=== PATIENT | male | born 1940 | race Caucasian/White ===

== ENCOUNTER → 2018-06-11 15:12 | Outpatient (CLI) | payer MEDICARE, SELFPAY ==
[2018-06-11 17:36] LABS: Absolute Lymphocyte Count 1.09 X10^3/ul (0.83-4.51); Absolute Neutrophil Count 4.5 X10^3/uL (2.0-7.7); Basophil# 0.02 X10^3/uL; Basophil% 0.3 % (0-1); Eosinophil# 0.15 X10^3/uL; Eosinophils% 2.4 % (0-5); Hematocrit 43.6 % (40-54); Hemoglobin 14.7 g/dl (13.0-16.5); Lymphocyte # 1.09 X10^3/ul (4.0); Lymphocyte % 17.1 % (19-41); Mean Corp Hgb Conc 33.7 g/gl (32-36); Mean Corpuscular Hgb 31.7 pg (27.0-32.0); Monocyte# 0.59 X10^3/uL; Monocyte% 9.3 % (0-10); Neutrophil # 4.51 X10^3/uL (2.7-7.7); Neutrophil % 70.7 % (47-70); POSITIVE COUNT NO; POSITIVE DIFFERENTIAL NO; POSITIVE MORPHOLOGY NO; Platelet Count 203 K/mm3 (150-450); RBC Distribution Width CV 12.4 % (11.6-14.6); RBC Distribution Width SD 42.1 fl (35.1-43.9); Red Blood Count 4.64 M/mm3 (4.6-6.2); White Blood Count 6.4 K/mm3 (4.4-11.0)
[2018-06-11 17:52] LABS: Anion Gap 9 (5-15); BUN 23 mg/dL (7-18); BUN/Creat Ratio 22.1 RATIO (10-20); Calcium,Total 8.8 mg/dL (8.5-10.1); Chloride 107 mmol/L (98-107); Creatinine, Serum 1.04 mg/dL (0.70-1.30); EST Glomerular Filtration Rate 74 mL/min (>60); Est Glom Filt Rate - Afr Amer 89 mL/min (>60); Glucose 124 mg/dL (74-106); Magnesium 2.3 mg/dL (1.6-2.6); Potassium 4.3 mmol/L (3.5-5.1); Sodium Level 140 mmol/L (136-145)
== END ==
LOC: LAB.FUTURE 07-07 15:39 → BFHLAB 01-02 10:22
PROVIDERS: Family Provider Family Medicine; PCP Family Medicine; Visit Provider Family Medicine
DX: R61 Generalized hyperhidrosis (principal); R25.2 Cramp and spasm
CPT/HCPCS: 36415; 80048; 83735; 85025

== ENCOUNTER → 2020-01-02 | Outpatient (CLI) | payer MEDICARE, SELFPAY ==
[2019-10-24 09:24] VITALS: BMI 26.5
[2020-01-02 15:18] LABS: Absolute Lymphocyte Count 1.23 X10^3/uL (0.83-4.51); Absolute Neutrophil Count 2.9 X10^3/uL (2.0-7.7); Basophil# 0.01 X10^3/uL; Basophil% 0.2 % (0-1); Eosinophil# 0.08 X10^3/uL; Eosinophils% 1.7 % (0-5); Hematocrit 42.4 % (40-54); Lymphocyte # 1.23 X10^3/ul (4.0); Lymphocyte % 25.8 % (19-41); Mean Corpuscular Hgb 31.1 pg (27.0-32.0); Mean Corpuscular Volume 94.2 fL (80-94); Mean Platelet Vol. 10.4 fl (6.2-12.0); Monocyte# 0.59 X10^3/uL; Monocyte% 12.4 % (0-10); NRBC Flagged by Analyzer 0 % (0-5); Neutrophil # 2.85 X10^3/uL (2.7-7.7); Neutrophil % 59.7 % (47-70); Platelet Count 204 K/mm3 (150-450); RBC Distribution Width CV 12.5 % (11.6-14.6); RBC Distribution Width SD 42.9 fl (35.1-43.9); White Blood Count 4.8 K/mm3 (4.4-11.0)
[2020-01-02 15:43] LABS: Hemoglobin A1c 5.6 % (3.8-5.6)
[2020-01-02 15:44] LABS: ALB/GLOB Ratio 1.1 RATIO (0.9-2.4); AST(SGOT) 20 U/L (15-37); Alanine Aminotransfer ALT/SGPT 25 U/L (16-61); Albumin, Serum 3.9 g/dL (3.2-5.0); Alkaline Phosphatase 59 U/L (45-117); Anion Gap 8 (5-15); BUN 20 mg/dL (7-18); BUN/Creat Ratio 21.2 RATIO (10-20); Calcium,Total 8.8 mg/dL (8.5-10.1); Chloride 106 mmol/L (98-107); Creatinine, Serum 0.94 mg/dL (0.70-1.30); EST Glomerular Filtration Rate 82 mL/min (>60); Est Glom Filt Rate - Afr Amer 99 mL/min (>60); Globulin 3.4 g/dL (2.2-4.2); Glucose 95 mg/dL (74-106); Potassium 3.8 mmol/L (3.5-5.1); Protein, Total 7.3 g/dL (6.4-8.2); Sodium Level 140 mmol/L (136-145)
== END | disposition home or self-care (01) ==
PROVIDERS: PCP Family Medicine; Visit Provider Family Medicine
DX: I10 Essential (primary) hypertension (principal); R73.01 Impaired fasting glucose; Z51.81 Encounter for therapeutic drug level monitoring
CPT/HCPCS: 36415; 80053; 83036; 85025

== ENCOUNTER → 2020-04-06 | Outpatient (CLI) | payer MEDICARE, SELFPAY ==
[2019-10-24 09:24] VITALS: BMI 26.5
== END | disposition home or self-care (01) ==
LOC: SL 08:47
PROVIDERS: PCP Family Medicine; Referring Provider Family Medicine; Visit Provider Family Medicine
DX: G47.30 Sleep apnea, unspecified (principal); G47.10 Hypersomnia, unspecified; R06.83 Snoring; I10 Essential (primary) hypertension
CPT/HCPCS: 95806

== ENCOUNTER → 2020-05-10 | Outpatient (CLI) | payer MEDICARE, SELFPAY ==
[2020-04-21 13:30] VITALS: BMI 26.5
== END | disposition home or self-care (01) ==
LOC: SL 20:11
PROVIDERS: PCP Family Medicine; Referring Provider Nurse Practitioner Acute Care; Visit Provider Nurse Practitioner Acute Care
DX: G47.33 Obstructive sleep apnea (adult) (pediatric) (principal)
CPT/HCPCS: 95810

== ENCOUNTER → 2020-06-03 09:51 | Outpatient (CLI) | payer MEDICARE, SELFPAY ==
[2020-04-21 13:30] VITALS: BMI 26.5
== END ==
PROVIDERS: PCP Family Medicine; Visit Provider Nurse Practitioner Acute Care
DX: Z46.89 Encounter for fitting and adjustment of other specified devices (principal)

== ENCOUNTER 2021-03-21 14:52 | Inpatient (IN) | payer MEDICARE, SELFPAY ==
[2021-03-21] VITALS (7 sets, daily range): BP systolic 163–184; BP diastolic 82–93; PULSE 59–97; RESP 16–22; TEMP 36.6–36.9; O2SAT 96–98; BMI 28.3; BMI 27.2
--- NOTE | 2021-03-21 16:14 | EKG12_ITS ---
Test Reason : Blood Pressure : / mmHG Vent. Rate : 090 BPM Atrial Rate : 090 BPM P-R Int : 156 ms QRS Dur : 092 ms QT Int : 390 ms P-R-T Axes : 050 -25 036 degrees QTc Int : 477 ms Sinus rhythm with Premature atrial complexes Septal infarct , age undetermined , cannot be excluded Abnormal ECG Confirmed by CLEMENTE VELASQUEZ, VERONICA ([id number]), medium cycle salesperson RAVIN FREITAS ([id number]) on 03/23/2021 9:47:24 AM Referred By: MAKSIM Confirmed By:VERONICA CORNEJO MD
--- NOTE | 2021-03-21 16:15 | EDS_ITS ---
HPI History of Present Illness Chief Complaint: Other, Pain/Inj Informant: patient and family Onset/Context/Timing Onset: Weeks Context: Gradual Onset Timing: Intermittent Current Severity: Gone Maximum Severity: Mild Narrative Narrative: 81-year-old male history of prostate cancer and hypertension. No known cardiac disease. Had a stress test years ago. Is never had a cardiac cath. For the last 4 to 6 weeks has had intermittent left arm discomfort. Not specifically associated with exertion. Denies shortness of breath with it. At times he does get intermittent chest pain. Again not specifically associated with exertion. He denies nausea. Currently symptom-free. Prior similar symptoms: Yes Recent Illness/Hospitalization: No PFSH PFSH Medical History (Updated 03/21/21 @ 18:[address] Saeid Shipley MD) CKD (chronic kidney disease) stage 4, GFR 15-29 ml/min HTN (hypertension) Prostate adenocarcinoma Vascular dialysis catheter in place Home Medications hydralazine 100 mg PO TID #180 tab 01/12/16 [Rx Last Taken Unknown] alendronate 70 mg tablet 70 mg PO QWEEK 04/21/20 [History Last Taken Unknown] amlodipine 10 mg tablet 10 mg PO BID tab 04/21/20 [History Last Taken Unknown] enzalutamide 40 mg capsule 80 mg PO DAILY 04/21/20 [History Last Taken Unknown] lisinopril 20 mg tablet 20 mg PO DAILY 04/21/20 [History Last Taken Unknown] venlafaxine [Effexor XR] 75 mg PO DAILY 03/21/21 [History Last Taken Unknown] Allergy/AdvReac Type Severity Reaction Status Date / Time No Known Allergies Allergy Verified 03/21/21 14:55 Surgical History Nephrostomy status Social History Smoking Status: Never smoker ROS ROS ED ROS Narrative Denies recent illness. Review of Systems ROS Unobtainable: Denies due to encephalopathy Constitutional Constitutional ED: Denies chills or fever(s) Eyes Eyes: Denies change in vision ENT ENT ED: Denies ear pain or sore throat Cardiovascular Cardiovascular: Reports chest pain Respiratory/Chest Respiratory/Chest: Denies dyspnea Gastrointestinal Gastrointestinal: Denies abdominal pain, diarrhea, nausea or vomiting Genitourinary Genitourinary ED: Denies dysuria Musculoskeletal Musculoskeletal: Denies myalgias Integumentary Denies rash Neurologic Neurologic: Denies headache(s) Psychiatric Psychiatric: Denies depression Endocrine Endocrinology: Denies polyuria Allergic/Immunologic Allergic/Immunologic ED: Denies urticaria EXAM Physical Exam Narrative Exam Narrative: 81-year-old male no acute distress. Vital signs stable afeb rile. Pulse ox 98% on room air no hypoxia. HEENT exam normal. Neck nontender no lymphadenopathy. Lungs clear to auscultation bilaterally. Heart regular rhythm no murmur. Chest wall nontender. Abdomen soft nontender. Patient moving all 4 extremities. 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 Equal symmetrical radial pulses. Calves are nontender without edema or cords. Back nontender. Neurologically is awake and alert. Const Vital Signs: 03/21/21 14:53 03/21/21 17:25 Temperature 98.4 F 97.8 F Temperature Source Temporal Temporal Pulse Rate 94 97 Respiratory Rate 16 22 H Blood Pressure 175/93 H 184/82 H Blood Pressure Mean 120 116 Pulse Ox 98 96 Oxygen Delivery Method Room Air Room Air Positive well nourished and well developed; Negative for unkempt General Appearance ED: well developed and NAD; Negative for unkempt HEENT Reports moist mucous membranes Negative for trauma or tenderness Eyes PERRL and EOMs intact bilaterally Neck no lymphadenopathy, supple and no JVD General: Negative for tenderness Chest Wall inspection of chest normal and palpation of chest normal Resp normal respiratory effort and clear to auscultation bilaterally Effort and Inspection: Negative for pain with movement Auscultation: Negative for rales, rhonchi or wheezes Cardio regular rate, regular rhythm, S1 normal heart sound, S2 normal heart sound and no murmurs GI normal to inspection, nondistended, normoactive bowel sounds, non-tender, non- distended and no masses Auscultation: normoactive bowel sounds Palpation: soft; Negative for tender or guarding Back/Spine no CVA tenderness General Back: Negative for CVA tenderness Extremity normal to inspection General Extremety ED: Negative for edema or tenderness General Extremity: Negative for edema Neuro oriented x3 and CN's II-XII intact bilaterally Sensorium / Orientation: alert; Negative for orientation impaired, lethargic or stuporous Motor Exam: strength 5/5 throughout Psych mental status grossly normal Appearance: Negative for unkempt Skin no rashes or lesions noted and no wounds MDM MDM MDM Narrative Medical decision making narrative: 81-year-old male atypical arm pain. Has a completely normal exam at this time no reproducible arm or chest wall pain. Currently symptom-free. Patient will undergo cardiac work-up. Patient's history of left arm pain is not reproducible and could be cardiac equivalent with his chest pain I would admit this with the elevated troponin and have him undergo further cardiac evaluation. On repeat exam patient is resting comfortably at 6:11 PM. Lab Data Attestation: I reviewed the patient's lab results. Lab results narrative: CBC shows a white count of 4. Hemoglobin 14. Platelet count of 144. Chemistries unremarkable gap of 6 normal creatinine. Glucose 119. Troponin is elevated at 334. Labs: Laboratory Results - last 24 hr 03/21/21 03/21/21 16:30 16:30 WBC 4.2 L RBC 4.71 Hgb 14.6 Hct 43.1 MCV 91.5 MCH 31.0 MCHC 33.9 RDW Std Deviation 45.1 H RDW Coeff of Carol 13.4 Plt Count 144 L MPV 9.8 Immature Gran % (Auto) 0.200 Neut % (Auto) 54.9 Lymph % (Auto) 34.0 Rooks % (Auto) 10.2 H Eos % (Auto) 0.2 Baso % (Auto) 0.5 Absolute Neuts (auto) 2.3 Absolute Lymphs (auto) 1.44 Nucleated RBC % 0 Sodium 135 L Potassium 4.4 Chloride 107 Carbon Dioxide 22.0 Anion Gap 6 BUN 13 Creatinine 0.77 Estim Creat Clear Calc 58.92 Est GFR (MDRD) Af Amer 125 Est GFR (MDRD) Non-Af 103 BUN/Creatinine Ratio 16.9 Glucose 119 H Calcium 8.6 Troponin I High Sens 334 H* Radiography Chest X-Ray - ED: 1 View, Read by ED Physician, Heart, Lungs, Mediastinum, Bony Structures, No Acute Disease and Chronic Changes Diagnostic Testing: Radiology Impression Chest X-Ray 03/21/21 16:40 IMPRESSION: No change or acute chest disease. Electronically Signed: Colby Martínez MD at 17:13 EDT , Service support , Portable single view chest x-ray interpreted myself shows no acute abnormality. Rhythm Strip Rhythm Strip: Sinus Rhythm Rate: 90 Ectopy: PAC(s) EKG Initial EKG: Attestation: I personally reviewed and interpreted this EKG as follows: Interpretation: Sinus Rhythm and No Acute Injury Pattern Comments: Sinus rhythm rate of 90 with PACs. No acute signs of OK nor ischemia. Discharge Plan Triage Chief Complaint: Other, Pain/Inj ED Provider: Saeid Shipley Dx/Rx/DC Orders Clinical Impression: Acute chest pain Prescriptions: No Action lisinopril 20 mg tablet 20 mg PO DAILY RF: 0 amlodipine 10 mg tablet 10 mg PO BID RF: 0 Xtandi 40 mg capsule 80 mg PO DAILY RF: 0 alendronate [Fosamax] 70 mg tablet 70 mg PO QWEEK RF: 0 hydralazine 50 MG tablet 100 mg PO TID Qty: 180 RF: 0 venlafaxine [Effexor XR] 75 mg capsule,extended release 24hr 75 mg PO DAILY RF: 0 Primary Care Provider: Benedicto Hinson Referrals: Benedicto Hinson DO [Primary Care Provider] - Disposition Disposition: Acute Care Hospital [facility]
[2021-03-21] MEDS: Aspirin 81 MG TAB.CHEW 324 MG PO (16:22)
--- NOTE | 2021-03-21 16:40 | RAD_ITS ---
STUDY: X-RAY CHEST REASON FOR EXAM: Male, 81 years old. chest pain TECHNIQUE: Single AP portable view of the chest. COMPARISON: 01/27/2015 FINDINGS: Soft tissue mass along both sides of the upper mediastinum, most consistent with goiter, stable. The lungs are clear and expanded. There is no demonstrated pleural abnormality. Normal size heart. Normal mediastinum and hong. Normal visualized pulmonary arteries. There is atherosclerotic calcification of the aortic arch with tortuosity. Normal visualized thoracic spine. Normal visualized ribs, clavicles, and shoulders. There is no demonstrated abnormality of the visualized soft tissue structures of the upper abdomen. RAD/Chest 1 View (Portable) IMPRESSION: No change or acute chest disease. Electronically Signed: Colby Martínez MD at 17:13 EDT , Service support ,
[2021-03-21 16:51] LABS: Absolute Lymphocyte Count 1.44 X10^3/uL (0.83-4.51); Absolute Neutrophil Count 2.3 X10^3/uL (2.0-7.7); Basophil# 0.02 X10^3/uL; Basophil% 0.5 % (0-1); Eosinophil# 0.01 X10^3/uL; Eosinophils% 0.2 % (0-5); Hematocrit 43.1 % (40-54); Hemoglobin 14.6 g/dL (13.0-16.5); Lymphocyte # 1.44 X10^3/ul (0.83-4.51); Mean Corp Hgb Conc 33.9 g/dL (32-36); Mean Corpuscular Volume 91.5 fL (80-94); Mean Platelet Vol. 9.8 fl (6.2-12.0); Monocyte# 0.43 X10^3/uL; Monocyte% 10.2 % (0-10); NRBC Flagged by Analyzer 0 % (0-5); Neutrophil # 2.32 X10^3/uL (2.7-7.7); Neutrophil % 54.9 % (47-70); Platelet Count 144 K/mm3 (150-450); RBC Distribution Width CV 13.4 % (11.6-14.6); RBC Distribution Width SD 45.1 fl (35.1-43.9); Red Blood Count 4.71 M/mm3 (4.6-6.2); White Blood Count 4.2 K/mm3 (4.4-11.0)
[2021-03-21 17:18] LABS: Anion Gap 6 (5-15); BUN 13 mg/dL (7-18); BUN/Creat Ratio 16.9 RATIO (10-20); Calcium,Total 8.6 mg/dL (8.5-10.1); Chloride 107 mmol/L (98-107); Creatinine, Serum 0.77 mg/dL (0.70-1.30); EST Glomerular Filtration Rate 103 mL/min (>60); Est Glom Filt Rate - Afr Amer 125 mL/min (>60); Estimated Creatinine Clearance 58.92 ml/min; Glucose 119 mg/dL (74-106); Potassium 4.4 mmol/L (3.5-5.1); Sodium Level 135 mmol/L (136-145); Troponin-I HS 334 pg/mL (3.0-78.0)
--- NOTE | 2021-03-21 18:35 | HP.PCM_ITS ---
Documented by User: GALINA Trinidad 03/21/21 18:46 HPI - General General Date of Admission: 03/21/21 Date of Service: 03/21/21 Chief Complaint: Arm pain HPI Narrative MARIANO QUIROZ, is a 81 M who presents with complaints of 5 out of 10 arm pain. Patient states that he also had a mild dull chest pain medial directly behind the sternum. Patient denies numbness or tingling with the pain. Patient states that he has a history of prostate cancer as well as hypertension and notes that his blood pressure has been higher than normal over the past couple weeks. Patient states that he is supposed to see his primary care physician on to address this. Patient states currently the pain has improved to 2 out of 10. Patient fever, chills, shortness of breath, cough, nausea, vomiting. PENDING SALE TO [facility] Medical History HTN (hypertension) Prostate adenocarcinoma Vascular dialysis catheter in place Home Medications alendronate 70 mg tablet 70 mg PO MO 04/21/20 [History Last Taken 03/21/21] enzalutamide 40 mg capsule 160 mg PO DAILY 04/21/20 [History Last Taken 03/20/21] lisinopril 20 mg tablet 20 mg PO DAILY 04/21/20 [History Last Taken 03/20/21] amlodipine 5 mg PO BID 03/21/21 [History Last Taken 03/21/21] berberine-herbal comb no.18 1 cap PO DAILY 03/21/21 [History Last Taken 03/21/21] calcium-magnesium 1 tab PO DAILY 03/21/21 [History Last Taken 03/21/21] hydralazine 100 mg PO TID 03/21/21 [History Last Taken 03/21/21] potassium chloride 20 meq PO DAILY 03/21/21 [History Last Taken 03/21/21] venlafaxine [Effexor XR] 75 mg PO DAILY 03/21/21 [History Last Taken 03/21/21] Allergy/AdvReac Type Severity Reaction Status Date / Time No Known Allergies Allergy Verified 03/21/21 14:55 Family History Brother Diabetes other (Patient denies significant medical history including SD, CVA, DM for mother or father) Surgical History Nephrostomy status Social History Smoking Status: Never smoker alcohol intake: never substance use type: does not use ROS Constitutional Constitutional: Denies anorexia, chills, fatigue or weakness Cardiovascular Cardiovascular: Reports chest pain, radiating jaw, neck or arm pain and tachypnea; Denies edema, nausea, syncope or vomiting Respiratory/Chest Respiratory/Chest: Denies cough, shortness of breath at rest or shortness of breath with exertion Gastrointestinal Gastrointestinal: Denies abdominal pain, constipation, diarrhea, nausea or vomiting Genitourinary Genitourinary: Denies dysuria Musculoskeletal Musculoskeletal: Denies back pain, extremity pain, joint pain or joint stiffness Integumentary Integumentary: Denies dry skin Neurologic Neurologic: Denies abnormal gait, abnormal speech, confusion or dizziness Psychiatric Psychiatric: Denies anxiety or depression Endocrine Endocrinology: Denies change in body appearance Hematologic/Lymphatic Hematologic/Lymphatic: Denies anemia, easy bleeding or easy bruising Vital Signs Vital Signs Vital Signs: 03/21/21 14:53 03/21/21 17:25 Temperature 98.4 F 97.8 F Temperature Source Temporal Temporal Pulse Rate 94 97 Respiratory Rate 16 22 H Blood Pressure 175/93 H 184/82 H Blood Pressure Mean 120 116 Pulse Ox 98 96 Oxygen Delivery Method Room Air Room Air Weight Weight: 191 lb 12.835 oz Body Mass Index (BMI) 28.3 Physical Exam Const alert, oriented x3 and no apparent distress General Appearance: cooperative HEENT normocephalic and head/scalp atraumatic Eyes conjunctivae normal and no scleral icterus Neck supple and no JVD General: trachea midline Resp normal respiratory effort, normal air movement and clear to auscultation bilaterally Cardio regular rate, regular rhythm, S1 normal heart sound and S2 normal heart sound GI normal to inspection, nondistended, normoactive bowel sounds, soft to palpation and non-tender Extremity normal capillary refill and no clubbing, cyanosis or edema General Extremity: no tenderness to palpation of joints or extremities Skin General Skin Exam: no breakdown and turgor normal Lesions: no lesions Rashes: no rashes Neuro no focal motor deficits and no sensory deficits noted Speech: speech normal Motor Exam: Negative for general weakness Psych thought process normal, cooperative and affect normal Appearance: appropriate Results Lab / Micro Data Result Diagrams: 03/21/21 16:30 03/21/21 16:30 Labs: Laboratory Results - last 24 hr 03/21/21 16:30: WBC 4.2 L, RBC 4.71, Hgb 14.6, Hct 43.1, MCV 91.5, MCH 31.0, MCHC 33.9, RDW Std Deviation 45.1 H, RDW Coeff of Carol 13.4, Plt Count 144 L, MPV 9.8, Immature Gran % (Auto) 0.200, Neut % (Auto) 54.9, Lymph % (Auto) 34.0, Travis % (Auto) 10.2 H, Eos % (Auto) 0.2, Baso % (Auto) 0.5, Absolute Neuts (auto) 2.3, Absolute Lymphs (auto) 1.44, Nucleated RBC % 0 03/21/21 16:30: Sodium 135 L, Potassium 4.4, Chloride 107, Carbon Dioxide 22.0, Anion Gap 6, BUN 13, Creatinine 0.77, Estim Creat Clear Calc 58.92, Est GFR (MDRD) Af Amer 125, Est GFR (MDRD) Non-Af 103, BUN/Creatinine Ratio 16.9, Glucose 119 H, Calcium 8.6, Troponin I High Sens 334 H* Rhythm Strip Rhythm Strip: Sinus Rhythm Rate: 90 Ectopy: PAC(s) Radiology Impression Chest X-Ray 03/21/21 16:40 IMPRESSION: No change or acute chest disease. Electronically Signed: Colby Martínez MD at 17:13 EDT , Service support , Assessment & Plan Assessment/Plan (1) Acute chest pain: PLAN: 1. Acute chest pain -Admit to PCU for cardiac monitoring -Consult cardiology -Trend cardiac enzymes, initial level 334 -Cardiac diet -N.p.o. at midnight pending probable testing by cardiology -PT and OT to eval and treat -CBC, CMP, lipid profile, magnesium, phosphorus, TSH ordered -Vital signs per protocol 2. Hypertension -Patient reports that blood pressures have been running higher than usual, will continue home medication regimen. -Will start metoprolol tartrate 25 mg twice daily -As needed hydralazine IV ordered -Vital signs per protocol, trend BP 3. Prostate cancer -Continue Xtandi, daughter states she will bring from home -Currently stable, patient reports he underwent chemotherapy and is maintained on hormonal Xtandi DVT prophylaxis-subcu Lovenox This patient was seen by VISHNU TrinidadC under the supervision of Dr. Salcedo. Documented by User: Dr. Negrita Salcedo DO 03/21/21 18:58 HPI - General General Date of Admission: 03/21/21 Date of Service: 03/21/21 Chief Complaint: Left arm pain HPI Narrative This patient was seen in conjunction with Dee Rome NP. The following represents my independent history physical examination. Please see below for any addendum of the above. Mr. Quiroz is an 81-year-old white male who presented to the emergency department at [facility] upon the urging of his daughter who was at the bedside for left arm pain. He reports that he has been having left arm pain on and off over the last 6 weeks. He states that it time it is in his back in the scapular area. He has no associated symptoms. He has not noticed any w orsening of symptoms with exertion and states he often gets symptoms while he sitting on the computer. His symptoms had resolved prior to presentation and have not returned since he has been in the emergency department. His blood pressures been markedly elevated since arrival and the family indicates that this has been a problem for him since presentation. He has no history of known coronary disease nor any family history of known coronary disease. He is on therapy for prostate adenocarcinoma which he has been on for the last 6 years. His vital signs were stable other than hypertension. His CBC shows a mildly reduced white count of 4.2 and thrombocytopenia with a platelet count of 144. Both of these lab values have been normal previously. His BNP shows a mildly reduced sodium at 135. His serum creatinine is normal. His blood glucose is 119-this is not fasting. His high-sensitivity troponin was elevated at 334. His chest x-ray shows no acute processes. His EKG was reviewed and shows no acute ST-T wave changes consistent with ischemia. PENDING SALE TO [facility] Medical History HTN (hypertension) Prostate adenocarcinoma Vascular dialysis catheter in place Home Medications alendronate 70 mg tablet 70 mg PO MO 04/21/20 [History Last Taken 03/21/21] enzalutamide 40 mg capsule 160 mg PO DAILY 04/21/20 [History Last Taken 03/20/21] lisinopril 20 mg tablet 20 mg PO DAILY 04/21/20 [History Last Taken 03/20/21] amlodipine 5 mg PO BID 03/21/21 [History Last Taken 03/21/21] berberine-herbal comb no.18 1 cap PO DAILY 03/21/21 [History Last Taken 03/21/21] calcium-magnesium 1 tab PO DAILY 03/21/21 [History Last Taken 03/21/21] hydralazine 100 mg PO TID 03/21/21 [History Last Taken 03/21/21] potassium chloride 20 meq PO DAILY 03/21/21 [History Last Taken 03/21/21] venlafaxine [Effexor XR] 75 mg PO DAILY 03/21/21 [History Last Taken 03/21/21] Allergy/AdvReac Type Severity Reaction Status Date / Time No Known Allergies Allergy Verified 03/21/21 14:55 Family History Brother Diabetes Surgical History Nephrostomy status Social History Smoking Status: Never smoker alcohol intake: never substance use type: does not use ROS Constitutional Constitutional: Denies anorexia, change in weight, chills, fatigue, fever(s), malaise, night sweats, weakness, weight gain or weight loss Eyes Eyes: Denies blurry vision, change in vision, discharge from eye(s), double vision, erythema, eye pain, irritation or itchy eyes ENT HEENT: Denies abnormal hearing, dysphagia, ear pain, epistaxis, headache(s), hearing loss, loss taste/smell, nasal congestion, nasal discharge, post nasal drip, sinus pain, sinus pressure, sore throat or throat swelling Cardiovascular Cardiovascular: Denies chest pain, claudication, edema, orthopnea, palpitations, paroxysmal nocturnal dyspnea or syncope Respiratory/Chest Respiratory/Chest: Denies cough, hemoptysis, shortness of breath at rest, shortness of breath with exertion or wheezing Gastrointestinal Gastrointestinal: Denies abdominal pain, constipation, diarrhea, dyspepsia, hematemesis, hematochezia, melena, nausea or vomiting Genitourinary Genitourinary: Denies dysuria, hematuria, nocturia, oliguria, polyuria, urinary frequency, urinary hesitancy, urinary incontinence or urinary urgency Musculoskeletal Musculoskeletal: Reports joint pain, joint stiffness and neck pain Integumentary Integumentary: Denies dry skin, jaundice, lesions, pruritus, rash or wounds Neurologic Neurologic: Denies abnormal gait, abnormal speech, confusion, dizziness, focal weakness, headache(s), lack of coordination, numbness, seizures, sensory deficit, tingling, tremor(s) or weakness Psychiatric Psychiatric: Denies anxiety, depression, homicidal ideation or suicidal ideation Endocrine Endocrinology: Denies change in body appearance, cold intolerance, heat intolerance, polydipsia or polyuria Hematologic/Lymphatic Hematologic/Lymphatic: Denies anemia, easy bleeding, easy bruising or lymphadenopathy Physical Exam Const alert, oriented x3 and no apparent distress Constitutional Narrative: Overweight, elderly white male sitting up in bed, appears comfortable and nontoxic, daughter at bedside General Appearance: cooperative and well developed HEENT normocephalic, head/scalp atraumatic and moist oral mucous membranes HEENT Narrative: Fair dentition, Mallampati 2 Eyes PERRL and EOMs intact bilaterally Eyes Narrative: Conjunctiva normal, sclera normal Neck no lymphadenopathy, supple, no JVD, thyroid normal and no carotid bruits General: trachea midline Lymph Lymphatic: no lymphadenopathy noted Resp normal respiratory effort, normal air movement and clear to auscultation bilaterally Effort and Inspection: Negative for respiratory distress or uses accessory muscles Auscultation: Negative for rales, rhonchi or wheezes Cardio regular rate, regular rhythm, S1 normal heart sound, S2 normal heart sound, no murmurs, no rub and peripheral pulses 2+ throughout; Negative for no gallops Cardio Narrative: S4 gallop GI normal to inspection, nondistended, normoactive bowel sounds, soft to palpation, non-tender and non-distended Palpation: no hepatosplenomegaly Extremity normal capillary refill and no clubbing, cyanosis or edema General Extremity: no tenderness to palpation of joints or extremities Skin no rashes or lesions noted, no wounds, skin turgor normal, no jaundice, no petechiae and no mottling General Skin Exam: no breakdown and turgor normal Lesions: no lesions Rashes: no rashes Neuro CN's II-XII intact bilaterally, no focal motor deficits and no sensory deficits noted Speech: speech normal Motor Exam: general weakness Psych thought process normal, cooperative and affect normal Appearance: appropriate Results Lab / Micro Data Attestation: I reviewed the patient's lab results. Result Diagrams: 03/21/21 16:30 03/21/21 16:30 Assessment & Plan Assessment/Plan (1) Non-ST elevation myocardial infarction (NSTEMI), initial care episode: (2) Thrombocytopenia: (3) Leukopenia: (4) HTN (hypertension): PLAN: Assessment: NSTEMI Thrombocytopenia Leukopenia Mild hyponatremia Uncontrolled hypertension MARY CARMEN History of prostate cancer Plan: -EKG shows no acute ST-T wave changes -Initial troponin elevated--> we will cycle cardiac enzymes -Start Lovenox 90 twice daily -Full dose aspirin given in the ED -Start low-dose aspirin tomorrow -Check a.m. lipids -Consult cardiology -Suspect patient will need cardiac catheterization and will make n.p.o. after midnight -Cardiac diet -Start metoprolol and stop home amlodipine -Continue all other home medications except for alendronate and potassium Charges/Coding Visit Charges Inpatient E&M: 84831 Init Hosp L3
--- NOTE | 2021-03-21 20:04 | PCS.PANDOC ---
PANDEMIC DOCUMENTATION INITIATED: Date: 03/07/2021 Time: 190
[2021-03-21] MEDS: hydrALAZINE 50 MG Tablet 100 MG PO (20:47)
[2021-03-21] MEDS: Metoprolol Tartrate 25 MG Tablet PO (20:47)
[2021-03-21] MEDS: Atorvastatin Calcium 80 MG Tablet PO (20:47)
[2021-03-21] MEDS: Enoxaparin 100 MG/ML Syringe 90 MG SC (20:48)
[2021-03-21 21:18] LABS: Troponin-I HS 599 pg/mL (3.0-78.0)
[2021-03-21 23:42] LABS: Troponin-I HS 777 pg/mL (3.0-78.0)
[2021-03-22] VITALS (21 sets, daily range): BP systolic 132–156; BP diastolic 65–76; PULSE 58–74; RESP 16–18; TEMP 36.4–36.8; O2SAT 96–98
[2021-03-22] MEDS: hydrALAZINE 50 MG Tablet 100 MG PO ×3 (04:14→20:36)
[2021-03-22 07:54] LABS: Absolute Lymphocyte Count 1.61 X10^3/uL (0.83-4.51); Absolute Neutrophil Count 1.6 X10^3/uL (2.0-7.7); Basophil# 0.02 X10^3/uL; Basophil% 0.5 % (0-1); Eosinophil# 0.04 X10^3/uL; Hematocrit 39.8 % (40-54); Hemoglobin 13.8 g/dL (13.0-16.5); Lymphocyte # 1.61 X10^3/ul (0.83-4.51); Lymphocyte % 41.6 % (19-41); Mean Corp Hgb Conc 34.7 g/dL (32-36); Mean Corpuscular Hgb 31.6 pg (27.0-32.0); Mean Corpuscular Volume 91.1 fL (80-94); Monocyte% 15.5 % (0-10); NRBC Flagged by Analyzer 0 % (0-5); Neutrophil # 1.59 X10^3/uL (2.7-7.7); Neutrophil % 41.1 % (47-70); Platelet Count 151 K/mm3 (150-450); RBC Distribution Width CV 13.7 % (11.6-14.6); RBC Distribution Width SD 45.4 fl (35.1-43.9); Red Blood Count 4.37 M/mm3 (4.6-6.2); White Blood Count 3.9 K/mm3 (4.4-11.0)
--- NOTE | 2021-03-22 08:45 | ECHOCS_ITS ---
Reason For Study: S/P NSTEMI Procedure This was a 2D Doppler, Color Flow transthoracic echocardiogram. The study was technically difficult. Contrast injection was performed. Exam performed portable in patient room. Left Ventricle Normal LV size. Left ventricular systolic function is normal. The estimated ejection fraction is 65 %. Diastolic function is indeterminate. No regional wall motion abnormalities noted. Right Ventricle Normal RV size. Normal systolic function. Atria The left atrium is mildly enlarged. Normal right atrium. No doppler evidence for ASD. Mitral Valve There is moderate mitral annular calcification. Extension of the mitral annular calcification on the base of the posterior mitral valve leaflet. Mild focal mitral valve calcification of the anterior leaflet. Moderate (2+) eccentric mitral valve insufficiency. Tricuspid Valve Normal tricuspid valve. Mild tricuspid valve insufficiency. Right ventricular systolic pressure estimated to be 26 mmHg. Aortic Valve Trisinus/trileaflet aortic valve. Mild diffuse aortic valve thickening. Mild focal aortic valve calcification. Aortic sclerosis, no stenosis. Mild (1+) aortic valve insufficiency. Pulmonic Valve The pulmonic valve is not well visualized. Mild (1+) pulmonic valve insufficiency. Great Vessels The aortic root is not well visualized. Pericardium/Pleural No pericardial effusion. Medication Diluted definity 3.0ml given slow IV push to enhance endocardial definition. MMode/2D Measurements & Calculations LVIDd: 3.9 cm IVSd: 0.89 cm LVOT diam: 2.0 cm LVIDs: 2.5 cm LVPWd: 0.86 cm RVDd: 3.2 cm FS: 37.3 % LVOT area: 3.0 cm2 LAV(MOD-bp): 61.0 ml LVAd ap4: 32.7 cm2 LVAd ap2: 36.9 cm2 LAV(MOD-bp) Indexed: 30.6 ml/m2 LVLd ap4: 8.3 cm LVLd ap2: 8.5 cm LAV(MOD-sp2): 52.6 ml EDV(MOD-sp4): 106.0 ml EDV(MOD-sp2): 125.5 ml LAV(MOD-sp4): 56.3 ml EDV(sp4-el): 109.5 ml EDV(sp2-el): 135.3 ml LVAs ap4: 19.0 cm2 LVAs ap2: 19.2 cm2 LVLs ap4: 6.5 cm LVLs ap2: 6.9 cm ESV(MOD-sp4): 44.3 ml ESV(MOD-sp2): 44.4 ml ESV(sp4-el): 46.9 ml ESV(sp2-el): 45.4 ml EF(MOD-sp4): 58.2 % EF(MOD-sp2): 64.6 % EF(sp4-el): 57.1 % SV(MOD-sp4): 61.7 ml SV(MOD-sp2): 81.1 ml SV(sp4-el): 62.6 ml LA A4 area: 20.4 cm2 LA dimension(2D): 3.7 cm RA A4 area: 13.9 cm2 Time Measurements MV dec time: 0.35 sec Doppler Measurements & Calculations MV E max james: 94.5 cm/sec Lat Peak E' James: 8.3 cm/sec Med Peak E' James: 6.6 cm/sec MV A max james: 106.3 cm/sec E/E' lat: 11.3 E/E' med: 14.2 MV E/A: 0.89 MV V2 max: 106.9 cm/sec Ao V2 max: 136.4 cm/sec LV V1 max: 113.3 cm/sec MV max P.6 mmHg Ao max P.4 mmHg LV V1 max P.1 mmHg MV V2 mean: 58.8 cm/sec Ao V2 mean: 98.4 cm/sec LV V1 mean P.8 mmHg MV mean P.7 mmHg Ao mean P.2 mmHg LV V1 mean: 79.5 cm/sec MV V2 VTI: 37.2 cm Ao V2 VTI: 32.8 cm LV V1 VTI: 27.7 cm MVA(VTI): 2.2 cm2 ARTEM(I,D): 2.6 cm2 ARTEM(V,D): 2.5 cm2 SV(LVOT): 83.7 ml PA V2 max: 75.9 cm/sec PI end-d james: 97.4 cm/sec TR max james: 239.6 cm/sec TR max P.0 mmHg ECHO/Echo Complete W/ Contrast Interpretation Summary The study was technically difficult. Contrast injection was performed. Left ventricular systolic function is normal. The estimated ejection fraction is 65 %. The left atrium is mildly enlarged. There is moderate mitral annular calcification. Extension of the mitral annular calcification on the base of the posterior mitr al valve leaflet. Mild focal mitral valve calcification of the anterior leaflet. Moderate (2+) eccentric mitral valve insufficiency. Mild tricuspid valve insufficiency. Aortic sclerosis, no stenosis. Mild (1+) aortic valve insufficiency. Mild (1+) pulmonic valve insufficiency. Right ventricular systolic pressure estimated to be 26 mmHg. Diastolic function is indeterminate. Ordering Physician: Emery Ambrosio Referring Physician: SHANTI VALLE Performed By: Radha Guevara, RDCS, RVT
[2021-03-22 09:09] LABS: AST(SGOT) 41 U/L (15-37); Alanine Aminotransfer ALT/SGPT 35 U/L (16-61); Albumin, Serum 3.3 g/dL (3.2-5.0); Alkaline Phosphatase 84 U/L (45-117); Anion Gap 6 (5-15); BUN 15 mg/dL (7-18); BUN/Creat Ratio 22.5 RATIO (10-20); Calcium,Total 8.3 mg/dL (8.5-10.1); Chloride 108 mmol/L (98-107); Cholesterol 197 mg/dL (200); Creatinine, Serum 0.67 mg/dL (0.70-1.30); EST Glomerular Filtration Rate 122 mL/min (>60); Est Glom Filt Rate - Afr Amer 148 mL/min (>60); Estimated Creatinine Clearance 58.92 ml/min; Globulin 3.2 g/dL (2.2-4.2); Glucose 97 mg/dL (74-106); High Density Lipoprotein 42 mg/dL; Magnesium 2.3 mg/dL (1.6-2.6); Phosphorus 3.4 mg/dL (2.5-4.9); Potassium 3.8 mmol/L (3.5-5.1); Protein, Total 6.5 g/dL (6.4-8.2); Sodium Level 137 mmol/L (136-145); Thyroid Stim Hormone (TSH) 1.19 uIU/mL (0.358-3.74); Triglycerides 154 mg/dL; Very Low Density Lipoprotein 31 mg/dL (5-40)
--- NOTE | 2021-03-22 09:23 | CASEMGMT ---
[facility] to [facility], the following are in-network tertiary facilities: [facility], [place], [facility], [facility], [facility], [facility], and . Minh VILLALTA CM
[2021-03-22] MEDS: Aspirin E.C. 81 MG Tablet PO (09:31)
[2021-03-22] MEDS: TICAGRELOR 90 MG TABLET 180 MG PO (09:31)
[2021-03-22] MEDS: Lisinopril 20 MG Tablet PO (09:31)
[2021-03-22] MEDS: Metoprolol Tartrate 25 MG Tablet PO ×2 (09:31→20:36)
[2021-03-22] MEDS: Venlafaxine XR 75 MG Capsule PO (09:31)
--- NOTE | 2021-03-22 10:10 | PCM.CONS.C ---
Assessment & Plan Assessment/Plan (1) Non-ST elevation myocardial infarction (NSTEMI), initial care episode: PLAN: The patient has findings compatible with an acute non-ST segment elevation HI. At the present time he is being monitored. He will continue medical therapy as deemed appropriate. He has been recommended for further evaluation with diagnostic cardiac catheterization. The procedure and risk were discussed with him. He was agreeable to this approach. (2) Unstable angina: PLAN: The patient has symptoms going back over approximately the last 1 month appearing compatible with unstable angina pectoris as the symptoms have been occurring in a nonexertional state. The patient presented for further evaluation care and has been found to have findings compatible with an acute non-ST segment elevation HI. He will continue medical therapy. He will proceed with further evaluation with diagnostic cardiac catheterization as noted above. (3) HTN (hypertension): QUALIFIERS: Hypertension type: unspecified Qualified Code(s): I10 - Essential (primary) hypertension PLAN: The patient states he has a history of hypertension. He notes his blood pressure has been more challenging recently. His blood pressure can be monitored and his medications adjusted accordingly. Addt'l Comments The above was discussed with the patient. He was agreeable to this approach. This note was generated using a voice recognition system and there may be incorrect words, spelling or punctuation that were not noted when reviewing the office note prior to saving. HPI Consult Data Date of Consult: 03/22/21 HPI Narrative HPI Narrative: MARIANO FRANCO, is a 81 year old white male who presents for cardiovascular consultation based upon concerns of chest discomfort concerning for unstable angina pectoris and abnormal cardiac enzymes concerning for an acute non-ST segment elevation HI superimposed upon a history of hypertension. The patient states the best of his knowledge she has no known cardiovascular history. He notes that recently, over the last approximately 1 month, he has had episodes which have been nonexertional which have included precordial/substernal chest discomfort with radiation to the left shoulder and both left arm. These episodes worsened within the last 24 hours while he was sitting at his computer. He denied any associated nausea, emesis, diaphoresis, or dyspnea. There is been no orthopnea, PND, or peripheral pitting edema. He denies any near-syncope or syncope. He presented to [facility] emergency department for further evaluation. He was found to have abnormal troponin I levels. His ECG demonstrated sinus rhythm with a nonspecific T wave abnormality. He was placed in the PCU for further evaluation and care. During this time his troponin I levels have increased. He did receive medical therapy which included 1 dose of subcutaneous enoxaparin/Lovenox. He has been referred for further evaluation with diagnostic cardiac catheterization. [facility] Medical History HTN (hypertension) Prostate adenocarcinoma Vascular dialysis catheter in place Home Medications alendronate 70 mg tablet 70 mg PO MO 04/21/20 [History Last Taken 03/21/21] enzalutamide 40 mg capsule 160 mg PO DAILY 04/21/20 [History Last Taken 03/20/21] lisinopril 20 mg tablet 20 mg PO DAILY 04/21/20 [History Last Taken 03/20/21] amlodipine 5 mg PO BID 03/21/21 [History Last Taken 03/21/21] berberine-herbal comb no.18 1 cap PO DAILY 03/21/21 [History Last Taken 03/21/21] calcium-magnesium 1 tab PO DAILY 03/21/21 [History Last Taken 03/21/21] hydralazine 100 mg PO TID 03/21/21 [History Last Taken 03/21/21] potassium chloride 20 meq PO DAILY 03/21/21 [History Last Taken 03/21/21] venlafaxine [Effexor XR] 75 mg PO DAILY 03/21/21 [History Last Taken 03/21/21] Allergy/AdvReac Type Severity Reaction Status Date / Time No Known Allergies Allergy Verified 03/21/21 14:55 Family History Brother Diabetes Surgical History Nephrostomy status Social History Smoking Status: Never smoker alcohol intake: never substance use type: does not use ROS Constitutional Constitutional: Reports as per HPI Eyes Eyes: Reports as per HPI ENT HEENT: Reports as per HPI Cardiovascular Cardiovascular: Reports chest pain and chest pain at rest Respiratory/Chest Respiratory/Chest: Reports as per HPI Gastrointestinal Gastrointestinal: Reports as per HPI Genitourinary Genitourinary: Reports as per HPI Musculoskeletal Musculoskeletal: Reports as per HPI Integumentary Integumentary: Reports as per HPI Neurologic Neurologic: Reports as per HPI Physical Exam Const alert, oriented x3, no apparent distress and healthy appearing Orientation / Consciousness: awake HEENT normocephalic, head/scalp atraumatic and hearing grossly normal bilaterally Eyes PERRL, EOMs intact bilaterally and conjunctivae normal Neck full ROM, supple and no JVD Chest inspection of chest normal Resp clear to auscultation bilaterally Cardio regular rate, regular rhythm, S1 normal heart sound and S2 normal heart sound GI normal to inspection, nondistended, normoactive bowel sounds Extremity no pedal edema Skin no rashes or lesions noted Neuro oriented x3, moves all extremities, no focal motor deficits and no sensory deficits noted Psych mental status grossly normal Procedure Criteria Type of Procedure Procedure Type: Elective Elective Risks - COVID COVID Risk Discussion: The surgeon/proceduralist and patient have discussed in detail the risk of exposure to and/or potential harm posed by the COVID-19 virus with having a surgery/procedure at this time versus the risk of delaying the surgery/procedure. It is not possible to know either the risk of delaying the surgery or procedure or chance of getting an infection with perfect accuracy, but a joint decision was made between the patient and the surgeon/proceduralist to proceed at this time with the scheduled surgery/procedure as indicated on the consent form. Objective Data Vital Signs: Vital Signs Temp Pulse Resp BP Pulse Ox 97.6 F L 74 18 156/72 H 97 03/22/21 08:09 03/22/21 09:31 03/22/21 08:09 03/22/21 08:09 03/22/21 08:09 Oxygen Delivery Method Room Air Weight: 184 lb 8.43 oz Body Mass Index (BMI) 27.2 Intake & Output: Intake and Output for Last 24 Hours 03/20/21 03/21/21 03/22/21 23:59 23:59 23:59 Intake Total 340 / 340 Balance 340 / 340 Lab / Micro Data Result Diagrams: 03/22/21 05:55 03/22/21 05:55 Labs: Laboratory Results - last 24 hr 03/21/21 16:30: WBC 4.2 L, RBC 4.71, Hgb 14.6, Hct 43.1, MCV 91.5, MCH 31.0, MCHC 33.9, RDW Std Deviation 45.1 H, RDW Coeff of Carol 13.4, Plt Count 144 L, MPV 9.8, Immature Gran % (Auto) 0.200, Neut % (Auto) 54.9, Lymph % (Auto) 34.0, Stephenson % (Auto) 10.2 H, Eos % (Auto) 0.2, Baso % (Auto) 0.5, Absolute Neuts (auto) 2.3, Absolute Lymphs (auto) 1.44, Nucleated RBC % 0 03/21/21 16:30: Sodium 135 L, Potassium 4.4, Chloride 107, Carbon Dioxide 22.0, Anion Gap 6, BUN 13, Creatinine 0.77, Estim Creat Clear Calc 58.92, Est GFR (MDRD) Af Amer 125, Est GFR (MDRD) Non-Af 103, BUN/Creatinine Ratio 16.9, Glucose 119 H, Calcium 8.6, Troponin I High Sens 334 H* 03/21/21 20:26: Troponin I High Sens 599 H* 03/21/21 22:40: Troponin I High Sens 777 H* 03/22/21 05:55: WBC 3.9 L, RBC 4.37 L, Hgb 13.8, Hct 39.8 L, MCV 91.1, MCH 31.6, MCHC 34.7, RDW Std Deviation 45.4 H, RDW Coeff of Carol 13.7, Plt Count 151, MPV 10.0, Immature Gran % (Auto) 0.300, Neut % (Auto) 41.1 L, Lymph % (Auto) 41.6 H, Stephenson % (Auto) 15.5 H, Eos % (Auto) 1.0, Baso % (Auto) 0.5, Absolute Neuts (auto) 1.6 L, Absolute Lymphs (auto) 1.61, Nucleated RBC % 0 03/22/21 05:55: Sodium 137, Potassium 3.8, Chloride 108 H, Carbon Dioxide 23.0, Anion Gap 6, BUN 15, Creatinine 0.67 L, Estim Creat Clear Calc 58.92, Est GFR (MDRD) Af Amer 148, Est GFR (MDRD) Non-Af 122, BUN/Creatinine Ratio 22.5 H, Glucose 97, Calcium 8.3 L, Phosphorus 3.4, Magnesium 2.3, Total Bilirubin 0.90, AST 41 H, ALT 35, Alkaline Phosphatase 84, Total Protein 6.5, Albumin 3.3, Globulin 3.2, Albumin/Globulin Ratio 1.0, Triglycerides 154, Cholesterol 197, LDL Cholesterol 124, VLDL Cholesterol 31, HDL Cholesterol 42, TSH 1.19 Micro: Microbiology 03/21/21 19:00 Interface Orders SARS-CoV-2 Antigen (Rapid) - Final Rhythm Strip Rhythm Strip: Sinus Rhythm Rate: 90 Ectopy: PAC(s) Cardiology Labs/Tests 03/21/21 16:30: WBC 4.2 L, RBC 4.71, Hgb 14.6, Hct 43.1, MCV 91.5, MCH 31.0, MCHC 33.9, Plt Count 144 L, MPV 9.8, Immature Gran % (Auto) 0.200, Neut % (Auto) 54.9, Lymph % (Auto) 34.0, Stephenson % (Auto) 10.2 H, Eos % (Auto) 0.2, Baso % (Auto) 0.5, Absolute Neuts (auto) 2.3, Nucleated RBC % 0 03/21/21 16:30: Sodium 135 L, Potassium 4.4, Chloride 107, Carbon Dioxide 22.0, Anion Gap 6, BUN 13, Creatinine 0.77, Est GFR (MDRD) Af Amer 125, Est GFR (MDRD) Non-Af 103, BUN/Creatinine Ratio 16.9, Glucose 119 H, Calcium 8.6 03/22/21 05:55: WBC 3.9 L, RBC 4.37 L, Hgb 13.8, Hct 39.8 L, MCV 91.1, MCH 31.6, MCHC 34.7, Plt Count 151, MPV 10.0, Immature Gran % (Auto) 0.300, Neut % (Auto) 41.1 L, Lymph % (Auto) 41.6 H, Stephenson % (Auto) 15.5 H, Eos % (Auto) 1.0, Baso % (Auto) 0.5, Absolute Neuts (auto) 1.6 L, Nucleated RBC % 0 03/22/21 05:55: Sodium 137, Potassium 3.8, Chloride 108 H, Carbon Dioxide 23.0, Anion Gap 6, BUN 15, Creatinine 0.67 L, Est GFR (MDRD) Af Amer 148, Est GFR (MDRD) Non-Af 122, BUN/Creatinine Ratio 22.5 H, Glucose 97, Calcium 8.3 L, Phosphorus 3.4, Magnesium 2.3, Total Bilirubin 0.90, Triglycerides 154, Cholesterol 197, LDL Cholesterol 124, VLDL Cholesterol 31, HDL Cholesterol 42 Rhythm: Sinus rhythm EKG: Sinus rhythm; nonspecific T wave abnormality Radiography Diagnostic Testing: Radiology Impression Chest X-Ray 03/21/21 16:40 IMPRESSION: No change or acute chest disease. Electronically Signed: Colby Martínez MD at 17:13 EDT , Service support ,
--- NOTE | 2021-03-22 10:55 | CASEMGMT ---
RN CM Face to Face with family for initial transition planning/care coordination assessment. RN CM introduced self and role at [facility]. Patient out of room for procedure, and daughter in room. Family willing to participate in assessment and is able to answer all questions appropriately. Care providers, pharmacy, and demographics verified. Family wishes for patient to discharge home, denies need for home health at this time. and daughter state they has no further needs or concerns at this time. CM to follow for discharge planning needs that may arise. PCP: Sravan Specialists: Steph oncologist [facility] Insurance: [employer] [facility] Prescription Benefit: yes Living Will/HPOA: yes, family know of living will not sure of HPOA. SW information card given if they would like to update advance directives LNOK: , daughter Living Arrangements: Patient lives with in a 2 story home. Patient is independent and able to ambulate stairs. Transportation: self, , daughter DME/HHC: Family denies DME at home. No previous HHC. Disposition Plan: Patient to discharge home with family support and follow-up plans in place. Ana PERKINSN, RN, CM
--- NOTE | 2021-03-22 11:43 | CL.D_ITS ---
Patient Name: MARIANO FRANCO Study Date: 03/22/2021 Performing: Emery Ambrosio MD Ht: 69 inches 175 cm : 1940 Wt: 185.4 lbs 84 kg Age: 81 Gender: male BSA: 2 PROCEDURE(S) PERFORMED [id number]/[id number] CLINICAL PROFILE AND INDICATIONS Indications: ACS <= 24 hrs Heart Failure: None Stress/Imaging Stress/Image Study Performed: No Angina Classification Anginal Classification w/in 2 Weeks: CCS IV CAD Presentations: Non-STEMI. CONCLUSIONS [place] Multivessel CAD RECOMMENDATIONS Risk factor modification Medical therapy Surgery consult for coronary revascularization DESCRIPTION OF PROCEDURE The patient arrived to the procedure lab. The risks and benefits of the procedure as well as a full d escription of our services here and current unavailability of surgical backup were fully explained to the patient and/or their significant other prior to the catheterization. The Timeout was completed, verifying the correct patient and procedure. The patient's procedural site was prepped and draped in the usual fashion. Local anesthetic was given subcutaneously to right radial region with Lidocaine 2% . Using a modified Seldinger technique, arterial access was obtained via the right radial artery, a 6 Fr sheath was inserted. Right Coronary Artery selective angiography was then performed in multiple v iews using a 5 Fr. 4.0 [place] catheter. Left Coronary Artery selective angiography was performed in mu ltiple views using a 5 Fr. 4.0 [place] catheter.The arterial sheath was pulled and a TR Band was applie d for hemostasis. 12cc of air CORONARY ANGIOGRAPHY DOMINANCE: Right Dominant LEFT HEART ASSESSMENT Left Ventricular Ejection Fraction: Not assessed LEFT MAIN: Severe calcification, distal: 90 % Stenosis LEFT ANTERIOR DESCENDING ARTERY: Severe calcification PROX LAD: Mild luminal irregularities MID LAD: 75 % Stenosis, is occluded DISTAL LAD: fills late and partially from left to left collateral flow DIAGONAL 1: Proximal - 50 % Stenosis CIRCUMFLEX ARTERY: OSTIAL CIRC: 50 % Stenosis PROX CIRC: Moderate calcification, 90 % Stenosis OM 1: Proximal - Mild luminal irregularities, Mid - 50 % Stenosis RIGHT CORONARY ARTERY: Severe calcification Mild luminal irregularities MID RCA: diffuse: irregular: 90 % Stenosis DISTAL RCA: 50 % Stenosis COLLATERAL FLOW: Collateral flow from Left to Left COMPLICATIONS No Complications PROCEDURE MEDICATIONS Fentanyl 50 mcg IV Versed 1 mg IV Oxygen: 2 L/min via nasal cannula Heparin given IA 03/22/2021 10:46:50 Verapamil 2.5mg, Ntg 100mcgs, 3000 units of Heparin given IA 03/22/2021 10:46:50 SUMMARY OF HEMODYNAMIC DATA Time AIR REST ECG 10:12:04 AO 131/68 (96) SA 10:50:59 Signed By Emery Ambrosio MD On 03/22/2021 11:42:49 Emery Ambrosio MD
[2021-03-22] MEDS: 0.9% Saline Lock 10 ML Syringe IV (11:53)
[2021-03-22] MEDS: 0.9% Normal Saline 1,000 ML 75 ML IV (11:54)
[2021-03-22 13:31] LABS: Bedside Glucose 118 mg/dL (70-110)
--- NOTE | 2021-03-22 14:23 | PN.HOSP_ITS ---
Documented by User: Bijal Limon NP, LABOR RELATIONS DIRECTOR-C 03/22/21 14:29 Subjective Subjective Patient seen and examined. Denies further chest pain. Underwent heart cath which demonstrated multivessel CAD, referred for surgery consult for coronary revascularization. Contact made to [facility] by cardiology. Objective Data Objective Data Vital Signs: Vital Signs Temp Pulse Resp BP Pulse Ox 98.3 F 62 18 144/67 H 97 03/22/21 12:35 03/22/21 14:18 03/22/21 14:18 03/22/21 14:18 03/22/21 14:18 Oxygen Delivery Method Room Air Weight: 184 lb 8.43 oz Body Mass Index (BMI) 27.2 Intake & Output: Intake and Output for Last 24 Hours 03/20/21 03/21/21 03/22/21 23:59 23:59 23:59 Intake Total 340 / 340 Balance 340 / 340 Lab / Micro Data Result Diagrams: 03/22/21 05:55 03/22/21 05:55 Labs: Laboratory Results - last 24 hr 03/21/21 16:30: WBC 4.2 L, RBC 4.71, Hgb 14.6, Hct 43.1, MCV 91.5, MCH 31.0, MCHC 33.9, RDW Std Deviation 45.1 H, RDW Coeff of Carol 13.4, Plt Count 144 L, MPV 9.8, Immature Gran % (Auto) 0.200, Neut % (Auto) 54.9, Lymph % (Auto) 34.0, Schleicher % (Auto) 10.2 H, Eos % (Auto) 0.2, Baso % (Auto) 0.5, Absolute Neuts (auto) 2.3, Absolute Lymphs (auto) 1.44, Nucleated RBC % 0 03/21/21 16:30: Sodium 135 L, Potassium 4.4, Chloride 107, Carbon Dioxide 22.0, Anion Gap 6, BUN 13, Creatinine 0.77, Estim Creat Clear Calc 58.92, Est GFR (MDRD) Af Amer 125, Est GFR (MDRD) Non-Af 103, BUN/Creatinine Ratio 16.9, Glucose 119 H, Calcium 8.6, Troponin I High Sens 334 H* 03/21/21 20:26: Troponin I High Sens 599 H* 03/21/21 22:40: Troponin I High Sens 777 H* 03/22/21 05:55: WBC 3.9 L, RBC 4.37 L, Hgb 13.8, Hct 39.8 L, MCV 91.1, MCH 31.6, MCHC 34.7, RDW Std Deviation 45.4 H, RDW Coeff of Carol 13.7, Plt Count 151, MPV 10.0, Immature Gran % (Auto) 0.300, Neut % (Auto) 41.1 L, Lymph % (Auto) 41.6 H, Schleicher % (Auto) 15.5 H, Eos % (Auto) 1.0, Baso % (Auto) 0.5, Absolute Neuts (auto) 1.6 L, Absolute Lymphs (auto) 1.61, Nucleated RBC % 0 03/22/21 05:55: Sodium 137, Potassium 3.8, Chloride 108 H, Carbon Dioxide 23.0, Anion Gap 6, BUN 15, Creatinine 0.67 L, Estim Creat Clear Calc 58.92, Est GFR (MDRD) Af Amer 148, Est GFR (MDRD) Non-Af 122, BUN/Creatinine Ratio 22.5 H, Glucose 97, Calcium 8.3 L, Phosphorus 3.4, Magnesium 2.3, Total Bilirubin 0.90, AST 41 H, ALT 35, Alkaline Phosphatase 84, Total Protein 6.5, Albumin 3.3, Globulin 3.2, Albumin/Globulin Ratio 1.0, Triglycerides 154, Cholesterol 197, LDL Cholesterol 124, VLDL Cholesterol 31, HDL Cholesterol 42, TSH 1.19 03/22/21 13:25: POC Glucose 118 H Micro: Microbiology 03/21/21 19:00 Interface Orders SARS-CoV-2 Antigen (Rapid) - Final Radiography Diagnostic Testing: Radiology Impression Chest X-Ray 03/21/21 16:40 IMPRESSION: No change or acute chest disease. Electronically Signed: Colby Martínez MD at 17:13 EDT , Service support , Rhythm Strip Rhythm Strip: Sinus Rhythm Rate: 90 Ectopy: PAC(s) Physical Exam Const alert, oriented x3 and no apparent distress Orientation / Consciousness: awake, oriented to person, oriented to place and oriented to time HEENT normocephalic and moist oral mucous membranes Eyes PERRL, EOMs intact bilaterally and conjunctivae normal Neck no lymphadenopathy Resp normal respiratory effort and clear to auscultation bilaterally Cardio regular rate, regular rhythm and no murmurs Peripheral Pulses: pulses 2+ throughout GI normal to inspection, nondistended, normoactive bowel sounds, non-tender and non-distended Extremity normal to inspection Skin no rashes or lesions noted Lesions: no lesions Rashes: no rashes Trauma: no lacerations or abrasions Neuro CN's II-XII intact bilaterally, no focal motor deficits, no sensory deficits noted and deep tendon reflexes 2+ bilaterally Psych mental status grossly normal and affect normal Assessment & Plan Assessment/Plan (1) Non-ST elevation myocardial infarction (NSTEMI), initial care episode: PLAN: 1. NSTEMI, multivessel CAD-cardiology consulted. Underwent heart cath which showed multivessel CAD. Referral made by cardiology to tertiary facility for surgery consult for coronary revascularization. Awaiting bed. On heparin drip. Continue aspirin, statin, beta-alee. 2. Hypertension-continue amlodipine, hydralazine, lisinopril. Metoprolol added. 3. Prostate cancer- on xtandi. 4. MARY CARMEN-continue home PAP regimen. DVT prophylaxis-Lovenox subcu This patient was seen by GALINA Uribe under the supervision of Dr. Cook. Documented by User: Dr. Matt Cook, 03/22/21 16:57 Objective Data Lab / Micro Data Result Diagrams: 03/22/21 05:55 03/22/21 05:55 Charges/Coding Addendum Addendum: Patient seen and examined independently. Data and vitals reviewed. I agree with the above note by the nurse practitioner. Patient denies any chest pain at present. Physical exam: No acute distress and afebrile. Heart rate regular rate and rhythm plus S1-S2 with a murmurs Rubs. Lungs Are Clear to Auscultation Bilaterally. Assessment and plan 1. Non-ST elevation myocardial infarction Patient underwent a left heart catheterization on March 22 and patient was found to have severe stenosis at the left main of 90%. Also 90% stenosis of the proximal circumflex and mid RCA. Discussed with Dr. Ambrosio, who advised transfer to tertiary facility for evaluation for CABG. He has reached out to the patient has been accepted at the [facility]. Patient will continue with aspirin, high intensity statin with atorvastatin 80 mg and anticoagulation with a heparin drip. Patient will be transferred to the [facility] pending bed availability. Patient is family aware that the transfer may take some time given the limited number of open beds given the pandemic. Patient is currently hemodynamically stable so can safely be monitored here but is not stable for discharge to home but rather would need to go to the tertiary facility for evaluation. Visit Charges Inpatient E&M: 44825 Subs Hosp L2
[2021-03-22] MEDS: Atorvastatin Calcium 80 MG Tablet PO (20:36)
--- NOTE | 2021-03-22 20:40 | NURSING ---
Pt requested HS meds at 2029. PAWAN Soni.
[2021-03-23] VITALS (15 sets, daily range): BP systolic 132–155; BP diastolic 65–72; PULSE 62–77; RESP 12–20; TEMP 36.4–37.1; O2SAT 96–100
[2021-03-23] MEDS: 0.9% Normal Saline 1,000 ML 75 ML IV (01:48)
[2021-03-23] MEDS: hydrALAZINE 50 MG Tablet 100 MG PO ×3 (05:48→20:51)
[2021-03-23 06:00] LABS: Absolute Lymphocyte Count 1.81 X10^3/uL (0.83-4.51); Absolute Neutrophil Count 1.4 X10^3/uL (2.0-7.7); Basophil# 0.01 X10^3/uL; Basophil% 0.2 % (0-1); Eosinophil# 0.02 X10^3/uL; Eosinophils% 0.5 % (0-5); Hemoglobin 12.6 g/dL (13.0-16.5); Lymphocyte # 1.81 X10^3/ul (0.83-4.51); Lymphocyte % 44.8 % (19-41); Mean Corp Hgb Conc 34.1 g/dL (32-36); Mean Corpuscular Hgb 31.7 pg (27.0-32.0); Mean Platelet Vol. 9.4 fl (6.2-12.0); Monocyte# 0.75 X10^3/uL; Monocyte% 18.6 % (0-10); NRBC Flagged by Analyzer 0 % (0-5); Neutrophil # 1.44 X10^3/uL (2.7-7.7); Neutrophil % 35.7 % (47-70); Platelet Count 137 K/mm3 (150-450); RBC Distribution Width CV 13.9 % (11.6-14.6); RBC Distribution Width SD 47.1 fl (35.1-43.9); Red Blood Count 3.98 M/mm3 (4.6-6.2)
[2021-03-23 06:23] LABS: Anion Gap 6 (5-15); BUN 18 mg/dL (7-18); BUN/Creat Ratio 22.8 RATIO (10-20); Calcium,Total 7.8 mg/dL (8.5-10.1); Chloride 109 mmol/L (98-107); Creatinine, Serum 0.79 mg/dL (0.70-1.30); EST Glomerular Filtration Rate 101 mL/min (>60); Est Glom Filt Rate - Afr Amer 122 mL/min (>60); Estimated Creatinine Clearance 58.92 ml/min; Glucose 110 mg/dL (74-106); Potassium 4.2 mmol/L (3.5-5.1); Sodium Level 138 mmol/L (136-145)
[2021-03-23] MEDS: Aspirin E.C. 81 MG Tablet PO (09:03)
[2021-03-23] MEDS: Venlafaxine XR 75 MG Capsule PO (09:03)
[2021-03-23] MEDS: Metoprolol Tartrate 25 MG Tablet PO ×2 (09:03→20:49)
[2021-03-23] MEDS: Lisinopril 20 MG Tablet PO (09:03)
[2021-03-23 09:21] LABS: Partial Thromboplast Time 34.6 Seconds (24.1-36.2)
--- NOTE | 2021-03-23 13:15 | PCM.PN.HOSP ---
Documented by User: Bijal Limon NP, SPACE SCIENCES DIRECTOR-C 03/23/21 13:25 Subjective Subjective Patient seen and examined. Denies chest pain, shortness of breath. Awaiting bed at [facility]. Denies current symptoms or complaints. Objective Data Objective Data Vital Signs: Vital Signs Temp Pulse Resp BP Pulse Ox 98.1 F 67 18 141/67 H 100 03/23/21 12:38 03/23/21 12:38 03/23/21 12:38 03/23/21 12:38 03/23/21 12:38 Oxygen Delivery Method Room Air Weight: 184 lb 8.43 oz Body Mass Index (BMI) 27.2 Intake & Output: Intake and Output for Last 24 Hours 03/21/21 03/22/21 03/23/21 23:59 23:59 23:59 Intake Total 340 / 340 600 / 720 2353.75 / 2353.75 Output Total 450 / 450 Balance 340 / 340 600 / 720 1903.75 / 1903.75 Lab / Micro Data Result Diagrams: 03/23/21 05:51 03/23/21 05:51 Labs: Laboratory Results - last 24 hr 03/22/21 13:25: POC Glucose 118 H 03/23/21 05:51: WBC 4.0 L, RBC 3.98 L, Hgb 12.6 L, Hct 37.0 L, MCV 93.0, MCH 31.7, MCHC 34.1, RDW Std Deviation 47.1 H, RDW Coeff of Carol 13.9, Plt Count 137 L, MPV 9.4, Immature Gran % (Auto) 0.200, Neut % (Auto) 35.7 L, Lymph % (Auto) 44.8 H, Lipscomb % (Auto) 18.6 H, Eos % (Auto) 0.5, Baso % (Auto) 0.2, Absolute Neuts (auto) 1.4 L, Absolute Lymphs (auto) 1.81, Nucleated RBC % 0 03/23/21 05:51: Sodium 138, Potassium 4.2, Chloride 109 H, Carbon Dioxide 23.0, Anion Gap 6, BUN 18, Creatinine 0.79, Estim Creat Clear Calc 58.92, Est GFR (MDRD) Af Amer 122, Est GFR (MDRD) Non-Af 101, BUN/Creatinine Ratio 22.8 H, Glucose 110 H, Calcium 7.8 L 03/23/21 09:00: APTT 34.6 Micro: Microbiology 03/21/21 19:00 Interface Orders SARS-CoV-2 Antigen (Rapid) - Final Radiography Diagnostic Testing: Radiology Impression Echocardiogram 03/22/21 08:45 Interpretation Summary The study was technically difficult. Contrast injection was performed. Left ventricular systolic function is normal. The estimated ejection fraction is 65 %. The left atrium is mildly enlarged. There is moderate mitral annular calcification. Extension of the mitral annular calcification on the base of the posterior mitral valve leaflet. Mild focal mitral valve calcification of the anterior leaflet. Moderate (2+) eccentric mitral valve insufficiency. Mild tricuspid valve insufficiency. Aortic sclerosis, no stenosis. Mild (1+) aortic valve insufficiency. Mild (1+) pulmonic valve insufficiency. Right ventricular systolic pressure estimated to be 26 mmHg. Diastolic function is indeterminate. Ordering Physician: Emery Ambrosio Referring Physician: SHANTI VALLE Performed By: Radha Guevara, RDCS, RVT Rhythm Strip Rhythm Strip: Sinus Rhythm Rate: 90 Ectopy: PAC(s) Physical Exam Const alert, oriented x3 and no apparent distress Orientation / Consciousness: awake, oriented to person, oriented to place and oriented to time HEENT normocephalic and moist oral mucous membranes Eyes PERRL, EOMs intact bilaterally and conjunctivae normal Neck no lymphadenopathy Resp normal respiratory effort and clear to auscultation bilaterally Cardio regular rate, regular rhythm and no murmurs Peripheral Pulses: pulses 2+ throughout GI normal to inspection, nondistended, normoactive bowel sounds, non-tender and non-distended Extremity normal to inspection Skin no rashes or lesions noted Lesions: no lesions Rashes: no rashes Trauma: no lacerations or abrasions Neuro CN's II-XII intact bilaterally, no focal motor deficits, no sensory deficits noted and deep tendon reflexes 2+ bilaterally Psych mental status grossly normal and affect normal Assessment & Plan Assessment/Plan (1) Unstable angina: (2) Atherosclerotic heart disease of [place] coronary artery without angina pectoris: PLAN: 1. NSTEMI, multivessel CAD-cardiology consulted. Underwent heart cath which showed multivessel CAD. Referral made by cardiology to tertiary facility for surgery consult for coronary revascularization. Awaiting bed. On heparin drip. Continue aspirin, statin, beta-alee. 2. Hypertension-continue amlodipine, hydralazine, lisinopril. Metoprolol added. 3. Prostate cancer- on xtandi. 4. MARY CARMEN-continue home PAP regimen. DVT prophylaxis-Lovenox subcu Discharge plan: Awaiting bed at [facility] This patient was seen by GALINA Uribe under the supervision of Dr. Cook. Documented by User: Dr. Matt Cook, 03/23/21 16:00 Subjective Subjective No chest pain. Objective Data Lab / Micro Data Result Diagrams: 03/23/21 05:51 03/23/21 05:51 Physical Exam Const alert Resp normal respiratory effort, no retractions, no use of accessory muscles and clear to auscultation bilaterally Cardio regular rate, regular rhythm, S1 normal heart sound and S2 normal heart sound GI normal to inspection, nondistended, normoactive bowel sounds, soft to palpation, non-tender and non-distended Extremity normal to inspection Assessment & Plan Assessment/Plan (1) Non-ST elevation myocardial infarction (NSTEMI), initial care episode: PLAN: Patient seen and examined independently. Data and vitals reviewed. I agree with the above note by the nurse practitioner. 1. Non-ST elevation myocardial infarction Patient underwent a left heart catheterization on March 22 and patient was found to have severe stenosis at the left main of 90%. Also 90% stenosis of the proximal circumflex and mid RCA. Discussed with Dr. Ambrosio, who advised transfer to tertiary facility for evaluation for CABG. He has reached out to the patient has been accepted at the [facility]. Patient will continue with aspirin, high intensity statin with atorvastatin 80 mg and anticoagulation with a heparin drip. Patient will be transferred to the [facility] pending bed availability. Patient is family aware that the transfer may take some time given the limited number of open beds given the pandemic. Patient is currently hemodynamically stable so can safely be monitored here but is not stable for discharge to home but rather would need to go to the tertiary facility for evaluation. Charges/Coding Visit Charges Inpatient E&M: 14023 Subs Hosp L2
[2021-03-23] MEDS: HEPARIN/D5w 25,000 UNITS 25,000 UNITS/250 ML IV.SOLN. 0.1 UNITS IV (13:55)
--- NOTE | 2021-03-23 15:53 | PN.CARD_ITS ---
Subjective Subjective The patient has been awake and alert. He has denied any ongoing chest discomfort at this time. Objective Data Vital Signs: Vital Signs Temp Pulse Resp BP Pulse Ox 98.1 F 69 18 141/67 H 100 03/23/21 12:38 03/23/21 14:00 03/23/21 12:38 03/23/21 12:38 03/23/21 12:38 Oxygen Delivery Method Room Air Weight: 184 lb 8.43 oz Body Mass Index (BMI) 27.2 Intake & Output: Intake and Output for Last 24 Hours 03/21/21 03/22/21 03/23/21 23:59 23:59 23:59 Intake Total 340 / 340 600 / 720 2353.75 / 2353.75 Output Total 450 / 450 Balance 340 / 340 600 / 720 1903.75 / 1903.75 Lab / Micro Data Result Diagrams: 03/23/21 05:51 03/23/21 05:51 Labs: Laboratory Results - last 24 hr 03/23/21 05:51: WBC 4.0 L, RBC 3.98 L, Hgb 12.6 L, Hct 37.0 L, MCV 93.0, MCH 31.7, MCHC 34.1, RDW Std Deviation 47.1 H, RDW Coeff of Carol 13.9, Plt Count 137 L, MPV 9.4, Immature Gran % (Auto) 0.200, Neut % (Auto) 35.7 L, Lymph % (Auto) 44.8 H, Dickenson % (Auto) 18.6 H, Eos % (Auto) 0.5, Baso % (Auto) 0.2, Absolute Neuts (auto) 1.4 L, Absolute Lymphs (auto) 1.81, Nucleated RBC % 0 03/23/21 05:51: Sodium 138, Potassium 4.2, Chloride 109 H, Carbon Dioxide 23.0, Anion Gap 6, BUN 18, Creatinine 0.79, Estim Creat Clear Calc 58.92, Est GFR (MDRD) Af Amer 122, Est GFR (MDRD) Non-Af 101, BUN/Creatinine Ratio 22.8 H, Glucose 110 H, Calcium 7.8 L 03/23/21 09:00: APTT 34.6 Rhythm Strip Rhythm Strip: Sinus Rhythm Rate: 90 Ectopy: PAC(s) Cardiology Labs/Tests 03/23/21 05:51: WBC 4.0 L, RBC 3.98 L, Hgb 12.6 L, Hct 37.0 L, MCV 93.0, MCH 31.7, MCHC 34.1, Plt Count 137 L, MPV 9.4, Immature Gran % (Auto) 0.200, Neut % (Auto) 35.7 L, Lymph % (Auto) 44.8 H, Dickenson % (Auto) 18.6 H, Eos % (Auto) 0.5, Baso % (Auto) 0.2, Absolute Neuts (auto) 1.4 L, Nucleated RBC % 0 03/23/21 05:51: Sodium 138, Potassium 4.2, Chloride 109 H, Carbon Dioxide 23.0, Anion Gap 6, BUN 18, Creatinine 0.79, Est GFR (MDRD) Af Amer 122, Est GFR (MDRD) Non-Af 101, BUN/Creatinine Ratio 22.8 H, Glucose 110 H, Calcium 7.8 L 03/23/21 09:00: APTT 34.6 Rhythm: Sinus rhythm Cardiac Cath: CONCLUSIONS [place] Multivessel CAD RECOMMENDATIONS Risk factor modification Medical therapy Surgery consult for coronary revascularization DESCRIPTION OF PROCEDURE The patient arrived to the procedure lab. The risks and benefits of the procedure as well as a full description of our services here and current unavailability of surgical backup were fully explained to the patient and/or their significant other prior to the catheterization. The Timeout was completed, verifying the correct patient and procedure. The patient's procedural site was prepped and draped in the usual fashion. Local anesthetic was given subcutaneously to right radial region with Lidocaine 2%. Using a modified Seldinger technique, arterial access was obtained via the right radial artery, a 6Fr sheath was inserted. Right Coronary Artery selective angiography was then performed in multiple views using a 5 Fr. 4.0 [place] catheter. Left Coronary Artery selective angiography was performed in multiple views using a 5 Fr. 4.0 [place] catheter.The arterial sheath was pulled and a TR Band was applied for hemostasis. 12cc of air CORONARY ANGIOGRAPHY DOMINANCE: Right Dominant LEFT HEART ASSESSMENT Left Ventricular Ejection Fraction: Not assessed LEFT MAIN: Severe calcification, distal: 90 % Stenosis LEFT ANTERIOR DESCENDING ARTERY: Severe calcification PROX LAD: Mild luminal irregularities MID LAD: 75 % Stenosis, is occluded DISTAL LAD: fills late and partially from left to left collateral flow DIAGONAL 1: Proximal - 50 % Stenosis CIRCUMFLEX ARTERY: OSTIAL CIRC: 50 % Stenosis PROX CIRC: Moderate calcification, 90 % Stenosis OM 1: Proximal - Mild luminal irregularities, Mid - 50 % Stenosis RIGHT CORONARY ARTERY: Severe calcification Mild luminal irregularities MID RCA: diffuse: irregular: 90 % Stenosis DISTAL RCA: 50 % Stenosis COLLATERAL FLOW: Collateral flow from Left to Left Physical Exam Const alert, oriented x3, no apparent distress and healthy appearing Orientation / Consciousness: awake HEENT normocephalic, head/scalp atraumatic and hearing grossly normal bilaterally Eyes PERRL, EOMs intact bilaterally and conjunctivae normal Neck full ROM, supple and no JVD Chest inspection of chest normal Resp clear to auscultation bilaterally Cardio regular rate, regular rhythm, S1 normal heart sound and S2 normal heart sound GI normal to inspection, nondistended, normoactive bowel sounds Extremity no pedal edema Peripheral Pulses: Yes radial pulses present right (Right radial artery area: Slight ecchymoses; no hematoma; no bruits) 2+ Skin no rashes or lesions noted Neuro oriented x3, moves all extremities, no focal motor deficits and no sensory deficits noted Psych mental status grossly normal Assessment & Plan Assessment/Plan (1) Non-ST elevation myocardial infarction (NSTEMI), initial care episode: PLAN: The patient has findings compatible with an acute non-ST segment elevation [place]. He has undergone further evaluation with diagnostic cardiac catheterization. He was found to have angiographically significant multivessel CAD including left main coronary artery disease. He has been recommended for medical therapy and transfer to a tertiary care [facility] for further evaluation and care with CABG. He is pending transfer to [facility] at this time. (2) Unstable angina: PLAN: The patient appears to be resting comfortably at the moment. He has had no new acute symptoms. He will continue evaluation care as noted above. (3) HTN (hypertension): QUALIFIERS: Hypertension type: unspecified Qualified Code(s): I10 - Essential (primary) hypertension PLAN: The patient states he has a history of hypertension. He notes his blood pressure has been more challenging recently. His blood pressure can be monitored and his medications adjusted accordingly. Addt'l Comments The patient's case has been discussed and reviewed with the patient and Dr. Cook. This note was generated using a voice recognition system and there may be incorrect words, spelling or punctuation that were not noted when reviewing the office note prior to saving.
[2021-03-23 20:14] LABS: Partial Thromboplast Time 118.4 Seconds (24.1-36.2)
[2021-03-23] MEDS: Atorvastatin Calcium 80 MG Tablet PO (20:49)
[2021-03-24 03:00] VITALS: PULSE 62
[2021-03-24 03:45] VITALS: BP 159/69; PULSE 77; RESP 20; TEMP 36.6; O2SAT 99
--- NOTE | 2021-03-24 04:11 | NURSING ---
[facility] called with a bed. J72 Bed 11. Called physicians, ETA is around 5:30-6:30. [facility] called, report given to PAWAN Wall. PAWAN Soni.
[2021-03-24 05:01] LABS: Absolute Lymphocyte Count 1.37 X10^3/uL (0.83-4.51); Absolute Neutrophil Count 1.2 X10^3/uL (2.0-7.7); Basophil# 0.01 X10^3/uL; Basophil% 0.3 % (0-1); Eosinophil# 0.02 X10^3/uL; Eosinophils% 0.6 % (0-5); Hematocrit 37.5 % (40-54); Hemoglobin 12.7 g/dL (13.0-16.5); Lymphocyte # 1.37 X10^3/ul (0.83-4.51); Lymphocyte % 44.3 % (19-41); Mean Corp Hgb Conc 33.9 g/dL (32-36); Mean Corpuscular Hgb 31.6 pg (27.0-32.0); Mean Corpuscular Volume 93.3 fL (80-94); Mean Platelet Vol. 9.6 fl (6.2-12.0); Monocyte# 0.54 X10^3/uL; Monocyte% 17.5 % (0-10); NRBC Flagged by Analyzer 0 % (0-5); Neutrophil # 1.15 X10^3/uL (2.7-7.7); Neutrophil % 37.3 % (47-70); Platelet Count 140 K/mm3 (150-450); RBC Distribution Width CV 13.8 % (11.6-14.6); RBC Distribution Width SD 46.9 fl (35.1-43.9); Red Blood Count 4.02 M/mm3 (4.6-6.2); White Blood Count 3.1 K/mm3 (4.4-11.0)
[2021-03-24 05:24] VITALS: BP 150/71; PULSE 70
[2021-03-24] MEDS: hydrALAZINE 50 MG Tablet 100 MG PO (05:24)
--- NOTE | 2021-03-24 09:28 | PCM.DC.SUM ---
Providers Date of Admission: 03/21/21 Primary Care Physician: Dr. Benedicto Hinson, DO Consultations 03/21/21 19:43 Consult: Cardiology Routine Consulting Provider: Josefa Quinones Reason for Consult: NSTEMI EMERGENT Consult: No MD Notified: Yes Date Notified: 03/22/21 Time Notified: 06:31 Method of Notification: Text Method of Consult:: In-Person Reason For Visit: NSTEMI Diagnosis Discharge Diagnosis (1) Non-ST elevation myocardial infarction (NSTEMI), initial care episode: Status: Acute Code(s): I21.4 - Non-ST elevation (NSTEMI) myocardial infarction Medications at Discharge Home Medications alendronate 70 mg tablet 70 mg PO MO 04/21/20 enzalutamide 40 mg capsule 160 mg PO DAILY 04/21/20 lisinopril 20 mg tablet 20 mg PO DAILY 04/21/20 amlodipine 5 mg PO BID 03/21/21 berberine-herbal comb no.18 1 cap PO DAILY 03/21/21 calcium-magnesium 1 tab PO DAILY 03/21/21 hydralazine 100 mg PO TID 03/21/21 potassium chloride 20 meq PO DAILY 03/21/21 venlafaxine [Effexor XR] 75 mg PO DAILY 03/21/21 Hospital Course Summary of Care Provided Hospital Course: 1. Non-ST elevation myocardial infarction Patient underwent a left heart catheterization on March 22 and patient was found to have severe stenosis at the left main of 90%. Also 90% stenosis of the proximal circumflex and mid RCA. Discussed with Dr. Ambrosio, who advised transfer to tertiary facility for evaluation for CABG. He has reached out to the patient has been accepted at the [facility]. Patient will continue with aspirin, high intensity statin with atorvastatin 80 mg and anticoagulation with a heparin drip. Patient will be transferred to the [facility] Weight / BMI Weight Weight: 83.7 kg Body Mass Index (BMI) 27.2 ABG / Lab / Microbiology Data Result Diagrams: 03/24/21 04:44 03/23/21 05:51 Microbiology: Microbiology 03/21/21 19:00 Interface Orders SARS-CoV-2 Antigen (Rapid) - Final Meaningful Use Info Meaningful Use Diagnoses (Choose all that apply): None applicable AMI/Post PCI/Angioplasty Aspirin given w/in 24hrs of arrival?: Yes ASA at discharge?: Yes Statins at discharge?: Yes Done w/ Acute WI measure.: Yes Discharge Plan Admission Admit Date/Time: 03/21/21 18:28 Attending Provider: Matt Cook Primary Care Provider: Benedicto Hinson Consulting Providers: Josefa Quinones Instructions Patient Instructions: ED Chest Pain, Noncardiac Discharge Orders/Prescriptions Prescriptions: No Action lisinopril 20 mg tablet 20 mg PO DAILY RF: 0 Xtandi 40 mg capsule 160 mg PO DAILY RF: 0 alendronate [Fosamax] 70 mg tablet 70 mg PO MO RF: 0 venlafaxine [Effexor XR] 75 mg capsule,extended release 24hr 75 mg PO DAILY RF: 0 amlodipine 5 mg tablet 5 mg PO BID RF: 0 potassium chloride 20 mEq tablet,ER particles/crystals 20 meq PO DAILY RF: 0 hydralazine 100 mg tablet 100 mg PO TID RF: 0 calcium-magnesium Tablet 1 tab PO DAILY RF: 0 berberine-herbal comb no.18 Capsule 1 cap PO DAILY RF: 0 Referrals / Follow Up: Benedicto Hinson DO [Primary Care Provider] - Disposition Disposition (needs filled in before D/C Order can be placed): Acute Care Hospital
== END 2021-03-24 05:45 | disposition short-term general hospital (02) | DRG 281 ==
LOC: ED 18:13 → PCU 19:49
PROVIDERS: Internal Medicine Cardiovascular Disease; Admitting Provider Internal Medicine; Emergency Provider Emergency Medicine; PCP Family Medicine
DX: I21.4 Non-ST elevation (NSTEMI) myocardial infarction (principal); N18.4 Chronic kidney disease, stage 4 (severe); E87.1 Hypo-osmolality and hyponatremia; I12.9 Hypertensive chronic kidney disease with stage 1 through stage 4 chronic kidney disease, or unspecified chronic kidney disease; Z79.899 Other long term (current) drug therapy; C61 Malignant neoplasm of prostate; D69.6 Thrombocytopenia, unspecified; D72.819 Decreased white blood cell count, unspecified; G47.33 Obstructive sleep apnea (adult) (pediatric); I25.110 Atherosclerotic heart disease of native coronary artery with unstable angina pectoris
CPT/HCPCS: 36415; 71045; 80048; 80053; 80061; 82962; 83735; 84100; 84443; 84484; 85025; 85730; 87426; 93005; 93306; 93454; 99152; 99153; 99285; J7030; J7040; Q9957; Q9967; A4216; C1769; C1894; C8929; J3490

== ENCOUNTER 2021-04-07 18:04 | Emergency (ER) | payer MEDICARE, SELFPAY ==
[2021-04-07 18:06] VITALS: BP 123/57; PULSE 103; RESP 20; TEMP 36.5; O2SAT 94; BMI 28.2
--- NOTE | 2021-04-07 18:09 | EKG12_ITS ---
Test Reason : GENERAL ILLNESS Blood Pressure : / mmHG Vent. Rate : 100 BPM Atrial Rate : 100 BPM P-R Int : 158 ms QRS Dur : 122 ms QT Int : 380 ms P-R-T Axes : 055 -39 040 degrees QTc Int : 490 ms Sinus rhythm with Premature atrial complexes Left axis deviation Right bundle branch block Abnormal ECG Confirmed by CLEMENTE VELASQUEZ, VERONICA ([id number]), photo editor RAVIN FREITAS ([id number]) on 04/08/2021 1:12:58 PM Referred By: VANDANA/HANK Confirmed By:VERONICA CORNEJO MD
[2021-04-07 18:31] LABS: Absolute Lymphocyte Count 0.63 X10^3/uL (0.83-4.51); Absolute Neutrophil Count 6.1 X10^3/uL (2.0-7.7); Basophil# 0.02 X10^3/uL; Basophil% 0.3 % (0-1); Eosinophil# 0.05 X10^3/uL; Eosinophils% 0.7 % (0-5); Hematocrit 34.1 % (40-54); Hemoglobin 11.5 g/dL (13.0-16.5); Lymphocyte # 0.63 X10^3/ul (0.83-4.51); Lymphocyte % 8.5 % (19-41); Mean Corp Hgb Conc 33.7 g/dL (32-36); Mean Corpuscular Hgb 31.6 pg (27.0-32.0); Mean Corpuscular Volume 93.7 fL (80-94); Mean Platelet Vol. 9.5 fl (6.2-12.0); Monocyte# 0.52 X10^3/uL; Monocyte% 7.1 % (0-10); NRBC Flagged by Analyzer 0 % (0-5); Neutrophil # 6.12 X10^3/uL (2.7-7.7); Platelet Count 184 K/mm3 (150-450); RBC Distribution Width CV 13.8 % (11.6-14.6); RBC Distribution Width SD 46.5 fl (35.1-43.9); Red Blood Count 3.64 M/mm3 (4.6-6.2); White Blood Count 7.4 K/mm3 (4.4-11.0)
--- NOTE | 2021-04-07 18:40 | EDS_ITS ---
HPI History of Present Illness Chief Complaint: Fatigue Narrative Narrative: 81-year-old male with recent history of NSTEMI status post CABG presenting with generalized weakness which began today. His family relates that he was well this morning and showed me a picture of him with 2 thumbs up. He was ambulatory in the hospital and had been improving. On the way home patient became more sedated. He was unable to ambulate into the house under his own strength. His family states he appeared to have some chills. He has not had a fever. She states she checked his blood pressure and it was in the 150s. His heart rate was in the 70s. Patient himself denies any pain. His daughter does state he seems confused. Patient's daughter does relate that he was in atrial fibrillation in the hospital and had to be shocked out of it. She states he had to give him medications as well. He is on Eliquis and aspirin. Patient also has history of stage IV prostate cancer. [facility] Medical History Atherosclerotic heart disease of [place] coronary artery without angina pectoris FH: CABG (coronary artery bypass surgery) History of left heart catheterization (LHC) (~03/22/21) HTN (hypertension) Leukopenia Prostate adenocarcinoma Thrombocytopenia Vascular dialysis catheter in place Home Medications alendronate 70 mg tablet 70 mg PO MO 04/21/20 [History Last Taken 03/21/21] amlodipine 5 mg PO BID 03/21/21 [History Last Taken 03/21/21] calcium-magnesium 1 tab PO DAILY 03/21/21 [History Last Taken 03/21/21] potassium chloride 20 meq PO DAILY 03/21/21 [History Last Taken 03/21/21] venlafaxine [Effexor XR] 75 mg PO DAILY 03/21/21 [History Last Taken 03/21/21] apixaban [Eliquis] 5 mg PO BID 04/07/21 [History Last Taken Unknown] aspirin 81 mg PO DAILY 04/07/21 [History Last Taken Unknown] atorvastatin 80 mg PO DAILY 04/07/21 [History Last Taken Unknown] cephalexin 500 mg PO Q12 #14 capsule 04/07/21 [Rx Last Taken Unknown] enzalutamide [Xtandi] 80 mg PO DAILY 04/07/21 [History Last Taken Unknown] furosemide [Lasix] 20 mg PO DAILY 04/07/21 [History Last Taken Unknown] metoprolol succinate 50 mg PO BID 04/07/21 [History Last Taken Unknown] multivitamin with iron-mineral [Multi M Vitamin] 1 tab PO DAILY 04/07/21 [History Last Taken Unknown] pantoprazole 20 mg PO DAILY 04/07/21 [History Last Taken Unknown] tamsulosin 0.4 mg PO DAILY 04/07/21 [History Last Taken Unknown] Allergy/AdvReac Type Severity Reaction Status Date / Time No Known Allergies Allergy Verified 04/07/21 18:05 Family History Brother Diabetes Surgical History Nephrostomy status Social History Smoking Status: Never smoker alcohol intake: never substance use type: does not use ROS ROS ED Constitutional Constitutional ED: Reports chills; Denies sweats Eyes Eyes: Denies blurry vision or diplopia ENT ENT ED: Denies rhinorrhea or sore throat Cardiovascular Cardiovascular: Denies chest pain or palpitations Respiratory/Chest Respiratory/Chest: Denies cough or dyspnea Gastrointestinal Gastrointestinal: Denies abdominal pain, nausea or vomiting Genitourinary Genitourinary ED: Denies dysuria or hematuria Musculoskeletal Musculoskeletal: Denies arthralgias or myalgias Integumentary Denies Abrasions or rash Neurologic Neurologic: Denies headache(s) EXAM Physical Exam Const Vital Signs: 04/07/21 18:06 04/07/21 18:41 04/07/21 19:03 Temperature 97.7 F L Temperature Source Temporal Pulse Rate 103 H Respiratory Rate 20 H 28 H Blood Pressure 123/57 H Blood Pressure Mean 79 Pulse Ox 94 Oxygen Delivery Method Room Air Nasal Cannula Nasal Cannula Oxygen Flow Rate (L/min) 2 2 04/07/21 21:41 Temperature Temperature Source Pulse Rate 83 Respiratory Rate 16 Blood Pressure Blood Pressure Mean Pulse Ox 94 Oxygen Delivery Method Room Air Oxygen Flow Rate (L/min) Positive well nourished General Appearance ED: NAD HEENT Reports dry mucous membranes trauma Mouth ED: Yes dry mucous membranes Mouth: dry mucous membranes Eyes PERRL and EOMs intact bilaterally General Eye ED: Negative for pale conjunctiva Chest Wall Chest Narrative: CABG incision appears to be clean, dry, intact. There are no cellulitic changes around this area. Resp normal respiratory effort Cardio regular rhythm Rate: tachycardic GI normal to inspection, nondistended, normoactive bowel sounds Neuro CN's II-XII intact bilaterally Sensorium / Orientation: alert Motor Exam: general weakness Psych Psych Narrative: Slightly confused but is alert Skin Skin Narrative: As described above MDM MDM MDM Narrative Medical decision making narrative: Patient initially seen with abnormal vital signs. He was appearing to be a little bit confused per his family. Initially sepsis work-up was started. Patient was initially on oxygen on arrival however he has been able to be off of this and has maintained sats at 94%. Patient had blood work drawn which shows no leukocytosis. Hemoglobin is stable. Renal function and electrolytes are also within normal limits. His high-sensitivity troponin is much lower than it was at his previous inpatient stay when he had an NSTEMI. Urinalysis was positive for UTI and he was started on Rocephin in the ED. EKG on my interpretation shows a normal sinus rhythm with a ventricular rate of 100 bpm with a right bundle branch block. There is no ST elevation or depression. Chest x-ray on my interpretation shows no acute cardiopulmonary process radiologist does agree. Lactic acid was within normal limits. Patient feels improved. He is not requiring oxygen and is ambulatory with his family. They wish to be discharged home at this time. I will start him on Keflex. Cultures were sent. Patient is given return precautions. Impression: 1. UTI 2. Weakness Lab Data Labs: Laboratory Results - last 24 hr 04/07/21 04/07/21 04/07/21 18:23 18:23 18:23 WBC 7.4 RBC 3.64 L Hgb 11.5 L Hct 34.1 L MCV 93.7 MCH 31.6 MCHC 33.7 RDW Std Deviation 46.5 H RDW Coeff of Carol 13.8 Plt Count 184 MPV 9.5 Immature Gran % (Auto) 0.400 Neut % (Auto) 83.0 H Lymph % (Auto) 8.[address] % (Auto) 7.1 Eos % (Auto) 0.7 Baso % (Auto) 0.3 Absolute Neuts (auto) 6.1 Absolute Lymphs (auto) 0.63 L Nucleated RBC % 0 PT 13.9 INR 1.1 APTT 37.5 H Sodium 134 L Potassium 4.1 Chloride 101 Carbon Dioxide 26.0 Anion Gap 7 BUN 15 Creatinine 1.00 Estim Creat Clear Calc 58.92 Est GFR (MDRD) Af Amer 92 Est GFR (MDRD) Non-Af 76 BUN/Creatinine Ratio 15.0 Glucose 157 H Lactic Acid Calcium 8.6 Total Bilirubin Direct Bilirubin AST ALT Alkaline Phosphatase Troponin I High Sens 58 Total Protein Albumin Globulin Albumin/Globulin Ratio Urine Color Urine Clarity Urine pH Ur Specific [place] Urine Protein Urine Glucose (UA) Urine Ketones Urine Occult Blood Urine Nitrite Urine Bilirubin Urine Urobilinogen Ur Leukocyte Esterase Urine RBC Urine WBC Ur Squamous Epith Cells Urine Bacteria Urine Mucus 04/07/21 04/07/21 04/07/21 18:23 18:47 19:00 WBC RBC Hgb Hct MCV MCH MCHC RDW Std Deviation RDW Coeff of [place] Plt Count MPV Immature Gran % (Auto) Neut % (Auto) Lymph % (Auto) [place] % (Auto) Eos % (Auto) Baso % (Auto) Absolute Neuts (auto) Absolute Lymphs (auto) Nucleated RBC % PT INR APTT Sodium Potassium Chloride Carbon Dioxide Anion Gap BUN Creatinine Estim Creat Clear Calc Est GFR (MDRD) Af Amer Est GFR (MDRD) Non-Af BUN/Creatinine Ratio Glucose Lactic Acid 1.9 Calcium Total Bilirubin 0.90 Direct Bilirubin 0.28 AST 149 H ALT 82 H Alkaline Phosphatase 104 Troponin I High Sens Total Protein 6.5 Albumin 2.9 L Globulin 3.6 Albumin/Globulin Ratio 0.8 L Urine Color Yellow Urine Clarity Clear Urine pH 7.0 Ur Specific [place] 1.010 Urine Protein 15 H Urine Glucose (UA) Normal Urine Ketones Negative Urine Occult Blood 10 H Urine Nitrite Positive H Urine Bilirubin Negative Urine Urobilinogen 4 H Ur Leukocyte Esterase 25 H Urine RBC 0 SEEN Urine WBC 0-5 SEEN Ur Squamous Epith Cells 0 SEEN Urine Bacteria 3+ Urine Mucus 0 SEEN Radiography Diagnostic Testing: Radiology Impression Chest X-Ray 04/07/21 19:14 IMPRESSION: Mild subsegmental atelectasis in the lower lobes Electronically Signed: Cristhian Ayers MD at 20:38 EDT , Service support , Brain CT 04/07/21 19:22 IMPRESSION: Mild atrophy and moderate periventricular white matter ischemic changes. No evidence for acute bleed. If concern for acute infarct MRI recommended. Calcification of the right occipital lobe possibly vascular or due to old inflammatory disease Electronically Signed: Cristhian Ayers MD at 20:42 EDT , Service support , Discharge Plan Triage Chief Complaint: Fatigue Other Complaint: Weakness ED Provider: Vito Marsh Dx/Rx/DC Orders Instructions: ED Bladder Infection, Male (Adult) Prescriptions: New cephalexin 500 mg capsule 500 mg PO Q12 Qty: 14 RF: 0 No Action alendronate [Fosamax] 70 mg tablet 70 mg PO MO RF: 0 venlafaxine [Effexor XR] 75 mg capsule,extended release 24hr 75 mg PO DAILY RF: 0 amlodipine 5 mg tablet 5 mg PO BID RF: 0 potassium chloride 20 mEq tablet,ER particles/crystals 20 meq PO DAILY RF: 0 calcium-magnesium Tablet 1 tab PO DAILY RF: 0 Xtandi 40 mg Tablet 80 mg PO DAILY RF: 0 atorvastatin 80 mg Tablet 80 mg PO DAILY RF: 0 pantoprazole 20 mg Tablet,Delayed Release (Dr/Ec) 20 mg PO DAILY RF: 0 tamsulosin 0.4 mg Capsule 0.4 mg PO DAILY RF: 0 aspirin 81 mg Tablet 81 mg PO DAILY RF: 0 furosemide [Lasix] 20 mg Tablet 20 mg PO DAILY RF: 0 Multi M Vitamin Tablet 1 tab PO DAILY RF: 0 Eliquis 5 mg Tablet 5 mg PO BID RF: 0 metoprolol succinate 50 mg Capsule,Sprinkle,Er 24hr 50 mg PO BID RF: 0 Primary Care Provider: Benedicto Hinson Referrals: Benedicto Hinson DO [Primary Care Provider] - Disposition Disposition: Home, Self Care
[2021-04-07 18:52] LABS: Anion Gap 7 (5-15); BUN 15 mg/dL (7-18); Calcium,Total 8.6 mg/dL (8.5-10.1); Chloride 101 mmol/L (98-107); EST Glomerular Filtration Rate 76 mL/min (>60); Est Glom Filt Rate - Afr Amer 92 mL/min (>60); Estimated Creatinine Clearance 58.92 ml/min; Glucose 157 mg/dL (74-106); Potassium 4.1 mmol/L (3.5-5.1); Sodium Level 134 mmol/L (136-145); Troponin-I HS 58 pg/mL (3.0-78.0)
[2021-04-07 18:55] LABS: Color, Urine Yellow (Yellow); Glucose, Dipstick Normal (Normal); Ketone-Dipstick Negative (Negative); Leukocyte Esterase-Dipstick 25 /ul (Negative); Mucous, Urine 0 SEEN /hpf (<or=2+); Nitrite-Dipstick Positive (Negative); Occult Blood-Urine 10 /ul (Negative); Protein-Dipstick 15 mg/dl (Negative); Red Blood Cells-Urine 0 SEEN /hpf (0-5); Squamous Epithelial Cells - UA 0 SEEN /hpf (0-5); Urine Bilirubin Dipstick Negative (Negative); Urine Clarity Clear (Clear); Urine Urobilinogen 4 mg/dl (Normal)
[2021-04-07 19:03] VITALS: RESP 28
[2021-04-07 19:06] LABS: Bacteria 3+ /hpf (None Seen); White Blood Cells 0-5 SEEN /hpf (0-5)
[2021-04-07 19:09] LABS: ALB/GLOB Ratio 0.8 RATIO (0.9-2.4); AST(SGOT) 149 U/L (15-37); Alanine Aminotransfer ALT/SGPT 82 U/L (16-61); Albumin, Serum 2.9 g/dL (3.2-5.0); Alkaline Phosphatase 104 U/L (45-117); Bilirubin, Direct 0.28 mg/dL (0.00-0.30); Globulin 3.6 g/dL (2.2-4.2); Protein, Total 6.5 g/dL (6.4-8.2)
[2021-04-07 19:11] LABS: International Normalized Ratio 1.1; Prothrombin Time (Protime)PT. 13.9 SECONDS (11.7-14.9)
[2021-04-07 19:12] LABS: Partial Thromboplast Time 37.5 Seconds (24.1-36.2)
--- NOTE | 2021-04-07 19:14 | RAD_ITS ---
STUDY: X-RAY CHEST REASON FOR EXAM: Male, 81 years old. weakness TECHNIQUE: AP portable COMPARISON: 03/21/2021 FINDINGS: Mild subsegmental atelectasis in both lower lobes. Tiny calcified granuloma in the right lower lobe.. There is no demonstrated pleural abnormality. Postop change status post median sternotomy and CABG. Normal size heart. Normal mediastinum and hong. Normal visualized pulmonary arteries. Mildly calcified aortic arch and descending thoracic aorta. Normal visualized thoracic spine. Normal visualized ribs, clavicles, and shoulders. There is no demonstrated abnormality of the visualized soft tissue structures of the upper abdomen. RAD/Chest 1 View (Portable) IMPRESSION: Mild subsegmental atelectasis in the lower lobes Electronically Signed: Cristhian Ayers MD at 20:38 EDT , Service support ,
--- NOTE | 2021-04-07 19:22 | CT_ITS ---
STUDY: CT BRAIN WITHOUT CONTRAST REASON FOR EXAM: Male, 81 years old. confusion RADIATION DOSAGE (If Supplied By Facility): CTDIvol = ( 44.99 ) mGy, DLP = ( 897.35 ) mGycm TECHNIQUE: Transaxial CT imaging of the brain was performed without administration of intravenous contrast material. Individualized dose optimization techniques were used for this CT. COMPARISON: No relevant priors. FINDINGS: Normal soft tissue structures. Normal calvarium. Mild cortical atrophy and moderate periventricular white matter ischemic changes.. Normal basal ganglia and thalami. Normal brainstem. Normal cerebellum. Small parenchymal calcification in the right occipital lobe possibly vascular or the basis of old inflammatory disease There is no intracranial hemorrhage. There are no findings of an acute ischemic infarction. Normal visualized paranasal sinuses. CT/Brain/Head without Contrast IMPRESSION: Mild atrophy and moderate periventricular white matter ischemic changes. No evidence for acute bleed. If concern for acute infarct MRI recommended. Calcification of the right occipital lobe possibly vascular or due to old inflammatory disease Electronically Signed: Cristhian Ayers MD at 20:42 EDT , Service support ,
[2021-04-07] MEDS: Ceftriaxone 1 GM/50 ML BAG IV (19:30)
[2021-04-07 19:33] LABS: Lactic Acid 1.9 mmol/L (0.4-1.9)
[2021-04-07 21:41] VITALS: PULSE 83; RESP 16; O2SAT 94
[2021-04-07 23:36] VITALS: BP 101/70; PULSE 87; RESP 18; O2SAT 96
== END 2021-04-07 23:38 | disposition home or self-care (01) ==
PROVIDERS: Emergency Provider Student in an Organized Health Care Education/Training Program; PCP Family Medicine
DX: N39.0 Urinary tract infection, site not specified (principal); R53.1 Weakness; I25.2 Old myocardial infarction; I25.10 Atherosclerotic heart disease of native coronary artery without angina pectoris; I10 Essential (primary) hypertension; Z95.1 Presence of aortocoronary bypass graft; Z79.02 Long term (current) use of antithrombotics/antiplatelets; Z85.46 Personal history of malignant neoplasm of prostate; Z79.899 Other long term (current) drug therapy
CPT/HCPCS: 36415; 70450; 71045; 80048; 80076; 81001; 83605; 84156; 84484; 85025; 85610; 85730; 87040; 87077; 87086; 87088; 87186; 87426; 93005; 96365; 99285; J7050; A4216

== ENCOUNTER 2021-05-30 10:00 | Emergency (ER) | payer MEDICARE, SELFPAY ==
[2021-05-30 10:01] VITALS: BP 171/82; PULSE 73; RESP 18; TEMP 36.6; O2SAT 98; BMI 25.8
--- NOTE | 2021-05-30 10:27 | EKG12_ITS ---
Test Reason : WEAKNESS Blood Pressure : / mmHG Vent. Rate : 067 BPM Atrial Rate : 067 BPM P-R Int : 158 ms QRS Dur : 092 ms QT Int : 430 ms P-R-T Axes : 044 -34 061 degrees QTc Int : 454 ms Normal sinus rhythm Left axis deviation Poor R wave progression Abnormal ECG Confirmed by CLEMENTE VELASQUEZ, VERONICA ([id number]), art editor RAVIN FREITAS ([id number]) on 06/01/2021 9:15:00 AM Referred By: MAKSIM Confirmed By:VERONICA CORNEJO MD
--- NOTE | 2021-05-30 10:28 | EDS_ITS ---
HPI History of Present Illness Chief Complaint: Weakness Narrative Narrative: 81-year-old male presenting with generalized weakness. He states is been weaker over the last couple of weeks. He states his gait has been a little bit unstable. He has had intermittent headaches. He has fallen at home but states he has not hit his head. Patient is on Eliquis. He denies black or bloody stools. He is not had a fever or cough. He denies urinary symptoms and states his urine is clear although he does state that he has a history of UTI. He does not have any abdominal pain or chest pain. He states that he called Dr. Choi who told her to come to the ER. [facility] Medical History Atherosclerotic heart disease of [place] coronary artery without angina pectoris FH: CABG (coronary artery bypass surgery) History of left heart catheterization (LHC) (~03/22/21) HTN (hypertension) Leukopenia Prostate adenocarcinoma Thrombocytopenia Vascular dialysis catheter in place Home Medications amlodipine 10 mg PO DAILY 03/21/21 [History Last Taken 05/30/21] potassium chloride 20 meq PO DAILY 03/21/21 [History Last Taken 05/30/21] venlafaxine [Effexor XR] 75 mg PO DAILY 03/21/21 [History Last Taken 05/29/21] apixaban [Eliquis] 5 mg PO BID 04/07/21 [History Last Taken 05/30/21] atorvastatin 80 mg PO DAILY 04/07/21 [History Last Taken 05/29/21] enzalutamide [Xtandi] 160 mg PO DAILY 04/07/21 [History Last Taken 05/29/21] metoprolol succinate 50 mg PO BID 04/07/21 [History Last Taken 05/30/21] alendronate 70 mg PO MO 05/30/21 [History Last Taken 05/23/21] aspirin [Aspirin Low Dose] 81 mg PO DAILY 05/30/21 [History Last Taken 05/30/21] calcium carbonate [Calcium 500] 1,000 mg PO DAILY 05/30/21 [History Last Taken 05/29/21] lorazepam 0.5 mg PO BID PRN 05/30/21 [History Last Taken 2 Days Ago ~05/28/21] Allergy/AdvReac Type Severity Reaction Status Date / Time No Known Allergies Allergy Verified 05/30/21 10:04 Family History Brother Diabetes Surgical History Nephrostomy status Social History Smoking Status: Never smoker alcohol intake: never substance use type: does not use ROS ROS ED Constitutional Constitutional ED: Reports other Details: Generalized weakness ; Denies chills or fever(s) Eyes Eyes: Denies blurry vision or change in vision ENT ENT ED: Denies rhinorrhea Cardiovascular Cardiovascular: Denies chest pain or palpitations Respiratory/Chest Respiratory/Chest: Denies cough or dyspnea Gastrointestinal Gastrointestinal: Reports other Details: Decreased p.o. intake ; Denies abdominal pain, melena, nausea or vomiting Genitourinary Genitourinary ED: Denies dysuria or hematuria Musculoskeletal Musculoskeletal: Denies arthralgias, back pain, myalgias or neck pain Integumentary Denies Abrasions or rash Neurologic Neurologic: Reports headache(s) Psychiatric Psychiatric: Denies anxiety or depression EXAM Physical Exam Const Vital Signs: 05/30/21 10:01 05/30/21 11:00 05/30/21 13:51 Temperature 98 F Temperature Source Temporal Pulse Rate 73 79 Respiratory Rate 18 16 Respiratory Effort Normal Non-Labored Respiratory Pattern Normal Blood Pressure 171/82 H 160/84 H Blood Pressure Mean 111 109 Pulse Ox 98 99 Oxygen Delivery Method Room Air Room Air Positive well nourished General Appearance ED: NAD; Negative for pallor HEENT Reports moist mucous membranes Negative for trauma Eyes PERRL and EOMs intact bilaterally Resp normal respiratory effort and clear to auscultation bilaterally Cardio regular rate and regular rhythm GI normal to inspection, nondistended, normoactive bowel sounds Extremity normal to inspection Neuro oriented x3, CN's II-XII intact bilaterally and no sensory deficits noted Sensorium / Orientation: alert Motor Exam: strength 5/5 throughout Psych mental status grossly normal Skin General Skin Exam: Negative for jaundice or pallor MDM MDM MDM Narrative Medical decision making narrative: Patient presenting with weakness and recent falls. He denies any head injury but he is on Eliquis. He has some scrapes on his arms which do not appear to be infected. I did check blood work given his weakness and his CBC is fairly unremarkable and not much changed. His renal function and electrolytes appear normal his LFTs are fairly unremarkable. His troponin is 8. His urinalysis is negative for infection. Chest x-ray performed appears to have a small left basilar infiltrate on my interpretation and the radiologist does agree. The patient does not have any respiratory complaints specifically and is not hypoxic, tachypneic, tachycardic. His rapid Covid was negative. I will send for PCR. EKG on my interpretation shows a sinus rhythm with a ventricular rate of 67 bpm without sign of ischemic change. Again the patient is not specific have any chest pain and simply weakness. I did obtain a CT of the brain radiologist called me to tell me that the patient suspected rapidly enlarging mass or infarct of the right occipital lobe and posterior right parietal lobe with a large amount of surrounding vasogenic edema with mass effect including 2 mm of [id number] midline shift. This is new since his previous CT in March where he had calcifications in this area. I spoke with the hospitalist about admission and he recommended getting an MRI to determine if it was a mass versus a stroke because of its a mass he does not think he can admit it at [facility]. I the MRI is still pending however given the midline shift and the larger vasogenic edema I did reach out to [facility] and spoke with the transfer center that the patient could get a neurosurgery consult. After speaking with them the neurosurgeon did agree that it was more likely a mass than a stroke due to presentation. The patient's MRI is pending and will be pushed through digitally as well as all of the images from previous. Patient has remained medically stable. All findings were discussed with the family. Impression: 1. Generalized weakness 2. Falls 3. 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 Labs: Laboratory Results - last 24 hr 05/30/21 05/30/21 05/30/21 11:05 11:05 11:24 WBC 4.1 L RBC 4.90 Hgb 15.3 Hct 44.5 MCV 90.8 MCH 31.2 MCHC 34.4 RDW Std Deviation 45.0 H RDW Coeff of Carol 13.4 Plt Count 195 MPV 9.3 Immature Gran % (Auto) 0.200 Neut % (Auto) 57.3 Lymph % (Auto) 28.7 [place] % (Auto) 12.9 H Eos % (Auto) 0.7 Baso % (Auto) 0.2 Absolute Neuts (auto) 2.4 Absolute Lymphs (auto) 1.18 Nucleated RBC % 0 Sodium 134 L Potassium 4.2 Chloride 104 Carbon Dioxide 23.0 Anion Gap 7 BUN 14 Creatinine 0.83 Estim Creat Clear Calc 68.67 Est GFR (MDRD) Af Amer 115 Est GFR (MDRD) Non-Af 95 BUN/Creatinine Ratio 16.9 Glucose 132 H Calcium 8.9 Total Bilirubin 0.80 AST 45 H ALT 28 Alkaline Phosphatase 107 Troponin I High Sens 8 Total Protein 7.1 Albumin 3.3 Globulin 3.8 Albumin/Globulin Ratio 0.9 Urine Color Yellow Urine Clarity Clear Urine pH 6.0 Ur Specific [place] 1.020 Urine Protein Negative Urine Glucose (UA) Normal Urine Ketones 5 H Urine Occult Blood Negative Urine Nitrite Negative Urine Bilirubin Negative Urine Urobilinogen Normal Ur Leukocyte Esterase Negative Urine RBC 0 SEEN Urine WBC 0-5 SEEN Ur Squamous Epith Cells 0-5 SEEN Amorphous Sediment 1+ Urine Bacteria 0 SEEN Urine Mucus 0 SEEN Radiography Diagnostic Testing: Clinical Impression(s) from Imaging Studies Chest X-Ray 05/30/21 10:57 IMPRESSION: Patchy left basilar infiltrate with the blunting of the left costophrenic angle. Electronically Signed: Darion Madrid MD at 11:11 EST , Service support , Brain CT 05/30/21 11:40 IMPRESSION: Suspected rapidly enlarging mass or infarct of the right occipital lobe and posterior right parietal lobe with a large amount of surrounding vasogenic edema with mass effect including 2 mm of [id number] midline shift (subfalcine herniation). Correlation with MRI with contrast is recommended. N.B. : The above Results were Read Back by Lucian Sabillon MD to Vito Marsh DO, and understanding confirmed on 05/30/2021 12:03:21 (ET). Electronically Signed: Lucian Sabillon MD at 12:09 EST Tel , Service support , ADDENDUM: 05/30/21 1216 IMPRESSION: Suspected rapidly enlarging mass or infarct of the right occipital lobe and posterior right parietal lobe with a large amount of surrounding vasogenic edema with mass effect including 2 mm of [id number] midline shift (subfalcine herniation). Correlation with MRI with contrast is recommended. N.B. : The above Results were Read Back by Lucian Sabillon MD to Vito Marsh DO, and understanding confirmed on 05/30/2021 12:03:21 (ET). Electronically Signed: Lucian Sabillon MD at 12:09 EST Tel , Service support , Discharge Plan Triage Chief Complaint: Weakness ED Provider: Vito Marsh Dx/Rx/DC Orders Prescriptions: No Action venlafaxine [Effexor XR] 75 mg capsule,extended release 24hr 75 mg PO DAILY RF: 0 amlodipine 5 mg tablet 10 mg PO DAILY RF: 0 potassium chloride 20 mEq tablet,ER particles/crystals 20 meq PO DAILY RF: 0 Xtandi 40 mg Tablet 160 mg PO DAILY RF: 0 atorvastatin 80 mg Tablet 80 mg PO DAILY RF: 0 Eliquis 5 mg Tablet 5 mg PO BID RF: 0 metoprolol succinate 50 mg Capsule,Sprinkle,Er 24hr 50 mg PO BID RF: 0 alendronate 70 mg tablet 70 mg PO MO RF: 0 aspirin [Aspirin Low Dose] 81 mg Tablet,Delayed Release (Dr/Ec) 81 mg PO DAILY RF: 0 lorazepam 0.5 mg tablet 0.5 mg PO BID PRN (Reason: Anxiety) RF: 0 calcium carbonate [Calcium 500] 500 mg calcium (1,250 mg) Tablet 1,000 mg PO DAILY RF: 0 Primary Care Provider: Benedicto Hinson
--- NOTE | 2021-05-30 10:57 | RAD_ITS ---
STUDY: X-RAY CHEST REASON FOR EXAM: Male, 81 years old. Weakness TECHNIQUE: Single AP portable view of the chest. COMPARISON: Comparison is made with prior study dated 04/07/2021 and 03/21/2000 FINDINGS: There is evidence of patchy left lower lobe infiltrate with blunting of the left costophrenic angle. Sternal cerclage wires and vascular clips are present from a prior sternotomy and coronary artery bypass graft procedure (CABG). Normal mediastinum and hong. Normal visualized pulmonary arteries. There is atherosclerotic calcification of the aortic arch with tortuosity. There are diffuse degenerative changes of the visualized thoracic spine. Normal visualized ribs, clavicles, and shoulders. There is no demonstrated abnormality of the visualized soft tissue structures of the upper abdomen. RAD/Chest 1 View (Portable) IMPRESSION: Patchy left basilar infiltrate with the blunting of the left costophrenic angle. Electronically Signed: Darion Madrid MD at 11:11 EST , Service support ,
[2021-05-30 11:14] LABS: Absolute Lymphocyte Count 1.18 X10^3/uL (0.83-4.51); Absolute Neutrophil Count 2.4 X10^3/uL (2.0-7.7); Basophil# 0.01 X10^3/uL; Basophil% 0.2 % (0-1); Eosinophil# 0.03 X10^3/uL; Eosinophils% 0.7 % (0-5); Hematocrit 44.5 % (40-54); Hemoglobin 15.3 g/dL (13.0-16.5); Lymphocyte # 1.18 X10^3/ul (0.83-4.51); Lymphocyte % 28.7 % (19-41); Mean Corp Hgb Conc 34.4 g/dL (32-36); Mean Corpuscular Hgb 31.2 pg (27.0-32.0); Mean Corpuscular Volume 90.8 fL (80-94); Mean Platelet Vol. 9.3 fl (6.2-12.0); Monocyte# 0.53 X10^3/uL; Monocyte% 12.9 % (0-10); NRBC Flagged by Analyzer 0 % (0-5); Neutrophil # 2.35 X10^3/uL (2.7-7.7); Neutrophil % 57.3 % (47-70); Platelet Count 195 K/mm3 (150-450); RBC Distribution Width CV 13.4 % (11.6-14.6); White Blood Count 4.1 K/mm3 (4.4-11.0)
[2021-05-30 11:28] LABS: Bacteria 0 SEEN /hpf (None Seen); Mucous, Urine 0 SEEN /hpf (<or=2+); Red Blood Cells-Urine 0 SEEN /hpf (0-5)
[2021-05-30 11:30] LABS: Color, Urine Yellow (Yellow); Glucose, Dipstick Normal (Normal); Ketone-Dipstick 5 mg/dl (Negative); Leukocyte Esterase-Dipstick Negative /ul (Negative); Nitrite-Dipstick Negative (Negative); Occult Blood-Urine Negative /ul (Negative); Protein-Dipstick Negative (Negative); Urine Bilirubin Dipstick Negative (Negative); Urine Clarity Clear (Clear); Urine Urobilinogen Normal (Normal)
[2021-05-30 11:36] LABS: ALB/GLOB Ratio 0.9 RATIO (0.9-2.4); AST(SGOT) 45 U/L (15-37); Alanine Aminotransfer ALT/SGPT 28 U/L (16-61); Albumin, Serum 3.3 g/dL (3.2-5.0); Alkaline Phosphatase 107 U/L (45-117); Anion Gap 7 (5-15); BUN 14 mg/dL (7-18); BUN/Creat Ratio 16.9 RATIO (10-20); Calcium,Total 8.9 mg/dL (8.5-10.1); Chloride 104 mmol/L (98-107); Creatinine, Serum 0.83 mg/dL (0.70-1.30); EST Glomerular Filtration Rate 95 mL/min (>60); Est Glom Filt Rate - Afr Amer 115 mL/min (>60); Estimated Creatinine Clearance 68.67 ml/min; Globulin 3.8 g/dL (2.2-4.2); Glucose 132 mg/dL (74-106); Potassium 4.2 mmol/L (3.5-5.1); Protein, Total 7.1 g/dL (6.4-8.2); Sodium Level 134 mmol/L (136-145); Troponin-I HS 8 pg/mL (3.0-78.0)
--- NOTE | 2021-05-30 11:40 | CT_ITS ---
STUDY: CT BRAIN WITHOUT CONTRAST REASON FOR EXAM: Male, 81 years old. falls RADIATION DOSAGE (If Supplied By Facility): CTDIvol = ( 44.99 ) mGy, DLP = ( 880.47 ) mGycm TECHNIQUE: Transaxial CT imaging of the brain was performed without administration of intravenous contrast material. Individualized dose optimization techniques were used for this CT. COMPARISON: 04/07/2021 FINDINGS: Normal soft tissue structures. Normal calvarium. Normal size ventricles and extra-axial spaces for the patient''s age. Normal white matter tracts of the cerebral hemispheres. Normal basal ganglia and thalami. Normal brainstem. Normal cerebellum. Suspect a rapidly enlarging mass of the right occipital lobe measuring 4 cm in diameter with central calcification with interval development of a large amount of surrounding vasogenic edema and mass effect with effacement of sulci within the right occipital lobe and posterior right parietal lobe as well as encasement of the right lateral ventricle with approximately 2 mm of [id number] midline shift (subfalcine herniation). Alternatively this could represent an acute infarct. Correlation with MRI is recommended. There is no intracranial hemorrhage. Normal visualized paranasal sinuses. CT/Brain/Head without Contrast IMPRESSION: Suspected rapidly enlarging mass or infarct of the right occipital lobe and posterior right parietal lobe with a large amount of surrounding vasogenic edema with mass effect including 2 mm of [id number] midline shift (subfalcine herniation). Correlation with MRI with contrast is recommended. N.B. : The above Results were Read Back by Lucian Sabillon MD to Vito Marsh DO, and understanding confirmed on 05/30/2021 12:03:21 (ET). Electronically Signed: Lucian Sabillon MD at 12:09 EST Tel , Service support ,
[2021-05-30 11:48] LABS: Amorphous Sediment 1+; Squamous Epithelial Cells - UA 0-5 SEEN /hpf (0-5); White Blood Cells 0-5 SEEN /hpf (0-5)
--- NOTE | 2021-05-30 13:28 | MRI_ITS ---
STUDY: MRI BRAIN WITH AND WITHOUT CONTRAST REASON FOR EXAM: Male, 81 years old. stroke TECHNIQUE: Standardized multiplanar fat and water weighted pulse sequences were obtained. IV 15 CC DOTAREM was administered for the contrast portion of the examination. COMPARISON: CT earlier today FINDINGS: There is mild cerebral atrophy with widening of the extra-axial spaces and ventricular dilatation. There are a limited number of small white matter hyperintensities, distributed throughout the deep white matter tracts of the cerebral hemispheres, consistent with mild chronic white matter ischemic changes. There is no evidence for recent intracranial ischemia or other cause of cytotoxic edema on diffusion weighted imaging (DWI). Normal T2* images of the brain without demonstrated susceptibility artifact. There is no demonstrated hemosiderin stain. Normal bilateral basal ganglia. Normal thalami. There is no extra-axial fluid accumulation. Normal flow voids within the major intracranial circulation suggesting patency by spin echo criteria. Normal venous enhancement. 3 x 4 cm peripherally enhancing mass within the right occipital lobe with spread along the gibson of the occipital horn of the right lateral ventricle with a large amount of surrounding vasogenic edema with mass effect with effacement of sulci within the right occipital lobe and posterior right parietal lobe as well as effacement of the right lateral ventricle with 2 mm of [id number] midline shift (subfalcine herniation) (. Differential diagnosis includes primary SUPPLIER MANAGER tumor or solitary metastasis. Normal sella turcica, pituitary gland, infundibular stalk, optic chiasm and hypothalamus. Normal tectal plate and pineal gland. Normal midbrain, siena and medulla. Normal cerebellum. Normal basal cisterns. Normal bilateral temporal bones. Normal bilateral internal auditory canals. No demonstrated orbital abnormality, within the constraints of a routine brain study. Normal visualized paranasal sinuses. Normal calvarium and skull base. Normal visualized soft tissue structures. Normal visualized upper cervical spine. MRI/Brain W/WO Contrast IMPRESSION: 3 x 4 cm peripherally enhancing mass in the right occipital lobe with spread along the gibson of the occipital horn of the lateral right lateral ventricle with large amount of surrounding vasogenic edema and mass effect including 2 mm of [id number] midline shift (subfalcine herniation). Possibilities include primary SUPPLIER MANAGER tumor mainly glioblastoma multiform a or solitary metastasis. Electronically Signed: Lucian Sabillon MD at 15:44 EST Tel , Service support ,
[2021-05-30] MEDS: LORazepam 2 MG/ML Syringe 0.5 MG IV (13:48)
[2021-05-30 13:51] VITALS: BP 160/84; PULSE 79; RESP 16; O2SAT 99
--- NOTE | 2021-05-30 14:01 | ED.RN ---
THIS RN ATTEMPTED TO ASSIST PT UP TO BATHROOM PER PT INSISTENCE. PT UNABLE TO BEAR WEIGHT EFFECTIVELY ON LEFT LEG. THIS RN CALLED FOR ASSISTANCE. PT PLACED BACK IN BED WITH ASSIST OF 3. MRI PAPERWORK COMPLETED.
--- NOTE | 2021-05-30 16:04 | NURSING ---
1537 CALLED THUY, ETA IS 2 TO 3 HRS
[2021-05-30 17:45] VITALS: BP 142/70; PULSE 65; RESP 16; O2SAT 99
== END 2021-05-30 19:00 | disposition home or self-care (01) ==
LOC: ED 10:19
PROVIDERS: Emergency Provider Student in an Organized Health Care Education/Training Program; PCP Family Medicine
DX: G93.6 Cerebral edema (principal); G93.9 Disorder of brain, unspecified; R53.1 Weakness; I25.10 Atherosclerotic heart disease of native coronary artery without angina pectoris; I10 Essential (primary) hypertension; Z95.1 Presence of aortocoronary bypass graft; Z79.02 Long term (current) use of antithrombotics/antiplatelets; Z79.899 Other long term (current) drug therapy
CPT/HCPCS: 70450; 70553; 71045; 80053; 81001; 84484; 85025; 87426; 87635; 93005; 96374; 99285; A9581; U0005; U0003

== ENCOUNTER → 2021-07-20 14:45 | Outpatient (CLI) | payer MEDICARE, SELFPAY | PROVIDERS: PCP Family Medicine | DX: C85.89 Other specified types of non-Hodgkin lymphoma, extranodal and solid organ sites (principal) | CPT/HCPCS: 96523; A4216 ==

== ENCOUNTER → 2021-08-02 14:16 | Outpatient (CLI) | payer MEDICARE, SELFPAY | PROVIDERS: PCP Family Medicine | DX: Z45.2 Encounter for adjustment and management of vascular access device (principal) | CPT/HCPCS: 96523; A4216 ==

== ENCOUNTER → 2021-08-15 10:24 | Outpatient (CLI) | payer MEDICARE, SELFPAY | PROVIDERS: PCP Family Medicine | DX: C85.89 Other specified types of non-Hodgkin lymphoma, extranodal and solid organ sites (principal) | CPT/HCPCS: 96521; A4216 ==

== ENCOUNTER 2021-09-29 13:34 | Outpatient (CLI) | payer MEDICARE, SELFPAY ==
--- NOTE | 2021-09-29 13:52 | EKG12_ITS ---
Test Reason : POSTOP Blood Pressure : / mmHG Vent. Rate : 072 BPM Atrial Rate : 072 BPM P-R Int : 170 ms QRS Dur : 090 ms QT Int : 422 ms P-R-T Axes : 075 -06 075 degrees QTc Int : 462 ms Normal sinus rhythm Normal ECG Confirmed by DEMARCO VELASQUEZ, HANNA ([id number]), story editor RAVIN FREITAS ([id number]) on 09/30/2021 7:50:22 AM Referred By: TAY CARBONE Confirmed By:HANNA PAL MD
[2021-09-29 16:03] LABS: ALB/GLOB Ratio 1.1 RATIO (0.9-2.4); AST(SGOT) 36 U/L (15-37); Alanine Aminotransfer ALT/SGPT 28 U/L (16-61); Albumin, Serum 3.4 g/dL (3.2-5.0); Alkaline Phosphatase 102 U/L (45-117); Anion Gap 5 (5-15); BUN 15 mg/dL (7-18); BUN/Creat Ratio 12.5 RATIO (10-20); Calcium,Total 9.9 mg/dL (8.5-10.1); Chloride 104 mmol/L (98-107); EST Glomerular Filtration Rate 62 mL/min (>60); Est Glom Filt Rate - Afr Amer 75 mL/min (>60); Glucose 133 mg/dL (74-106); Magnesium 2.4 mg/dL (1.6-2.6); Potassium 4.1 mmol/L (3.5-5.1); Protein, Total 6.4 g/dL (6.4-8.2); Sodium Level 136 mmol/L (136-145)
== END 2021-09-29 23:59 | disposition home or self-care (01) ==
LOC: MEDOUTP 13:37 → PSN 13:43
PROVIDERS: PCP Family Medicine; Visit Provider Nurse Practitioner Adult Health
DX: C85.89 Other specified types of non-Hodgkin lymphoma, extranodal and solid organ sites (principal)
CPT/HCPCS: 36415; 80053; 83735; 93005; A4216

== ENCOUNTER → 2021-10-06 13:52 | Outpatient (CLI) | payer MEDICARE, SELFPAY ==
[2021-10-06 14:30] LABS: ALB/GLOB Ratio 1.1 RATIO (0.9-2.4); AST(SGOT) 26 U/L (15-37); Alanine Aminotransfer ALT/SGPT 28 U/L (16-61); Albumin, Serum 3.2 g/dL (3.2-5.0); Alkaline Phosphatase 97 U/L (45-117); Anion Gap 5 (5-15); BUN 19 mg/dL (7-18); BUN/Creat Ratio 20.2 RATIO (10-20); Calcium,Total 8.9 mg/dL (8.5-10.1); Chloride 107 mmol/L (98-107); Creatinine, Serum 0.94 mg/dL (0.70-1.30); EST Glomerular Filtration Rate 82 mL/min (>60); Est Glom Filt Rate - Afr Amer 99 mL/min (>60); Glucose 115 mg/dL (74-106); Magnesium 2.3 mg/dL (1.6-2.6); Protein, Total 6.2 g/dL (6.4-8.2); Sodium Level 137 mmol/L (136-145)
[2021-10-06 22:11] LABS: Xtra Tube EP Lab EXTRA TUBE
== END ==
PROVIDERS: PCP Family Medicine
DX: C85.89 Other specified types of non-Hodgkin lymphoma, extranodal and solid organ sites (principal)
CPT/HCPCS: 36592; 80053; 83735; A4216

== ENCOUNTER → 2021-10-17 11:03 | Outpatient (CLI) | payer MEDICARE, SELFPAY | PROVIDERS: PCP Family Medicine | DX: Z00.00 Encounter for general adult medical examination without abnormal findings (principal) ==

== ENCOUNTER 2022-02-15 19:02 | Emergency (ER) | payer MEDICARE, SELFPAY ==
[2022-02-15 19:03] VITALS: BP 190/96; PULSE 69; RESP 16; TEMP 35.8; O2SAT 99; BMI 26.6
--- NOTE | 2022-02-15 19:21 | CT_ITS ---
EXAM: CT HEAD WITHOUT INTRAVENOUS CONTRAST CLINICAL INDICATION: ams TECHNIQUE: Multiple axial images were obtained of the head without intravenous contrast. This CT exam was performed using one or more of the following dose reduction techniques: automated exposure control, adjustment of the mA and/or kV according to patient size, and/or use of iterative reconstruction technique. This report was created using [employer] report generation technology. COMPARISON: 05/30/2021 FINDINGS: BRAIN AND EXTRA-AXIAL SPACES: There is encephalomalacia in the right occipital lobe. No intra- or extra-axial hemorrhage. No evidence of acute infarct. No intracranial mass or mass effect. There is preservation of the rivas/white matter interface. Posterior fossa structures are unremarkable. Ventricles are appropriate for age. No hydrocephalus. Basal cisterns are patent. BONES/JOINTS: There are postsurgical changes from a right posterior craniotomy. No discrete lytic or blastic abnormalities. SINUSES: Unremarkable as visualized. Clear. MASTOID AIR CELLS: Unremarkable. Clear. ORBITS: Visualized globes, extraocular muscles, optic nerves and retrobulbar fat appear unremarkable. CT/Brain/Head without Contrast IMPRESSION: Postsurgical changes from a posterior right craniotomy with underlying encephalomalacia. Previously seen mass lesion has been removed. There are no acute abnormalities. Electronically Signed: Medardo Weldon MD at 20:25 EDT ,
--- NOTE | 2022-02-15 19:22 | EDS_ITS ---
HPI History of Present Illness Chief Complaint: Mental Health Informant: patient and family Narrative Narrative: 82-year-old male presenting to the emergency department with his daughters with a chief complaint of visual hallucinations. Patient has a history of brain tumor was treated with chemotherapy at [facility]. He had a recent negative scan. Family notes that he had some hallucinations with a urinary tract infection after his open heart surgery in the past. He tells me he is very cognizant of the hallucinations. He states that today he states was sitting in his enclosed deck area and noticed a waterfall and in the background was a dog running around. Later he went and rode his 4 dickerson did not have any problems with that. He came home and was looking at his and noticed that half of her face was upside down. Patient denies any infectious symptoms. No changes in medications recently. No head injuries. He notes chronic visual peripheral loss due to the tumor and those have not changed. No auditory hallucinations. He does not have any depression or paranoia. [facility] Medical History Atherosclerotic heart disease of [place] coronary artery without angina pectoris FH: CABG (coronary artery bypass surgery) History of left heart catheterization (LHC) (~03/22/21) HTN (hypertension) Leukopenia Prostate adenocarcinoma Thrombocytopenia Vascular dialysis catheter in place Home Medications amlodipine 5 mg tablet 10 mg PO DAILY BP 03/21/21 [History Last Taken 05/30/21] potassium chloride 20 mEq tablet,extended release(part/cryst) 20 meq PO DAILY POTASSIUM 03/21/21 [History Last Taken 05/30/21] venlafaxine 75 mg capsule,extended release 24 hr (Effexor XR) 75 mg PO DAILY 03/21/21 [History Last Taken 05/29/21] apixaban 5 mg tablet (Eliquis) 5 mg PO BID 04/07/21 [History Last Taken 05/30/21] atorvastatin 80 mg tablet 80 mg PO DAILY 04/07/21 [History Last Taken 05/29/21] enzalutamide 40 mg tablet (Xtandi) 160 mg PO DAILY 04/07/21 [History Last Taken 05/29/21] metoprolol succinate 50 mg capsule sprinkle, ext. release 24 hr 50 mg PO BID [History Last Taken 05/30/21] alendronate 70 mg tablet 70 mg PO MO bones 05/30/21 [History Last Taken 05/23/21] aspirin 81 mg tablet,delayed release (Riri Low Dose Aspirin) 81 mg PO DAILY 05/30/21 [History Last Taken 05/30/21] calcium carbonate 500 mg calcium (1,250 mg) tablet (Calcium 500) 1,000 mg PO DAILY 05/30/21 [History Last Taken 05/29/21] lorazepam 0.5 mg tablet 0.5 mg PO BID PRN Anxiety 05/30/21 [History Last Taken 2 Days Ago ~05/28/21] Allergy/AdvReac Type Severity Reaction Status Date / Time No Known Allergies Allergy Verified 02/15/22 19:03 Family History Brother Diabetes Surgical History Nephrostomy status Social History Smoking Status: Never smoker alcohol intake: never substance use type: does not use ROS ROS ED Constitutional Constitutional ED: Denies chills or weight loss Eyes Eyes: Denies change in vision or diplopia ENT ENT ED: Denies ear pain, rhinorrhea or sore throat Cardiovascular Cardiovascular: Denies chest pain, orthopnea, palpitations or racing heartbeat Respiratory/Chest Respiratory/Chest: Denies cough, dyspnea or orthopnea Gastrointestinal Gastrointestinal: Denies abdominal pain, diarrhea, nausea or vomiting Genitourinary Genitourinary ED: Denies dysuria, hematuria or urinary frequency Musculoskeletal Musculoskeletal: Denies arthralgias or myalgias Integumentary Denies abscess or rash Neurologic Neurologic: Denies headache(s) or weakness Psychiatric Psychiatric: Reports other Details: Visual hallucinations ; Denies anxiety, depression, suicidal ideation or suicidal thoughts Endocrine Endocrinology: Denies polydipsia, polyphagia or polyuria Allergic/Immunologic Allergic/Immunologic ED: Denies mouth swelling, tongue swelling or urticaria EXAM Physical Exam Const Vital Signs: 02/15/22 19:03 Temperature 96.5 F L Temperature Source Temporal Pulse Rate 69 Respiratory Rate 16 Blood Pressure 190/96 H Blood Pressure Mean 127 Pulse Ox 99 Oxygen Delivery Method Room Air Positive well nourished and well developed General Appearance ED: well developed HEENT Reports normocephalic, head/scalp atraumatic and moist mucous membranes Eyes PERRL and EOMs intact bilaterally Neck no lymphadenopathy, supple and no JVD Resp normal respiratory effort and clear to auscultation bilaterally Cardio regular rate, regular rhythm and no murmurs GI normal to inspection, nondistended, normoactive bowel sounds and non-tender Palpation: soft Back/Spine no CVA tenderness and normal ROM Extremity normal to inspection General Extremety ED: Negative for edema General Extremity: Negative for edema Neuro oriented x3 and CN's II-XII intact bilaterally Sensorium / Orientation: alert Motor Exam: strength 5/5 throughout Psych mental status grossly normal Attitude: No agitated Mood & Affect: Negative for depressed or tearful Skin no rashes or lesions noted and no wounds MDM MDM MDM Narrative Medical decision making narrative: CT the brain shows no acute process. Chest x-ray on my interpretation shows no acute process. CBC with white count of 5.3 and hemoglobin 13.4. Lactic acid 1.2. Creatinine 1.04 with a BUN of 17. Electrolytes are stable. Liver enzymes normal. Urinalysis is normal. COVID and influenza test is negative. At this point patient is not having hallucinations but he did have 3 today. He is cognizant that they are not real. In speaking with him and his daughters and using shared decision making patient will be discharged home and they are to contact their team at [facility]. Lab Data Attestation: I reviewed the patient's lab results. Labs: Laboratory Results - last 24 hr 02/15/22 02/15/22 02/15/22 19:40 19:40 19:40 WBC 5.3 RBC 4.17 L Hgb 13.4 Hct 39.5 L MCV 94.7 H MCH 32.1 H MCHC 33.9 RDW Std Deviation 44.7 H RDW Coeff of Carol 13.1 Plt Count 201 MPV 10.7 Immature Gran % (Auto) 0.200 Neut % (Auto) 62.8 Lymph % (Auto) 19.9 [place] % (Auto) 15.0 H Eos % (Auto) 1.9 Baso % (Auto) 0.2 Absolute Neuts (auto) 3.3 Absolute Lymphs (auto) 1.06 Nucleated RBC % 0 Sodium 140 Potassium 4.0 Chloride 109 H Carbon Dioxide 25.0 Anion Gap 6 BUN 17 Creatinine 1.04 Estim Creat Clear Calc 53.89 Est GFR (MDRD) Af Amer 88 Est GFR (MDRD) Non-Af 73 BUN/Creatinine Ratio 16.3 Glucose 123 H Lactic Acid 1.2 Calcium 9.1 Total Bilirubin 0.70 AST 35 ALT 34 Alkaline Phosphatase 100 Total Protein 6.8 Albumin 3.8 Globulin 3.0 Albumin/Globulin Ratio 1.3 Urine Color Urine Clarity Urine pH Ur Specific [place] Urine Protein Urine Glucose (UA) Urine Ketones Urine Occult Blood Urine Nitrite Urine Bilirubin Urine Urobilinogen Ur Leukocyte Esterase Urine RBC Urine WBC Ur Squamous Epith Cells Urine Bacteria Urine Mucus 02/15/22 19:40 WBC RBC Hgb Hct MCV MCH MCHC RDW Std Deviation RDW Coeff of Carol Plt Count MPV Immature Gran % (Auto) Neut % (Auto) Lymph % (Auto) [place] % (Auto) Eos % (Auto) Baso % (Auto) Absolute Neuts (auto) Absolute Lymphs (auto) Nucleated RBC % Sodium Potassium Chloride Carbon Dioxide Anion Gap BUN Creatinine Estim Creat Clear Calc Est GFR (MDRD) Af Amer Est GFR (MDRD) Non-Af BUN/Creatinine Ratio Glucose Lactic Acid Calcium Total Bilirubin AST ALT Alkaline Phosphatase Total Protein Albumin Globulin Albumin/Globulin Ratio Urine Color Yellow Urine Clarity Clear Urine pH 7.0 Ur Specific [place] 1.010 Urine Protein Negative Urine Glucose (UA) Normal Urine Ketones 5 H Urine Occult Blood Negative Urine Nitrite Negative Urine Bilirubin Negative Urine Urobilinogen Normal Ur Leukocyte Esterase Negative Urine RBC 0 SEEN Urine WBC 0 SEEN Ur Squamous Epith Cells 0 SEEN Urine Bacteria 0 SEEN Urine Mucus 0 SEEN Radiography Diagnostic Testing: Clinical Impression(s) from Imaging Studies Brain CT 02/15/22 19:21 IMPRESSION: Postsurgical changes from a posterior right craniotomy with underlying encephalomalacia. Previously seen mass lesion has been removed. There are no acute abnormalities. Electronically Signed: Medardo Weldon MD at 20:25 EDT , Chest X-Ray 02/15/22 19:54 IMPRESSION: No radiographic evidence of acute cardiopulmonary disease. Electronically Signed: Medardo Weldon MD at 20:23 EDT , Discharge Plan Triage Chief Complaint: Mental Health ED Provider: Deshawn Zuluaga Dx/Rx/DC Orders Clinical Impression: Spells of formed visual hallucinations, Brain cancer Prescriptions: No Action venlafaxine [Effexor XR] 75 mg capsule,extended release 24hr 75 mg PO DAILY amlodipine 5 mg tablet 10 mg PO DAILY potassium chloride 20 mEq tablet,ER particles/crystals 20 meq PO DAILY Xtandi 40 mg Tablet 160 mg PO DAILY atorvastatin 80 mg Tablet 80 mg PO DAILY Eliquis 5 mg Tablet 5 mg PO BID metoprolol succinate 50 mg Capsule,Sprinkle,Er 24hr 50 mg PO BID alendronate 70 mg tablet 70 mg PO MO aspirin [Riri Low Dose Aspirin] 81 mg Tablet,Delayed Release (Dr/Ec) 81 mg PO DAILY lorazepam 0.5 mg tablet 0.5 mg PO BID PRN (Reason: Anxiety) calcium carbonate [Calcium 500] 500 mg calcium (1,250 mg) Tablet 1,000 mg PO DAILY Primary Care Provider: Benedicto Hinson Referrals: Benedicto Hinson DO [Primary Care Provider] - As Needed Activity Restrictions/Additional Instructions: Follow-up with your doctors at [facility]. Return if worsening or concerns. Disposition Disposition: Home, Self Care
[2022-02-15 19:51] LABS: Bacteria 0 SEEN /hpf (None Seen); Mucous, Urine 0 SEEN /hpf (<or=2+); Red Blood Cells-Urine 0 SEEN /hpf (0-5); Squamous Epithelial Cells - UA 0 SEEN /hpf (0-5); White Blood Cells 0 SEEN /hpf (0-5)
[2022-02-15 19:54] LABS: Absolute Lymphocyte Count 1.06 X10^3/uL (0.83-4.51); Absolute Neutrophil Count 3.3 X10^3/uL (2.0-7.7); Basophil# 0.01 X10^3/uL; Basophil% 0.2 % (0-1); Eosinophils% 1.9 % (0-5); Hematocrit 39.5 % (40-54); Hemoglobin 13.4 g/dL (13.0-16.5); Lymphocyte # 1.06 X10^3/ul (0.83-4.51); Lymphocyte % 19.9 % (19-41); Mean Corp Hgb Conc 33.9 g/dL (32-36); Mean Corpuscular Hgb 32.1 pg (27.0-32.0); Mean Corpuscular Volume 94.7 fL (80-94); Mean Platelet Vol. 10.7 fl (6.2-12.0); NRBC Flagged by Analyzer 0 % (0-5); Neutrophil # 3.34 X10^3/uL (2.7-7.7); Neutrophil % 62.8 % (47-70); Platelet Count 201 K/mm3 (150-450); RBC Distribution Width CV 13.1 % (11.6-14.6); RBC Distribution Width SD 44.7 fl (35.1-43.9); Red Blood Count 4.17 M/mm3 (4.6-6.2); White Blood Count 5.3 K/mm3 (4.4-11.0)
--- NOTE | 2022-02-15 19:54 | RAD_ITS ---
EXAM: XR CHEST, 1 VIEW CLINICAL INDICATION: cad TECHNIQUE: Frontal view of the chest. This report was created using [employer] report generation technology. COMPARISON: 05/30/2021 FINDINGS: LUNGS AND PLEURAL SPACES: Unremarkable. No consolidation or edema. No pneumothorax. No effusion. HEART: Unremarkable. Cardiac silhouette not enlarged. MEDIASTINUM: Central airways and mediastinal contour are unremarkable. BONES/JOINTS: Unremarkable. SOFT TISSUES: Unremarkable. RAD/Chest 1 View (Portable) IMPRESSION: No radiographic evidence of acute cardiopulmonary disease. Electronically Signed: Medardo Weldon MD at 20:23 EDT ,
[2022-02-15 19:59] LABS: Color, Urine Yellow (Yellow); Glucose, Dipstick Normal (Normal); Ketone-Dipstick 5 mg/dl (Negative); Leukocyte Esterase-Dipstick Negative /ul (Negative); Nitrite-Dipstick Negative (Negative); Occult Blood-Urine Negative /ul (Negative); Protein-Dipstick Negative (Negative); Urine Bilirubin Dipstick Negative (Negative); Urine Clarity Clear (Clear); Urine Urobilinogen Normal (Normal)
[2022-02-15 20:12] LABS: ALB/GLOB Ratio 1.3 RATIO (0.9-2.4); AST(SGOT) 35 U/L (15-37); Alanine Aminotransfer ALT/SGPT 34 U/L (16-61); Albumin, Serum 3.8 g/dL (3.2-5.0); Alkaline Phosphatase 100 U/L (45-117); Anion Gap 6 (5-15); BUN 17 mg/dL (7-18); BUN/Creat Ratio 16.3 RATIO (10-20); Calcium,Total 9.1 mg/dL (8.5-10.1); Chloride 109 mmol/L (98-107); Creatinine, Serum 1.04 mg/dL (0.70-1.30); EST Glomerular Filtration Rate 73 mL/min (>60); Est Glom Filt Rate - Afr Amer 88 mL/min (>60); Estimated Creatinine Clearance 53.89 ml/min; Glucose 123 mg/dL (74-106); Protein, Total 6.8 g/dL (6.4-8.2); Sodium Level 140 mmol/L (136-145)
[2022-02-15 20:16] LABS: Lactic Acid 1.2 mmol/L (0.4-1.9)
--- NOTE | 2022-02-15 21:11 | CM.ED ---
SW Note SW spoke to MD regarding patient. Per MD patient is cognizant of his having hallucinations and they are not impacting his life. Patient is not depressed. Good family support. MD stated that in the past when patient has an infection he acts similarity. MD advised that SW consult with patient is not necessary. Home Denice HAMMOND
[2022-02-15 21:29] VITALS: BP 181/83; PULSE 63; RESP 18; O2SAT 97
== END 2022-02-15 21:32 | disposition home or self-care (01) ==
PROVIDERS: Emergency Provider Emergency Medicine; PCP Family Medicine; Visit Provider Emergency Medicine
DX: C71.9 Malignant neoplasm of brain, unspecified (principal); C61 Malignant neoplasm of prostate; I25.10 Atherosclerotic heart disease of native coronary artery without angina pectoris; H54.7 Unspecified visual loss; R44.3 Hallucinations, unspecified; I10 Essential (primary) hypertension; Z95.1 Presence of aortocoronary bypass graft; Z79.899 Other long term (current) drug therapy; Z79.82 Long term (current) use of aspirin; Z20.822 Contact with and (suspected) exposure to COVID-19
CPT/HCPCS: 70450; 71045; 80053; 81001; 83605; 85025; 87040; 87428; 99282; A4216

== ENCOUNTER → 2022-02-17 | Outpatient (CLI) | payer MEDICARE, SELFPAY ==
[2022-02-17 10:32] LABS: Color, Urine Yellow (Yellow); Glucose, Dipstick Normal (Normal); Ketone-Dipstick Negative (Negative); Leukocyte Esterase-Dipstick Negative /ul (Negative); Nitrite-Dipstick Negative (Negative); Occult Blood-Urine Negative /ul (Negative); Protein-Dipstick Negative (Negative); Urine Bilirubin Dipstick Negative (Negative); Urine Clarity Clear (Clear); Urine Urobilinogen Normal (Normal)
--- NOTE | 2022-02-17 14:30 | MRI_ITS ---
STUDY: MRI BRAIN WITH AND WITHOUT CONTRAST REASON FOR EXAM: Male, 82 years old. HALLUCINATIONS TECHNIQUE: Standardized multiplanar fat and water weighted pulse sequences were obtained. IV 16cc dotarem was administered for the contrast portion of the examination. COMPARISON: CT brain 02/15/2022 FINDINGS: There is moderate cerebral atrophy with widening of the extra-axial spaces and ventricular dilatation. There are multiple white matter hyperintensities, distributed throughout the deep white matter tracts of the cerebral hemispheres, consistent with moderate chronic white matter ischemic changes. There is no evidence for recent intracranial ischemia or other cause of cytotoxic edema on diffusion weighted imaging (DWI). Normal bilateral basal ganglia. Normal thalami. There is no extra-axial fluid accumulation. Normal flow voids within the major intracranial circulation suggesting patency by spin echo criteria. Normal venous enhancement. There is no enhancing intra-axial or extra-axial abnormality. Normal sella turcica, pituitary gland, infundibular stalk, optic chiasm and hypothalamus. Normal tectal plate and pineal gland. Normal midbrain, siena and medulla. Normal cerebellum. Normal basal cisterns. Fluid-filled air cell and right mastoid noted incidentally. Normal bilateral internal auditory canals. No demonstrated orbital abnormality, within the constraints of a routine brain study. 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 Normal visualized paranasal sinuses. Right occipital craniectomy. Subjacent cystic encephalomalacia right occipital lobe. Normal visualized soft tissue structures. Normal visualized upper cervical spine. MRI/Brain W/WO Contrast IMPRESSION: Right occipital craniectomy and subjacent cystic encephalomalacia. No acute disease. Electronically Signed: Rohit Love MD at 17:18 EDT ,
== END | disposition home or self-care (01) ==
PROVIDERS: PCP Family Medicine
DX: H53.9 Unspecified visual disturbance (principal); R41.82 Altered mental status, unspecified
CPT/HCPCS: 70553; 81002; 87086; A9575

== ENCOUNTER → 2022-05-01 | Outpatient (CLI) | payer MEDICARE, SELFPAY ==
--- NOTE | 2022-05-01 14:52 | RAD_ITS ---
EXAM: XR LEFT SHOULDER COMPLETE, 2 OR MORE VIEWS CLINICAL INDICATION: PAIN TECHNIQUE: Two or more views of the left shoulder. This report was created using [employer] report generation technology. COMPARISON: None. FINDINGS: BONES/JOINTS: Unremarkable. No acute fracture. No subluxation. Normal alignment. Preservation of the joint space. No sclerotic or destructive changes observed. SOFT TISSUES: Unremarkable. No soft tissue swelling or gas. No radiopaque foreign body. RAD/Shoulder min 2 Views IMPRESSION: Negative left shoulder x-rays. Electronically Signed: Sly Harrington MD at 5:22 EDT ,
--- NOTE | 2022-05-01 14:53 | RAD_ITS ---
EXAM: XR CERVICAL SPINE, 4 OR 5 VIEWS CLINICAL INDICATION: PAIN TECHNIQUE: Frontal, lateral and bilateral oblique views of the cervical spine. This report was created using [employer] report generation technology. COMPARISON: None. FINDINGS: VERTEBRAE: Unremarkable. Preserved vertebral body height. No acute fracture. No spondylolisthesis. Preservation of the normal cervical lordosis. No significant facet arthropathy. DISC SPACES: Moderate disc space narrowing C4-C5, C5-C6, and C6-C7. SOFT TISSUES: Unremarkable. No prevertebral soft tissue widening. LUNG APICES: Clear. OTHER FINDINGS: The bones are diffusely osteopenic. RAD/Cerv Spine 4 or 5 Views IMPRESSION: 1. Moderate spondylosis C4-C5 through C6-C7. 2. Diffuse osteopenia. Electronically Signed: Sly Harrington MD at 5:24 EDT ,
== END | disposition home or self-care (01) ==
LOC: MTRAD 14:51
PROVIDERS: PCP Family Medicine; Referring Provider Family Medicine; Visit Provider Family Medicine
DX: M79.602 Pain in left arm (principal); M25.512 Pain in left shoulder
CPT/HCPCS: 72050; 73030

== ENCOUNTER → 2022-05-23 | Outpatient (CLI) | payer MEDICARE, SELFPAY ==
--- NOTE | 2022-05-23 11:06 | MRI_ITS ---
STUDY: MRI BRAIN WITH AND WITHOUT CONTRAST REASON FOR EXAM: Male, 82 years old. 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 15 ml IV Clariscan was administered for the contrast portion of the examination. COMPARISON: 02/17/2010 FINDINGS: There is mild cerebral atrophy with widening of the extra-axial spaces and ventricular dilatation. There are a limited number of small white matter hyperintensities, distributed throughout the deep white matter tracts of the cerebral hemispheres, consistent with mild chronic white matter ischemic changes. Postsurgical changes in the right occipital lobe without evidence of residual or recurrent mass. Normal bilateral basal ganglia. Normal thalami. There is no extra-axial fluid accumulation. Normal flow voids within the major intracranial circulation suggesting patency by spin echo criteria. Normal venous enhancement. There is no enhancing intra-axial or extra-axial abnormality. Normal sella turcica, pituitary gland, infundibular stalk, optic chiasm and hypothalamus. Normal tectal plate and pineal gland. Normal midbrain, siena and medulla. Normal cerebellum. Normal basal cisterns. Normal bilateral temporal bones. Normal bilateral internal auditory canals. No demonstrated orbital abnormality, within the constraints of a routine brain study. Normal visualized paranasal sinuses. Normal calvarium and skull base. Normal visualized soft tissue structures. Normal visualized upper cervical spine. MRI/Brain W/WO Contrast IMPRESSION: Postsurgical changes without residual or recurrent mass. Electronically Signed: Lucian Sabillon MD at 14:14 EDT ,
[2022-05-23 16:11] LABS: CREATININE FINGERSTICK < 0.90 mg/dL (0.70-1.30); EGFR FINGERSTICK > 60 mL/min (>60)
== END | disposition home or self-care (01) ==
LOC: MRI 11:00
PROVIDERS: PCP Family Medicine
DX: C85.89 Other specified types of non-Hodgkin lymphoma, extranodal and solid organ sites (principal)
CPT/HCPCS: 70553; A9575

== ENCOUNTER → 2022-08-08 | Outpatient (CLI) | payer MEDICARE, SELFPAY ==
--- NOTE | 2022-08-08 17:32 | MRI_ITS ---
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 IV Contrast Dosage and Agent: 14 mL Clariscan COMPARISON: 05/23/2022 FINDINGS: HEMISPHERES, CEREBELLUM AND BRAINSTEM: 1. Postoperative changes of remote RIGHT posterior parietal craniotomy. 2. There is underlying encephalomalacic changes and cystic changes involving the RIGHT occipital and parietal lobes. Minimal laminar necrosis is noted along the medial wall of the resection cavity. No significant interval change noted. 3. Remaining hemispheric parenchyma has normal configuration. Chronic deep white matter disease is present without change. 4. No evidence fluid restriction or acute ischemic change. No evidence of hemosiderin deposition or hemorrhage. 5. The cerebellum, brainstem, basilar and suprasellar cisterns have normal appearance. No Chiari malformation. PITUITARY: Infundibulum and pituitary have normal configuration. Midline structures appear normal. CSF SPACES: Appropriate for age. No hydrocephalus. Basal cisterns are patent. VESSELS: 1. There are normal flow voids noted in the great vessels at the skull base ORBITS AND PARANASAL SINUSES: 1. Both globes, extraocular muscles, optic nerves and retrobulbar fat appear unremarkable. 2. Paranasal sinuses are clear. 3. There is an ovoid area of fluid signal throughout the RIGHT side of the skull base which is stable in appearance, and corresponds to a fluid-filled air cell. BONY ELEMENTS: Bony elements of the cranial vault, facial skeleton and skull base have normal appearance. Remote postoperative changes involving the posterior parietal cranial vault. No acute bony changes SCALP AND SOFT TISSUES: Normal appearance of the soft tissues of the scalp and the visualized face OTHER: None MRI/Brain W/WO Contrast IMPRESSION: 1. Stable exam. 2. Postoperative changes of RIGHT posterior parietal craniotomy, resection cavity in the RIGHT parieto-occipital lobes with extensive gliosis encephalomalacic change and a focal area of stable laminar necrosis. 3. No evidence of recurrent or residual disease. 4. Chronic deep white matter disease. 5. No intracranial evidence of mass, hemorrhage, or acute territorial infarct. 6. Stable appearance of an ovoid fluid collection along medial aspect of the RIGHT mastoid air cells. Electronically Signed: Lucian Pratt MD at 21:03 EST ,
[2022-08-10 08:03] LABS: CREATININE FINGERSTICK < 0.9 mg/dL (0.70-1.30); EGFR FINGERSTICK > 60 mL/min (>60)
== END | disposition home or self-care (01) ==
PROVIDERS: PCP Family Medicine
DX: C85.89 Other specified types of non-Hodgkin lymphoma, extranodal and solid organ sites (principal)
CPT/HCPCS: 70553; A9575

== ENCOUNTER → 2022-11-01 | Outpatient (CLI) | payer MEDICARE, SELFPAY ==
--- NOTE | 2022-11-01 12:38 | MRI_ITS ---
STUDY: MRI BRAIN WITH AND WITHOUT CONTRAST REASON FOR EXAM: Male, 82 years old. PRIMARY ADMINISTRATIVE INTERN LYMPHOMA,SURVEILLANCE TECHNIQUE: Standardized multiplanar fat and water weighted pulse sequences were obtained. IV 15mL Clariscan was administered for the contrast portion of the examination. COMPARISON: August 08, 2022 FINDINGS: Mild atrophy and moderate periventricular white matter ischemic changes without mass effect or restricted diffusion.. Postsurgical encephalomalacia and cystic cavity in the right parieto-occipital region with mild residual gliosis as well as increased signal intensity within the medial rim of the lesion on T1 which may be due to laminar necrosis Normal bilateral basal ganglia. Normal thalami. There is no extra-axial fluid accumulation. Normal flow voids within the major intracranial circulation suggesting patency by spin echo criteria. Normal venous enhancement. There is no enhancing intra-axial or extra-axial abnormality. Normal sella turcica, pituitary gland, infundibular stalk, optic chiasm and hypothalamus. Normal tectal plate and pineal gland. Normal midbrain, siena and medulla. Normal cerebellum. Normal basal cisterns. Normal bilateral temporal bones. Normal bilateral internal auditory canals. No demonstrated orbital abnormality, within the constraints of a routine brain study. Normal visualized paranasal sinuses. Normal calvarium and skull base. Normal visualized soft tissue structures. Normal visualized upper cervical spine. No significant change since prior exam MRI/Brain W/WO Contrast IMPRESSION: Postsurgical changes in the right parietal occipital region No enhancing lesions to suggest recurrent or residual neoplasm. Moderate periventricular white matter ischemic changes without evidence for acute infarct Electronically Signed: Cristhian Ayers MD at 17:56 EDT ,
[2022-11-03 09:35] LABS: CREATININE FINGERSTICK 0.83 mg/dL (0.70-1.30); EGFR FINGERSTICK > 60 mL/min (>60)
== END | disposition home or self-care (01) ==
LOC: MRI 12:32
PROVIDERS: PCP Family Medicine
DX: C85.89 Other specified types of non-Hodgkin lymphoma, extranodal and solid organ sites (principal)
CPT/HCPCS: 70553; A9575

== ENCOUNTER → 2023-02-12 | Outpatient (CLI) | payer MEDICARE, SELFPAY ==
--- NOTE | 2023-02-12 11:03 | MRI_ITS ---
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 Pre and Postcontrast imaging obtained. IV Contrast Dosage and Agent: 17 mL clariscan COMPARISON: 11/01/2022 FINDINGS: HEMISPHERES, CEREBELLUM AND BRAINSTEM: 1. The cerebral parenchyma, ventricular system and gyral pattern is unchanged. There are postoperative changes in the RIGHT medial occipital lobe in the region of the precuneus, measuring 3.0 x 3.1 x 3.0 cm. Mild surrounding gliosis is noted. There is a subtle area of laminar T1 hyperintensity along the medial aspect of the resection cavity. There is minimal enhancement of the area of T1 hyperintensity which likely represents laminar necrosis. There is subtle enhancement associated with the area of laminar necrosis. Findings however are stable, and similar appearance in 07/29/2022. 2. No other evidence of abnormal intraparenchymal or extra-axial contrast enhancement. 3. Diffuse involutional changes and chronic microvascular deep white matter disease is noted. 4. No acute territorial infarct, no evidence of fluid restriction or acute ischemia. No evidence of acute hemorrhage.. 5. The cerebellum, brainstem, basilar and suprasellar cisterns have normal appearance. No Chiari malformation. 6. There is redemonstration of a focal area of fluid accumulation along medial aspect of the mastoid air cells and skull base measuring approximately 1.2 x 1.5 cm, with negligible interval change. No associated contrast enhancement noted. PITUITARY: Infundibulum and pituitary have normal configuration. Midline structures appear normal. CSF SPACES: Appropriate for age. No hydrocephalus. Basal cisterns are patent. VESSELS: 1. There are normal flow voids noted in the great vessels at the skull base ORBITS AND PARANASAL SINUSES: 1. Both globes, extraocular muscles, optic nerves and retrobulbar fat appear unremarkable. 2. Chronic frontal and ethmoid sinus mucosal thickening noted. No lindsay sinus opacification. BONY ELEMENTS: Bony elements of the cranial vault, facial skeleton and skull base have normal appearance. Redemonstration of craniotomy defect in the RIGHT posterior parietal occipital cranial vault. SCALP AND SOFT TISSUES: Normal appearance of the soft tissues of the scalp and the visualized face OTHER: None MRI/Brain W/WO Contrast IMPRESSION: 1. Stable exam. 2. Postoperative changes involving the RIGHT posterior parietal/occipital cranial vault with resection cavity within the medial aspect of the RIGHT occipital lobe with minimal extension into the RIGHT parietal lobe. There has been negligible interval change. Mild gliosis, and focal area of laminar necrosis along the medial aspect of the resection cavity. There is persistent subtle residual enhancement at the level of the laminar necrosis. No evidence of recurrent or residual disease. 3. Diffuse involutional change, chronic microvascular deep white matter disease. 4. No other evidence intraparenchymal mass, hemorrhage, or acute territorial infarct. 5. Stable fluid collection along the medial aspect of the mastoid air cells on the RIGHT. Electronically Signed: Lucian Pratt MD at 23:24 EDT ,
[2023-02-12 11:38] LABS: CREATININE FINGERSTICK < 0.9 mg/dL (0.70-1.30); EGFR FINGERSTICK > 60.0000 mL/min (>60)
== END | disposition home or self-care (01) ==
LOC: MRI 10:59
PROVIDERS: PCP Family Medicine; Referring Provider Internal Medicine; Visit Provider Internal Medicine
DX: C85.89 Other specified types of non-Hodgkin lymphoma, extranodal and solid organ sites (principal)
CPT/HCPCS: 70553; A9575

== ENCOUNTER 2023-05-01 12:01 | Outpatient (CLI) | payer MEDICARE, SELFPAY ==
[2023-05-01 12:10] VITALS: BP 130/57; PULSE 86; RESP 16; TEMP 36.3; O2SAT 97
[2023-05-01 13:06] VITALS: BP 116/53; RESP 16; TEMP 35.8
[2023-05-01 14:06] VITALS: BP 108/52; PULSE 81; RESP 16; TEMP 35.9; O2SAT 97
[2023-05-01 14:22] VITALS: BP 109/51; PULSE 77; RESP 16; TEMP 35.9; O2SAT 99
== END 2023-05-01 12:02 | disposition home or self-care (01) ==
LOC: MEDOUTP 12:03
PROVIDERS: PCP Family Medicine; Referring Provider Internal Medicine Hematology & Oncology; Visit Provider Internal Medicine Hematology & Oncology
DX: C77.2 Secondary and unspecified malignant neoplasm of intra-abdominal lymph nodes (principal)
CPT/HCPCS: 36430; 86900; 86901; 86965; P9035

== ENCOUNTER → 2023-05-24 | Outpatient (CLI) | payer MEDICARE, SELFPAY ==
--- NOTE | 2023-05-24 15:40 | MRI_ITS ---
STUDY: MRI BRAIN WITH AND WITHOUT CONTRAST REASON FOR EXAM: Male, 83 years old. 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 IV 17cc Clariscan was administered for the contrast portion of the examination. COMPARISON: None. FINDINGS: There is mild cerebral atrophy with widening of the extra-axial spaces and ventricular dilatation. There are multiple white matter hyperintensities, distributed throughout the deep white matter tracts of the cerebral hemispheres, consistent with moderate chronic white matter ischemic changes. There is no evidence for recent intracranial ischemia or other cause of cytotoxic edema on diffusion weighted imaging (DWI). Normal bilateral basal ganglia. Normal thalami. There is no extra-axial fluid accumulation. Normal flow voids within the major intracranial circulation suggesting patency by spin echo criteria. Normal venous enhancement. There is no enhancing intra-axial or extra-axial abnormality. Normal sella turcica, pituitary gland, infundibular stalk, optic chiasm and hypothalamus. Normal tectal plate and pineal gland. Normal midbrain, siena and medulla. Normal cerebellum. Normal basal cisterns. Normal bilateral temporal bones. Normal bilateral internal auditory canals. No demonstrated orbital abnormality, within the constraints of a routine brain study. Normal visualized paranasal sinuses. Right posterior parietal craniotomy and subjacent cystic lesion measuring 3.4 x 2.2 cm in AP and transverse dimensions. There is adjacent T1 shortening of the mesial occipital cortex consistent with cortical laminar necrosis. Normal visualized soft tissue structures. Normal visualized upper cervical spine. MRI/Brain W/WO Contrast IMPRESSION: Right posterior parietal craniotomy and subjacent cystic lesion may represent the surgical bed or a porencephalic cyst. No abnormal enhancement. Electronically Signed: Rohit Love MD at 23:52 EDT ,
== END | disposition home or self-care (01) ==
PROVIDERS: PCP Family Medicine; Visit Provider Internal Medicine
DX: C85.89 Other specified types of non-Hodgkin lymphoma, extranodal and solid organ sites (principal)
CPT/HCPCS: 70553; A9575

== ENCOUNTER → 2023-09-05 | Outpatient (CLI) | payer MEDICARE, SELFPAY ==
--- NOTE | 2023-09-05 10:57 | MRI_ITS ---
STUDY: MRI BRAIN WITH AND WITHOUT CONTRAST REASON FOR EXAM: Male, 83 years old. 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 17ML IV CLARISCAN was administered for the contrast portion of the examination. COMPARISON: MRI of the brain dated May 24, 2023 and May 23, 2022. FINDINGS: Stable craniotomy defect and resected cavity in the right occipital lobe/temporal junction. Redemonstration of enhancing fibrotic material in the medial aspect of the resected cystic cavity seen on image 12/25 series 10 on May 24, 2023 and image 61/148 series 12 on the current exam. This is unchanged over 2 year period and is benign. There are no recurrent lesions or abnormal enhancement in the surgical bed or in the bilateral cerebral hemispheres or posterior fossa. No ring-enhancing lesions are present. No abnormal thickening or enhancement of the meninges or dura is present. No skull lesions are seen. No hydrocephalus or midline shift is present. There is mild cerebral atrophy with widening of the extra-axial spaces and ventricular dilatation. There are multiple white matter hyperintensities, distributed throughout the deep white matter tracts of the cerebral hemispheres, consistent with moderate chronic white matter ischemic changes. There is no evidence for recent intracranial ischemia or other cause of cytotoxic edema on diffusion weighted imaging (DWI). Normal T2* images of the brain without demonstrated susceptibility artifact. There is no demonstrated hemosiderin stain. Normal bilateral basal ganglia. Normal thalami. There is no extra-axial fluid accumulation. Normal flow voids within the major intracranial circulation suggesting patency by spin echo criteria. Normal venous enhancement. There is no enhancing intra-axial or extra-axial abnormality. Normal sella turcica, pituitary gland, infundibular stalk, optic chiasm and hypothalamus. Normal tectal plate and pineal gland. Normal midbrain, siena and medulla. Normal cerebellum. Normal basal cisterns. Normal bilateral temporal bones. Normal bilateral internal auditory canals. No demonstrated orbital abnormality, within the constraints of a routine brain study. Normal visualized paranasal sinuses. Normal calvarium and skull base. Normal visualized soft tissue structures. Normal visualized upper cervical spine. MRI/Brain W/WO Contrast IMPRESSION: 1. Stable craniotomy defect and resected cavity in the right occipital lobe/temporal junction. Redemonstration of enhancing fibrotic material in the medial aspect of the resected cystic cavity seen on image 12/25 series 10 on May 24, 2023 and image 61/148 series 12 on the current exam. This is unchanged over 2 year period and is benign. 2. There are no recurrent lesions or abnormal enhancement in the surgical bed or in the bilateral cerebral hemispheres or posterior fossa. No ring-enhancing lesions are present. No abnormal thickening or enhancement of the meninges or dura is present. 3. No skull lesions are seen. No hydrocephalus or midline shift is present. Electronically Signed: Gerardo Winters MD at 15:22 EST ,
[2023-09-05 15:26] LABS: CREATININE FINGERSTICK < 1.0 mg/dL (0.70-1.30); EGFR FINGERSTICK > 60.0000 mL/min (>60)
== END | disposition home or self-care (01) ==
LOC: MRI 10:55
PROVIDERS: PCP Family Medicine; Referring Provider Internal Medicine; Visit Provider Internal Medicine
DX: C85.89 Other specified types of non-Hodgkin lymphoma, extranodal and solid organ sites (principal)
CPT/HCPCS: 70553; A9575

== ENCOUNTER 2023-12-11 11:38 | Inpatient (IN) | payer MEDICARE, SELFPAY ==
[2023-12-11 11:38] VITALS: BP 144/61; PULSE 73; RESP 14; TEMP 36.8; O2SAT 100
--- NOTE | 2023-12-11 12:45 | MRI_ITS ---
STUDY: MRI LUMBAR SPINE WITHOUT CONTRAST REASON FOR EXAM: Male, 83 years old. compression fracture, B/L leg weakness -- TECHNIQUE: Standardized fat and water weighted pulse sequences were obtained in the sagittal and axial planes. COMPARISON: None FINDINGS: T12-L1: Normal endplates. Normal disc height, hydration and morphology. Normal bilateral facet joints. Normal central canal and bilateral lateral recesses. Normal bilateral intervertebral neural foramina. Normal lumbar lordosis. There is no substantial scoliosis. Normal conus medullaris that terminates at T12-L1 L1-2: Moderate chronic wedging of the superior endplate of L1.. Normal disc height, hydration and morphology. Normal bilateral facet joints. Normal central canal and bilateral lateral recesses. Normal bilateral intervertebral neural foramina. L2-3: Normal endplates. Normal disc height, desiccation and minimal bulging disc osteophyte complex with tiny right foraminal disc protrusion. Facet arthropathy and thickening of ligamenta flava slightly worse on the left. Normal central canal and bilateral lateral recesses. Moderate left neural foraminal stenosis and more severe narrowing on the right. L3-4: Normal endplates. Normal disc height, desiccation and minimal bulging disc osteophyte complex and small right paracentral/posterolateral disc protrusion. Mild facet arthropathy and thickening of ligamenta flava. Mild narrowing of the central canal. Normal bilateral lateral recesses. Moderate bilateral neural foraminal encroachment. L4-5: Normal endplates. Normal disc height, desiccation and minimal annular bulge with small right foraminal disc protrusion. Facet arthropathy and mild thickening of ligamenta flava.. Normal central canal and bilateral lateral recesses. Moderate left neural foraminal stenosis and moderate to severe narrowing of the right.. L5-S1: Narrowed disc space with desiccation of disc and minor bulging of the annulus with small central broad-based disc extrusion with inferior migration of disc fragment mildly displacing the descending S1 nerve roots. Mild facet arthropathy.. Normal central canal and bilateral lateral recesses. Moderate bilateral neural foraminal stenosis Normal visualized sacral ala. There is a parapelvic left renal cyst. Normal visualized paraspinous soft tissue structures. MRI/Spine Lumbar (Routine) IMPRESSION: Old compression fracture of L1.. No evidence for acute fracture or other significant bone pathology. Spondylosis and multilevel spinal stenosis secondary to disc disease and bony hypertrophy. Findings as above Electronically Signed: Cristhian Ayers MD at 16:22 EDT ,
--- NOTE | 2023-12-11 12:47 | ED.VIS.BACK ---
HPI History of Present Illness Chief Complaint: Back Informant: patient Narrative Narrative: Patient presents secondary to increasing lower extremity weakness. He was found to have a compression fracture in his back 8 or 10 weeks ago. He believes this is a fall from last February. Over the past 4 to 5 days has had increasing lower extremity weakness to the point where he is now unable to go up steps, get in and out of a lift chair, or even ambulate with his walker. Family is helping him pivot to a wheelchair. He states he is using ibuprofen intermittently for pain. Pain has not significantly worsened but his lower extremity weakness has. [facility] Medical History FH: CABG (coronary artery bypass surgery) History of left heart catheterization (LHC) (~03/22/21) Atherosclerotic heart disease of [place] coronary artery without angina pectoris Leukopenia Thrombocytopenia Vascular dialysis catheter in place HTN (hypertension) Prostate adenocarcinoma Home Medications ?Medication ?Instructions ?Recorded ?Last Taken ?Type venlafaxine 75 mg capsule,extended 150 mg PO DAILY 03/21/21 05/29/21 History release 24 hr (Effexor XR) apixaban 5 mg tablet (Eliquis) 5 mg PO BID 04/07/21 05/30/21 History atorvastatin 80 mg tablet 80 mg PO DAILY 04/07/21 05/29/21 History aspirin 81 mg tablet,delayed 81 mg PO DAILY 05/30/21 05/30/21 History release (Riri Low Dose Aspirin) calcium carbonate (Calcium 500) 1,000 mg PO DAILY 05/30/21 05/29/21 History amiodarone 200 mg tablet 400 mg PO BID 05/01/23 Unknown History losartan 50 mg tablet 50 mg PO DAILY 05/01/23 Unknown History tamsulosin 0.4 mg capsule 0.4 mg PO DAILY 05/01/23 Unknown History metoprolol succinate 50 mg 50 mg PO DAILY 12/11/23 12/11/23 History tablet,extended release 24 hr multivitamin 1 tab PO DAILY 12/11/23 12/11/23 History Allergy/AdvReac Type Severity Reaction Status Date / Time No Known Allergies Allergy Verified 12/11/23 11:39 Family History Brother Diabetes Surgical History Nephrostomy status Social History Smoking Status: Never smoker alcohol intake: never substance use type: does not use ROS ROS ED Constitutional Constitutional ED: Denies chills or fever(s) Eyes Eyes: Denies discharge from eye(s) ENT ENT ED: Denies discharge from eye(s), rhinorrhea or sore throat Cardiovascular Cardiovascular: Denies chest pain or palpitations Respiratory/Chest Respiratory/Chest: Denies cough or dyspnea Gastrointestinal Gastrointestinal: Denies abdominal pain, nausea or vomiting Genitourinary Genitourinary ED: Denies dysuria Musculoskeletal Musculoskeletal: Reports back pain; Denies extremity pain Integumentary Denies Abrasions or rash Neurologic Neurologic: Reports weakness and other Details: Occasional paresthesias bilateral legs. ; Denies headache(s) Allergic/Immunologic Allergic/Immunologic ED: Denies lip swelling or urticaria EXAM Physical Exam Const Vital Signs: 12/11/23 11:38 Temperature 98.3 F Temperature Source Temporal Pulse Rate 73 Respiratory Rate 14 Blood Pressure 144/61 H Blood Pressure Mean 88 Pulse Ox 100 Oxygen Delivery Method Room Air Positive well nourished and well developed General Appearance ED: well developed HEENT Reports moist mucous membranes Eyes EOMs intact bilaterally Resp normal respiratory effort and clear to auscultation bilaterally Cardio regular rate and regular rhythm GI soft to palpation and non-tender Extremity Extremity Narrative: 2+ bilateral lower extremity edema, symmetric. Strong distal pulses and good sensation on testing. Able to flex and extend at the ankle without difficulty. Does have weakness bilaterally and attempting to hold legs off the bed. Neuro oriented x3 MDM MDM MDM Narrative Medical decision making narrative: IV line established. Labwork obtained to evaluate for leukocytosis, anemia, and electrolyte derangement. Urinalysis obtained to evaluate for infection/hematuria. MRI of the lumbar spine will be obtained to evaluate for hematoma, cauda equina, spinal cord impingement. History & Record Review Discussion w/independent historian: Patient and Family Additional record(s) reviewed:: Prior outpatient record and Prior labs Lab Data Attestation: I reviewed the patient's lab results. Labs: Laboratory Results - last 24 hr 12/11/23 12/11/23 13:06 14:20 WBC 7.0 RBC 3.87 L Hgb 12.4 L Hct 37.3 L MCV 96.4 H MCH 32.0 MCHC 33.2 RDW Std Deviation 49.1 H RDW Coeff of Carol 14.0 Plt Count 25 L* MPV 13.3 H Immature Gran % (Auto) 0.700 Neut % (Auto) 39.0 L Lymph % (Auto) 45.0 H [place] % (Auto) 12.0 H Eos % (Auto) 2.6 Baso % (Auto) 0.7 Absolute Neuts (auto) 2.7 Absolute Lymphs (auto) 3.14 Nucleated RBC % 0 Differential Comment Diff Path Review May foll Sodium 138 Potassium 4.0 Chloride 108 H Carbon Dioxide 20.0 L Anion Gap 10 BUN 24 H Creatinine 0.90 Est GFR (MDRD) Af Amer 103 Est GFR (MDRD) Non-Af 85 BUN/Creatinine Ratio 26.6 H Glucose 126 H Calcium 8.4 L Urine Color Yellow Urine Clarity Clear Urine pH 5.0 Ur Specific [place] 1.020 Urine Protein Negative Urine Glucose (UA) 50 H Urine Ketones Negative Urine Occult Blood Negative Urine Nitrite Negative Urine Bilirubin Negative Urine Urobilinogen 1 H Ur Leukocyte Esterase Negative Urine RBC 0 SEEN Urine WBC 0 SEEN Ur Squamous Epith Cells 0 SEEN Urine Bacteria 0 SEEN Urine Mucus 0 SEEN Treatment and Re-Evaluation Narrative: CBC reveals a white count of 7.0 with a hemoglobin of 12.4. Platelet count is low at 25,000. I was able to pull up records from [facility]. Patient platelet count has ranged from 36,000 - 141,000 over the past 2 months. Chemistry studies are unremarkable with normal renal function. Urinalysis is negative. Patient is currently in MRI for L-spine imaging. Patient was signed out to oncoming physician for review of MRI report and final disposition. Discharge Plan Triage Chief Complaint: Back ED Provider: Twila Bowen Dx/Rx/DC Orders Clinical Impression: Compression fracture, Bilateral leg weakness, Thrombocytopenia Prescriptions: No Action venlafaxine [Effexor XR] 75 mg capsule,extended release 24hr 150 mg PO DAILY atorvastatin 80 mg Tablet 80 mg PO DAILY Eliquis 5 mg Tablet 5 mg PO BID aspirin [Riri Low Dose Aspirin] 81 mg Tablet,Delayed Release (Dr/Ec) 81 mg PO DAILY calcium carbonate [Calcium 500] 500 mg calcium (1,250 mg) Tablet 1,000 mg PO DAILY amiodarone 200 mg tablet 400 mg PO BID tamsulosin 0.4 mg capsule 0.4 mg PO DAILY losartan 50 mg tablet 50 mg PO DAILY metoprolol succinate 50 mg tablet extended release 24 hr 50 mg PO DAILY Patient Comments: [NO ORIGINAL SIG] multivitamin Tablet 1 tab PO DAILY Primary Care Provider: Benedicto Hinson Referrals: Benedicto Hinson DO [Primary Care Provider] - Print Language: Mohawk
[2023-12-11 13:20] LABS: Absolute Lymphocyte Count 3.14 X10^3/uL (0.83-4.51); Absolute Neutrophil Count 2.7 X10^3/uL (2.0-7.7); Basophil# 0.05 X10^3/uL; Basophil% 0.7 % (0-1); Eosinophil# 0.18 X10^3/uL; Eosinophils% 2.6 % (0-5); Hematocrit 37.3 % (40-54); Hemoglobin 12.4 g/dL (13.0-16.5); Lymphocyte # 3.14 X10^3/ul (0.83-4.51); Mean Corp Hgb Conc 33.2 g/dL (32-36); Mean Corpuscular Volume 96.4 fL (80-94); Mean Platelet Vol. 13.3 fl (6.2-12.0); Monocyte# 0.84 X10^3/uL; NRBC Flagged by Analyzer 0 % (0-5); Neutrophil # 2.72 X10^3/uL (2.7-7.7); POSITIVE COUNT YES; RBC Distribution Width SD 49.1 fl (35.1-43.9); Red Blood Count 3.87 M/mm3 (4.6-6.2)
[2023-12-11 13:31] LABS: Differential Indicated SCAN CRITERIA MET; Platelet Count 25 K/mm3 (150-450)
[2023-12-11 13:40] LABS: Anion Gap 10 (5-15); BUN 24 mg/dL (7-18); BUN/Creat Ratio 26.6 RATIO (10-20); Calcium,Total 8.4 mg/dL (8.5-10.1); Chloride 108 mmol/L (98-107); EST Glomerular Filtration Rate 85 mL/min (>60); Est Glom Filt Rate - Afr Amer 103 mL/min (>60); Glucose 126 mg/dL (74-106); Sodium Level 138 mmol/L (136-145)
[2023-12-11 14:31] LABS: Bacteria 0 SEEN /hpf (None Seen); Mucous, Urine 0 SEEN /hpf (<or=2+); Red Blood Cells-Urine 0 SEEN /hpf (0-5); Squamous Epithelial Cells - UA 0 SEEN /hpf (0-5); White Blood Cells 0 SEEN /hpf (0-5)
[2023-12-11 14:38] LABS: Color, Urine Yellow (Yellow); Glucose, Dipstick 50 mg/dl (Normal); Ketone-Dipstick Negative (Negative); Leukocyte Esterase-Dipstick Negative /ul (Negative); Nitrite-Dipstick Negative (Negative); Occult Blood-Urine Negative /ul (Negative); Protein-Dipstick Negative (Negative); Urine Bilirubin Dipstick Negative (Negative); Urine Clarity Clear (Clear); Urine Urobilinogen 1 mg/dl (Normal)
[2023-12-11 15:38] VITALS: BP 134/72; PULSE 80; RESP 16; O2SAT 96
[2023-12-11] MEDS: Morphine 4 MG/ML Syringe IV (18:43)
[2023-12-11 18:48] VITALS: BP 124/72; PULSE 61; RESP 16; TEMP 36.8; O2SAT 97
--- NOTE | 2023-12-11 18:51 | PCM.HP.STD ---
[facility] - General General Date of Admission: 12/11/23 Date of Service: 12/11/23 Chief Complaint: Back pain and lower extremity weakness. HPI Narrative MARIANO QUIROZ, is a 83 M with a past medical history of essential hypertension, hyperlipidemia, chronic atrial fibrillation; on apixaban and amiodarone, coronary artery disease; status post non-ST elevation [place] with CABG (2020), chronic thrombocytopenia, history of prostate cancer, obstructive sleep apnea, depression and recent diagnosis of vertebral compression fracture approximately 8 weeks ago who presents to [facility] ER complaining of worsening back pain and lower extremity weakness. Mr. Quiroz reports his symptoms began about 4 to 5 days prior to admission with progressively worsening increasing lower extremity weakness and now he cannot even go up steps or getting out of his chair. His family has been helping him. To make wheelchair. He also claims he cannot ambulate with his walker. He lives at home with his elderly who is not capable of taking care of him in his current condition and they are seeking for ECF placement for subacute rehabilitation. There is no report of fever, chills, nausea, vomiting, chest pain, palpitations, shortness of breath other recent illness or traumatic injury and he denies similar symptoms previously but he does state that he was supposed to have an outpatient MRI of the brain and he would like it to be done as an inpatient if possible. He was then admitted to the general medical floor under observation status for stay that is expected to be less than 2 midnights. [facility] Medical History FH: CABG (coronary artery bypass surgery) History of left heart catheterization (LHC) (~03/22/21) Atherosclerotic heart disease of [place] coronary artery without angina pectoris Leukopenia Thrombocytopenia Vascular dialysis catheter in place HTN (hypertension) Prostate adenocarcinoma Home Medications ?Medication ?Instructions ?Recorded ?Last Taken ?Type venlafaxine 75 mg capsule,extended 150 mg PO DAILY 03/21/21 12/11/23 History release 24 hr (Effexor XR) apixaban 5 mg tablet (Eliquis) 5 mg PO BID 04/07/21 12/11/23 History atorvastatin 80 mg tablet 80 mg PO DAILY 04/07/21 12/10/23 History aspirin 81 mg tablet,delayed 81 mg PO DAILY 05/30/21 12/11/23 History release (Riri Low Dose Aspirin) calcium carbonate (Calcium 500) 1,000 mg PO DAILY 05/30/21 12/11/23 History amiodarone 200 mg tablet 400 mg PO BID 05/01/23 Unknown History losartan 50 mg tablet 50 mg PO DAILY 05/01/23 12/11/23 History tamsulosin 0.4 mg capsule 0.4 mg PO DAILY 05/01/23 12/11/23 History metoprolol succinate 50 mg 50 mg PO DAILY 12/11/23 12/11/23 History tablet,extended release 24 hr multivitamin 1 tab PO DAILY 12/11/23 12/11/23 History Allergy/AdvReac Type Severity Reaction Status Date / Time No Known Allergies Allergy Verified 12/11/23 20:55 Family History Brother Diabetes Surgical History Nephrostomy status Social History Smoking Status: Never smoker alcohol intake: never substance use type: does not use ROS ROS Narrative Review of systems: General: Patient denies fever or chills HENT: Denies headache, denies stuffy nose, denies sore throat EYES: Denies changes in vision or discharge from eyes. Resp: Denies cough, denies shortness of breath Cardiac: Denies chest pain, palpitations or heart racing. GI: Denies abdominal pain, denies changes in bowel, denies nausea or vomiting. : Denies changes in urination Extremity: Denies swelling Musculoskeletal: Feels somewhat generally weak and unwell with ongoing back pain and lower extremity weakness as per HPI. Neuro: Patient admits to difficulty ambulating due to progressively worsening weakness in his legs as per HPI. Heme: Denies any bleeding or bruising Skin: Denies rashes Psychiatric: No complaints voiced related uncontrolled depression or anxiety. Endocrine: No polyuria, polydipsia or polyphagia. The rest of the 14 point ROS was negative except for positives in HPI. Vital Signs Vital Signs Vital Signs: 12/11/23 11:38 12/11/23 15:38 12/11/23 18:48 Temperature 98.3 F 98.3 F Temperature Source Temporal Pulse Rate 73 80 61 Respiratory Rate 14 16 16 Blood Pressure 144/61 H 134/72 H 124/72 H Blood Pressure Mean 88 92 89 Pulse Ox 100 96 97 Oxygen Delivery Method Room Air Room Air Physical Exam Const alert, oriented x3, no apparent distress and average body habitus General Appearance: cooperative HEENT normocephalic, head/scalp atraumatic, hearing grossly normal bilaterally and moist oral mucous membranes Eyes PERRL and EOMs intact bilaterally Neck no lymphadenopathy and supple Resp normal respiratory effort, no retractions, no use of accessory muscles and clear to auscultation bilaterally Cardio regular rate and regular rhythm GI normal to inspection, nondistended, normoactive bowel sounds, soft to palpation, non-tender and non-distended Extremity normal to inspection, full ROM and no clubbing, cyanosis or edema Skin Skin Narrative: Patient has no evidence of jaundice, abscess or rash. Neuro oriented x3, CN's II-XII intact bilaterally and moves all extremities Neuro Narrative: Patient is too weak to ambulate without significant assistance. Sensorium / Orientation: awake, alert, oriented to person, oriented to place and oriented to time Speech: speech normal Psych affect normal Results Medical Records Data Attestation: I reviewed the patient's medical records Lab / Micro Data Attestation: I reviewed the patient's lab results. 12/11/23 13:06 12/11/23 13:06 Labs: Laboratory Results - last 24 hr 12/11/23 13:06: WBC 7.0, RBC 3.87 L, Hgb 12.4 L, Hct 37.3 L, MCV 96.4 H, MCH 32.0, MCHC 33.2, RDW Std Deviation 49.1 H, RDW Coeff of Carol 14.0, Plt Count 25 L*, MPV 13.3 H, Immature Gran % (Auto) 0.700, Neut % (Auto) 39.0 L, Lymph % (Auto) 45.0 H, [place] % (Auto) 12.0 H, Eos % (Auto) 2.6, Baso % (Auto) 0.7, Absolute Neuts (auto) 2.7, Absolute Lymphs (auto) 3.14, Nucleated RBC % 0, Differential Comment , Diff Path Review November, Sodium 138, Potassium 4.0, Chloride 108 H, Carbon Dioxide 20.0 L, Anion Gap 10, BUN 24 H, Creatinine 0.90, Est GFR (MDRD) Af Amer 103, Est GFR (MDRD) Non-Af 85, BUN/Creatinine Ratio 26.6 H, Glucose 126 H, Calcium 8.4 L 12/11/23 14:20: Urine Color Yellow, Urine Clarity Clear, Urine pH 5.0, Ur Specific [place] 1.020, Urine Protein Negative, Urine Glucose (UA) 50 H, Urine Ketones Negative, Urine Occult Blood Negative, Urine Nitrite Negative, Urine Bilirubin Negative, Urine Urobilinogen 1 H, Ur Leukocyte Esterase Negative, Urine RBC 0 SEEN, Urine WBC 0 SEEN, Ur Squamous Epith Cells 0 SEEN, Urine Bacteria 0 SEEN, Urine Mucus 0 SEEN Imaging Radiology Impression Lumbar Spine MRI 12/11/23 12:45 IMPRESSION: Old compression fracture of L1.. No evidence for acute fracture or other significant bone pathology. Spondylosis and multilevel spinal stenosis secondary to disc disease and bony hypertrophy. Findings as above Electronically Signed: Cristhian Ayers MD at 16:22 EDT Reading Location ID and State: [facility] / [place] Tel , Service support , Assessment & Plan Assessment/Plan (1) Low back pain: QUALIFIERS: Back pain laterality: unspecified Chronicity: acute Sciatica presence: unspecified whether sciatica present Qualified Code(s): M54.50 - Low back pain, unspecified (2) Bilateral leg weakness: (3) Compression fracture: (4) Thrombocytopenia: (5) MARY CARMEN (obstructive sleep apnea): (6) Prostate adenocarcinoma: PLAN: Plan 1. Acute low back pain in the setting of recent vertebral compression fracture approximately 8 weeks ago - Admit to general medical floor under observation status. MRI of the lumbar spine unremarkable for acute pathologic changes that would explain his symptomatology. We will consult orthopedic-spinal surgeon to see patient on rounds in the a.m. for further recommendations. We will also check MRI of the brain that was previously scheduled to evaluate for potential central nervous system cause of his declining clinical condition. 2. Progressively worsening lower extremity weakness and ambulatory dysfunction due to #1 - PT/OT and case management consult and treat on rounds in the a.m. regarding ECF placement for subacute rehabilitation with help appreciated in advance. Patient is a significant fall risk due to his low platelet count and apixaban. 3. Chronic but now acutely severe thrombocytopenia with platelet count of 25K present on admission complicating #1 & #2 - Check daily CBC to ensure continued stability. Transfuse platelets if platelet count falls below 15 K. 4. Chronic atrial fibrillation; on apixaban and amiodarone - Resume home medications for now. 5. CAD; status post non-ST elevation [place] with CABG (2020) - Noted. Continue home medications as previous. 6. Essential hypertension - Resume current regimen plus give as needed IV hydralazine for systolic blood pressure greater than 160 mmHg. 7. Hyperlipidemia - Continue statin. 8. History of prostate cancer - Check PSA in light of #1. 9. Obstructive sleep apnea - Resume CPAP. 10. Depression - Continue current treatment. 11. DVT prophylaxis - Patient already on apixaban for #3 which will be continued. Total time: Approximately 85 minutes. Charges/Coding Visit Charges OBSV E&M: 07211 Observ/hosp same date L3
[2023-12-11 19:00] VITALS: BP 120/64; PULSE 74; RESP 14; O2SAT 97
[2023-12-11 20:00] VITALS: BMI 29.9
[2023-12-11 20:40] LABS: CRP, High Sensitivity Cardiac 2.66 mg/L; PSA,Total - Annual Screen 0.26 ng/mL (0.00-4.00)
[2023-12-11 20:47] VITALS: BP 114/68; PULSE 74; RESP 18; TEMP 35.8; O2SAT 99
[2023-12-11 20:50] LABS: Erythrocyte Sedimentation Rate 2 mm/hr (0-20)
[2023-12-11] MEDS: 0.9% Normal Saline (1000mL) 1,000 ML 60 ML IV (21:17)
[2023-12-11] MEDS: 0.9% Saline Lock 10 ML Syringe IV (21:18)
[2023-12-11] MEDS: Atorvastatin Calcium 80 MG Tablet PO (21:18)
[2023-12-11] MEDS: APIXABAN 5 MG TABLET PO (21:18)
[2023-12-11 22:40] LABS: Vitamin B12 869 pg/mL (211-911)
[2023-12-12] MEDS: Acetaminophen 325 MG Tablet 650 MG PO ×2 (00:17→08:40)
[2023-12-12 02:45] VITALS: BP 105/59; PULSE 83; RESP 16; TEMP 36.4; O2SAT 97
[2023-12-12] MEDS: oxyCODONE 5 MG Tablet PO ×2 (02:57→23:46)
[2023-12-12 07:15] LABS: Absolute Lymphocyte Count 2.32 X10^3/uL (0.83-4.51); Absolute Neutrophil Count 2.2 X10^3/uL (2.0-7.7); Basophil# 0.03 X10^3/uL; Basophil% 0.5 % (0-1); Eosinophil# 0.25 X10^3/uL; Eosinophils% 4.5 % (0-5); Hematocrit 34.8 % (40-54); Hemoglobin 11.6 g/dL (13.0-16.5); Lymphocyte # 2.32 X10^3/ul (0.83-4.51); Lymphocyte % 41.4 % (19-41); Mean Corp Hgb Conc 33.3 g/dL (32-36); Mean Corpuscular Volume 96.1 fL (80-94); Mean Platelet Vol. 12.4 fl (6.2-12.0); Monocyte# 0.76 X10^3/uL; Monocyte% 13.6 % (0-10); NRBC Flagged by Analyzer 0 % (0-5); Neutrophil # 2.21 X10^3/uL (2.7-7.7); Neutrophil % 39.5 % (47-70); POSITIVE COUNT YES; RBC Distribution Width CV 13.7 % (11.6-14.6); RBC Distribution Width SD 48.4 fl (35.1-43.9); Red Blood Count 3.62 M/mm3 (4.6-6.2); White Blood Count 5.6 K/mm3 (4.4-11.0)
[2023-12-12 07:22] LABS: Differential Indicated SCAN CRITERIA MET; Platelet Count 23 K/mm3 (150-450)
[2023-12-12 07:53] LABS: AST(SGOT) 60 U/L (15-37); Alanine Aminotransfer ALT/SGPT 43 U/L (16-61); Albumin, Serum 2.8 g/dL (3.2-5.0); Alkaline Phosphatase 82 U/L (45-117); Anion Gap 6 (5-15); BUN 20 mg/dL (7-18); BUN/Creat Ratio 25.4 RATIO (10-20); Calcium,Total 7.9 mg/dL (8.5-10.1); Chloride 113 mmol/L (98-107); Creatinine, Serum 0.79 mg/dL (0.70-1.30); EST Glomerular Filtration Rate 100 mL/min (>60); Est Glom Filt Rate - Afr Amer 121 mL/min (>60); Estimated Creatinine Clearance 82.41 ml/min; Globulin 2.8 g/dL (2.2-4.2); Glucose 131 mg/dL (74-106); Magnesium 2.1 mg/dL (1.6-2.6); Phosphorus 3.3 mg/dL (2.5-4.9); Potassium 4.2 mmol/L (3.5-5.1); Protein, Total 5.6 g/dL (6.4-8.2); Sodium Level 140 mmol/L (136-145); Thyroid Stim Hormone (TSH) 0.55 uIU/mL (0.358-3.74)
[2023-12-12 08:31] VITALS: BP 132/61; PULSE 68; RESP 14; TEMP 36.8; O2SAT 93
[2023-12-12] MEDS: Multivitamins,Therapeutic Tablet 1 TABLET PO (08:35)
[2023-12-12] MEDS: Losartan Potassium 50 MG Tablet PO (08:35)
[2023-12-12] MEDS: Aspirin E.C. 81 MG Tablet PO (08:35)
[2023-12-12] MEDS: Venlafaxine XR 150 MG Capsule PO (08:36)
[2023-12-12] MEDS: Calcium (Elemental) 500 MG Tablet 1000 MG PO (08:36)
[2023-12-12] MEDS: Amiodarone 200 MG Tablet PO (08:36)
[2023-12-12] MEDS: Tamsulosin HCl 0.4 MG Capsule PO (08:36)
[2023-12-12 08:37] VITALS: PULSE 68
[2023-12-12] MEDS: APIXABAN 5 MG TABLET PO (08:37)
[2023-12-12] MEDS: Metoprolol(XL)Succ 50 MG Tablet PO (08:37)
[2023-12-12 08:51] LABS: Platelet Estimate MKD DEC (ADEQ)
--- NOTE | 2023-12-12 09:00 | MRI_ITS ---
STUDY: MRI BRAIN WITH AND WITHOUT CONTRAST REASON FOR EXAM: Male, 83 years old. Progressively worsening lower extremity weakness HX OF CANCER, PREVIOUS MRI TECHNIQUE: Standardized multiplanar fat and water weighted pulse sequences were obtained. IV 17ML CLARISCAN was administered for the contrast portion of the examination. COMPARISON: MRI of the brain dated September 05, 2023, May 24, 2023, February 12, 2023 FINDINGS: * Stable post resection cavity and cystic volume loss of the right occipital lobe with overlying craniotomy defect. No recurrent mass or nodule or enhancement is present in the surgical bed suspicious for recurrent disease. * There are no abnormally enhancing lesions of the remaining bilateral cerebral hemispheres or in the posterior fossa. * There is no abnormal thickening or enhancement of meninges or dura or skull. * Redemonstration of chronic ischemic or postinflammatory signal across the splenium of the corpus callosum There is mild cerebral atrophy with widening of the extra-axial spaces and ventricular dilatation. There are multiple white matter hyperintensities, distributed throughout the deep white matter tracts of the cerebral hemispheres, consistent with moderate chronic white matter ischemic changes. There is no evidence for recent intracranial ischemia or other cause of cytotoxic edema on diffusion weighted imaging (DWI). Normal T2* images of the brain without demonstrated susceptibility artifact. There is no demonstrated hemosiderin stain. No hydrocephalus or midline shift is present. Normal bilateral basal ganglia. Normal thalami. There is no extra-axial fluid accumulation. Normal flow voids within the major intracranial circulation suggesting patency by spin echo criteria. Normal venous enhancement. There is no enhancing intra-axial or extra-axial abnormality. Normal sella turcica, pituitary gland, infundibular stalk, optic chiasm and hypothalamus. Normal tectal plate and pineal gland. Normal midbrain, siena and medulla. Normal cerebellum. Normal basal cisterns. Normal bilateral temporal bones. Normal bilateral internal auditory canals. No demonstrated orbital abnormality, within the constraints of a routine brain study. Normal visualized paranasal sinuses. Normal calvarium and skull base. Normal visualized soft tissue structures. Normal visualized upper cervical spine. MRI/Brain W/WO Contrast IMPRESSION: Stable postsurgical resection cavity of the right occipital lobe for 2 years. No recurrent disease or evidence of metastatic disease in the remaining brain parenchyma. 1. Stable post resection cavity and cystic volume loss of the right occipital lobe with overlying craniotomy defect. No recurrent mass or nodule or enhancement is present in the surgical bed suspicious for recurrent disease. 2. There are no abnormally enhancing lesions of the remaining bilateral cerebral hemispheres or in the posterior fossa. 3. There is no abnormal thickening or enhancement of meninges or dura or skull. Electronically Signed: Gerardo Winters MD at 12:22 EDT ,
--- NOTE | 2023-12-12 09:55 | MRI_ITS ---
STUDY: MRI LUMBAR SPINE WITH CONTRAST REASON FOR EXAM: Male, 83 years old. LOW BACK PAIN , HX PROSTATE CA, leg weakness PRIOR WITHOUT DONE 12/11/23 TECHNIQUE: Standardized fat and water weighted pulse sequences were obtained in the sagittal and axial following administration of IV 17 ml clariscan. Mild motion artifact is present. COMPARISON: MRI of the lumbar spine dated December 11, 2023. FINDINGS: Postcontrast images: No focally enhancing bony or soft tissue lesions are present. There is no evidence of primary or metastatic disease of the lumbar spine. No nodularity or enhancement is seen in the distal spinal cord or in the spinal nerve roots. Redemonstration of an old mild compression deformity of the L1 vertebral body. Mildly heterogeneous marrow pattern with predominance of red marrow elements is likely related to the patient''s hematologic status. Normal visualized sacral ala. Normal visualized paraspinous soft tissue structures. MRI/Spine Lumbar WITH Contrast IMPRESSION: 1. No demonstrated primary or metastatic disease of the lumbar spine. 2. Mildly heterogeneous marrow pattern with predominance of red marrow elements is likely related to the patient''s hematologic status. Electronically Signed: Gerardo Winters MD at 12:17 EDT ,
[2023-12-12] MEDS: Lidocaine 5% Patch 1 PATCH TOPICAL (12:29)
[2023-12-12] MEDS: Glycerin/Hypromellose/PEG400 15 ml Bottle 1 DRP EACH EYE (12:30)
[2023-12-12] MEDS: Acetaminophen 500 MG Tablet 1000 MG PO ×2 (14:36→21:09)
[2023-12-12 14:38] VITALS: BP 117/53; PULSE 64; RESP 12; TEMP 36.6; O2SAT 97
--- NOTE | 2023-12-12 14:55 | CASEMGMT ---
Met with patient to complete TROTTER form. TROTTER form explained to patient who voiced understanding and signed form. Original form placed in pt?s chart and copy provided to?patient. Ramya Andrade, Discharge Planning Asst
--- NOTE | 2023-12-12 15:17 | PCM.CONS.GEN ---
Assessment & Plan Assessment/Plan (1) Low back pain: QUALIFIERS: Chronicity: chronic Back pain laterality: midline Sciatica presence: without sciatica Qualified Code(s): M54.50 - Low back pain, unspecified; G89.29 - Other chronic pain PLAN: 1. Back pain: progressive in nature over the past few months. Predominantly at night. He is taking tylenol PRN and using lidocaine patches with seemingly good success. Discussed that perhaps pain is related to muscle spasm. He is unsure, but will consider this and see if that is what the pain seems to be like next time it occurs. Can consider muscle relaxant if that is the case (low dose tizanidine 2mg or perhaps baclofen low dose 5mg). Would have to be careful due to side effects, such as dizziness/sedation. He is already a fall risk. Perhaps at bedtime if it is helpful. Would only start if his pain becomes problematic and he feels it is spasm related. MRI did not show clear evidence of compression of any neural structure, nor obvious metastasis. Compression fracture in L1 appears chronic in nature and is unlikely to be related to his current pain issues. Would not pursue intervention. He is significantly thrombocytopenic, so procedural efforts would be limited if a target were to even present itself. Weakness is of unclear etiology. No evidence of spinal cord compression on MRI. Please reconsult should pain worsen or become difficult to manage. (2) Compression fracture: PLAN: Compression fracture in L1 appears chronic in nature and is unlikely to be related to his current pain issues. Would not pursue intervention. He is significantly thrombocytopenic, so procedural efforts would be limited if a target were to even present itself. PLAN: Plan 1. Back pain: progressive in nature over the past few months. Predominantly at night. He is taking tylenol PRN and using lidocaine patches with seemingly good success. Discussed that perhaps pain is related to muscle spasm. He is unsure, but will consider this and see if that is what the pain seems to be like next time it occurs. Can consider muscle relaxant if that is the case (low dose tizanidine 2mg or perhaps baclofen low dose 5mg). Would have to be careful due to side effects, such as dizziness/sedation. He is already a fall risk. Perhaps at bedtime if it is helpful. Would only start if his pain becomes problematic and he feels it is spasm related. MRI did not show clear evidence of compression of any neural structure, nor obvious metastasis. Compression fracture in L1 appears chronic in nature and is unlikely to be related to his current pain issues. Would not pursue intervention. He is significantly thrombocytopenic, so procedural efforts would be limited if a target were to even present itself. Weakness is of unclear etiology. No evidence of spinal cord compression on MRI. Please reconsult should pain worsen or become difficult to manage. HPI Consult Data Date of Consult: 12/12/23 HPI Narrative Reason for Consultation: Compression fracture/back pain HPI Narrative: MARIANO FRANCO, is a 83 M who presents with back pain and slowly progressive weakness of the lower extremities (last few months). He has a pmh of NSEMI, MARY CARMEN, [employer] lymphoma s/p resection, thrombocytopenia (25k), on blood thinners (apixaban). He states his pain is often only at night after he is laying down for a while. It is in the low midback. It improves with massage. Has been taking tylenol and lidocain patches with some improvement here. He states he has not had much pain since he has been in the hospital. [facility] Medical History FH: CABG (coronary artery bypass surgery) History of left heart catheterization (LHC) (~03/22/21) Atherosclerotic heart disease of [place] coronary artery without angina pectoris Leukopenia Thrombocytopenia Vascular dialysis catheter in place HTN (hypertension) Prostate adenocarcinoma Home Medications ?Medication ?Instructions ?Recorded ?Last Taken ?Type venlafaxine 75 mg capsule,extended 150 mg PO DAILY 03/21/21 12/11/23 History release 24 hr (Effexor XR) apixaban 5 mg tablet (Eliquis) 5 mg PO BID 04/07/21 12/11/23 History atorvastatin 80 mg tablet 80 mg PO DAILY 04/07/21 12/10/23 History aspirin 81 mg tablet,delayed 81 mg PO DAILY 05/30/21 12/11/23 History release (Riri Low Dose Aspirin) calcium carbonate (Calcium 500) 1,000 mg PO DAILY 05/30/21 12/11/23 History amiodarone 200 mg tablet 400 mg PO BID 05/01/23 Unknown History losartan 50 mg tablet 50 mg PO DAILY 05/01/23 12/11/23 History tamsulosin 0.4 mg capsule 0.4 mg PO DAILY 05/01/23 12/11/23 History metoprolol succinate 50 mg 50 mg PO DAILY 12/11/23 12/11/23 History tablet,extended release 24 hr multivitamin 1 tab PO DAILY 12/11/23 12/11/23 History Allergy/AdvReac Type Severity Reaction Status Date / Time No Known Allergies Allergy Verified 12/11/23 20:55 Family History Brother Diabetes Surgical History Nephrostomy status Social History Smoking Status: Never smoker alcohol intake: never substance use type: does not use ROS ROS Narrative Review of systems: General: Patient denies fever or chills HENT: Denies headache, denies stuffy nose, denies sore throat EYES: Denies changes in vision or discharge from eyes. Resp: Denies cough, denies shortness of breath Cardiac: Denies chest pain, palpitations or heart racing. GI: Denies abdominal pain, denies changes in bowel, denies nausea or vomiting. : Denies changes in urination Extremity: Denies swelling Musculoskeletal: See hpi Neuro: Complains of weakness in lower extremities Heme: Denies any bleeding or bruising Skin: Denies rashes Psychiatric: No complaints voiced related uncontrolled depression or anxiety. Endocrine: No polyuria, polydipsia or polyphagia. Physical Exam Narrative No paraspinal tenderness. Facet load negative. SLR negative. SI tenderness negative. [place]ers produces some pain. GTB tender bilaterally, but states not main pain issue. Some mild tenderness over right lower rib area. Const alert, oriented x3, no apparent distress and well nourished Resp normal respiratory effort Extremity Extremity Narrative: No significant edema. Neuro deep tendon reflexes 2+ bilaterally Neuro Narrative: Physiologic strength in the lowerr extremities except 4/5 weakness with bilateral hip flexion. Did not test gait. Speech: speech normal Psych affect normal Appearance: appropriate Lab / Micro Data 12/12/23 05:50 12/12/23 05:50 Labs: Laboratory Results - last 24 hr 12/11/23 13:06: ESR 2, C-React Prot High Sens 2.66, PSA Screen 0.26, Folate 20.60 12/11/23 21:59: Vitamin B12 869 12/12/23 05:50: WBC 5.6, RBC 3.62 L, Hgb 11.6 L, Hct 34.8 L, MCV 96.1 H, MCH 32.0, MCHC 33.3, RDW Std Deviation 48.4 H, RDW Coeff of [place] 13.7, Plt Count 23 L*, MPV 12.4 H, Immature Gran % (Auto) 0.500, Neut % (Auto) 39.5 L, Lymph % (Auto) 41.4 H, [place] % (Auto) 13.6 H, Eos % (Auto) 4.5, Baso % (Auto) 0.5, Absolute Neuts (auto) 2.2, Absolute Lymphs (auto) 2.32, Nucleated RBC % 0, Diff Path Review November, Platelet Estimate MKD DEC, Sodium 140, Potassium 4.2, Chloride 113 H, Carbon Dioxide 21.0, Anion Gap 6, BUN 20 H, Creatinine 0.79, Estim Creat Clear Calc 82.41, Est GFR (MDRD) Af Amer 121, Est GFR (MDRD) Non-Af 100, BUN/Creatinine Ratio 25.4 H, Glucose 131 H, Calcium 7.9 L, Phosphorus 3.3, Magnesium 2.1, Total Bilirubin 0.60, AST 60 H, ALT 43, Alkaline Phosphatase 82, Total Protein 5.6 L, Albumin 2.8 L, Globulin 2.8, Albumin/Globulin Ratio 1.0, TSH 0.55 Imaging Radiology Impression Lumbar Spine MRI 12/11/23 12:45 IMPRESSION: Old compression fracture of L1.. No evidence for acute fracture or other significant bone pathology. Spondylosis and multilevel spinal stenosis secondary to disc disease and bony hypertrophy. Findings as above Electronically Signed: Cristhian Ayers MD at 16:22 EDT , Brain MRI 12/12/23 09:00 IMPRESSION: Stable postsurgical resection cavity of the right occipital lobe for 2 years. No recurrent disease or evidence of metastatic disease in the remaining brain parenchyma. 1. Stable post resection cavity and cystic volume loss of the right occipital lobe with overlying craniotomy defect. No recurrent mass or nodule or enhancement is present in the surgical bed suspicious for recurrent disease. 2. There are no abnormally enhancing lesions of the remaining bilateral cerebral hemispheres or in the posterior fossa. 3. There is no abnormal thickening or enhancement of meninges or dura or skull. Electronically Signed: Gerardo Winters MD at 12:22 EDT , Lumbar Spine MRI 12/12/23 09:55 IMPRESSION: 1. No demonstrated primary or metastatic disease of the lumbar spine. 2. Mildly heterogeneous marrow pattern with predominance of red marrow elements is likely related to the patient''s hematologic status. Electronically Signed: Gerardo Winters MD at 12:17 EDT ,
--- NOTE | 2023-12-12 15:19 | CASEMGMT ---
Discharge Planning A list of?SNF providers including quality and resource use data and consistent with the patient's preferred geographic region, medical needs, and insurance network was created in [employer] Guide.? This list was provided to the SW. Ramya Andrade Discharge Planning Asst.
[2023-12-12 15:24] LABS: Pathologist Review Reviewed
[2023-12-12 15:44] LABS: Pathologist Review Reviewed
--- NOTE | 2023-12-12 15:48 | PN.HOSP_ITS ---
Reason for Visit Reason for Visit: Intractable back pain and generalized lower extremity weakness Subjective Subjective Mr. Quiroz is an 83-year-old white male who presented to emergency department at [facility] on 12/11/2023 complaining of back pain and steadily worsening lower extremity weakness. Patient reported that he was diagnosed with a vertebral compression fracture at L1 about 8 weeks ago. Since that point in time he has noted that he has been progressively getting weaker however the last 4 to 5 days prior to admission he states he not been able to even go up the steps or get out of his chair and has been using a wheelchair where before he could ambulate with a wheeled walker. He lives at home with his elderly who is not able to take care of him and they brought him to the emergency department in hopes that he can be placed somewhere for rehab. He has chronic thrombocytopenia and history of non-Hodgkin's lymphoma and follows as an outpatient with Dr. Choi. Patient denied any specific focal deficits and had no changes in his bowel or bladder or sensory changes and just indicates that his weakness has progressively gotten worse. He indicated to me that he felt that it was most likely decreased use resulting in decreased function and worsening weakness. Vital signs on presentation showed temperature of 98.3, heart rate 61, blood pressure 124/72, respiratory was 16 oxygen saturations were 97 to 98% room air. His CBC shows a mild anemia which appears to be stable and thrombocytopenia when compared with recent previous platelet counts is stable. His chemistry panel was overtly unremarkable. Liver functions were overall unremarkable. CRP was normal at 2.66 and ESR was 2. PSA was 0.26 vitamin B12 was normal at 869, folic acid was 20.6 and TSH was normal at 0.55. His UA was not significant for infection or any signs of dehydration. In the emergency department a lumbar spine MRI without contrast was performed and showed an old compression fracture L1 with no evidence of any further acute fracture or pathology but did show spondylosis and multilevel spinal stenosis secondary to disc disease and bony hypertrophy. He was admitted to the medical floor where contrasted MRI and contrasted lumbar spine MRI were ordered as they had been ordered as an outpatient for further workup with his history of cancer and otherwise. His brain MRI with and without contrast showed stable postsurgical resection of the right occipital lobe of that has been stable for 2 years with no recurrent disease or evidence of metastatic disease in the remaining brain parenchyma and no new abnormal enhancing lesions of the remaining bilateral hemisphere or posterior fossa and no abnormal thickening or enhancement of the meninges or dura or skull. The MRI of the lumbar spine with contrast showed no primary metastatic disease of the lumbar spine and mild heterogeneous marrow pattern with a predominance of red marrow elements likely related to his previous hematological status. Therapy evaluated the patient and is recommending placement for ongoing rehab. Patient and family are amenable to this and case management plans on talking to the patient and giving them options for rehab at discharge. Patient denies any specific new pain and states his pain is better controlled at this time. He states he has not been using his lower extremity musculature and does not have a real active life at baseline and feels like with his pain he been doing less which is because progressively worsening weakness. Objective Data Objective Data Vital Signs: Vital Signs Temp Pulse Resp BP Pulse Ox O2 Del Method 97.8 F 64 12 117/53 L 97 Room Air 12/12/23 14:38 12/12/23 14:38 12/12/23 14:38 12/12/23 14:38 12/12/23 14:38 12/12/23 14:38 Oxygen Delivery Method Room Air Weight: 95.1 kg Body Mass Index (BMI) 30.0 Intake & Output: Intake and Output for Last 24 Hours 12/10/23 12/11/23 12/12/23 23:59 23:59 23:59 Intake Total 957 / 957 Output Total 100 / 100 Balance 857 / 857 Lab / Micro Data 12/12/23 05:50 12/12/23 05:50 Labs: Laboratory Results - last 24 hr 12/11/23 13:06: Diff Path Review Reviewed, ESR 2, C-React Prot High Sens 2.66, PSA Screen 0.26, Folate 20.60 12/11/23 21:59: Vitamin B12 869 12/12/23 05:50: WBC 5.6, RBC 3.62 L, Hgb 11.6 L, Hct 34.8 L, MCV 96.1 H, MCH 32.0, MCHC 33.3, RDW Std Deviation 48.4 H, RDW Coeff of Carol 13.7, Plt Count 23 L*, MPV 12.4 H, Immature Gran % (Auto) 0.500, Neut % (Auto) 39.5 L, Lymph % (Auto) 41.4 H, [place] % (Auto) 13.6 H, Eos % (Auto) 4.5, Baso % (Auto) 0.5, Absolute Neuts (auto) 2.2, Absolute Lymphs (auto) 2.32, Nucleated RBC % 0, Diff Path Review Reviewed, Platelet Estimate MKD DEC, Sodium 140, Potassium 4.2, C hloride 113 H, Carbon Dioxide 21.0, Anion Gap 6, BUN 20 H, Creatinine 0.79, Estim Creat Clear Calc 82.41, Est GFR (MDRD) Af Amer 121, Est GFR (MDRD) Non-Af 100, BUN/Creatinine Ratio 25.4 H, Glucose 131 H, Calcium 7.9 L, Phosphorus 3.3, Magnesium 2.1, Total Bilirubin 0.60, AST 60 H, ALT 43, Alkaline Phosphatase 82, Total Protein 5.6 L, Albumin 2.8 L, Globulin 2.8, Albumin/Globulin Ratio 1.0, TSH 0.55 Radiography Diagnostic Testing: Radiology Impression Lumbar Spine MRI 12/11/23 12:45 IMPRESSION: Old compression fracture of L1.. No evidence for acute fracture or other significant bone pathology. Spondylosis and multilevel spinal stenosis secondary to disc disease and bony hypertrophy. Findings as above Electronically Signed: Cristhian Ayers MD at 16:22 EDT , Brain MRI 12/12/23 09:00 IMPRESSION: Stable postsurgical resection cavity of the right occipital lobe for 2 years. No recurrent disease or evidence of metastatic disease in the remaining brain parenchyma. 1. Stable post resection cavity and cystic volume loss of the right occipital lobe with overlying craniotomy defect. No recurrent mass or nodule or enhancement is present in the surgical bed suspicious for recurrent disease. 2. There are no abnormally enhancing lesions of the remaining bilateral cerebral hemispheres or in the posterior fossa. 3. There is no abnormal thickening or enhancement of meninges or dura or skull. Electronically Signed: Gerardo Winters MD at 12:22 EDT Reading Location ID and State: [facility] / [place] , Service support , Lumbar Spine MRI 12/12/23 09:55 IMPRESSION: 1. No demonstrated primary or metastatic disease of the lumbar spine. 2. Mildly heterogeneous marrow pattern with predominance of red marrow elements is likely related to the patient''s hematologic status. Electronically Signed: Gerardo Winters MD at 12:17 EDT Reading Location ID and State: [address] [place] [address] , Service support , Physical Exam Const alert, oriented x3, no apparent distress and well nourished; Negative for average body habitus or healthy appearing Constitutional Narrative: Obese, very pleasant, elderly, white male, sitting up in a chair at the bedside, family at bedside, appears comfortable currently and nontoxic HEENT head/scalp atraumatic HEENT Narrative: Mallampati is 2-3, no thrush Head and Scalp: normocephalic Resp normal respiratory effort, no retractions, no use of accessory muscles and clear to auscultation bilaterally Auscultation: Negative for rales, rhonchi or wheezes Cardio regular rate, regular rhythm, S1 normal heart sound, S2 normal heart sound, no murmurs, no rub, no gallops and no clicks GI normal to inspection, nondistended, normoactive bowel sounds, soft to palpation and non-tender Extremity no clubbing, cyanosis or edema Skin Skin Narrative: Scattered ecchymotic changes and a few scattered wounds that are well-healing and no signs of infection Neuro oriented x3, CN's II-XII intact bilaterally, moves all extremities and no focal motor deficits Neuro Narrative: Significant generalized weakness noted proximal greater than distal, lower extremity reflexes are 1+ bilaterally at patellar tendon, no clonus is noted Speech: speech normal Psych affect normal Psych Narrative: Eye contact is good and patient interacts appropriately Assessment & Plan Assessment/Plan (1) Low back pain: QUALIFIERS: Chronicity: chronic Back pain laterality: midline S ciatica presence: without sciatica Qualified Code(s): M54.50 - Low back pain, unspecified; G89.29 - Other chronic pain (2) Thrombocytopenia: (3) Bilateral leg weakness: (4) Compression fracture: PLAN: Plan Subacute low back pain -Has been ongoing for about 8 weeks -Contrasted and noncontrasted or MRI are significant for L1 compression fracture but no other significant acute pathology noted -Patient does have quite a bit of arthritic changes -Start scheduled Tylenol -Add lidocaine patch -As needed oxycodone 5 mg every 6 hours as needed -Will add low-dose Zanaflex -Pain management consultation Bilateral lower extremity weakness and progressive debility -Suspect related to decreased use with sarcopenia related to decreased use -Patient indicates that he does not have a very active lifestyle at baseline and then with the back pain he has had even less activity and feels that has been progressively worsening since that point in time -MRI of the brain was unremarkable for any new findings -Lumbar spine with no explanation of acute findings -Continue PT/OT -Therapy recommending placement at discharge for ongoing rehab services -Case management and social work are following and will assist with discharge planning Chronic thrombocytopenia -Follows as an outpatient with Dr. Choi -I do have a text out to Dr. Choi to confer with him with regards to continuing his aspirin and Eliquis -Also will try to get an idea of what his baseline is -Repeat lab in a.m. History of non-Hodgkin's lymphoma/MDS -May explain why he is thrombocytopenic -Await further input from Dr. Choi after conversation with him Persistent atrial fibrillation -Hold Eliquis for now in case procedures need to be performed -Continue home amiodarone -Continue home beta-alee CAD/HTN/HPL -Hold home aspirin for now with thrombocytopenia until a clear with hematology -Continue home atorvastatin -Continue home losartan -Continue home metoprolol History of prostate cancer -PSA is normal -Continue outpatient follow-up MARY CARMEN -Continue home CPAP BPH with obstruction -Continue home Flomax Depression -Continue home venlafaxine DVT prophylaxis -Has been on Eliquis -Currently on hold in case procedure is required next-Will restart Eliquis if okay with Dr. Choi and no procedures required -SCDs for now CODE STATUS -Full code is verified on admission Charges/Coding Visit Charges Inpatient E&M: 24274 Subs Hosp L2
--- NOTE | 2023-12-12 15:52 | CASEMGMT ---
Addendum entered by Mireya Coulter 12/13/23 14:12: SW provided patient and family with a list of fdc facility providers. Mireya PERALES Original Note: Therapy is recommending patient go to a fdc facility for rehab. This SW and ROMANA Rodrigez met with patient and his family. Introduced selves and roles at [facility]. SW explained therapy's recommendations. Patient was agreeable. SW A list of? providers including quality and resource use data and consistent with patient?s preferred geographic region, medical needs, and insurance network were provided from the [employer] Guide.? SW asked that patient and family pick 4 preferences and SW will take care of contacting facilities. Mireya PERALES???
--- NOTE | 2023-12-12 16:40 | CONS.ORTHO ---
HPI Consult Data Date of Consult: 12/12/23 HPI Narrative HPI Narrative: MARIANO FRANCO, is a 83 M who presents with low back pain and worsening weakness of lower extremities. I was consulted to review MRI and evaluate the patient. I saw the patient in PCU 126 this afternoon. He was sitting in the recliner. Family was present. History was taken from the patient himself and also the family. Patient has prostate cancer diagnosed many years ago which was treated with radiation as well as hormonal therapy. 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 He follows a neuro oncologist. The family reports that over the last 4 weeks he went from ambulating without any ambulatory aid to being wheelchair dependent due to lower extremity weakness. He has inability to get up from seated position and going up stairs as well. He mentions that he had a fall about 6 weeks ago. Since then he has had low back pain. He is on blood thinners for A-fib. [facility] Medical History FH: CABG (coronary artery bypass surgery) History of left heart catheterization (LHC) (~03/22/21) Atherosclerotic heart disease of [place] coronary artery without angina pectoris Leukopenia Thrombocytopenia Vascular dialysis catheter in place HTN (hypertension) Prostate adenocarcinoma Home Medications ?Medication ?Instructions ?Recorded ?Last Taken ?Type venlafaxine 75 mg capsule,extended 150 mg PO DAILY 03/21/21 12/11/23 History release 24 hr (Effexor XR) apixaban 5 mg tablet (Eliquis) 5 mg PO BID 04/07/21 12/11/23 History atorvastatin 80 mg tablet 80 mg PO DAILY 04/07/21 12/10/23 History aspirin 81 mg tablet,delayed 81 mg PO DAILY 05/30/21 12/11/23 History release (Riri Low Dose Aspirin) calcium carbonate (Calcium 500) 1,000 mg PO DAILY 05/30/21 12/11/23 History amiodarone 200 mg tablet 400 mg PO BID 05/01/23 Unknown History losartan 50 mg tablet 50 mg PO DAILY 05/01/23 12/11/23 History tamsulosin 0.4 mg capsule 0.4 mg PO DAILY 05/01/23 12/11/23 History metoprolol succinate 50 mg 50 mg PO DAILY 12/11/23 12/11/23 History tablet,extended release 24 hr multivitamin 1 tab PO DAILY 12/11/23 12/11/23 History Allergy/AdvReac Type Severity Reaction Status Date / Time No Known Allergies Allergy Verified 12/11/23 20:55 Family History Brother Diabetes Surgical History Nephrostomy status Social History Smoking Status: Never smoker alcohol intake: never substance use type: does not use Vital Signs Vital Signs Vital Signs: 12/11/23 18:48 12/11/23 19:00 12/11/23 20:47 Temperature 98.3 F 96.5 F L Temperature Source Temporal Pulse Rate 61 74 74 Pulse Strength Respiratory Rate 16 14 18 Respiratory Effort Respiratory Depth Respiratory Pattern Blood Pressure 124/72 H 120/64 114/68 Blood Pressure Mean 89 82 83 Blood Pressure Source Monitor Blood Pressure Position Semi-Fowlers Blood Pressure Location Left Arm Pulse Ox 97 97 99 Oxygen Delivery Method Room Air Room Air 12/11/23 22:00 12/11/23 22:00 12/12/23 02:45 Temperature 97.5 F L Temperature Source Temporal Pulse Rate 83 Pulse Strength Normal (2+) Respiratory Rate 16 Respiratory Effort Normal Non-Labored Respiratory Depth Normal Respiratory Pattern Normal Blood Pressure 105/59 L Blood Pressure Mean 74 Blood Pressure Source Monitor Blood Pressure Position Supine Blood Pressure Location Left Arm Pulse Ox 97 Oxygen Delivery Method Room Air Room Air 12/12/23 02:45 12/12/23 08:31 12/12/23 08:37 Temperature 98.3 F Temperature Source Oral Pulse Rate 68 68 Pulse Strength Respiratory Rate 14 Respiratory Effort Normal Non-Labored Respiratory Depth Normal Respiratory Pattern Normal Blood Pressure 132/61 H Blood Pressure Mean 84 Blood Pressure Source Monitor Blood Pressure Position Supine Blood Pressure Location Left Arm Pulse Ox 93 Oxygen Delivery Method Room Air Room Air 12/12/23 09:00 12/12/23 14:38 Temperature 97.8 F Temperature Source Temporal Pulse Rate 64 Pulse Strength Respiratory Rate 12 Respiratory Effort Respiratory Depth Respiratory Pattern Blood Pressure 117/53 L Blood Pressure Mean 74 Blood Pressure Source Monitor Blood Pressure Position Sitting Blood Pressure Location Right Arm Pulse Ox 97 Oxygen Delivery Method Room Air Room Air Weight Weight: 209 lb 10.554 oz Body Mass Index (BMI) 30.0 Physical Exam Narrative Examination of the lower back shows some mild tenderness in the spinous process area of the mid lumbar spine. No paraspinal tenderness. Neurologic evaluation of upper and lower extremities shows 5 x 5 power in all muscle except for bilateral hip flexion which is grade 2. There is no hyperreflexia. Range of motion of the hip joint shows no pain with rotation. Const alert and oriented x3 Lab / Micro Data 12/12/23 05:50 12/12/23 05:50 Labs: Laboratory Results - last 24 hr 12/11/23 13:06: Diff Path Review Reviewed, ESR 2, C-React Prot High Sens 2.66, PSA Screen 0.26, Folate 20.60 12/11/23 21:59: Vitamin B12 869 12/12/23 05:50: WBC 5.6, RBC 3.62 L, Hgb 11.6 L, Hct 34.8 L, MCV 96.1 H, MCH 32.0, MCHC 33.3, RDW Std Deviation 48.4 H, RDW Coeff of Carol 13.7, Plt Count 23 L*, MPV 12.4 H, Immature Gran % (Auto) 0.500, Neut % (Auto) 39.5 L, Lymph % (Auto) 41.4 H, [place] % (Auto) 13.6 H, Eos % (Auto) 4.5, Baso % (Auto) 0.5, Absolute Neuts (auto) 2.2, Absolute Lymphs (auto) 2.32, Nucleated RBC % 0, Diff Path Review Reviewed, Platelet Estimate MKD DEC, Sodium 140, Potassium 4.2, Chloride 113 H, Carbon Dioxide 21.0, Anion Gap 6, BUN 20 H, Creatinine 0.79, Estim Creat Clear Calc 82.41, Est GFR (MDRD) Af Amer 121, Est GFR (MDRD) Non-Af 100, BUN/Creatinine Ratio 25.4 H, Glucose 131 H, Calcium 7.9 L, Phosphorus 3.3, Magnesium 2.1, Total Bilirubin 0.60, AST 60 H, ALT 43, Alkaline Phosphatase 82, Total Protein 5.6 L, Albumin 2.8 L, Globulin 2.8, Albumin/Globulin Ratio 1.0, TSH 0.55 Imaging Radiology Impression Brain MRI 12/12/23 09:00 IMPRESSION: Stable postsurgical resection cavity of the right occipital lobe for 2 years. No recurrent disease or evidence of metastatic disease in the remaining brain parenchyma. 1. Stable post resection cavity and cystic volume loss of the right occipital lobe with overlying craniotomy defect. No recurrent mass or nodule or enhancement is present in the surgical bed suspicious for recurrent disease. 2. There are no abnormally enhancing lesions of the remaining bilateral cerebral hemispheres or in the posterior fossa. 3. There is no abnormal thickening or enhancement of meninges or dura or skull. Electronically Signed: Gerardo Winters MD at 12:22 EDT , Lumbar Spine MRI 12/12/23 09:55 IMPRESSION: 1. No demonstrated primary or metastatic disease of the lumbar spine. 2. Mildly heterogeneous marrow pattern with predominance of red marrow elements is likely related to the patient''s hematologic status. Electronically Signed: Gerardo Winters MD at 12:17 EDT , Assessment & Plan Assessment/Plan (1) Other intervertebral disc degeneration, lumbar region: (2) Compression fracture of L1 lumbar vertebra: QUALIFIERS: Encounter type: sequela Qualified Code(s): S32.010S - Wedge compression fracture of first lumbar vertebra, sequela PLAN: Plan I evaluated patient's lumbar spine MRI with and without contrast done yesterday and this morning. These show an old healed L1 compression fracture sequela. No hyperintensity seen. Multilevel disc degeneration noticed. No obvious central stenosis noticed. I explained to him and his family the imaging findings in detail. Patient seems to have developed proximal muscle weakness predominantly in the lower extremities which is symmetric bilaterally. This is difficult to explain based on the available spine imaging. His L1 fracture is old and healed without any hyperintensity on T2 MRI. He does not have any severe cord compression on the screening images cervical thoracic spine. I am unable to explain his isolated proximal muscle weakness in lower extremities with any structural cause in the spine. I requested that the family reach out to his neuro oncologist and shared the recent brain MRI findings to see if any cranial source of lower extremity weakness could be determined. For his axial low back pain, I recommend physical therapy and balance training exercises to the extent that he is able to. No surgical intervention from spine surgery perspective. Charges/Coding Visit Charges Inpatient E&M: 80556 Init Hosp L3
--- NOTE | 2023-12-12 16:58 | PCM.HOSP.N ---
Hospitalist Note Discussed discussed case with Dr. 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 We did discuss his platelet counts being low. 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 We did discuss his need for placement and he felt that the patient would not be able to receive his drug at a rehab facility at this time so requested that I give him IVIG 0.4 gm/kg x 2 doses and Decadron 20 mg daily starting tomorrow x 4 days for treatment of his ITP. He had good response to Decadron previously. He did agree with holding his aspirin and Eliquis and felt it was okay to start once his platelet count was approaching 100,000.
[2023-12-12] MEDS: Pantoprazole Sodium 40 MG Tablet PO (18:17)
[2023-12-12 21:06] VITALS: BP 137/61; PULSE 66; RESP 16; TEMP 36.5; O2SAT 100
[2023-12-12] MEDS: Atorvastatin Calcium 80 MG Tablet PO (21:08)
[2023-12-13] VITALS (15 sets, daily range): BP systolic 98–146; BP diastolic 47–103; PULSE 57–78; RESP 14–22; TEMP 36.4–37; O2SAT 95–99; BMI 29.9
[2023-12-13] MEDS: tiZANidine HCl 2 MG Tablet PO (02:19)
[2023-12-13] MEDS: Acetaminophen 500 MG Tablet 1000 MG PO ×2 (06:35→21:44)
[2023-12-13 06:57] LABS: Hematocrit 33.6 % (40-54); Hemoglobin 11.2 g/dL (13.0-16.5); Mean Corp Hgb Conc 33.3 g/dL (32-36); Mean Corpuscular Hgb 32.2 pg (27.0-32.0); Mean Corpuscular Volume 96.6 fL (80-94); POSITIVE COUNT YES; RBC Distribution Width CV 13.7 % (11.6-14.6); RBC Distribution Width SD 48.6 fl (35.1-43.9); Red Blood Count 3.48 M/mm3 (4.6-6.2); White Blood Count 6.7 K/mm3 (4.4-11.0)
[2023-12-13 07:28] LABS: Anion Gap 5 (5-15); BUN 21 mg/dL (7-18); BUN/Creat Ratio 21.7 RATIO (10-20); Calcium,Total 8.7 mg/dL (8.5-10.1); Chloride 111 mmol/L (98-107); Creatinine, Serum 0.97 mg/dL (0.70-1.30); EST Glomerular Filtration Rate 79 mL/min (>60); Est Glom Filt Rate - Afr Amer 95 mL/min (>60); Glucose 137 mg/dL (74-106); Sodium Level 138 mmol/L (136-145)
[2023-12-13 07:40] LABS: Platelet Count 15 K/mm3 (150-450); Scan Indicated on CBC? Y/N YES- FLAGS NOTED
[2023-12-13 10:20] LABS: Differential Comment SCANNED
[2023-12-13] MEDS: IMMUNE GLOBULIN IV ×2 (10:25→12:51)
[2023-12-13] MEDS: dexAMETHasone 4 MG Tablet 20 MG PO (10:31)
[2023-12-13] MEDS: Tamsulosin HCl 0.4 MG Capsule PO (10:31)
[2023-12-13] MEDS: Pantoprazole Sodium 40 MG Tablet PO (10:31)
[2023-12-13 10:56] LABS: CPK Total, Creatine Kinase 54 U/L (39-308)
[2023-12-13] MEDS: Venlafaxine XR 150 MG Capsule PO (11:12)
[2023-12-13] MEDS: Lidocaine 5% Patch 1 PATCH TOPICAL (11:12)
--- NOTE | 2023-12-13 13:03 | PN.HOSP_ITS ---
Reason for Visit Reason for Visit: Intractable back pain and generalized lower extremity weakness Subjective Subjective Patient was sent with some back pain and leg pain overnight but remedied with a hot pack and pain medication. States he is feeling okay right now. Long discussion with his daughter with regards to his ongoing worsening weakness she had multiple questions with regards to his statin and possible Guillain-Main?. I told her we could try holding a statin and see if that helps however he has no liver function elevation and his CK is normal at 54. He is not really complaining of any muscle pain per se. I also told her we will go ahead and get a neurology consultation to see if they have any input. Orthopedic surgery does not think that there is anything acute that they need to intervene upon and pain management feels that we have him on appropriate regimen overall. Objective Data Objective Data Vital Signs: Vital Signs Temp Pulse Resp BP Pulse Ox O2 Del Method 97.6 F L 64 17 116/103 H 96 Room Air 12/13/23 12:30 12/13/23 12:30 12/13/23 12:30 12/13/23 12:30 12/13/23 12:30 12/13/23 12:30 Oxygen Delivery Method Room Air Weight: 94.6 kg Body Mass Index (BMI) 29.9 Intake & Output: Intake and Output for Last 24 Hours 12/11/23 12/12/23 12/13/23 23:59 23:59 23:59 Intake Total 957 / 1157 702.63 / 702.63 Output Total 100 / 400 600 / 600 Balance 857 / 757 102.63 / 102.63 Lab / Micro Data 12/13/23 06:25 12/13/23 06:25 Labs: Laboratory Results - last 24 hr 12/11/23 13:06: Diff Path Review Reviewed 12/12/23 05:50: Diff Path Review Reviewed 12/13/23 06:25: WBC 6.7, RBC 3.48 L, Hgb 11.2 L, Hct 33.6 L, MCV 96.6 H, MCH 32.2 H, MCHC 33.3, RDW Std Deviation 48.6 H, RDW Coeff of Carol 13.7, Plt Count 15 L*, Differential Comment SCANNED, Diff Path Review May , Sodium 138, Potassium 4.0, Chloride 111 H, Carbon Dioxide 22.0, Anion Gap 5, BUN 21 H, Creatinine 0.97, Estim Creat Clear Calc 67.80, Est GFR (MDRD) Af Amer 95, Est GFR (MDRD) Non-Af 79, BUN/Creatinine Ratio 21.7 H, Glucose 137 H, Calcium 8.7, Total Creatine Kinase 54 12/13/23 10:38: Blood Type O POSITIVE, Antibody Screen NEGATIVE Micro: Microbiology 12/12/23 15:36 Stool Stool Occult Blood (ROGER) - Final Physical Exam Const alert, oriented x3, no apparent distress and well nourished; Negative for average body habitus or healthy appearing Constitutional Narrative: Obese, very pleasant, elderly, white male, sitting up in bed, nursing at bedside, appears comfortable currently and nontoxic General Appearance: cooperative HEENT normocephalic, head/scalp atraumatic, hearing grossly normal bilaterally and moist oral mucous membranes HEENT Narrative: Mallampati is 2-3, no thrush Eyes PERRL, EOMs intact bilaterally and conjunctivae normal Eyes Narrative: No scleral icterus Neck no lymphadenopathy and supple Neck Narrative: Trachea midline, no thyroid enlargement Resp normal respiratory effort, no retractions, no use of accessory muscles and clear to auscultation bilaterally Auscultation: Negative for rales, rhonchi or wheezes Cardio regular rate, regular rhythm, S1 normal heart sound, S2 normal heart sound, no murmurs, no rub, no gallops and no clicks GI normal to inspection, nondistended, normoactive bowel sounds, soft to palpation and non-tender Extremity no clubbing, cyanosis or edema Skin Skin Narrative: Scattered ecchymotic changes and a few scattered wounds that are well-healing and no signs of infection Neuro oriented x3, moves all extremities and no focal motor deficits Neuro Narrative: Significant generalized weakness noted proximal greater than distal Sensorium / Orientation: awake, alert, oriented to person, oriented to place and oriented to time Speech: speech normal Psych affect normal Psych Narrative: Eye contact is good and patient interacts appropriately, extremely pleasant Assessment & Plan Assessment/Plan (1) Low back pain: QUALIFIERS: Chronicity: chronic Back pain laterality: midline S ciatica presence: without sciatica Qualified Code(s): M54.50 - Low back pain, unspecified; G89.29 - Other chronic pain (2) Thrombocytopenia: (3) Bilateral leg weakness: (4) Compression fracture: PLAN: Plan Subacute low back pain -Has been ongoing for about 8 weeks -Contrasted and noncontrasted or MRI are significant for L1 compression fracture but no other significant acute pathology noted -Patient does have quite a bit of arthritic changes on his MRI -Continue scheduled Tylenol -Continue lidocaine patch -As needed oxycodone 5 mg every 6 hours as needed -Continue low-dose Zanaflex -Pain management agrees with current management and no invasive management required -Orthopedic surgery has evaluated the patient does not feel that his back pain needs any surgical intervention Bilateral lower extremity weakness and progressive debility -Suspect related to decreased use with sarcopenia related to decreased use -Will trial holding his statin however I do not think this is statin induced myopathy -CK level is normal -Liver functions overtly unremarkable -CRP was normal at 2.66 -B12 and folate are normal -TSH is normal -Patient indicates that he does not have a very active lifestyle at baseline and then with the back pain he has had even less activity and feels that has been progressively worsening since that point in time -His daughter indicated today he had been a little bit more active than what he described yesterday -MRI of the brain was unremarkable for any new findings -Lumbar spine with no explanation of acute findings -Continue PT/OT -Will have neurology evaluate to see if he they have any other thoughts on potential etiology other than decreased use and worsening sarcopenia -Therapy recommending placement at discharge for ongoing rehab services -Case management and social work are following and will assist with discharge planning 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 Choi and we will go ahead and give him 2 doses of IVIG and start dexamethasone 20 mg daily x 4 days starting today -Dexamethasone was given previously in April and the patient responded well -Platelet count down to 15,000 today so we will transfuse 2 units of platelets -Dr. Choi aware -Will trend platelets while hospitalized and have close outpatient follow-up after discharge -Hold aspirin and Eliquis until platelet counts are trending up and close to 100,000 History of neuro non-Hodgkin's lymphoma -Follows at [facility] for care -No noted lymphoma on MRIs -Dr. Choi did not feel that an LP would be beneficial at this time and more contraindicated due to his platelet counts Persistent atrial fibrillation -Hold Eliquis for now until platelet count is approaching 100,000 and appears to be stabilizing -Continue home amiodarone -Continue home beta-alee CAD/HTN/HPL -Hold home aspirin for now with thrombocytopenia until platelet count is approaching 100,000 and appears to be stabilizing -Continue home atorvastatin -Continue home losartan -Continue home metoprolol History of prostate cancer -PSA is normal -Continue outpatient follow-up MARY CARMEN -Continue home CPAP BPH with obstruction -Continue home Flomax Depression -Continue home venlafaxine DVT prophylaxis -Has been on Eliquis -Currently on hold in case procedure is required -SCDs for now CODE STATUS -Full code is verified on admission Charges/Coding Visit Charges Inpatient E&M: 42850 Subs Hosp L3
--- NOTE | 2023-12-13 14:17 | CASEMGMT ---
Family was interested in TCU. A referral was made and they are able to take patient. ROMANA did clarify with Dr Choi's office that patient will not be getting his NPlate at his office while patient is in rehab. SW spoke with patient and he said his family would like him closer to home. Patient asked that a referral be made to [facility]. SW asked Ramya d/c planning analyst to send a referral to [facility]. Mireya Coulter [facility]ILL[facility] ANGELLA
--- NOTE | 2023-12-13 14:25 | CASEMGMT ---
Discharge Planning Referral sent to [facility] via [facility]. Ramya Andrade DC Planning Asst.
[2023-12-13] MEDS: 0.9% Saline Lock 10 ML Syringe IV (21:44)
[2023-12-14] VITALS (11 sets, daily range): BP systolic 120–137; BP diastolic 55–78; PULSE 68–80; RESP 16–24; TEMP 36.4–36.8; O2SAT 93–100; BMI 30.1
[2023-12-14] MEDS: Acetaminophen 500 MG Tablet 1000 MG PO ×2 (05:36→20:45)
[2023-12-14 06:54] LABS: Hematocrit 32.4 % (40-54); Hemoglobin 10.9 g/dL (13.0-16.5); Mean Corp Hgb Conc 33.6 g/dL (32-36); Mean Corpuscular Hgb 31.9 pg (27.0-32.0); Mean Corpuscular Volume 94.7 fL (80-94); Mean Platelet Vol. 13.2 fl (6.2-12.0); POSITIVE COUNT YES; RBC Distribution Width CV 13.2 % (11.6-14.6); RBC Distribution Width SD 45.5 fl (35.1-43.9); Red Blood Count 3.42 M/mm3 (4.6-6.2); White Blood Count 6.8 K/mm3 (4.4-11.0)
[2023-12-14 07:12] LABS: Platelet Count 36 K/mm3 (150-450); Scan Indicated on CBC? Y/N YES- FLAGS NOTED
[2023-12-14] MEDS: Tamsulosin HCl 0.4 MG Capsule PO (08:09)
[2023-12-14] MEDS: Multivitamins,Therapeutic Tablet 1 TABLET PO (08:09)
[2023-12-14] MEDS: Calcium (Elemental) 500 MG Tablet 1000 MG PO (08:09)
--- NOTE | 2023-12-14 08:09 | NEURO.CONS ---
Assessment and Plan: Neuro Assessment/Plan MARIANO FRANCO is a 83 M with a past medical history of recent LI compression fracture, being evaluated by Teleneurology for acute back pain that is resolved as well as bilateral lower extremity weakness worsened over last 2 weeks and has been using walker or wheel chair. Denies B/B incontinence, saddle anesthesia, muscle pain, numbness, tingling. Exam consistent with bilateral proximal muscle weakness worse over the left.Reflexes were tried however nurse was not able to get clear response may be because of technique. MRI brain and L spine with no acute findings and non contributory. Deconditioning is playing a role however acute worsening over last 2 weeks is somewhat unusual . CK reviewed that is elevated. Would recommend transfer to [facility] for EMG/NCS. Other possibility is to get it done as an outpatient in 2-4 weeks. Please check ,TSH, Vitamin b12 ,Folate Transfer to [facility] for the following reasons:EMG/NCS I personally attended this patient and spent a total time of 55 minutes evaluating this patient including clinical assessment, review of chart, medical history imaging, and determining appropriate treatment and workup. Noa Sommers MD [facility] Teleneurology dept. HPI Consult Data Date of Consult: 12/14/23 HPI Narrative HPI Narrative: MARIANO FRANCO, is a 83 M who presents with bilateral lower extremity weakness that started 2 weeks ago and back pain that is resolved. Patient reported that he was diagnosed with a vertebral compression fracture at L1 about 8 weeks ago. Since that point in time he has noted that he has been progressively getting weaker however the last 4 to 5 days prior to admission he states he not been able to even go up the steps or get out of his chair and has been using a wheelchair where before he could ambulate with a wheeled walker. He lives at home with his elderly who is not able to take care of him and they brought him to the emergency department in hopes that he can be placed somewhere for rehab. No bowel / bladder or sensory changes and just indicates that his weakness has progressively gotten worse. In the emergency department a lumbar spine MRI without contrast was performed and showed an old compression fracture L1 with no evidence of any further acute fracture or pathology but did show spondylosis and multilevel spinal stenosis secondary to disc disease and bony hypertrophy. He was admitted to the medical floor where contrasted MRI and contrasted lumbar spine MRI were ordered as they had been ordered as an outpatient for further workup with his history of cancer and otherwise. His brain MRI with and without contrast showed stable postsurgical resection of the right occipital lobe of that has been stable for 2 years with no recurrent disease or evidence of metastatic disease in the remaining brain parenchyma and no new abnormal enhancing lesions of the remaining bilateral hemisphere or posterior fossa and no abnormal thickening or enhancement of the meninges or dura or skull. The MRI of the lumbar spine with contrast showed no primary metastatic disease of the lumbar spine and mild heterogeneous marrow pattern with a predominance of red marrow elements likely related to his previous hematological status. [facility] Medical History FH: CABG (coronary artery bypass surgery) History of left heart catheterization (LHC) (~03/22/21) Atherosclerotic heart disease of [place] coronary artery without angina pectoris Leukopenia Thrombocytopenia Vascular dialysis catheter in place HTN (hypertension) Prostate adenocarcinoma Home Medications ?Medication ?Instructions ?Recorded ?Last Taken ?Type venlafaxine 75 mg capsule,extended 150 mg PO DAILY 03/21/21 12/11/23 History release 24 hr (Effexor XR) apixaban 5 mg tablet (Eliquis) 5 mg PO BID 04/07/21 12/11/23 History atorvastatin 80 mg tablet 80 mg PO DAILY 04/07/21 12/10/23 History aspirin 81 mg tablet,delayed 81 mg PO DAILY 05/30/21 12/11/23 History release (Riri Low Dose Aspirin) calcium carbonate (Calcium 500) 1,000 mg PO DAILY 05/30/21 12/11/23 History amiodarone 200 mg tablet 400 mg PO BID 05/01/23 Unknown History losartan 50 mg tablet 50 mg PO DAILY 05/01/23 12/11/23 History tamsulosin 0.4 mg capsule 0.4 mg PO DAILY 05/01/23 12/11/23 History metoprolol succinate 50 mg 50 mg PO DAILY 12/11/23 12/11/23 History tablet,extended release 24 hr multivitamin 1 tab PO DAILY 12/11/23 12/11/23 History Allergy/AdvReac Type Severity Reaction Status Date / Time No Known Allergies Allergy Verified 12/11/23 20:55 Family History Brother Diabetes Surgical History Nephrostomy status Social History Smoking Status: Never smoker alcohol intake: never substance use type: does not use Vital Signs Vital Signs Vital Signs: 12/13/23 08:18 12/13/23 10:00 12/13/23 10:28 Temperature 97.7 F L 98.4 F Temperature Source Oral Oral Pulse Rate 58 L 57 L Pulse Strength Normal (2+) Respiratory Rate 14 15 Respiratory Effort Respiratory Depth Respiratory Pattern Blood Pressure 109/55 L 98/50 L Blood Pressure Mean 73 66 Blood Pressure Source Monitor Monitor Blood Pressure Position Sitting Sitting Blood Pressure Location Left Arm Right Arm Pulse Ox 95 95 Oxygen Delivery Method Room Air Room Air 12/13/23 11:00 12/13/23 11:30 12/13/23 12:00 Temperature 98.4 F 97.5 F L 97.6 F L Temperature Source Oral Axillary Temporal Pulse Rate 59 L 62 58 L Pulse Strength Respiratory Rate 18 17 19 H Respiratory Effort Respiratory Depth Respiratory Pattern Blood Pressure 98/48 L 103/47 L 122/53 H Blood Pressure Mean 64 65 76 Blood Pressure Source Monitor Monitor Monitor Blood Pressure Position Sitting Sitting Sitting Blood Pressure Location Right Arm Right Arm Right Arm Pulse Ox 96 99 97 Oxygen Delivery Method Room Air Room Air Room Air 12/13/23 12:30 12/13/23 16:17 12/13/23 16:29 Temperature 97.6 F L 98.3 F 98.2 F Temperature Source Temporal Oral Oral Pulse Rate 64 70 69 Pulse Strength Respiratory Rate 17 18 15 Respiratory Effort Respiratory Depth Respiratory Pattern Blood Pressure 116/103 H 146/68 H 127/62 H Blood Pressure Mean 107 94 83 Blood Pressure Source Monitor Monitor Monitor Blood Pressure Position Sitting Sitting Sitting Blood Pressure Location Right Arm Right Arm Right Arm Pulse Ox 96 96 95 Oxygen Delivery Method Room Air Room Air Room Air 12/13/23 16:32 12/13/23 17:55 12/13/23 18:05 Temperature 98.4 F 98.4 F 98.6 F Temperature Source Oral Oral Oral Pulse Rate 70 70 70 Pulse Strength Respiratory Rate 18 20 H 19 H Respiratory Effort Respiratory Depth Respiratory Pattern Blood Pressure 127/62 H 127/62 H 138/63 H Blood Pressure Mean 83 83 88 Blood Pressure Source Monitor Monitor Monitor Blood Pressure Position Sitting Sitting Sitting Blood Pressure Location Right Arm Right Arm Right Arm Pulse Ox 97 97 95 Oxygen Delivery Method Room Air Room Air Room Air 12/13/23 19:00 12/13/23 20:00 12/13/23 20:15 Temperature 98.1 F 98.1 F Temperature Source Oral Oral Pulse Rate 73 78 Pulse Strength Normal (2+) Respiratory Rate 20 H 22 H Respiratory Effort Respiratory Depth Respiratory Pattern Blood Pressure 139/69 H 132/66 H Blood Pressure Mean 92 88 Blood Pressure Source Monitor Monitor Blood Pressure Position Supine Supine Blood Pressure Location Left Arm Left Arm Pulse Ox 95 95 Oxygen Delivery Method Room Air Room Air 12/13/23 20:15 12/13/23 21:00 12/14/23 01:59 Temperature 98.3 F Temperature Source Oral Pulse Rate 77 Pulse Strength Respiratory Rate 18 Respiratory Effort Normal Non-Labored Normal Non-Labored Respiratory Depth Normal Normal Respiratory Pattern Normal Normal Blood Pressure 134/91 H Blood Pressure Mean 105 Blood Pressure Source Monitor Blood Pressure Position Supine Blood Pressure Location Right Arm Pulse Ox 96 Oxygen Delivery Method Room Air Room Air Room Air 12/14/23 03:00 12/14/23 07:56 Temperature 97.6 F L 97.7 F L Temperature Source Oral Oral Pulse Rate 73 68 Pulse Strength Respiratory Rate 18 16 Respiratory Effort Respiratory Depth Respiratory Pattern Blood Pressure 132/78 H 137/67 H Blood Pressure Mean 96 90 Blood Pressure Source Monitor Blood Pressure Position Supine Blood Pressure Location Left Arm Pulse Ox 93 96 Oxygen Delivery Method Room Air Room Air Weight Weight: 95.2 kg Body Mass Index (BMI) 30.1 EEG Results Procedure Details EEG Procedure Details: MARIANO FRANCO is a 83 year old M with a past medical history of Atrial fibrillation, who presents for evaluation of Electroencephalogram on DATE at TIME Physical Exam Neuro Neuro Narrative: -? General: Laying comfortably in bed; in no acute distress. -? HENT: Normal oropharynx and mucosa. Normal external appearance of ears and nose. Exophthalmos. -? Neck: Supple, no pain or tenderness -? CV:? No peripheral edema. -? Pulmonary:? Normal respiratory effort. -? Ext: No cyanosis, edema, or deformity -? Skin: No rash. Normal palpation of skin.? -? Musculoskeletal: full range of motion; no joint tenderness. Normal digits and nails by inspection. No clubbing. -? NEURO: -? Mental Status: The patient was alert and oriented to time, place, and person. Normal recent/remote memory, concentration, and general fund of knowledge. -? Language: speech is fluent.? Naming, repetition, fluency, and comprehension intact. -? Cranial Nerves: PERRL 3mm/brisk. EOMI, visual menendez full, no facial asymmetry, facial sensation intact, hearing intact, tongue midline, no evidence of atrophy or fibrillations. As performed by the nurse. Sternocleidomastoid and trapezius were equally strong. Soft palate raises equally, no uvular deviations -? Motor: normal bulk, tone, bilateral lower extremity proximal muscle weakness left more than right as witnessed on nurse exam. R L i - Reflexes:was anot able to be performed accurately -? Tone: is normal and bulk is normal -? Sensation- Intact to light touch bilaterally -? Coordination: No dysmetria on [id number], finger follow finger or [id number]. -? Gait- unable to get from sitting position without help. Cannot take steps without assistance. Lab / Micro Data 12/14/23 06:10 12/13/23 06:25 Labs: Laboratory Results - last 24 hr 12/13/23 06:25: Plt Count 15 L*, Differential Comment SCANNED, Diff Path Review [place], Total Creatine Kinase 54 12/13/23 10:38: Blood Type O POSITIVE, Antibody Screen NEGATIVE 12/14/23 06:10: WBC 6.8, RBC 3.42 L, Hgb 10.9 L, Hct 32.4 L, MCV 94.7 H, MCH 31.9, MCHC 33.6, RDW Std Deviation 45.5 H, RDW Coeff of Carol 13.2, MPV 13.2 H Active Medications Active Medications Active Medications: Current Medications Generic Name Dose Route Start Last Admin Trade Name Freq PRN Reason Stop Dose Admin Acetaminophen 1,000 mg 12/12/23 14:00 12/14/23 05:36 Acetaminophen 500 Mg Tablet PO 1,000 mg Q8 BRYANNA Administration Amiodarone HCl 200 mg 12/13/23 10:00 12/13/23 09:17 Amiodarone 200 Mg Tablet PO Not Given DAILY BRYANNA Apixaban 5 mg 12/11/23 22:00 12/12/23 08:37 Apixaban 5 Mg Tablet PO 5 mg BID BRYANNA Administration Aspirin 81 mg 12/12/23 08:00 12/12/23 08:35 Aspirin E.C. 81 [facility] Atorvastatin Calcium 80 mg 12/11/23 22:00 12/12/23 21:08 Atorvastatin Calcium 80 Mg Tablet PO 80 mg QHS BRYANNA Administration Calcium Carbonate 1,000 mg 12/12/23 08:00 12/13/23 11:34 Calcium (Elemental) 500 Mg Tablet PO [facility] Dexamethasone 20 mg 12/13/23 10:00 12/13/23 10:31 Dexamethasone 4 Mg Tablet PO 12/17/23 10:01 20 mg DAILY [facility] Administration Glycerin/Hypromellose/Polyethylene 1 drp 12/12/23 10:27 12/12/23 12:30 Glycerin/Hypromellose/[id number] 15 Ml Bottle EACH EYE 1 drp Q1H PRN Administration DRY EYES Immune Globulin 200 mls @ 365 mls/hr 12/13/23 10:00 12/13/23 12:43 Octagam 10% 20gm IV 12/14/23 10:33 Infused Q24 BRYANNA Infusion Immune Globulin 100 mls @ 365 mls/hr 12/13/23 10:00 12/13/23 13:40 Octagam 10% 10gm IV 12/14/23 10:17 Infused Q24 BRYANNA Infusion Lidocaine 1 patch 12/12/23 10:00 12/13/23 11:12 Lidocaine 5% Patch TOPICAL 1 patch DAILY BRYANNA Administration Protocol Losartan Potassium 50 mg 12/12/23 10:00 12/13/23 09:17 Losartan Potassium 50 Mg Tablet PO Not Given DAILY [facility] Protocol Magnesium Hydroxide 30 ml 12/11/23 19:59 Magnesium Hydroxide 30 Ml Udc PO DAILY PRN PRN Constipation Metoprolol Succinate 50 mg 12/12/23 10:00 12/13/23 09:16 Metoprolol(Xl)Succ 50 Mg Tablet PO Not Given DAILY [facility] Protocol Multivitamins 1 tablet 12/12/23 08:00 12/13/23 11:32 Multivitamins,Therapeutic Tablet PO [facility] Nutritional Formula (Lactose Free) 118 ml 12/12/23 08:00 12/13/23 17:34 Ensure Compact 118 Ml Liquid PO Not Given TIDCM [facility] Ondansetron HCl 4 mg 12/11/23 19:59 Ondansetron 4 Mg/2 Ml Vial IV Q8H PRN PRN NAUSEA/VOMITING Oxycodone HCl 5 mg 12/12/23 09:43 12/12/23 23:46 Oxycodone 5 Mg Tablet PO 5 mg Q6H PRN PRN Administration Pain Score 4-10 or Pre PT/OT Pantoprazole Sodium 40 mg 12/12/23 17:00 12/13/23 10:31 Pantoprazole Sodium 40 Mg Tablet PO 40 mg DAILY [facility] Administration Sodium Chloride 10 - 40 ml 12/11/23 20:49 12/13/23 21:44 0.9% Saline Lock 10 Ml Syringe IV 20 ml UD PRN Administration SALINE FLUSH Tamsulosin HCl 0.4 mg 12/12/23 08:30 12/13/23 10:31 Tamsulosin Hcl 0.4 Mg Capsule PO 0.4 mg DAILY@0830 [facility] Administration Tizanidine HCl 2 mg 12/12/23 16:02 12/13/23 02:19 Tizanidine Hcl 2 Mg Tablet PO 2 mg Q8H PRN PRN Administration Muscle spasm and pain Venlafaxine HCl 150 mg 12/12/23 10:00 12/13/23 11:12 Venlafaxine Xr 150 Mg Capsule PO 150 mg DAILY BRYANNA Administration
[2023-12-14 08:38] LABS: Anion Gap 7 (5-15); BUN 24 mg/dL (7-18); BUN/Creat Ratio 26.7 RATIO (10-20); Calcium,Total 8.4 mg/dL (8.5-10.1); Chloride 112 mmol/L (98-107); EST Glomerular Filtration Rate 86 mL/min (>60); Est Glom Filt Rate - Afr Amer 104 mL/min (>60); Estimated Creatinine Clearance 73.29 ml/min; Glucose 222 mg/dL (74-106); Sodium Level 139 mmol/L (136-145)
[2023-12-14 09:35] LABS: Pathologist Review Reviewed
[2023-12-14 09:38] LABS: Differential Comment SCANNED
--- NOTE | 2023-12-14 10:33 | CASEMGMT ---
Addendum entered by Mireya Coulter 12/14/23 11:31: SW notified [facility] via [employer]. Mireya Coulter [employer] Original Note: Patient and family have now chosen TCU for rehab. ROMANA called Rajni, who is covering admissions in TCU and let her know patient would like TCU. ROMANA let Rajni know about the outpatient EMG nerve conduction test. Rajni will start the pre-cert for patient. Plan: d/c to [facility]CU pending approval.
[2023-12-14] MEDS: IMMUNE GLOBULIN IV ×2 (10:43→12:20)
[2023-12-14] MEDS: dexAMETHasone 4 MG Tablet 20 MG PO (11:36)
[2023-12-14] MEDS: Losartan Potassium 50 MG Tablet PO (11:37)
[2023-12-14] MEDS: Amiodarone 200 MG Tablet PO (11:37)
[2023-12-14] MEDS: Venlafaxine XR 150 MG Capsule PO (11:37)
[2023-12-14] MEDS: Insulin Glargine-YFGN 100 UNIT/ML Pen 10 UNIT SC (11:45)
[2023-12-14] MEDS: Metoprolol(XL)Succ 50 MG Tablet PO (11:47)
[2023-12-14] MEDS: Pantoprazole Sodium 40 MG Tablet PO (11:47)
--- NOTE | 2023-12-14 16:31 | PCM.PN.HOSP ---
Reason for Visit Reason for Visit: Intractable back pain/generalized lower extremity weakness Subjective Subjective Patient did better overnight. Not complaining any of significant pain at this time. Patient was seen by neurology and they recommended EMG and nerve conduction studies. They felt they could be done within the next 2 weeks. We did verify with the transitional care unit that they could order these and they would be done as soon as pre-CERT was obtained. Neuro did also offer transfer to be done at [facility] and family prefers to stay here and get them done as an outpatient here. Objective Data Objective Data Vital Signs: Vital Signs Temp Pulse Resp BP Pulse Ox O2 Del Method 98.2 F 74 22 H 120/55 L 96 Room Air 12/14/23 14:00 12/14/23 14:00 12/14/23 14:00 12/14/23 14:00 12/14/23 14:00 12/14/23 14:00 Oxygen Delivery Method Room Air Weight: 95.2 kg Body Mass Index (BMI) 30.1 Intake & Output: Intake and Output for Last 24 Hours 12/12/23 12/13/23 12/14/23 23:59 23:59 23:59 Intake Total 957 / 1157 1800.00 / 2040.00 660.00 / 660.00 Output Total 100 / 400 1000 / 1000 400 / 400 Balance 857 / 757 800.00 / 1040.00 260.00 / 260.00 Lab / Micro Data 12/14/23 06:10 12/14/23 06:10 Labs: Laboratory Results - last 24 hr 12/13/23 06:25: Diff Path Review Reviewed 12/14/23 06:10: WBC 6.8, RBC 3.42 L, Hgb 10.9 L, Hct 32.4 L, MCV 94.7 H, MCH 31.9, MCHC 33.6, RDW Std Deviation 45.5 H, RDW Coeff of Carol 13.2, Plt Count 36 L*, MPV 13.2 H, Differential Comment SCANNED, Diff Path Review May , Sodium 139, Potassium 4.0, Chloride 112 H, Carbon Dioxide 20.0 L, Anion Gap 7, BUN 24 H, Creatinine 0.90, Estim Creat Clear Calc 73.29, Est GFR (MDRD) Af Amer 104, Est GFR (MDRD) Non-Af 86, BUN/Creatinine Ratio 26.7 H, Glucose 222 H, Calcium 8.4 L Micro: Microbiology 12/12/23 15:36 Stool Stool Occult Blood (ROGER) - Final Physical Exam Const alert, oriented x3, no apparent distress and well nourished; Negative for average body habitus or healthy appearing Constitutional Narrative: Obese, very pleasant, elderly, white male, sitting in a chair at the bedside, nursing at bedside,, daughter at the bedside, appears comfortable currently and nontoxic General Appearance: cooperative HEENT normocephalic, head/scalp atraumatic, hearing grossly normal bilaterally and moist oral mucous membranes Resp normal respiratory effort, no retractions, no use of accessory muscles and clear to auscultation bilaterally Auscultation: Negative for rales, rhonchi or wheezes Cardio regular rate, regular rhythm, S1 normal heart sound, S2 normal heart sound, no murmurs, no rub, no gallops and no clicks GI normal to inspection, nondistended, normoactive bowel sounds, soft to palpation and non-tender Extremity no clubbing, cyanosis or edema Neuro oriented x3, moves all extremities and no focal motor deficits Neuro Narrative: Significant generalized weakness noted proximal greater than distal Sensorium / Orientation: awake, alert, oriented to person, oriented to place and oriented to time Speech: speech normal Psych affect normal Psych Narrative: Eye contact is good and patient interacts appropriately, extremely pleasant Assessment & Plan Assessment/Plan (1) Low back pain: QUALIFIERS: Chronicity: chronic Back pain laterality: midline Sciatica presence: without sciatica Qualified Code(s): M54.50 - Low back pain, unspecified; G89.29 - Other chronic pain (2) Thrombocytopenia: (3) Bilateral leg weakness: (4) Compression fracture: PLAN: Plan Subacute low back pain -Has been ongoing for about 8 weeks -Contrasted and noncontrasted or MRI are significant for L1 compression fracture but no other significant acute pathology noted -Patient does have quite a bit of arthritic changes on his MRI -Continue scheduled Tylenol -Continue lidocaine patch -As needed oxycodone 5 mg every 6 hours as needed -Continue low-dose Zanaflex -Pain management agrees with current management and no invasive management required -Orthopedic surgery has evaluated the patient does not feel that his back pain needs any surgical intervention -Pain overall seems to be better controlled Bilateral lower extremity weakness and progressive debility -Suspect related to decreased use with sarcopenia related to decreased use -Will trial holding his statin however I do not think this is statin induced myopathy -CK level is normal at 57 -Liver functions overtly unremarkable -CRP was normal at 2.66 -B12 and folate are normal -TSH is normal -Patient indicates that he does not have a very active lifestyle at baseline and then with the back pain he has had even less activity and feels that has been progressively worsening since that point in time -Neuro has evaluated the patient and recommends EMG nerve conduction studies -These will be done after transfer to transitional care unit as an outpatient once pre-CERT is obtained -This will give us time to get his platelet count greater than 50,000 -MRI of the brain was unremarkable for any new findings -Lumbar spine with no explanation of acute findings -Continue PT/OT -Will have neurology evaluate to see if he they have any other thoughts on potential etiology other than decreased use and worsening sarcopenia -Therapy recommending placement at discharge for ongoing rehab services -Case management and social work are following and will assist with discharge planning 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 Choi and we will go ahead and give him 2 doses of IVIG and start dexamethasone 20 mg daily x 4 days starting today -Dexamethasone was given previously in April and the patient responded well -Second dose of IVIG given today and day 2 of Decadron -Platelet count up to 36,000 today after 2 units of platelets given yesterday as well as initiation of Decadron 20 mg daily and IVIG -Will trend platelets while hospitalized and have close outpatient follow-up after discharge -Hold aspirin and Eliquis until platelet counts are trending up and close to 100,000 -Repeat CBC in a.m. Hyperglycemia -Elevated due to high-dose Decadron -Will add subcu Lantus to help control blood sugars for now and will likely able to discontinue once off Decadron History of neuro non-Hodgkin's lymphoma -Follows at [facility] for care -No noted lymphoma on MRIs -Dr. Choi did not feel that an LP would be beneficial at this time and more contraindicated due to his platelet counts -Continue outpatient follow-up after discharge Persistent atrial fibrillation -Hold Eliquis for now until platelet count is approaching 100,000 and appears to be stabilizing -Continue home amiodarone -Continue home beta-alee CAD/HTN/HPL -Hold home aspirin for now with thrombocytopenia until platelet count is approaching 100,000 and appears to be stabilizing -Continue home atorvastatin -Continue home losartan -Continue home metoprolol History of prostate cancer -PSA is normal -Continue outpatient follow-up [facility] -Continue home CPAP BPH with obstruction -Continue home Flomax Depression -Continue home venlafaxine DVT prophylaxis -Has been on Eliquis -Currently on hold in case procedure is required -SCDs for now CODE STATUS -Full code is verified on admission Charges/Coding Visit Charges Inpatient E&M: 45396 Subs Hosp L2
[2023-12-15 02:45] VITALS: BP 137/70; PULSE 70; RESP 18; TEMP 36.6; O2SAT 96
[2023-12-15 05:14] VITALS: BMI 29.9
[2023-12-15] MEDS: Acetaminophen 500 MG Tablet 1000 MG PO ×3 (05:51→20:45)
[2023-12-15 07:14] LABS: Absolute Lymphocyte Count 3.73 X10^3/uL (0.83-4.51); Absolute Neutrophil Count 7.7 X10^3/uL (2.0-7.7); Basophil# 0.04 X10^3/uL; Basophil% 0.3 % (0-1); Eosinophil# 0.01 X10^3/uL; Eosinophils% 0.1 % (0-5); Hematocrit 32.8 % (40-54); Hemoglobin 11.2 g/dL (13.0-16.5); Lymphocyte # 3.73 X10^3/ul (0.83-4.51); Lymphocyte % 31.5 % (19-41); Mean Corp Hgb Conc 34.1 g/dL (32-36); Mean Corpuscular Hgb 32.6 pg (27.0-32.0); Mean Corpuscular Volume 95.3 fL (80-94); Monocyte# 0.34 X10^3/uL; Monocyte% 2.9 % (0-10); NRBC Flagged by Analyzer 0 % (0-5); Neutrophil # 7.66 X10^3/uL (2.7-7.7); Neutrophil % 64.7 % (47-70); POSITIVE COUNT YES; Platelet Count 66 K/mm3 (150-450); RBC Distribution Width CV 13.6 % (11.6-14.6); RBC Distribution Width SD 47.4 fl (35.1-43.9); Red Blood Count 3.44 M/mm3 (4.6-6.2); White Blood Count 11.8 K/mm3 (4.4-11.0)
[2023-12-15 07:23] LABS: Differential Indicated SCAN CRITERIA MET
[2023-12-15 07:40] LABS: Anion Gap 6 (5-15); BUN 35 mg/dL (7-18); Calcium,Total 8.4 mg/dL (8.5-10.1); Chloride 111 mmol/L (98-107); Creatinine, Serum 0.92 mg/dL (0.70-1.30); EST Glomerular Filtration Rate 83 mL/min (>60); Est Glom Filt Rate - Afr Amer 101 mL/min (>60); Estimated Creatinine Clearance 71.52 ml/min; Glucose 185 mg/dL (74-106); Potassium 4.2 mmol/L (3.5-5.1); Sodium Level 138 mmol/L (136-145)
[2023-12-15] MEDS: Multivitamins,Therapeutic Tablet 1 TABLET PO (08:38)
[2023-12-15 08:39] VITALS: PULSE 70
[2023-12-15] MEDS: Metoprolol(XL)Succ 50 MG Tablet PO (08:39)
[2023-12-15] MEDS: Calcium (Elemental) 500 MG Tablet 1000 MG PO (08:39)
[2023-12-15] MEDS: dexAMETHasone 4 MG Tablet 20 MG PO (08:40)
[2023-12-15] MEDS: Amiodarone 200 MG Tablet PO (08:41)
[2023-12-15] MEDS: Losartan Potassium 50 MG Tablet PO (08:41)
[2023-12-15] MEDS: Pantoprazole Sodium 40 MG Tablet PO (08:41)
[2023-12-15] MEDS: Venlafaxine XR 150 MG Capsule PO (08:41)
[2023-12-15] MEDS: Tamsulosin HCl 0.4 MG Capsule PO (08:42)
[2023-12-15] MEDS: Insulin Glargine-YFGN 100 UNIT/ML Pen 15 UNIT SC (08:42)
[2023-12-15 08:45] VITALS: BP 143/70; PULSE 70; RESP 20; TEMP 36.3; O2SAT 98
[2023-12-15 08:58] LABS: Differential Comment SCANNED
[2023-12-15 08:59] LABS: Platelet Estimate MKD DEC (ADEQ)
[2023-12-15 12:20] VITALS: BP 139/64; PULSE 71; RESP 15; TEMP 36.3; O2SAT 98
--- NOTE | 2023-12-15 12:31 | NURSING ---
Informed my patient was assisted to his knees by Ginny BARR and Vanda MONTERO to floor. upon arrival to room, pt back to bed, assessment was negative, vss, no complaints of pain. Dr. Salcedo notified.
[2023-12-15 12:36] LABS: Bedside Glucose 232 mg/dL (74-106)
--- NOTE | 2023-12-15 15:40 | PCM.PN.HOSP ---
Reason for Visit Reason for Visit: Intractable back pain, generalized lower extremity weakness Subjective Subjective Patient states he feels as good as he has felt since he has been admitted. We did discuss that his platelet count has improved and now is 66,000. Anxious to go to rehab whenever we get approval. Still awaiting pre-CERT. Objective Data Objective Data Vital Signs: Vital Signs Temp Pulse Resp BP Pulse Ox O2 Del Method 97.3 F L 71 15 139/64 H 98 Room Air 12/15/23 12:20 12/15/23 12:20 12/15/23 12:20 12/15/23 12:20 12/15/23 12:20 12/15/23 12:20 Oxygen Delivery Method Room Air Weight: 94.7 kg Body Mass Index (BMI) 29.9 Intake & Output: Intake and Output for Last 24 Hours 12/13/23 12/14/23 12/15/23 23:59 23:59 23:59 Intake Total 1800.00 / 2040.00 660.00 / 1160.00 840 / 840 Output Total 1000 / 1000 1000 / 1000 Balance 800.00 / 1040.00 -340.00 / 160.00 840 / 840 Lab / Micro Data 12/15/23 06:50 12/15/23 06:50 Labs: Laboratory Results - last 24 hr 12/15/23 06:50: WBC 11.8 H, RBC 3.44 L, Hgb 11.2 L, Hct 32.8 L, MCV 95.3 H, MCH 32.6 H, MCHC 34.1, RDW Std Deviation 47.4 H, RDW Coeff of Carol 13.6, Plt Count 66 L, MPV 12.0, Immature Gran % (Auto) 0.500, Neut % (Auto) 64.7, Lymph % (Auto) 31.5, [place] % (Auto) 2.9, Eos % (Auto) 0.1, Baso % (Auto) 0.3, Absolute Neuts (auto) 7.7, Absolute Lymphs (auto) 3.73, Nucleated RBC % 0, Differential Comment SCANNED, Platelet Estimate MKD DEC, Sodium 138, Potassium 4.2, Chloride 111 H, Carbon Dioxide 21.0, Anion Gap 6, BUN 35 H, Creatinine 0.92, Estim Creat Clear Calc 71.52, Est GFR (MDRD) Af Amer 101, Est GFR (MDRD) Non-Af 83, BUN/Creatinine Ratio 38.0 H, Glucose 185 H, Calcium 8.4 L 12/15/23 12:18: POC Glucose 232 H Micro: Microbiology 12/12/23 15:36 Stool Stool Occult Blood (ROGER) - Final Physical Exam Const alert, oriented x3, no apparent distress and well nourished; Negative for average body habitus or healthy appearing Constitutional Narrative: Obese, very pleasant, elderly, white male, lying in bed, nurses aide x 2 at bedside getting patient cleaned up and repositioned, appears comfortable currently and nontoxic General Appearance: cooperative HEENT normocephalic, head/scalp atraumatic, hearing grossly normal bilaterally and moist oral mucous membranes HEENT Narrative: Mallampati 2-3, no thrush Resp normal respiratory effort, no retractions, no use of accessory muscles and clear to auscultation bilaterally Auscultation: Negative for rales, rhonchi or wheezes Cardio regular rate, regular rhythm, S1 normal heart sound, S2 normal heart sound, no murmurs, no rub, no gallops and no clicks GI normal to inspection, nondistended, normoactive bowel sounds, soft to palpation and non-tender Extremity no clubbing, cyanosis or edema Neuro oriented x3, moves all extremities and no focal motor deficits Neuro Narrative: Significant generalized weakness noted proximal greater than distal specifically in bilateral lower extremities Speech: speech normal Psych affect normal Psych Narrative: Eye contact is good and patient interacts appropriately, extremely pleasant Assessment & Plan Assessment/Plan (1) Low back pain: QUALIFIERS: Chronicity: chronic Back pain laterality: midline Sciatica presence: without sciatica Qualified Code(s): M54.50 - Low back pain, unspecified; G89.29 - Other chronic pain (2) Thrombocytopenia: (3) Bilateral leg weakness: (4) Compression fracture: PLAN: Plan Subacute low back pain -Has been ongoing for about 8 weeks -Contrasted and noncontrasted or MRI are significant for L1 compression fracture but no other significant acute pathology noted -Patient does have quite a bit of arthritic changes on his MRI -Continue scheduled Tylenol -Continue lidocaine patch -As needed oxycodone 5 mg every 6 hours as needed -Continue low-dose Zanaflex -Pain management agrees with current management and no invasive management required -Orthopedic surgery has evaluated the patient does not feel that his back pain needs any surgical intervention -Patient states his back pain is fairly well-controlled at this time and is not complaining of any significant issues currently and no new needs Bilateral lower extremity weakness and progressive debility -Suspect related to decreased use with sarcopenia related to decreased use -Will trial holding his statin however I do not think this is statin induced myopathy -CK level is normal at 57 -Liver functions overtly unremarkable -CRP was normal at 2.66 -B12 and folate are normal -TSH is normal -Patient indicates that he does not have a very active lifestyle at baseline and then with the back pain he has had even less activity and feels that has been progressively worsening since that point in time -Neuro recommended EMGs in the next 2 weeks which we can arrange at transitional care unit -MRI of the brain was unremarkable for any new findings -Lumbar spine with no explanation of acute findings -Continue PT/OT -Case management and social work are following and will assist with discharge planning -Patient is medically stable for discharge and awaiting pre-CERT 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 Hyperglycemia -Elevated due to high-dose Decadron -Continue subcu Lantus and will able to discontinue when Decadron completed History of neuro non-Hodgkin's lymphoma -Follows at [facility] for care -No noted lymphoma on MRIs -Dr. Choi did not feel that an LP would be beneficial at this time and more contraindicated due to his platelet counts -Continue outpatient follow-up after discharge Persistent atrial fibrillation -Hold Eliquis for now until platelet count is approaching 100,000 and appears to be stabilizing -Continue home amiodarone -Continue home beta-alee CAD/HTN/HPL -Hold home aspirin for now with thrombocytopenia until platelet count is approaching 100,000 and appears to be stabilizing -Continue home atorvastatin -Continue home losartan -Continue home metoprolol History of prostate cancer -PSA is normal -Continue outpatient follow-up [facility] -Continue home CPAP 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 Currently awaiting pre-CERT from insurance company for transitional care unit Charges/Coding Visit Charges Inpatient E&M: 88634 Subs Hosp L2
[2023-12-15 17:22] VITALS: BP 112/60; PULSE 70; RESP 18; TEMP 36.6; O2SAT 97
[2023-12-15 22:30] VITALS: BP 138/61; PULSE 66; RESP 16; TEMP 36.4; O2SAT 97
[2023-12-16 03:33] VITALS: BMI 29.9
[2023-12-16 04:30] VITALS: BP 159/70; PULSE 60; RESP 18; TEMP 36.4; O2SAT 96
[2023-12-16] MEDS: Acetaminophen 500 MG Tablet 1000 MG PO ×3 (05:35→21:11)
[2023-12-16 06:49] LABS: Hematocrit 34.4 % (40-54); Hemoglobin 11.5 g/dL (13.0-16.5); Mean Corp Hgb Conc 33.4 g/dL (32-36); Mean Corpuscular Hgb 31.9 pg (27.0-32.0); Mean Corpuscular Volume 95.3 fL (80-94); Mean Platelet Vol. 12.3 fl (6.2-12.0); POSITIVE COUNT YES; Platelet Count 68 K/mm3 (150-450); RBC Distribution Width CV 13.8 % (11.6-14.6); RBC Distribution Width SD 48.2 fl (35.1-43.9); Red Blood Count 3.61 M/mm3 (4.6-6.2); White Blood Count 12.4 K/mm3 (4.4-11.0)
[2023-12-16 06:55] LABS: Scan Indicated on CBC? Y/N NO
[2023-12-16 07:21] LABS: Anion Gap 7 (5-15); BUN 38 mg/dL (7-18); BUN/Creat Ratio 39.6 RATIO (10-20); Calcium,Total 8.6 mg/dL (8.5-10.1); Chloride 110 mmol/L (98-107); Creatinine, Serum 0.96 mg/dL (0.70-1.30); EST Glomerular Filtration Rate 80 mL/min (>60); Est Glom Filt Rate - Afr Amer 96 mL/min (>60); Estimated Creatinine Clearance 68.61 ml/min; Glucose 159 mg/dL (74-106); Potassium 4.9 mmol/L (3.5-5.1); Sodium Level 140 mmol/L (136-145)
[2023-12-16] MEDS: dexAMETHasone 4 MG Tablet 20 MG PO (07:49)
[2023-12-16] MEDS: Multivitamins,Therapeutic Tablet 1 TABLET PO (07:49)
[2023-12-16] MEDS: Losartan Potassium 50 MG Tablet PO (07:49)
[2023-12-16 07:50] VITALS: BP 159/66; PULSE 70; RESP 16; TEMP 36.4; O2SAT 95
[2023-12-16] MEDS: Calcium (Elemental) 500 MG Tablet 1000 MG PO (07:50)
[2023-12-16] MEDS: Amiodarone 200 MG Tablet PO (07:50)
[2023-12-16] MEDS: Tamsulosin HCl 0.4 MG Capsule PO (07:50)
[2023-12-16 07:51] VITALS: PULSE 72
[2023-12-16] MEDS: Pantoprazole Sodium 40 MG Tablet PO (07:51)
[2023-12-16] MEDS: Venlafaxine XR 150 MG Capsule PO (07:51)
[2023-12-16] MEDS: Metoprolol(XL)Succ 50 MG Tablet PO (07:51)
[2023-12-16] MEDS: Insulin Glargine-YFGN 100 UNIT/ML Pen 15 UNIT SC (07:52)
--- NOTE | 2023-12-16 13:15 | PCM.PN.HOSP ---
Reason for Visit Reason for Visit: Intractable back pain, generalized lower extremity weakness Subjective Subjective No issues overnight. Back pain is well-controlled. Just concerned about his leg weakness that he seems to be more weak proximally than distally. Objective Data Objective Data Vital Signs: Vital Signs Temp Pulse Resp BP Pulse Ox O2 Del Method 97.6 F L 72 16 159/66 H 95 Room Air 12/16/23 07:50 12/16/23 07:51 12/16/23 07:50 12/16/23 07:50 12/16/23 07:50 12/16/23 07:50 Oxygen Delivery Method Room Air Weight: 94.9 kg Body Mass Index (BMI) 29.9 Intake & Output: Intake and Output for Last 24 Hours 12/14/23 12/15/23 12/16/23 23:59 23:59 23:59 Intake Total 660.00 / 1160.00 840 / 1080 740 / 740 Output Total 1000 / 1000 1375 / 1375 Balance -340.00 / 160.00 840 / 280 -635 / -635 Lab / Micro Data 12/16/23 06:25 12/16/23 06:25 Labs: Laboratory Results - last 24 hr 12/16/23 06:25: WBC 12.4 H, RBC 3.61 L, Hgb 11.5 L, Hct 34.4 L, MCV 95.3 H, MCH 31.9, MCHC 33.4, RDW Std Deviation 48.2 H, RDW Coeff of Carol 13.8, Plt Count 68 L, MPV 12.3 H, Sodium 140, Potassium 4.9, Chloride 110 H, Carbon Dioxide 23.0, Anion Gap 7, BUN 38 H, Creatinine 0.96, Estim Creat Clear Calc 68.61, Est GFR (MDRD) Af Amer 96, Est GFR (MDRD) Non-Af 80, BUN/Creatinine Ratio 39.6 H, Glucose 159 H, Calcium 8.6 Micro: Microbiology 12/12/23 15:36 Stool Stool Occult Blood (ROGER) - Final Physical Exam Const alert, oriented x3, no apparent distress and well nourished; Negative for average body habitus or healthy appearing Constitutional Narrative: Obese, very pleasant, elderly, white male, lying in bed, nurses aide x 2 at bedside getting patient cleaned up and repositioned, appears comfortable currently and nontoxic General Appearance: cooperative HEENT normocephalic, head/scalp atraumatic, hearing grossly normal bilaterally and moist oral mucous membranes HEENT Narrative: Mallampati 2-3, no thrush Resp normal respiratory effort, no retractions, no use of accessory muscles and clear to auscultation bilaterally Auscultation: Negative for rales, rhonchi or wheezes Cardio regular rate, regular rhythm, S1 normal heart sound, S2 normal heart sound, no murmurs, no rub, no gallops and no clicks GI normal to inspection, nondistended, normoactive bowel sounds, soft to palpation and non-tender Extremity no clubbing, cyanosis or edema Skin Skin Narrative: Scattered ecchymotic changes and a few scattered wounds that are well-healing and no signs of infection Neuro oriented x3, moves all extremities and no focal motor deficits Neuro Narrative: Significant generalized weakness noted proximal greater than distal specifically in bilateral lower extremities, most significant weakness is at bilateral hips Speech: speech normal Psych affect normal Psych Narrative: Eye contact is good and patient interacts appropriately, extremely pleasant Assessment & Plan Assessment/Plan (1) Low back pain: QUALIFIERS: Chronicity: chronic Back pain laterality: midline Sciatica presence: without sciatica Qualified Code(s): M54.50 - Low back pain, unspecified; G89.29 - Other chronic pain (2) Thrombocytopenia: (3) Bilateral leg weakness: (4) Compression fracture: PLAN: Plan Subacute low back pain -Has been ongoing for about 8 weeks -Pain is currently well-controlled at this time -Contrasted and noncontrasted or MRI are significant for L1 compression fracture but no other significant acute pathology noted -Patient does have quite a bit of arthritic changes on his MRI -Continue scheduled Tylenol -Continue lidocaine patch -As needed oxycodone 5 mg every 6 hours as needed -Continue low-dose Zanaflex -Pain management agrees with current management and no invasive management required -Orthopedic surgery has evaluated the patient does not feel that his back pain needs any surgical intervention -Patient states his back pain is fairly well-controlled at this time and is not complaining of any significant issues currently and no new needs Bilateral lower extremity weakness and progressive debility -Suspect related to decreased use with sarcopenia related to decreased use -Will trial holding his statin however I do not think this is statin induced myopathy -CK level is normal at 57 -Liver functions overtly unremarkable -CRP was normal at 2.66 -B12 and folate are normal -TSH is normal -Patient indicates that he does not have a very active lifestyle at baseline and then with the back pain he has had even less activity and feels that has been progressively worsening since that point in time -Neuro recommended EMGs in the next 2 weeks which we can arrange at transitional care unit -Patient could be a little bit weaker currently due to steroids being high-dose -MRI of the brain was unremarkable for any new findings -Lumbar spine with no explanation of acute findings -Continue PT/OT -Case management and social work are following and will assist with discharge planning -Patient is medically stable for discharge and awaiting pre-CERT 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 Hyperglycemia -Elevated due to high-dose Decadron -Continue subcu Lantus and will able to discontinue when Decadron completed -Will likely discontinue insulin tomorrow History of neuro non-Hodgkin's lymphoma -Follows at [facility] for care -No noted lymphoma on MRIs -Dr. Choi did not feel that an LP would be beneficial at this time and more contraindicated due to his platelet counts -Continue outpatient follow-up after discharge Persistent atrial fibrillation -Hold Eliquis for now until platelet count is approaching 100,000 and appears to be stabilizing -Continue home amiodarone -Continue home beta-alee CAD/HTN/HPL -Hold home aspirin for now with thrombocytopenia until platelet count is approaching 100,000 and appears to be stabilizing -Continue home atorvastatin -Continue home losartan -Continue home metoprolol History of prostate cancer -PSA is normal -Continue outpatient follow-up [facility] -Continue home CPAP 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 Currently awaiting pre-CERT from insurance company for transitional care unit Charges/Coding Visit Charges Inpatient E&M: 64110 Subs Hosp L2
[2023-12-16 14:00] VITALS: BP 125/63; PULSE 67; RESP 16; TEMP 36.2; O2SAT 97
[2023-12-16 21:10] VITALS: BP 151/71; PULSE 63; RESP 16; TEMP 36.6; O2SAT 98
[2023-12-17 03:20] VITALS: BP 158/70; PULSE 61; RESP 16; TEMP 36.9; O2SAT 97
[2023-12-17] MEDS: Acetaminophen 500 MG Tablet 1000 MG PO ×3 (05:31→21:05)
[2023-12-17 06:11] LABS: Hematocrit 34.8 % (40-54); Hemoglobin 11.8 g/dL (13.0-16.5); Mean Corp Hgb Conc 33.9 g/dL (32-36); Mean Corpuscular Hgb 31.6 pg (27.0-32.0); Mean Corpuscular Volume 93.3 fL (80-94); Mean Platelet Vol. 12.1 fl (6.2-12.0); POSITIVE COUNT YES; Platelet Count 75 K/mm3 (150-450); RBC Distribution Width CV 13.7 % (11.6-14.6); Red Blood Count 3.73 M/mm3 (4.6-6.2); White Blood Count 12.5 K/mm3 (4.4-11.0)
[2023-12-17 06:40] LABS: Anion Gap 7 (5-15); BUN 35 mg/dL (7-18); BUN/Creat Ratio 38.7 RATIO (10-20); Calcium,Total 8.4 mg/dL (8.5-10.1); Chloride 109 mmol/L (98-107); EST Glomerular Filtration Rate 85 mL/min (>60); Est Glom Filt Rate - Afr Amer 103 mL/min (>60); Estimated Creatinine Clearance 73.22 ml/min; Glucose 128 mg/dL (74-106); Potassium 4.1 mmol/L (3.5-5.1); Sodium Level 138 mmol/L (136-145)
[2023-12-17 09:08] VITALS: BP 166/77; PULSE 60; RESP 18; TEMP 36.6; O2SAT 99
[2023-12-17] MEDS: Pantoprazole Sodium 40 MG Tablet PO (09:15)
[2023-12-17] MEDS: Tamsulosin HCl 0.4 MG Capsule PO (09:15)
[2023-12-17] MEDS: Amiodarone 200 MG Tablet PO (09:15)
[2023-12-17] MEDS: dexAMETHasone 4 MG Tablet 20 MG PO (09:15)
[2023-12-17] MEDS: Calcium (Elemental) 500 MG Tablet 1000 MG PO (09:15)
[2023-12-17 09:16] VITALS: PULSE 60
[2023-12-17] MEDS: Metoprolol(XL)Succ 50 MG Tablet PO (09:16)
[2023-12-17] MEDS: Multivitamins,Therapeutic Tablet 1 TABLET PO (09:16)
[2023-12-17] MEDS: Losartan Potassium 50 MG Tablet PO (09:16)
[2023-12-17] MEDS: Venlafaxine XR 150 MG Capsule PO (09:16)
[2023-12-17] MEDS: Insulin Glargine-YFGN 100 UNIT/ML Pen 15 UNIT SC (09:19)
--- NOTE | 2023-12-17 14:35 | PCM.PN.HOSP ---
Reason for Visit Reason for Visit: Intractable Back Pain/ LE weakness Subjective Subjective Pt states that he is feeling well today. States he feels a bit stronger and feels that he did better with therapy yesterday. No complaints. Back is not currently bothering him. Objective Data Objective Data Vital Signs: Vital Signs Temp Pulse Resp BP Pulse Ox O2 Del Method 97.9 F 60 18 166/77 H 99 Room Air 12/17/23 09:08 12/17/23 09:16 12/17/23 09:08 12/17/23 09:08 12/17/23 09:08 12/17/23 13:29 Oxygen Delivery Method Room Air Weight: 95 kg Body Mass Index (BMI) 30.0 Intake & Output: Intake and Output for Last 24 Hours 12/15/23 12/16/23 12/17/23 23:59 23:59 23:59 Intake Total 840 / 1080 1100 / 1340 720 / 720 Output Total 1725 / 2025 625 / 625 Balance 840 / 280 -625 / -685 95 / 95 Lab / Micro Data 12/17/23 05:20 12/17/23 05:20 Labs: Laboratory Results - last 24 hr 12/17/23 05:20: WBC 12.5 H, RBC 3.73 L, Hgb 11.8 L, Hct 34.8 L, MCV 93.3, MCH 31.6, MCHC 33.9, RDW Std Deviation 46.0 H, RDW Coeff of Carol 13.7, Plt Count 75 L, MPV 12.1 H, Sodium 138, Potassium 4.1, Chloride 109 H, Carbon Dioxide 22.0, Anion Gap 7, BUN 35 H, Creatinine 0.90, Estim Creat Clear Calc 73.22, Est GFR (MDRD) Af Amer 103, Est GFR (MDRD) Non-Af 85, BUN/Creatinine Ratio 38.7 H, Glucose 128 H, Calcium 8.4 L Micro: Microbiology 12/12/23 15:36 Stool Stool Occult Blood (ROGER) - Final Physical Exam Const alert, oriented x3, no apparent distress and well nourished; Negative for average body habitus or healthy appearing Constitutional Narrative: Obese, very pleasant, elderly, white male, lying in bed, Just has finished breakfast, appears comfortable currently and nontoxic General Appearance: cooperative HEENT normocephalic, head/scalp atraumatic, hearing grossly normal bilaterally and moist oral mucous membranes HEENT Narrative: No thrush Resp normal respiratory effort, no retractions, no use of accessory muscles and clear to auscultation bilaterally Auscultation: Negative for rales, rhonchi or wheezes Cardio regular rate, regular rhythm, S1 normal heart sound, S2 normal heart sound, no murmurs, no rub, no gallops and no clicks GI normal to inspection, nondistended, normoactive bowel sounds, soft to palpation and non-tender Extremity no clubbing, cyanosis or edema Neuro oriented x3, moves all extremities and no focal motor deficits Neuro Narrative: Significant generalized weakness noted proximal greater than distal specifically in bilateral lower extremities, most significant weakness is at bilateral hips Speech: speech normal Psych affect normal Psych Narrative: Eye contact is good and patient interacts appropriately, extremely pleasant Assessment & Plan Assessment/Plan (1) Low back pain: (2) Thrombocytopenia: (3) Bilateral leg weakness: (4) Compression fracture: PLAN: Plan Subacute low back pain -Has been ongoing for about 8 weeks -Pain is currently well-controlled at this time -Contrasted and noncontrasted or MRI are significant for L1 compression fracture but no other significant acute pathology noted -Patient does have quite a bit of arthritic changes on his MRI -Continue scheduled Tylenol -Continue lidocaine patch -As needed oxycodone 5 mg every 6 hours as needed -Continue low-dose Zanaflex -Pain management agrees with current management and no invasive management required -Orthopedic surgery has evaluated the patient does not feel that his back pain needs any surgical intervention -Patient states his back pain is fairly well-controlled at this time and is not complaining of any significant issues currently and no new needs Bilateral lower extremity weakness and progressive debility -Suspect related to decreased use with sarcopenia related to decreased use -Will trial holding his statin however I do not think this is statin induced myopathy -CK level is normal at 57 -Liver functions overtly unremarkable -CRP was normal at 2.66 -B12 and folate are normal -TSH is normal -Patient indicates that he does not have a very active lifestyle at baseline and then with the back pain he has had even less activity and feels that has been progressively worsening since that point in time -Neuro recommended EMGs in the next 2 weeks which we can arrange at transitional care unit -Patient could be a little bit weaker currently due to steroids being high-dose -MRI of the brain was unremarkable for any new findings -Lumbar spine with no explanation of acute findings -Continue PT/OT -Case management and social work are following and will assist with discharge planning -Patient is medically stable for discharge and awaiting pre-CERT 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 Hyperglycemia -should improve not that off steroids with stop insulin History of neuro non-Hodgkin's lymphoma -Follows at [facility] for care -No noted lymphoma on MRIs -Dr. Choi did not feel that an LP would be beneficial at this time and more contraindicated due to his platelet counts -Continue outpatient follow-up after discharge Persistent atrial fibrillation -Hold Eliquis for now until platelet count is approaching 100,000 and appears to be stabilizing -Continue home amiodarone -Continue home beta-alee CAD/HTN/HPL -Hold home aspirin for now with thrombocytopenia until platelet count is approaching 100,000 and appears to be stabilizing -Continue home atorvastatin -Continue home losartan -Continue home metoprolol History of prostate cancer -PSA is normal -Continue outpatient follow-up MARY CARMEN -Continue home CPAP 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 Currently awaiting pre-CERT from insurance [employer] for transitional care unit. Outpt EMG and NCS after d/c to TCU Charges/Coding Visit Charges Inpatient E&M: 14918 Subs Hosp L2
[2023-12-17 15:09] VITALS: BP 138/68; PULSE 64; RESP 18; TEMP 36.6; O2SAT 97
[2023-12-17 21:03] VITALS: BP 136/71; PULSE 63; RESP 18; TEMP 36.6; O2SAT 97
[2023-12-18] MEDS: MELATONIN 10 MG TABLET 5 MG PO (00:27)
[2023-12-18 03:15] VITALS: BP 143/73; PULSE 59; RESP 18; TEMP 36.4; O2SAT 96
[2023-12-18 05:06] VITALS: BMI 29.9
[2023-12-18] MEDS: Acetaminophen 500 MG Tablet 1000 MG PO (05:54)
[2023-12-18 07:18] LABS: Hematocrit 35.8 % (40-54); Hemoglobin 12.6 g/dL (13.0-16.5); Mean Corp Hgb Conc 35.2 g/dL (32-36); Mean Corpuscular Hgb 32.5 pg (27.0-32.0); Mean Corpuscular Volume 92.3 fL (80-94); Mean Platelet Vol. 11.5 fl (6.2-12.0); POSITIVE COUNT YES; Platelet Count 89 K/mm3 (150-450); RBC Distribution Width CV 13.8 % (11.6-14.6); RBC Distribution Width SD 46.1 fl (35.1-43.9); Red Blood Count 3.88 M/mm3 (4.6-6.2); White Blood Count 14.1 K/mm3 (4.4-11.0)
[2023-12-18 07:40] LABS: Anion Gap 6 (5-15); BUN 34 mg/dL (7-18); BUN/Creat Ratio 37.2 RATIO (10-20); Calcium,Total 8.4 mg/dL (8.5-10.1); Chloride 110 mmol/L (98-107); Creatinine, Serum 0.91 mg/dL (0.70-1.30); EST Glomerular Filtration Rate 84 mL/min (>60); Est Glom Filt Rate - Afr Amer 102 mL/min (>60); Estimated Creatinine Clearance 72.31 ml/min; Glucose 147 mg/dL (74-106); Potassium 4.3 mmol/L (3.5-5.1); Sodium Level 136 mmol/L (136-145)
[2023-12-18 08:56] VITALS: BP 129/67; PULSE 65; RESP 16; TEMP 36.6; O2SAT 98
[2023-12-18] MEDS: Tamsulosin HCl 0.4 MG Capsule PO (09:11)
[2023-12-18] MEDS: Venlafaxine XR 150 MG Capsule PO (09:11)
[2023-12-18] MEDS: Multivitamins,Therapeutic Tablet 1 TABLET PO (09:11)
[2023-12-18] MEDS: Pantoprazole Sodium 40 MG Tablet PO (09:11)
[2023-12-18 09:12] VITALS: BP 129/67; PULSE 65
[2023-12-18] MEDS: Losartan Potassium 50 MG Tablet PO (09:12)
[2023-12-18] MEDS: Metoprolol(XL)Succ 50 MG Tablet PO (09:12)
[2023-12-18] MEDS: Calcium (Elemental) 500 MG Tablet 1000 MG PO (09:12)
[2023-12-18] MEDS: Amiodarone 200 MG Tablet PO (09:12)
--- NOTE | 2023-12-18 10:30 | CASEMGMT ---
Patient was approved for [facility]. ROMANA notified patient and let him know he will be headed over to TCU today at some point. Patient thanked ROMANA and asked that SW call his daughter Luisa and notify her as well. ROMANA called Luisa ([phone]) and notified her that patient was approved for [facility] and he will go today. Luisa will bring in patient's Promacta. Plan: d/c to [facility] under skilled level of care. Mireya PERALES
--- NOTE | 2023-12-18 11:23 | PCM.TXEXTCAR ---
Diet Diet Order/Speech Therapy: 12/11/23 19:59 Diet: Cardiac - Heart Healthy Food consistency:: Regular Liquid Consistency:: Regular/Thin Is pt able to select menu?: Yes Routine Orders/Code Status Suppository Frequency: Daily PRN O2 Frequency: PRN Keep PO Greater than or Equal to (%): 89 Routine Lab Work: CBC (Am 12/19/2023) and BMP (1 week) Code Status: Full Code Suggestions for Active Care Change Position every (hours): 2 Therapies Weight Bearing: Full weight bearing Physical Therapy: Eval and Treat Occupational Therapy: Eval and Treat Problem/Diagnosis (1) Low back pain: Status: Acute Code(s): M54.50 - Low back pain, unspecified (2) Thrombocytopenia: Status: Acute Code(s): D69.6 - Thrombocytopenia, unspecified (3) Bilateral leg weakness: Status: Acute Code(s): R29.898 - Other symptoms and signs involving the musculoskeletal system (4) Compression fracture: Status: Acute Plan 1. Needs outpatient EMG and nerve conduction studies done within the next 7 to 10 days will need to be ordered from transitional care unit to be done here at [place] [facility]. Once platelet count is approaching 100,000 and stable start Eliquis and aspirin home doses per discussion with hematology (Dr. Choi) Allergies/Procedures Done in Hospital Allergies No Known Allergies Allergy (Verified 12/11/23 20:55) Procedures: - (MRI with and without contrast of the lumbar spine/MRI of the brain with and without contrast) Type of Care/Length of Stay Estimated LOS: Convalescent Care Less Than 30 days Type of Care Needed: Skilled Rehab Potential: Good Prognosis: Good Additional Orders/Day of Discharge Day of Discharge: 12/18/23 Dietary and Speech Recommendations Dietitian Recommendations/Changes: Continue current diet order per MD Continue supplemental nutrition per MD order No additional nutrition intervention planned at this time. Follow Up Care Please Follow Up With: Emery Choi DO When: 1 week Discharge Plan Admission Admit Date/Time: 12/13/23 12:51 Attending Provider: Nergita Salcedo Primary Care Provider: Benedicto Hinson Consulting Providers: Darren Dunbar; Matthew Mckinney; Shamar Nicolas; Jose Luther; Daphne Graff; Aurea Onofre; Ashley Blas; Ml Richardson; Juan Francisco Mills; Lindsay Fish; Carlos Manuel Gamboa; Mathew Wolf; Mariella Dave; Jean Ricci; Noa Sommers; Efren Brar; Jennifer Jack; Taran Thornton; Jodi Hanley; Chago Manley; Soraida Salcedo; Christina Damico Discharge Orders/Prescriptions Prescriptions: No Action venlafaxine [Effexor XR] 75 mg capsule,extended release 24hr 150 mg PO DAILY atorvastatin 80 mg Tablet 80 mg PO DAILY Eliquis 5 mg Tablet 5 mg PO BID aspirin [Riri Low Dose Aspirin] 81 mg Tablet,Delayed Release (Dr/Ec) 81 mg PO DAILY calcium carbonate [Calcium 500] 500 mg calcium (1,250 mg) Tablet 1,000 mg PO DAILY amiodarone 200 mg tablet 400 mg PO BID tamsulosin 0.4 mg capsule 0.4 mg PO DAILY losartan 50 mg tablet 50 mg PO DAILY metoprolol succinate 50 mg tablet extended release 24 hr 50 mg PO DAILY Patient Comments: [NO ORIGINAL SIG] multivitamin Tablet 1 tab PO DAILY melatonin 5 mg capsule 5 mg PO QHS PRN PRN (Reason: insomnia) Referrals / Follow Up: Benedicto Hinson DO [Primary Care Provider] - (1) Low back pain Qualifiers: Chronicity: chronic Back pain laterality: midline Sciatica presence: without sciatica Qualified Code(s): M54.50 - Low back pain, unspecified; G89.29 - Other chronic pain
--- NOTE | 2023-12-18 11:34 | DS.PCM_ITS ---
Providers Date of Admission: 12/13/23 Primary Care Physician: Dr. Benedicto Hinson, Consultations 12/11/23 19:59 Consult: Orthopedics Routine Consulting Provider: Matthew Mckinney Reason for Consult: Progressively worsening lower extremity weakness after vertebral comp fx. EMERGENT Consult: No Notified: Yes Date Notified: 12/12/23 Time Notified: 08:00 Method of Notification: Text 12/12/23 14:52 Consult: Pain Management Routine Consulting Provider: Shamar Nicolas Reason for Consult: back pain/compression fracture EMERGENT Consult: No MD Notified: Yes Date Notified: 12/12/23 Time Notified: 15:06 Method of Notification: Answering Service 12/13/23 10:09 Consult: Tele-Neurology Routine Consulting Provider: [facility] Reason for Consult: Progressive leg weakness EMERGENT Consult: No Notified: Yes Date Notified: 12/13/23 Time Notified: 11:02 Method of Notification: Answering Service Nursing Unit Staff Notify [facility] of Tele-Neurology Consult: Yes Reason For Visit: ACUTE LOW BACK PAIN WITH LOWER EXTREMITY Diagnosis Discharge Diagnosis (1) Low back pain: Status: Acute Code(s): M54.50 - Low back pain, unspecified Qualifiers: Chronicity: chronic Back pain laterality: midline Sciatica presence: w ithout sciatica Qualified Code(s): M54.50 - Low back pain, unspecified; G89.29 - Other chronic pain (2) Thrombocytopenia: Status: Acute Code(s): D69.6 - Thrombocytopenia, unspecified (3) Bilateral leg weakness: Status: Acute Code(s): R29.898 - Other symptoms and signs involving the musculoskeletal system (4) Compression fracture: Status: Acute Plan 1. Needs outpatient EMG and nerve conduction studies done within the next 7 to 10 days will need to be ordered from transitional care unit to be done here at [place] [facility]. Once platelet count is approaching 100,000 and stable start Eliquis and aspirin home doses per discussion with hematology (Dr. Choi) Medications at Discharge Home Medications venlafaxine 75 mg capsule,extended release 24 hr (Effexor XR) 150 mg PO DAILY 03/21/21 apixaban 5 mg tablet (Eliquis) 5 mg PO BID 04/07/21 atorvastatin 80 mg tablet 80 mg PO DAILY 04/07/21 aspirin 81 mg tablet,delayed release (Riri Low Dose Aspirin) 81 mg PO DAILY 05/30/21 calcium carbonate (Calcium 500) 1,000 mg PO DAILY 05/30/21 amiodarone 200 mg tablet 400 mg PO BID 05/01/23 losartan 50 mg tablet 50 mg PO DAILY 05/01/23 tamsulosin 0.4 mg capsule 0.4 mg PO DAILY 05/01/23 metoprolol succinate 50 mg tablet,extended release 24 hr 50 mg PO DAILY 12/11/23 multivitamin 1 tab PO DAILY 12/11/23 melatonin 5 mg capsule 5 mg PO QHS PRN PRN insomnia 12/18/23 Weight / BMI Weight Weight: 94.7 kg Body Mass Index (BMI) 29.9 ABG / Lab / Microbiology Data 12/18/23 06:57 12/18/23 06:57 Laboratory: Laboratory Results - last 24 hr 12/18/23 06:57: WBC 14.1 H, RBC 3.88 L, Hgb 12.6 L, Hct 35.8 L, MCV 92.3, MCH 32.5 H, MCHC 35.2, RDW Std Deviation 46.1 H, RDW Coeff of Carol 13.8, Plt Count 89 L, MPV 11.5, Sodium 136, Potassium 4.3, Chloride 110 H, Carbon Dioxide 20.0 L, Anion Gap 6, BUN 34 H, Creatinine 0.91, Estim Creat Clear Calc 72.31, Est GFR (MDRD) Af Amer 102, Est GFR (MDRD) Non-Af 84, BUN/Creatinine Ratio 37.2 H, G lucose 147 H, Calcium 8.4 L Microbiology: Microbiology 12/12/23 15:36 Stool Stool Occult Blood (ROGER) - Final D/C Instructions Please Follow Up With: Emery Choi, DO Meaningful Use Info Ischemic Stroke Statin Dosing Therapy Reference: STATIN DOSE THERAPY REFERENCE: * Patients > 75 years receive moderate or high dose statin therapy. * Patients 75 years or YOUNGER should receive HIGH intensity statin dose unless contraindicated. You will be required to document reason for non-treatment if statin daily dose does not meet guidelines. HIGH DOSE STATIN THERAPY DAILY Atorvastatin > than or = to 40 mg Rosuvastatin > than or = to 20 mg Amlodipine + Atorvastatin > than or = to 2.5/40 mg Ezetimibe + Simvastatin 10/80 mg Simvastatin 80mg Discharge Plan Admission Admit Date/Time: 12/13/23 12:51 Primary Reason for Your Visit: Intractable low back pain/lower extremity weakness Attending Provider: Negrita Salcedo Primary Care Provider: Benedicto Hinson Consulting Providers: Darren Dunbar; Matthew Mckinney; Shamar Nicolas; Jose Luther; Daphne Graff; Aurea Onofre; Ashley Blas; Ml Richardson; Juan Francisco Mills; Lindsay Fish; Carlos Manuel Gamboa; Mathew Wolf; Mariella Dave; Jean Ricci; Noa Sommers; Efren Brar; Jennifer Jack; Taran Thornton; Jodi Hanley; Chago Manley; Soraida Salcedo; Christina Damico Discharge Orders/Prescriptions Prescriptions: No Action venlafaxine [Effexor XR] 75 mg capsule,extended release 24hr 150 mg PO DAILY atorvastatin 80 mg Tablet 80 mg PO DAILY Eliquis 5 mg Tablet 5 mg PO BID aspirin [Riri Low Dose Aspirin] 81 mg Tablet,Delayed Release (Dr/Ec) 81 mg PO DAILY calcium carbonate [Calcium 500] 500 mg calcium (1,250 mg) Tablet 1,000 mg PO DAILY amiodarone 200 mg tablet 400 mg PO BID tamsulosin 0.4 mg capsule 0.4 mg PO DAILY losartan 50 mg tablet 50 mg PO DAILY metoprolol succinate 50 mg tablet extended release 24 hr 50 mg PO DAILY Patient Comments: [NO ORIGINAL SIG] multivitamin Tablet 1 tab PO DAILY melatonin 5 mg capsule 5 mg PO QHS PRN PRN (Reason: insomnia) Referrals / Follow Up: Benedicto Hinson DO [Primary Care Provider] - Charges/Coding Visit Charges Inpatient E&M: 24291 SNF Disch >30 Min
--- NOTE | 2023-12-18 11:34 | PCM.DC.SUM ---
Providers Date of Admission: 12/13/23 Primary Care Physician: Dr. Benedicto Hinson, Consultations 12/11/23 19:59 Consult: Orthopedics Routine Consulting Provider: Matthew Mckinney Reason for Consult: Progressively worsening lower extremity weakness after vertebral comp fx. EMERGENT Consult: No Notified: Yes Date Notified: 12/12/23 Time Notified: 08:00 Method of Notification: Text 12/12/23 14:52 Consult: Pain Management Routine Consulting Provider: Shamar Nicolas Reason for Consult: back pain/compression fracture EMERGENT Consult: No MD Notified: Yes Date Notified: 12/12/23 Time Notified: 15:06 Method of Notification: Answering Service 12/13/23 10:09 Consult: Tele-Neurology Routine Consulting Provider: [facility] Reason for Consult: Progressive leg weakness EMERGENT Consult: No Notified: Yes Date Notified: 12/13/23 Time Notified: 11:02 Method of Notification: Answering Service Nursing Unit Staff Notify [facility] of Tele-Neurology Consult: Yes Reason For Visit: ACUTE LOW BACK PAIN WITH LOWER EXTREMITY Diagnosis Discharge Diagnosis (1) Low back pain: Status: Acute Code(s): M54.50 - Low back pain, unspecified Qualifiers: Chronicity: chronic Back pain laterality: midline Sciatica presence: without sciatica Qualified Code(s): M54.50 - Low back pain, unspecified; G89.29 - Other chronic pain (2) Thrombocytopenia: Status: Acute Code(s): D69.6 - Thrombocytopenia, unspecified (3) Bilateral leg weakness: Status: Acute Code(s): R29.898 - Other symptoms and signs involving the musculoskeletal system (4) Compression fracture: Status: Acute Medications at Discharge Home Medications venlafaxine 75 mg capsule,extended release 24 hr (Effexor XR) 150 mg PO DAILY 03/21/21 apixaban 5 mg tablet (Eliquis) 5 mg PO BID 04/07/21 atorvastatin 80 mg tablet 80 mg PO DAILY 04/07/21 aspirin 81 mg tablet,delayed release (Riri Low Dose Aspirin) 81 mg PO DAILY 05/30/21 calcium carbonate (Calcium 500) 1,000 mg PO DAILY 05/30/21 losartan 50 mg tablet 50 mg PO DAILY 05/01/23 tamsulosin 0.4 mg capsule 0.4 mg PO DAILY 05/01/23 metoprolol succinate 50 mg tablet,extended release 24 hr 50 mg PO DAILY 12/11/23 multivitamin 1 tab PO DAILY 12/11/23 acetaminophen 500 mg tablet 1,000 mg (2 x 500 mg) PO Q8 #0 tabs 12/18/23 amiodarone 200 mg tablet 200 mg PO DAILY #1 TAB 12/18/23 food supplemt, lactose-reduced (Ensure Compact oral liquid) 118 ml PO TIDCM #0 mL 12/18/23 lidocaine 5 % topical patch 1 patch topical DAILY #15 ea 12/18/23 melatonin 5 mg capsule 5 mg PO QHS PRN PRN insomnia 12/18/23 oxycodone 5 mg tablet 5 mg PO Q6H PRN PRN Pain Score 4-10 Or Pre Pt/Ot 1 day #4 tabs 12/18/23 pantoprazole 40 mg tablet,delayed release 40 mg PO DAILY #0 tabs 12/18/23 peg [id number] 1 %-0.2 %-0.2 % eye drops (Artificial Tears ([id number])) 1 drp EACH EYE Q1H PRN DRY EYES #0 mL 12/18/23 tizanidine 2 mg tablet 2 mg PO Q8H PRN PRN Muscle spasm and pain #0 tabs 12/18/23 Hospital Course Operations None Procedures Blood transfusion (2 units of platelets) and - (MRI with MRI without contrast of the brain and lumbar spine) Summary of Care Provided Minutes Spent on Discharge: 45 Hospital Course: Mr. Quiroz is an 83-year-old white male who presented to emergency department at [facility] on 12/11/2023 complaining of back pain and steadily worsening lower extremity weakness. Patient reported that he was diagnosed with a vertebral compression fracture at L1 about 8 weeks ago. Since that point in time he has noted that he has been progressively getting weaker however the last 4 to 5 days prior to admission he states he not been able to even go up the steps or get out of his chair and has been using a wheelchair where before he could ambulate with a wheeled walker. He lives at home with his elderly who is not able to take care of him and they brought him to the emergency department in hopes that he can be placed somewhere for rehab. He has chronic thrombocytopenia and history of non-Hodgkin's lymphoma and follows as an outpatient with Dr. Choi. Patient denied any specific focal deficits and had no changes in his bowel or bladder or sensory changes and just indicates that his weakness has progressively gotten worse. He indicated to me that he felt that it was most likely decreased use resulting in decreased function and worsening weakness. Vital signs on presentation showed temperature of 98.3, heart rate 61, blood pressure 124/72, respiratory was 16 oxygen saturations were 97 to 98% room air. His CBC shows a mild anemia which appears to be stable and thrombocytopenia when compared with recent previous platelet counts is stable. His chemistry panel was overtly unremarkable. Liver functions were overall unremarkable. CRP was normal at 2.66 and ESR was 2. PSA was 0.26 vitamin B12 was normal at 869, folic acid was 20.6 and TSH was normal at 0.55. His UA was not significant for infection or any signs of dehydration. In the emergency department a lumbar spine MRI without contrast was performed and showed an old compression fracture L1 with no evidence of any further acute fracture or pathology but did show spondylosis and multilevel spinal stenosis secondary to disc disease and bony hypertrophy. He was admitted to the medical floor where contrasted MRI and contrasted lumbar spine MRI were ordered as they had been ordered as an outpatient for further workup with his history of cancer and otherwise. His brain MRI with and without contrast showed stable postsurgical resection of the right occipital lobe of that has been stable for 2 years with no recurrent disease or evidence of metastatic disease in the remaining brain parenchyma and no new abnormal enhancing lesions of the remaining bilateral hemisphere or posterior fossa and no abnormal thickening or enhancement of the meninges or dura or skull. The MRI of the lumbar spine with contrast showed no primary metastatic disease of the lumbar spine and mild heterogeneous marrow pattern with a predominance of red marrow elements likely related to his previous hematological status. Therapy evaluated the patient and is recommending placement for ongoing rehab. Patient and family are amenable to this and case management plans on talking to the patient and giving them options for rehab at discharge. We did hold his atorvastatin to see if there was any muscle weakness induced by his statin. Plan on holding for couple weeks to see if there is any improvement by holding the medication and then restart if not. CPK was within normal limits. We also had neurology evaluate the patient. The only other recommendation that they suggested was to obtain EMG nerve conduction studies and they felt this could be done within the next 2 weeks. With the plan for ongoing rehab at the transitional care unit we did discuss the need for EMG nerve conduction done as an outpatient and transitional care unit indicated that these can be done from their facility and they will be ordered once he arrives there. These will need to be done within the next 7 to 10 days. He has a history of ITP and is treated by Dr. Choi from hematology. I discussed with him his platelet issues as he was quite low on presentation. He has been getting an outpatient thrombocyte growth factor injection however this will not be able to be performed at a rehab facility and Dr. Choi is aware. He suggested we treat him with 2 doses of IVIG which he did obtain as well as Decadron 20 mg daily x 4 days. His christos platelet count was 15,000 here and he did receive 2 units of platelets for this. His platelet count did respond nicely to the IVIG and the Decadron and at the time of discharge his platelet count was up to 89,000. His aspirin and Eliquis were held while he was hospitalized due to his thrombocytopenia however per Dr. Choi these can be restarted as his platelet count approaches 100,000 and be maintained as long as his platelet count stays around 100,000. Dr. Choi is aware that the patient is going to the transitional care unit for rehab and will make outpatient follow-up arrangements from the transitional care unit. Both orthopedic surgery and pain management followed the patient while they were here and no surgical or procedural intervention was recommended. He will need to follow-up with his primary care physician, oncology, and [facility] neuro oncologist as previously directed. Discharge diagnoses: Subacute low back pain Mild L1 compression fracture Lumbar DDD/DJD Bilateral lower extremity weakness Progressive debility-etiology unclear Acute on chronic thrombocytopenia secondary to ITP Hyperglycemia secondary to steroid use History of neuro non-Hodgkin's lymphoma Persistent atrial fibrillation CAD Essential HTN HPL History of prostate cancer MARY CARMEN BPH with obstruction Depression Physical Exam Const alert, oriented x3, no apparent distress, no limitations and well nourished; Negative for average body habitus or healthy appearing Constitutional Narrative: Obese, very pleasant, elderly, white male, sitting up in bed, visitor at bedside, appears comfortable currently and nontoxic General Appearance: cooperative, comfortable, well kempt and well developed HEENT normocephalic, head/scalp atraumatic, hearing grossly normal bilaterally and moist oral mucous membranes HEENT Narrative: Mallampati 3, no thrush Eyes PERRL, EOMs intact bilaterally and conjunctivae normal Eyes Narrative: No scleral icterus Neck no lymphadenopathy and supple Neck Narrative: Trachea midline, no thyroid enlargement Resp normal respiratory effort, no retractions, no use of accessory muscles and clear to auscultation bilaterally Auscultation: Negative for rales, rhonchi or wheezes Cardio regular rate, regular rhythm, S1 normal heart sound, S2 normal heart sound, no murmurs, no rub, no gallops and no clicks GI normal to inspection, nondistended, normoactive bowel sounds, soft to palpation, non-tender and non-distended Extremity normal to inspection, full ROM and no clubbing, cyanosis or edema Skin skin turgor normal and no jaundice Skin Narrative: Scattered ecchymotic changes and a few scattered wounds that are well-healing and no signs of infection Neuro oriented x3, CN's II-XII intact bilaterally, moves all extremities, no focal motor deficits and no sensory deficits noted Neuro Narrative: Significant generalized weakness noted proximal greater than distal specifically in bilateral lower extremities, most significant weakness is at bilateral hips right slightly greater than left Sensorium / Orientation: awake, alert, oriented to person, oriented to place and oriented to time Speech: speech normal Psych affect normal Psych Narrative: Eye contact is good and patient interacts appropriately, extremely pleasant Weight / BMI Weight Weight: 94.7 kg Body Mass Index (BMI) 29.9 ABG / Lab / Microbiology Data 12/18/23 06:57 12/18/23 06:57 Laboratory: Laboratory Results - last 24 hr 12/18/23 06:57: WBC 14.1 H, RBC 3.88 L, Hgb 12.6 L, Hct 35.8 L, MCV 92.3, MCH 32.5 H, MCHC 35.2, RDW Std Deviation 46.1 H, RDW Coeff of Carol 13.8, Plt Count 89 L, MPV 11.5, Sodium 136, Potassium 4.3, Chloride 110 H, Carbon Dioxide 20.0 L, Anion Gap 6, BUN 34 H, Creatinine 0.91, Estim Creat Clear Calc 72.31, Est GFR (MDRD) Af Amer 102, Est GFR (MDRD) Non-Af 84, BUN/Creatinine Ratio 37.2 H, Glucose 147 H, Calcium 8.4 L Microbiology: Microbiology 12/12/23 15:36 Stool Stool Occult Blood (ROGER) - Final D/C Instructions Please Follow Up With: Emeyr Choi, Meaningful Use Info Meaningful Use Meaningful Use Diagnoses (Choose all that apply): None applicable Ischemic Stroke Statin Dosing Therapy Reference: STATIN DOSE THERAPY REFERENCE: * Patients > 75 years receive moderate or high dose statin therapy. * Patients 75 years or YOUNGER should receive HIGH intensity statin dose unless contraindicated. You will be required to document reason for non-treatment if statin daily dose does not meet guidelines. HIGH DOSE STATIN THERAPY DAILY Atorvastatin > than or = to 40 mg Rosuvastatin > than or = to 20 mg Amlodipine + Atorvastatin > than or = to 2.5/40 mg Ezetimibe + Simvastatin 10/80 mg Simvastatin 80mg Discharge Plan Admission Admit Date/Time: 12/13/23 12:51 Primary Reason for Your Visit: Intractable low back pain/lower extremity weakness Attending Provider: Negrita Salcedo Primary Care Provider: Benedicto Hinson Consulting Providers: Darren Dunbar; Matthew Mckinney; Shamar Nicolas; Jose Luther; Daphne Graff; Aurea Onofre; Ashley Blas; Ml Richardson; Juan Francisco Mills; Lindsay Fish; Carlos Manuel Gamboa; Mathew Wolf; Mariella Dave; Jean Ricci; Noa Sommers; Efren Brar; Jennifer Jack; Taran Thornton; Jodi Hanley; Chago Manley; Soraida Salcedo; Christina Damico Instructions Additional Instructions / Restrictions: 1. Aspirin and Eliquis to be on hold until platelets are approaching 100,000 and then okay to restart per discussion with hematology-Dr. Choi 2. Needs outpatient EMG and nerve conduction studies done within the next 7 to 10 days Discharge Orders/Prescriptions Prescriptions: New amiodarone 200 mg Tablet 200 mg PO DAILY Qty: 1 0RF acetaminophen 500 mg Tablet 1,000 mg PO Q8 Qty: 0 0RF lidocaine 5 % Adhesive Patch,Medicated 1 patch topical DAILY Qty: 15 0RF Protocol: *Topical Application Instructions APPLICATION INSTRUCTIONS: affected area oxycodone 5 mg Tablet 5 mg PO Q6H PRN PRN (Reason: Pain Score 4-10 Or Pre Pt/Ot) 1 Days Qty: 4 0RF Ensure Compact Liquid 118 ml PO TIDCM Qty: 0 0RF tizanidine 2 mg Tablet 2 mg PO Q8H PRN PRN (Reason: Muscle spasm and pain) Qty: 0 0RF pantoprazole 40 mg Tablet,Delayed Release (Dr/Ec) 40 mg PO DAILY Qty: 0 0RF Artificial Tears([id number]) 1-0.2-0.2 % Drops 1 drp EACH EYE Q1H PRN (Reason: DRY EYES) Qty: 0 0RF Continued venlafaxine [Effexor XR] 75 mg capsule,extended release 24hr 150 mg PO DAILY calcium carbonate [Calcium 500] 500 mg calcium (1,250 mg) Tablet 1,000 mg PO DAILY tamsulosin 0.4 mg capsule 0.4 mg PO DAILY losartan 50 mg tablet 50 mg PO DAILY metoprolol succinate 50 mg tablet extended release 24 hr 50 mg PO DAILY Patient Comments: [NO ORIGINAL SIG] multivitamin Tablet 1 tab PO DAILY melatonin 5 mg capsule 5 mg PO QHS PRN PRN (Reason: insomnia) Held atorvastatin 80 mg Tablet 80 mg PO DAILY Hold Instructions: On hold for 2 weeks to see if his muscle weakness improves off of it Eliquis 5 mg Tablet 5 mg PO BID Hold Instructions: Until platelet count is close to 100,000 aspirin [Riri Low Dose Aspirin] 81 mg Tablet,Delayed Release (Dr/Ec) 81 mg PO DAILY Hold Instructions: Until platelet count is close to 100,000 Discontinued amiodarone 200 mg tablet 400 mg PO BID Referrals / Follow Up: Benedicto Hinson DO [Primary Care Provider] - Disposition Disposition (needs filled in before D/C Order can be placed): [facility] Facility Charges/Coding Visit Charges Inpatient E&M: 80290 SNF Disch >30 Min
[2023-12-18 14:37] LABS: Pathologist Review Reviewed
== END 2023-12-18 13:20 | DRG 552 ==
LOC: ED 16:02 → PCU 19:37
PROVIDERS: Emergency Medicine; Admitting Provider Internal Medicine; Emergency Provider Emergency Medicine; PCP Family Medicine; Referring Provider Internal Medicine; Visit Provider Internal Medicine
DX: M51.36 Other intervertebral disc degeneration, lumbar region (principal); D69.3 Immune thrombocytopenic purpura; I48.19 Other persistent atrial fibrillation; N13.8 Other obstructive and reflux uropathy; D64.9 Anemia, unspecified; S32.010S Wedge compression fracture of first lumbar vertebra, sequela; I10 Essential (primary) hypertension; F32.A Depression, unspecified; M62.84 Sarcopenia; G47.33 Obstructive sleep apnea (adult) (pediatric); I25.10 Atherosclerotic heart disease of native coronary artery without angina pectoris; E78.5 Hyperlipidemia, unspecified; I25.2 Old myocardial infarction; R26.2 Difficulty in walking, not elsewhere classified; R73.9 Hyperglycemia, unspecified; T38.0X5A Adverse effect of glucocorticoids and synthetic analogues, initial encounter; Y92.239 Unspecified place in hospital as the place of occurrence of the external cause; G89.29 Other chronic pain; N40.1 Benign prostatic hyperplasia with lower urinary tract symptoms; Z79.01 Long term (current) use of anticoagulants; Z79.82 Long term (current) use of aspirin; Z79.899 Other long term (current) drug therapy; Z91.81 History of falling; Z95.1 Presence of aortocoronary bypass graft; Z85.72 Personal history of non-Hodgkin lymphomas
CPT/HCPCS: 36415; 70553; 72148; 72149; 80048; 80053; 81001; 82274; 82550; 82607; 82746; 82962; 83735; 84100; 84153; 84443; 85025; 85027; 85652; 86141; 86850; 86900; 86901; 86965; 94668; 97162; 97166; 97530; 97535; 97802; 99284; A9575; P9035; A4216; G0103; J1568

== ENCOUNTER 2023-12-18 13:31 | Inpatient (IN) | payer MEDICARE, SELFPAY ==
[2023-12-18 13:55] VITALS: BP 137/66; PULSE 65; RESP 16; TEMP 36.6; O2SAT 97; BMI 30.4
--- NOTE | 2023-12-18 21:52 | HP.PCM_ITS ---
HPI - General General Date of Admission: 12/18/23 Date of Service: 12/18/23 Chief Complaint: Here for rehabilitation. HPI Narrative 12/11/2023 MARIANO FRANCO, is a 83 Male who presents to [facility] ED back pain. Weakness of legs, compression fracture 8 to 10 weeks ago. Unable to walk, go up steps, or walk with walker. Ibuprofen for pain. WBC 7.0, Hemoglobin 12.4, Platelets 25,000. 12/11/2023 Admit [facility]. MRI L spine negative for cause of weakness of legs. Monitor thrombocytopenia. 12/12/2023 Dr. Henley recommended Tizanidine for muscle spasm of back. Kyphoplasty NOT recommended. 12/12/2023 MRI brain negative. PT/OT debility. 12/12/2023 Dr. Mckinney recommended no surgery. 12/12/2023 Dr. 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 Also IVIG, Decadron for ITP. 12/13/2023 Hold statin for weakness of legs. 12/14/2023 Neurology recommended transfer for NCS/EMG. PT/OT Debility. 12/15/2023 Platelets 66,000. Pre-[facility]. 12/16/2023 Back pain controlled. Proximal muscle weakness persists. 12/17/2023 Little bit stronger. LP not recommended 2/2 low platelets. 12/18/2023 Admit to TCU with debility, here for rehabilitation, strengthening, prior to discharge home with . [facility] Medical History FH: CABG (coronary artery bypass surgery) History of left heart catheterization (LHC) (~03/22/21) Atherosclerotic heart disease of [place] coronary artery without angina pectoris Leukopenia Thrombocytopenia Vascular dialysis catheter in place HTN (hypertension) Prostate adenocarcinoma Home Medications ?Medication ?Instructions ?Recorded ?Last Taken ?Type venlafaxine 75 mg capsule,extended 150 mg PO DAILY Mood 03/21/21 12/18/23 09:10 History release 24 hr (Effexor XR) apixaban 5 mg tablet (Eliquis) 5 mg PO BID Anticoagulant 04/07/21 12/11/23 History atorvastatin 80 mg tablet 80 mg PO DAILY Cholesterol 04/07/21 12/10/23 History aspirin 81 mg tablet,delayed 81 mg PO DAILY Heart 05/30/21 12/11/23 History release (Riri Low Dose Aspirin) calcium carbonate (Calcium 500) 1,000 mg PO DAILY Supplement 05/30/21 12/18/23 09:10 History losartan 50 mg tablet 50 mg PO DAILY BP 05/01/23 12/18/23 09:10 History tamsulosin 0.4 mg capsule 0.4 mg PO DAILY Urinary Retention 05/01/23 12/18/23 09:10 History metoprolol succinate 50 mg 50 mg PO DAILY BP 12/11/23 12/18/23 09:10 History tablet,extended release 24 hr multivitamin 1 tab PO DAILY Supplement 12/11/23 12/18/23 09:10 History acetaminophen 500 mg tablet 1,000 mg (2 x 500 mg) PO Q8 Pain 12/18/23 12/18/23 06:00 Rx #0 tabs amiodarone 200 mg tablet 200 mg PO DAILY Heart #1 TAB 12/18/23 12/18/23 09:10 Rx food supplemt, lactose-reduced 118 ml PO TIDCM Supplement #0 mL 12/18/23 12/18/23 09:10 Rx (Ensure Compact oral liquid) lidocaine 5 % topical patch 1 patch topical DAILY Pain #15 ea 12/18/23 12/13/23 Rx melatonin 5 mg capsule 5 mg PO QHS PRN PRN insomnia 12/18/23 Unknown History oxycodone 5 mg tablet 5 mg PO Q6H PRN PRN Pain Score 12/18/23 12/12/23 Rx 4-10 Or Pre Pt/Ot 1 day #4 tabs pantoprazole 40 mg tablet,delayed 40 mg PO DAILY GERD #0 tabs 12/18/23 12/18/23 09:10 Rx release peg [id number] 1 1 drp EACH EYE Q1H PRN DRY EYES #0 12/18/23 12/12/23 Rx %-0.2 %-0.2 % eye drops mL (Artificial Tears ([id number])) tizanidine 2 mg tablet 2 mg PO Q8H PRN PRN Muscle spasm 12/18/23 12/13/23 Rx and pain #0 tabs Allergy/AdvReac Type Severity Reaction Status Date / Time No Known Allergies Allergy Verified 12/11/23 20:55 Family History Brother Diabetes Surgical History Nephrostomy status Social History (Updated 12/18/23 @ 21:[address] Oniel Argueta MD) household members: spouse Smoking Status: Never smoker alcohol intake: never substance use type: does not use ROS Constitutional Constitutional: Reports weakness; Denies chills, fever(s) or weight gain ENT HEENT: Denies headache(s), nasal congestion or nasal discharge Cardiovascular Cardiovascular: Denies chest pain or palpitations Respiratory/Chest Respiratory/Chest: Denies cough, excessive phlegm production or shortness of breath with exertion Gastrointestinal Gastrointestinal: Denies abdominal pain, nausea or vomiting Genitourinary Genitourinary: Denies dysuria Musculoskeletal Musculoskeletal: Denies joint pain or joint swelling Integumentary Integumentary: Denies rash or wounds Neurologic Neurologic: Denies focal weakness, numbness or tingling Psychiatric Psychiatric: Denies anxiety, auditory hallucinations, depression, homicidal ideation or suicidal ideation Vital Signs Vital Signs Vital Signs: 12/18/23 13:55 12/18/23 13:55 Temperature 97.8 F Temperature Source Temporal Pulse Rate 65 Pulse Rhythm Regular Pulse Strength Normal (2+) Respiratory Rate 16 Respiratory Effort Normal Non-Labored Respiratory Depth Normal Respiratory Pattern Normal Blood Pressure 137/66 H Blood Pressure Mean 89 Blood Pressure Source Monitor Blood Pressure Position Semi-Fowlers Blood Pressure Location Left Arm Pulse Ox 97 Oxygen Delivery Method Room Air Room Air Weight Weight: 96.071 kg Body Mass Index (BMI) 30.4 Physical Exam Const alert General Appearance: cooperative HEENT normocephalic Eyes PERRL and EOMs intact bilaterally Neck supple, no JVD and no carotid bruits Resp normal respiratory effort, normal air movement and clear to auscultation bilaterally Cardio regular rate and regular rhythm GI normal to inspection, nondistended, normoactive bowel sounds, non-tender and non-distended Extremity normal capillary refill General Extremity: Negative for edema Skin no rashes or lesions noted General Skin Exam: no breakdown Neuro Neuro Narrative: Bilateral lower extremity weakness. 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 * Debility - PT/OT. * Pain - Tylenol 1000mg q8, Oxycodone 5mg q6 prn pain (4-10), Lidoderm 1 patch topical daily. * Bowel - senna/colace 1 tablet bid, Magnesium citrate 300ml daily prn. * Adult immunization - Administer pneumonia vaccine, covid vaccine, flu vaccine as appropriate. * DVT prophylaxis - Hold, low platelets. * Weakness of legs - order NCS/EMG bilateral lower extremities. * Drug induced myopathy - Atorvastatin 80mg held. * Atrial fibrillation - Metoprolol succinate 50mg daily, Amiodarone 200mg daily, Eliquis held due to ITP. * Calcium deficiency - Calcium 1000mg daily. * Nutrition - Ensure 118ml tidcm, MVI 1 tablet daily. * Hypertension - Metoprolol succinate 50mg daily, Losartan 50mg daily. * Insomnia - Melatonin 5mg qhs prn. * GERD - Pantoprazole 40mg daily. * Dry eyes - Artificial tears 1 gtt ou q1h prn. * BPH - Tamsulosin 0.4mg daily. * Muscle spasm of back - Tizanidine 2mg q8 prn. 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
[2023-12-18] MEDS: Acetaminophen 500 MG Tablet 1000 MG PO (22:01)
[2023-12-19 05:57] LABS: Absolute Lymphocyte Count 2.23 X10^3/uL (0.83-4.51); Absolute Neutrophil Count 8.1 X10^3/uL (2.0-7.7); Basophil# 0.03 X10^3/uL; Basophil% 0.3 % (0-1); Eosinophil# 0.06 X10^3/uL; Eosinophils% 0.5 % (0-5); Hematocrit 38.9 % (40-54); Hemoglobin 13.3 g/dL (13.0-16.5); Lymphocyte # 2.23 X10^3/ul (0.83-4.51); Mean Corp Hgb Conc 34.2 g/dL (32-36); Mean Corpuscular Hgb 32.4 pg (27.0-32.0); Mean Corpuscular Volume 94.9 fL (80-94); Mean Platelet Vol. 10.4 fl (6.2-12.0); Monocyte# 1.16 X10^3/uL; Monocyte% 9.9 % (0-10); NRBC Flagged by Analyzer 0.2 % (0-5); Neutrophil # 8.07 X10^3/uL (2.7-7.7); Neutrophil % 68.6 % (47-70); POSITIVE COUNT YES; Platelet Count 92 K/mm3 (150-450); RBC Distribution Width CV 14.4 % (11.6-14.6); RBC Distribution Width SD 48.7 fl (35.1-43.9); White Blood Count 11.8 K/mm3 (4.4-11.0)
[2023-12-19] MEDS: Acetaminophen 500 MG Tablet 1000 MG PO ×3 (06:10→21:29)
[2023-12-19 06:13] LABS: Anion Gap 6 (5-15); BUN 40 mg/dL (7-18); BUN/Creat Ratio 37.7 RATIO (10-20); Calcium,Total 8.5 mg/dL (8.5-10.1); Chloride 109 mmol/L (98-107); Creatinine, Serum 1.06 mg/dL (0.70-1.30); EST Glomerular Filtration Rate 71 mL/min (>60); Est Glom Filt Rate - Afr Amer 86 mL/min (>60); Estimated Creatinine Clearance 62.49 ml/min; Glucose 99 mg/dL (74-106); Potassium 4.4 mmol/L (3.5-5.1); Sodium Level 141 mmol/L (136-145)
[2023-12-19 06:55] VITALS: O2SAT 94
--- NOTE | 2023-12-19 07:26 | PHA.CONS_ITS ---
Documented by User: Elisha Levine 12/19/23 08:00 TCU RX Drug Regimen Review Subjective/Objective Subjective/Objective: Subjective: TCU Admission. 83 YOM presented to the ER with back pain. Hospitalized for weakness of legs, etiology unclear, complicated by ITP. Admitted to TCU with debility for strengthening and rehabilitation. Objective: Allergies No Known Allergies Allergy (Verified 12/11/23 20:55) Current Medications Generic Name Dose Route Start Last Admin Trade Name Freq PRN Reason Stop Dose Admin Acetaminophen 1,000 mg 12/18/23 14:00 12/19/23 06:10 Acetaminophen 500 Mg Tablet PO 1,000 mg Q8 BRYANNA Administration Amiodarone HCl 200 mg 12/19/23 10:00 Amiodarone 200 Mg Tablet PO DAILY [facility] Calcium Carbonate 1,000 mg 12/19/23 08:00 [facility] ([facility]al) [facility] Glycerin/Hypromellose/Polyethylene 1 drp 12/18/23 13:58 Glycerin/Hypromellose/[id number] 15 Ml Bottle EACH EYE Q1H PRN DRY EYES Lidocaine 1 patch 12/19/23 10:00 Lidocaine 5% Patch TOPICAL DAILY [facility] Protocol Losartan Potassium 50 mg 12/19/23 10:00 Losartan Potassium 50 Mg Tablet PO DAILY [facility] Protocol Magnesium Citrate 300 ml 12/18/23 22:09 Magnesium Citrate 300 Ml PO DAILY PRN Constipation Melatonin 5 mg 12/18/23 14:07 Melatonin 10 Mg Tablet PO QHS PRN PRN insomnia Metoprolol Succinate 50 mg 12/19/23 10:00 Metoprolol(Xl)Succ 50 Mg Tablet PO DAILY [facility] Protocol Multivitamins 1 tablet 12/19/23 08:00 [facility]itamins,Therapeutic [facility] Nutritional Formula (Lactose Free) 118 ml 12/18/23 17:45 12/18/23 19:12 Ensure Compact 118 Ml Liquid PO 118 ml TIDCM [facility] Administration Oxycodone HCl 5 mg 12/18/23 13:58 Oxycodone 5 Mg Tablet PO Q6H PRN PRN Pain Score 4-10 Or Pre Pt/Ot Pantoprazole Sodium 40 mg 12/19/23 10:00 Pantoprazole Sodium 40 Mg Tablet PO DAILY [facility] Senna/Docusate Sodium 1 tablet 12/19/23 10:00 Senna/Docusate Sodium 1 Tablet PO BID [facility] Tamsulosin HCl 0.4 mg 12/19/23 08:30 Tamsulosin Hcl 0.4 Mg Capsule PO DAILY@0830 [facility] Tizanidine HCl 2 mg 12/18/23 13:58 Tizanidine Hcl 2 Mg Tablet PO Q8H PRN PRN Muscle spasm and pain Tuberculin PPD 0.1 ml 12/26/23 10:00 Tuberculin,Purif.Prot.Deriv. 50 Tu/Ml Vial ID 12/26/23 10:01 X1 ONE Tuberculin PPD 0.1 ml 12/19/23 10:00 Tuberculin,Purif.Prot.Deriv. 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) BPH (benign prostatic hyperplasia) (Acute) Essential (primary) hypertension (Acute) Atrial fibrillation (Acute) Hyperlipidemia (Acute) Depression (Acute) Idiopathic thrombocytopenic purpura (ITP) (Acute) Debility (Acute) Bilateral leg weakness (Acute) Vital Signs Temp Pulse Resp BP Pulse Ox O2 Del Method 97.8 F 65 16 137/66 H 97 Room Air 12/18/23 13:55 12/18/23 13:55 12/18/23 13:55 12/18/23 13:55 12/18/23 13:55 12/18/23 13:55 Oxygen Delivery Method Room Air Weight: 96.071 kg Body Mass Index (BMI) 30.4 Sodium 141 mmol/L (136-145) 12/19/23 05:32 Potassium 4.4 mmol/L (3.5-5.1) 12/19/23 05:32 Chloride 109 mmol/L (98-107) H 12/19/23 05:32 Carbon Dioxide 26.0 mmol/L (21.0-32.0) 12/19/23 05:32 Anion Gap 6 (5-15) 12/19/23 05:32 BUN 40 mg/dL (7-18) H 12/19/23 05:32 Creatinine 1.06 mg/dL (0.70-1.30) 12/19/23 05:32 Est GFR (MDRD) Af Amer 86 mL/min (>60) 12/19/23 05:32 Est GFR (MDRD) Non-Af 71 mL/min (>60) 12/19/23 05:32 BUN/Creatinine Ratio 37.7 RATIO (10-20) H 12/19/23 05:32 Glucose 99 mg/dL (74-106) 12/19/23 05:32 Assessment/Plan: 1. Pain: acetaminophen 1000mg PO Q8, lidocaine 5%patch topical daily and oxycodone 5mg PO Q6H PRN pain 4-10. Resident has not had any doses of oxycodone. Please continue to monitor for increased pain, PRN usage and rash. 2. Bowel: senna/docusate 1T PO BID and magnesium citrate 300mg PO daily PRN constipation. Resident has not had any PRN doses. Please continue to monitor for constipation and PRN usage. Last documented bowel movement was 12/17. 3. Atrial fibrillation/hypertension: metoprolol succinate 50mg PO daily, amiodarone 200mg PO daily, losartan 50mg PO daily, apixaban on hold due to ITP. Please continue to monitor BP (last 137/66), HR (last 65), sodium (last 141mmol/L), potassium (last 4.4mmol/L), renal function, S/S of stroke and SOB. 4. GERD: pantoprazole 40mg PO daily. Please continue to monitor for S/S of GERD and diarrhea (BEERs medication). 5. BPH: tamsulosin 0.4mg PO daily. Please continue to monitor for S/S of BPH and BP (last 137/66). 6. Insomnia: melatonin 5mg PO QHS PRN insomnia. Please continue to monitor for insomnia and PRN usage. No doses have been given so far. 7. Dry eyes: Artificial Tears 1gtt OU Q1H PRN dry eyes. No doses given yet. Please continue to monitor for dry eyes and PRN usage. 8. Muscle spasm: tizanidine 2mg PO Q8H PRN muscle spasm and pain. Resident has not had any doses. Please continue to monitor for muscle pain and PRN usage. 9. Calcium deficiency/nutrition: calcium 1000mg PO DAILYCM and multivitamin 1T PO DAILYCM. Please continue to monitor calcium (last 8.5mg/dL). 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 Assessment/Plan for indications treated with psychotropic medications: 1. Depression: venlafaxine XR 150mg PO daily. Please see physician note regarding GDR. Please continue to monitor for suicidal ideation (black box warning), falls/fractures (BEERs medication) and sodium (last 141mmol/L). Medical chart and medication regimen reviewed. The following medication irregularities or issues were identified: None Date Date of Note:: 12/19/23 Documented by User: Dr. Oniel Argueta MD 12/19/23 08:14 TCU RX Drug Regimen Review Provider Comments Provider responsibility Provider Comments to Recommendations by Pharmacy: Agree
[2023-12-19] MEDS: Multivitamins,Therapeutic Tablet 1 TABLET PO (08:08)
[2023-12-19] MEDS: Amiodarone 200 MG Tablet PO (08:09)
[2023-12-19] MEDS: Calcium (Elemental) 500 MG Tablet 1000 MG PO (08:09)
[2023-12-19] MEDS: Tamsulosin HCl 0.4 MG Capsule PO (08:09)
[2023-12-19] MEDS: Losartan Potassium 50 MG Tablet PO (08:10)
[2023-12-19] MEDS: Pantoprazole Sodium 40 MG Tablet PO (08:11)
[2023-12-19] MEDS: Venlafaxine XR 150 MG Capsule PO (08:11)
[2023-12-19 08:12] VITALS: BP 122/71; PULSE 57
[2023-12-19] MEDS: Senna/Docusate Sodium 1 Tablet PO ×2 (08:12→21:30)
[2023-12-19] MEDS: Metoprolol(XL)Succ 50 MG Tablet PO (08:12)
[2023-12-19 08:15] VITALS: BP 122/71; PULSE 57
[2023-12-19] MEDS: ELTROMBOPAG OLAMINE 50 MG PO (11:11)
[2023-12-19] MEDS: Tuberculin,Purif.prot.deriv. 50 TU/ML Vial 0.1 ML ID (11:12)
[2023-12-19 11:15] VITALS: PULSE 60; RESP 18; O2SAT 98
--- NOTE | 2023-12-19 12:12 | NURSING ---
Spoke with nurse at Dr. Choi's office. Per her, will wait to schedule appt after patient DCs from TCU as he is unable to get any injections/infusions while on TCU.
[2023-12-19 16:00] VITALS: BP 108/56; PULSE 59; RESP 16; TEMP 36.1; O2SAT 98
[2023-12-20] MEDS: Acetaminophen 500 MG Tablet 1000 MG PO ×3 (05:17→21:53)
--- NOTE | 2023-12-20 08:54 | NURSING ---
Scheduled NCS/EMG studies for patient 01/02/24 @0845. Updated patient, he will update his family.
[2023-12-20 09:10] VITALS: BP 120/58; PULSE 60; RESP 16; TEMP 35.9; O2SAT 98
[2023-12-20] MEDS: Calcium (Elemental) 500 MG Tablet 1000 MG PO (09:14)
[2023-12-20] MEDS: Multivitamins,Therapeutic Tablet 1 TABLET PO (09:14)
[2023-12-20 09:15] VITALS: BP 120/58; PULSE 60
[2023-12-20] MEDS: Losartan Potassium 50 MG Tablet PO (09:15)
[2023-12-20] MEDS: Tamsulosin HCl 0.4 MG Capsule PO (09:15)
[2023-12-20] MEDS: Amiodarone 200 MG Tablet PO (09:15)
[2023-12-20] MEDS: Venlafaxine XR 150 MG Capsule PO (09:15)
[2023-12-20] MEDS: Metoprolol(XL)Succ 50 MG Tablet PO (09:15)
[2023-12-20] MEDS: Senna/Docusate Sodium 1 Tablet PO ×2 (09:15→21:53)
[2023-12-20] MEDS: Pantoprazole Sodium 40 MG Tablet PO (09:15)
[2023-12-20] MEDS: ELTROMBOPAG OLAMINE 50 MG PO (09:16)
--- NOTE | 2023-12-20 12:03 | NURSING ---
Decontamination Worker Note; Activity Asset: Chi Richard is independent in his choice of daily activities. 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 He has his bible and will read scripture daily. Richard welcome visits from our delinquency counselor when available. Family and friends visit daily. Staff will remind him of weekly activities, encourage group and respect his right to say no.
--- NOTE | 2023-12-20 18:40 | CASEMGMT ---
Social Work- TCU Admit Note SW met with patient and , Sowmya at bedside to complete initial intake assessment. SW introduced self and role. Patient verified demographics and contact information. Patient informed SW that prior to hospitalization, he reside in home with , Sowmya. Patient had support for medication management and transportation provided by family. Patient informed SW that he required rehab due to spontaneous loss of strength in lower extremity. Patient informed SW that he suspects it is due to radiation. 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 The patient completed radiation at [facility]. Patient informed SW that he has history of therapy, but could not remember provider. Patient confirmed code status as Full code. Patient informed SW that he has an Advanced Directive and Living Will; neither in chart. Patient states that he is able to produce copy for medical records. The patient stated that his , Sowmya is primary decision maker on POA. Patient and was educated on [facility] insurance coverage and next review date 12/24/2023. Patient informed SW that his goal is to return home with ability to be as independent as possible. Patient would like to have the ability to use walker or cane. SW will continue to follow and support discharge planning. BIM () ANGELLA Carranza
[2023-12-21] MEDS: Acetaminophen 500 MG Tablet 1000 MG PO ×3 (05:36→20:13)
[2023-12-21] MEDS: Calcium (Elemental) 500 MG Tablet 1000 MG PO (07:42)
[2023-12-21] MEDS: Losartan Potassium 50 MG Tablet PO (07:42)
[2023-12-21] MEDS: Amiodarone 200 MG Tablet PO (07:42)
[2023-12-21] MEDS: Multivitamins,Therapeutic Tablet 1 TABLET PO (07:42)
[2023-12-21] MEDS: Tamsulosin HCl 0.4 MG Capsule PO (07:42)
[2023-12-21 07:43] VITALS: BP 161/74; PULSE 61
[2023-12-21] MEDS: Senna/Docusate Sodium 1 Tablet PO ×2 (07:43→20:12)
[2023-12-21] MEDS: Pantoprazole Sodium 40 MG Tablet PO (07:43)
[2023-12-21] MEDS: Metoprolol(XL)Succ 50 MG Tablet PO (07:43)
[2023-12-21] MEDS: Venlafaxine XR 150 MG Capsule PO (07:43)
[2023-12-21] MEDS: ELTROMBOPAG OLAMINE 50 MG PO (07:43)
--- NOTE | 2023-12-21 14:39 | CHAPLAIN ---
Type of Pastoral Visit _x__ Initial Visit ___ Follow-up Visit ___ On-call Visit ___ General Patient Visit ___ Spiritual Assessment ___ Family Conference ___ Bereavement ___ Rapid Response ___ Code Blue ___ Other (describe below) Pastoral Care Referral From ___ Patient ___ Family ___ Nurse ___ Physician ___ Excellence Specialist ___ Transportation Solutions Manager _x__ Other (describe below) Sacrament/Intervention _x__ Active listening ___ Anointing ___ Mormonism ___ Bereavement ___ Communion ___ Mitali exploration ___ ___ Life review ___ Prayer ___ Reconciliation ___ Sacrament of Sick _x__ Supportive presence ___ Wedding ___ Other (describe below) Pastoral Comments two staff members tell this furniture and bedding inspector that this patient would be a good visit 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
[2023-12-21 16:00] VITALS: BP 107/54; PULSE 64; RESP 18; TEMP 36.6; O2SAT 95
[2023-12-22] MEDS: Acetaminophen 500 MG Tablet 1000 MG PO ×3 (06:06→21:00)
[2023-12-22] MEDS: Calcium (Elemental) 500 MG Tablet 1000 MG PO (08:13)
[2023-12-22] MEDS: Tamsulosin HCl 0.4 MG Capsule PO (08:13)
[2023-12-22] MEDS: Multivitamins,Therapeutic Tablet 1 TABLET PO (08:13)
[2023-12-22] MEDS: Losartan Potassium 50 MG Tablet PO (09:37)
[2023-12-22] MEDS: Venlafaxine XR 150 MG Capsule PO (09:38)
[2023-12-22] MEDS: Pantoprazole Sodium 40 MG Tablet PO (09:38)
[2023-12-22] MEDS: Senna/Docusate Sodium 1 Tablet PO ×2 (09:39→21:00)
[2023-12-22] MEDS: Amiodarone 200 MG Tablet PO (09:41)
[2023-12-22] MEDS: ELTROMBOPAG OLAMINE 50 MG PO (09:41)
[2023-12-22 09:43] VITALS: PULSE 72
[2023-12-22] MEDS: Metoprolol(XL)Succ 50 MG Tablet PO (09:43)
[2023-12-22 14:45] VITALS: BP 126/63; PULSE 68; RESP 16; TEMP 36.4; O2SAT 98
[2023-12-23] MEDS: MENTHOL 226.8 GM JAR 1 APPLIC TOPICAL ×2 (05:11→16:52)
[2023-12-23] MEDS: Acetaminophen 500 MG Tablet 1000 MG PO ×3 (05:11→21:53)
[2023-12-23 06:53] VITALS: O2SAT 96
[2023-12-23] MEDS: Calcium (Elemental) 500 MG Tablet 1000 MG PO (08:03)
[2023-12-23] MEDS: Tamsulosin HCl 0.4 MG Capsule PO (08:04)
[2023-12-23] MEDS: Multivitamins,Therapeutic Tablet 1 TABLET PO (08:04)
[2023-12-23] MEDS: Venlafaxine XR 150 MG Capsule PO (10:16)
[2023-12-23] MEDS: Losartan Potassium 50 MG Tablet PO (10:16)
[2023-12-23] MEDS: Pantoprazole Sodium 40 MG Tablet PO (10:16)
[2023-12-23] MEDS: Senna/Docusate Sodium 1 Tablet PO ×2 (10:17→21:53)
[2023-12-23] MEDS: Amiodarone 200 MG Tablet PO (10:17)
[2023-12-23] MEDS: ELTROMBOPAG OLAMINE 50 MG PO (10:17)
[2023-12-23 10:18] VITALS: PULSE 60
[2023-12-23] MEDS: Metoprolol(XL)Succ 50 MG Tablet PO (10:18)
[2023-12-23 14:22] VITALS: BP 141/67; PULSE 58; RESP 20; TEMP 36.2; O2SAT 97
[2023-12-24] MEDS: Acetaminophen 500 MG Tablet 1000 MG PO ×3 (06:06→20:53)
[2023-12-24] MEDS: Tamsulosin HCl 0.4 MG Capsule PO (08:20)
[2023-12-24] MEDS: Calcium (Elemental) 500 MG Tablet 1000 MG PO (08:20)
[2023-12-24 08:21] VITALS: PULSE 72
[2023-12-24] MEDS: Losartan Potassium 50 MG Tablet PO (08:21)
[2023-12-24] MEDS: Pantoprazole Sodium 40 MG Tablet PO (08:21)
[2023-12-24] MEDS: Amiodarone 200 MG Tablet PO (08:21)
[2023-12-24] MEDS: Multivitamins,Therapeutic Tablet 1 TABLET PO (08:21)
[2023-12-24] MEDS: Venlafaxine XR 150 MG Capsule PO (08:21)
[2023-12-24] MEDS: Metoprolol(XL)Succ 50 MG Tablet PO (08:21)
[2023-12-24 10:00] VITALS: RESP 14
[2023-12-24] MEDS: ELTROMBOPAG OLAMINE 50 MG PO (10:04)
--- NOTE | 2023-12-24 11:50 | NURSING ---
Offered covid vaccine, VIS provided. Patient refuses at this time.
[2023-12-24 15:19] VITALS: BP 136/68; PULSE 64; RESP 18; TEMP 36.2; O2SAT 97
[2023-12-25] MEDS: oxyCODONE 5 MG Tablet PO (03:51)
[2023-12-25 06:11] LABS: Absolute Lymphocyte Count 1.98 X10^3/uL (0.83-4.51); Absolute Neutrophil Count 2.4 X10^3/uL (2.0-7.7); Basophil# 0.02 X10^3/uL; Basophil% 0.3 % (0-1); Eosinophil# 0.31 X10^3/uL; Eosinophils% 5.4 % (0-5); Hematocrit 37.6 % (40-54); Hemoglobin 12.3 g/dL (13.0-16.5); Lymphocyte # 1.98 X10^3/ul (0.83-4.51); Lymphocyte % 34.4 % (19-41); Mean Corp Hgb Conc 32.7 g/dL (32-36); Mean Corpuscular Hgb 31.9 pg (27.0-32.0); Mean Corpuscular Volume 97.4 fL (80-94); Mean Platelet Vol. 11.4 fl (6.2-12.0); Monocyte# 1.05 X10^3/uL; Monocyte% 18.2 % (0-10); NRBC Flagged by Analyzer 0 % (0-5); Neutrophil # 2.37 X10^3/uL (2.7-7.7); Neutrophil % 41.2 % (47-70); POSITIVE COUNT YES; Platelet Count 65 K/mm3 (150-450); RBC Distribution Width CV 14.9 % (11.6-14.6); RBC Distribution Width SD 52.7 fl (35.1-43.9); Red Blood Count 3.86 M/mm3 (4.6-6.2); White Blood Count 5.8 K/mm3 (4.4-11.0)
[2023-12-25] MEDS: Acetaminophen 500 MG Tablet 1000 MG PO ×2 (06:11→21:15)
[2023-12-25 08:26] VITALS: BP 163/75; PULSE 67; RESP 16; TEMP 36.4; O2SAT 97
[2023-12-25 08:28] VITALS: PULSE 67
[2023-12-25] MEDS: Multivitamins,Therapeutic Tablet 1 TABLET PO (08:28)
[2023-12-25] MEDS: Venlafaxine XR 150 MG Capsule PO (08:28)
[2023-12-25] MEDS: Amiodarone 200 MG Tablet PO (08:28)
[2023-12-25] MEDS: Senna/Docusate Sodium 1 Tablet PO ×2 (08:28→21:14)
[2023-12-25] MEDS: Pantoprazole Sodium 40 MG Tablet PO (08:28)
[2023-12-25] MEDS: Tamsulosin HCl 0.4 MG Capsule PO (08:28)
[2023-12-25] MEDS: Metoprolol(XL)Succ 50 MG Tablet PO (08:28)
[2023-12-25] MEDS: Calcium (Elemental) 500 MG Tablet 1000 MG PO (08:29)
[2023-12-25] MEDS: ELTROMBOPAG OLAMINE 50 MG PO (08:29)
[2023-12-25] MEDS: Losartan Potassium 50 MG Tablet PO (08:29)
[2023-12-25 09:32] VITALS: BMI 29.6
--- NOTE | 2023-12-25 18:07 | CASEMGMT ---
Social Work SW met with patient at bedside to complete MDS. Patient BIM () and PhQ-2 (1) Patient informed SW that he felt depressed once or twice due to being in the hospital and on TCU. Patient stated feelings were fleeting, but he was never without hope. ANGELLA Carranza
[2023-12-25] MEDS: MELATONIN 10 MG TABLET 5 MG PO (23:43)
[2023-12-26 00:11] VITALS: BP 137/87; PULSE 93
[2023-12-26 05:57] LABS: Absolute Lymphocyte Count 2.03 X10^3/uL (0.83-4.51); Basophil# 0.02 X10^3/uL; Basophil% 0.3 % (0-1); Eosinophil# 0.27 X10^3/uL; Eosinophils% 4.4 % (0-5); Hematocrit 36.6 % (40-54); Hemoglobin 12.3 g/dL (13.0-16.5); Lymphocyte # 2.03 X10^3/ul (0.83-4.51); Mean Corp Hgb Conc 33.6 g/dL (32-36); Mean Corpuscular Hgb 32.3 pg (27.0-32.0); Mean Corpuscular Volume 96.1 fL (80-94); Monocyte# 0.78 X10^3/uL; Monocyte% 12.7 % (0-10); NRBC Flagged by Analyzer 0 % (0-5); Neutrophil # 3.03 X10^3/uL (2.7-7.7); Neutrophil % 49.3 % (47-70); POSITIVE COUNT YES; Platelet Count 59 K/mm3 (150-450); RBC Distribution Width CV 15.1 % (11.6-14.6); RBC Distribution Width SD 52.7 fl (35.1-43.9); Red Blood Count 3.81 M/mm3 (4.6-6.2); White Blood Count 6.2 K/mm3 (4.4-11.0)
[2023-12-26] MEDS: Acetaminophen 500 MG Tablet 1000 MG PO ×3 (06:00→20:00)
[2023-12-26] MEDS: MENTHOL 226.8 GM JAR 1 APPLIC TOPICAL (06:01)
[2023-12-26] MEDS: oxyCODONE 5 MG Tablet PO (06:03)
--- NOTE | 2023-12-26 06:33 | NURSING ---
Pt called for this nurse to come back @ 0000 and check BP, stated he wanted to make sure it was in range. BP: 137/87, HR: 93. This nurse noticed pt becoming anxious and pt stated he does get anxious at times but has never taken anything for it. Pt called his daughter to ask about medication and after phone call pt stated he felt much better. This nurse provided 1:1 and administered PRN Melatonin per pt request. Pt thanked nurse for emotional support, denied further needs, and slept well after PRN Melatonin.
--- NOTE | 2023-12-26 08:33 | NURSING ---
Environmental Technical Officer Note; MDS for 12/25/2023 Complete
[2023-12-26 08:57] LABS: Anion Gap 4 (5-15); BUN 18 mg/dL (7-18); BUN/Creat Ratio 22.8 RATIO (10-20); Calcium,Total 8.3 mg/dL (8.5-10.1); Chloride 110 mmol/L (98-107); Creatinine, Serum 0.79 mg/dL (0.70-1.30); EST Glomerular Filtration Rate 100 mL/min (>60); Est Glom Filt Rate - Afr Amer 121 mL/min (>60); Estimated Creatinine Clearance 81.85 ml/min; Glucose 122 mg/dL (74-106); Potassium 3.8 mmol/L (3.5-5.1); Sodium Level 138 mmol/L (136-145)
[2023-12-26] MEDS: Multivitamins,Therapeutic Tablet 1 TABLET PO (09:07)
[2023-12-26] MEDS: Calcium (Elemental) 500 MG Tablet 1000 MG PO (09:07)
[2023-12-26] MEDS: Tamsulosin HCl 0.4 MG Capsule PO (09:08)
[2023-12-26] MEDS: Venlafaxine XR 150 MG Capsule PO (09:08)
[2023-12-26] MEDS: Losartan Potassium 50 MG Tablet PO (09:08)
[2023-12-26] MEDS: Amiodarone 200 MG Tablet PO (09:08)
[2023-12-26 09:09] VITALS: BP 138/68; PULSE 63
[2023-12-26] MEDS: Metoprolol(XL)Succ 50 MG Tablet PO (09:09)
[2023-12-26] MEDS: ELTROMBOPAG OLAMINE 50 MG PO (09:09)
[2023-12-26] MEDS: Senna/Docusate Sodium 1 Tablet PO ×2 (09:09→20:00)
[2023-12-26] MEDS: Pantoprazole Sodium 40 MG Tablet PO (09:09)
--- NOTE | 2023-12-26 10:12 | CASEMGMT ---
Social Work- Care Planning IDT met with patient and daughters, Keri and Luisa at bedside to complete care planning. Discussed patient progress with dietary, activities, and therapy (PT/OT). Patient is ambulating 20ft with walker for Jasvir x2PA. Patient requires UE bathing/dressing is independent and LE patient will require total max A. Patient requires 2 PA assist with toileting, showering,and transfers. Family training is encouraged for care. Therapy informed SW that the patient will require 2 person assist 24/hr care in home at this time due to current debility. Family would like to coordinate training to assess level of care required. SW educated patient and family on [facility] medicare insurance coverage and benefits; NRD 12/31. SW inquired about a bedside commode in home. Patient has over the toilet rails and support, but no bedside commode. Family would like DME ordered. Family is unable to provide 24/hr care to provide 2 person assist. SW discussed 24 hr care, home health care, and senior living care options. Family would like to follow up regarding plans and insurance coverage. SW will continue to discuss to support discharge planning. ANGELLA Carranza
[2023-12-26] MEDS: Tuberculin,Purif.prot.deriv. 50 TU/ML Vial 0.1 ML ID (10:30)
[2023-12-26] MEDS: dexAMETHasone 4 MG Tablet 20 MG PO (14:17)
[2023-12-26 15:06] VITALS: BP 138/65; PULSE 63; RESP 16; TEMP 36.4; O2SAT 96
[2023-12-26 15:08] VITALS: PULSE 63; RESP 16; O2SAT 96
--- NOTE | 2023-12-26 15:48 | NURSING ---
Received call from Dr. Choi's office regarding lab values. New order received for Dexamethasone 20mg qd po x 4 days. Recheck labs in 4 days. Patient notified of new orders, verbalized understanding. Communication left for Dr. Argueta.
[2023-12-26 19:55] VITALS: BP 116/59; PULSE 62; RESP 16; TEMP 36.3; O2SAT 96
[2023-12-26] MEDS: MELATONIN 10 MG TABLET 5 MG PO (20:03)
[2023-12-26] MEDS: Glycerin/Hypromellose/PEG400 15 ml Bottle 1 DRP EACH EYE (20:07)
[2023-12-27] MEDS: Acetaminophen 500 MG Tablet 1000 MG PO ×3 (05:05→21:00)
[2023-12-27 06:31] LABS: Bedside Glucose 192 mg/dL (74-106)
[2023-12-27] MEDS: ELTROMBOPAG OLAMINE 50 MG PO (09:27)
[2023-12-27 09:28] VITALS: BP 154/70; PULSE 64
[2023-12-27] MEDS: Metoprolol(XL)Succ 50 MG Tablet PO (09:28)
[2023-12-27] MEDS: dexAMETHasone 4 MG Tablet 20 MG PO (09:28)
[2023-12-27] MEDS: Senna/Docusate Sodium 1 Tablet PO ×2 (09:29→20:59)
[2023-12-27] MEDS: Amiodarone 200 MG Tablet PO (09:29)
[2023-12-27] MEDS: Losartan Potassium 50 MG Tablet PO (09:29)
[2023-12-27] MEDS: Venlafaxine XR 150 MG Capsule PO (09:29)
[2023-12-27] MEDS: Calcium (Elemental) 500 MG Tablet 1000 MG PO (09:29)
[2023-12-27] MEDS: Tamsulosin HCl 0.4 MG Capsule PO (09:29)
[2023-12-27] MEDS: Pantoprazole Sodium 40 MG Tablet PO (09:29)
[2023-12-27] MEDS: Multivitamins,Therapeutic Tablet 1 TABLET PO (09:29)
[2023-12-27 15:26] VITALS: BP 148/68; PULSE 63; RESP 96; TEMP 35.7; O2SAT 96
[2023-12-28] MEDS: Calcium Carbonate 500 MG Tablet 1000 MG PO (04:46)
[2023-12-28 04:47] VITALS: BP 134/79; PULSE 101; O2SAT 94
[2023-12-28] MEDS: Acetaminophen 500 MG Tablet 1000 MG PO ×3 (05:12→20:45)
[2023-12-28 06:42] LABS: Bedside Glucose 149 mg/dL (74-106)
[2023-12-28 07:47] VITALS: BP 144/75; PULSE 66; RESP 16; TEMP 36.2; O2SAT 96
[2023-12-28 07:51] VITALS: PULSE 66
[2023-12-28] MEDS: ELTROMBOPAG OLAMINE 50 MG PO (07:51)
[2023-12-28] MEDS: Multivitamins,Therapeutic Tablet 1 TABLET PO (07:51)
[2023-12-28] MEDS: Venlafaxine XR 150 MG Capsule PO (07:51)
[2023-12-28] MEDS: dexAMETHasone 4 MG Tablet 20 MG PO (07:51)
[2023-12-28] MEDS: Metoprolol(XL)Succ 50 MG Tablet PO (07:51)
[2023-12-28] MEDS: Calcium (Elemental) 500 MG Tablet 1000 MG PO (07:51)
[2023-12-28] MEDS: Senna/Docusate Sodium 1 Tablet PO ×2 (07:51→20:46)
[2023-12-28] MEDS: Tamsulosin HCl 0.4 MG Capsule PO (07:51)
[2023-12-28] MEDS: Pantoprazole Sodium 40 MG Tablet PO (07:52)
[2023-12-28] MEDS: Amiodarone 200 MG Tablet PO (07:52)
[2023-12-28] MEDS: Losartan Potassium 50 MG Tablet PO (07:52)
--- NOTE | 2023-12-28 12:53 | NURSING ---
Updated that a patient on the unit tested covid positive. Patient does not wish to have family notified.
[2023-12-28 13:42] VITALS: PULSE 68; RESP 16; O2SAT 97
[2023-12-29] MEDS: Acetaminophen 500 MG Tablet 1000 MG PO ×3 (05:01→21:09)
[2023-12-29 07:01] LABS: Bedside Glucose 138 mg/dL (74-106)
[2023-12-29 07:02] LABS: Absolute Lymphocyte Count 3.49 X10^3/uL (0.83-4.51); Absolute Neutrophil Count 8.7 X10^3/uL (2.0-7.7); Basophil# 0.03 X10^3/uL; Basophil% 0.2 % (0-1); Hematocrit 36.2 % (40-54); Hemoglobin 12.2 g/dL (13.0-16.5); Lymphocyte # 3.49 X10^3/ul (0.83-4.51); Lymphocyte % 26.9 % (19-41); Mean Corp Hgb Conc 33.7 g/dL (32-36); Mean Corpuscular Hgb 32.4 pg (27.0-32.0); Mean Corpuscular Volume 96.3 fL (80-94); Mean Platelet Vol. 12.1 fl (6.2-12.0); Monocyte# 0.68 X10^3/uL; Monocyte% 5.2 % (0-10); NRBC Flagged by Analyzer 0 % (0-5); Neutrophil % 67.1 % (47-70); POSITIVE COUNT YES; Platelet Count 68 K/mm3 (150-450); RBC Distribution Width CV 15.1 % (11.6-14.6); RBC Distribution Width SD 51.3 fl (35.1-43.9); Red Blood Count 3.76 M/mm3 (4.6-6.2)
[2023-12-29] MEDS: Senna/Docusate Sodium 1 Tablet PO ×2 (09:11→21:09)
[2023-12-29] MEDS: Calcium (Elemental) 500 MG Tablet 1000 MG PO (09:11)
[2023-12-29] MEDS: Tamsulosin HCl 0.4 MG Capsule PO (09:11)
[2023-12-29] MEDS: Multivitamins,Therapeutic Tablet 1 TABLET PO (09:11)
[2023-12-29] MEDS: dexAMETHasone 4 MG Tablet 20 MG PO (09:11)
[2023-12-29] MEDS: Pantoprazole Sodium 40 MG Tablet PO (09:11)
[2023-12-29] MEDS: Losartan Potassium 50 MG Tablet PO (09:11)
[2023-12-29] MEDS: Venlafaxine XR 150 MG Capsule PO (09:11)
[2023-12-29] MEDS: ELTROMBOPAG OLAMINE 50 MG PO (09:11)
[2023-12-29] MEDS: Amiodarone 200 MG Tablet PO (09:11)
[2023-12-29 09:12] VITALS: BP 170/72; PULSE 60
[2023-12-29] MEDS: Metoprolol(XL)Succ 50 MG Tablet PO (09:12)
[2023-12-29 10:02] VITALS: BP 170/72; PULSE 60; RESP 16; TEMP 36.4; O2SAT 97
[2023-12-29] MEDS: MELATONIN 10 MG TABLET 5 MG PO (21:09)
[2023-12-29 21:10] VITALS: PULSE 60; O2SAT 99
[2023-12-29] MEDS: Calcium Carbonate 500 MG Tablet 1000 MG PO (23:10)
[2023-12-30 05:35] VITALS: PULSE 61; O2SAT 98
[2023-12-30] MEDS: Acetaminophen 500 MG Tablet 1000 MG PO ×3 (05:36→21:30)
[2023-12-30 06:12] LABS: Bedside Glucose 131 mg/dL (74-106)
[2023-12-30] MEDS: Calcium (Elemental) 500 MG Tablet 1000 MG PO (08:13)
[2023-12-30] MEDS: Tamsulosin HCl 0.4 MG Capsule PO (08:14)
[2023-12-30] MEDS: Multivitamins,Therapeutic Tablet 1 TABLET PO (08:14)
[2023-12-30 09:15] VITALS: BP 149/68; PULSE 60
[2023-12-30] MEDS: Metoprolol(XL)Succ 50 MG Tablet PO (09:15)
[2023-12-30] MEDS: Pantoprazole Sodium 40 MG Tablet PO (09:16)
[2023-12-30] MEDS: Losartan Potassium 50 MG Tablet PO (09:16)
[2023-12-30] MEDS: Senna/Docusate Sodium 1 Tablet PO ×2 (09:16→21:30)
[2023-12-30] MEDS: Amiodarone 200 MG Tablet PO (09:16)
[2023-12-30] MEDS: ELTROMBOPAG OLAMINE 50 MG PO (09:17)
[2023-12-30] MEDS: Venlafaxine XR 150 MG Capsule PO (09:17)
[2023-12-30 14:43] VITALS: BP 149/68; PULSE 60; RESP 16; TEMP 36.6; O2SAT 97
[2023-12-31] MEDS: Acetaminophen 500 MG Tablet 1000 MG PO ×3 (05:35→21:25)
[2023-12-31 08:35] VITALS: BP 145/64; PULSE 55; RESP 16; TEMP 36.1; O2SAT 99
[2023-12-31 08:38] VITALS: PULSE 56
[2023-12-31] MEDS: Senna/Docusate Sodium 1 Tablet PO ×2 (08:38→21:24)
[2023-12-31] MEDS: Losartan Potassium 50 MG Tablet PO (08:38)
[2023-12-31] MEDS: Amiodarone 200 MG Tablet PO (08:38)
[2023-12-31] MEDS: Calcium (Elemental) 500 MG Tablet 1000 MG PO (08:38)
[2023-12-31] MEDS: Venlafaxine XR 150 MG Capsule PO (08:38)
[2023-12-31] MEDS: Pantoprazole Sodium 40 MG Tablet PO (08:38)
[2023-12-31] MEDS: Multivitamins,Therapeutic Tablet 1 TABLET PO (08:38)
[2023-12-31] MEDS: Metoprolol(XL)Succ 50 MG Tablet PO (08:38)
[2023-12-31] MEDS: Tamsulosin HCl 0.4 MG Capsule PO (08:38)
[2023-12-31] MEDS: ELTROMBOPAG OLAMINE 50 MG PO (08:38)
--- NOTE | 2023-12-31 12:08 | NURSING ---
cancelled pt EMG/NCS appt per his request, will reschedule after he speak with Dr Choi
--- NOTE | 2023-12-31 12:20 | CASEMGMT ---
Social Work ROMANA received a call from patient's daughter, Trinity Bingham [phone] to discuss patient discharge. ROMANA discussed recommendation for shelter care placement due to patient requiring 2 person assist. ROMANA informed Trinity that the patient is requiring max assist with toileting, bathing, dressing, transfers. Trinity informed ROMANA that she is aware that the patient will require further assistance. ROMANA informed Trinity that the patient's siblings are unable to provide care 24hr care. ROMANA discussed current insurance coverage and next review 12/31. Trinity informed ROMANA that she will be speaking with her siblings in regards to intermodal dispatcher care plans to determine necessary steps for caring for patient. ROMANA will continue to follow ANGELLA Carranza
--- NOTE | 2023-12-31 15:06 | MDS.RN ---
Information for the MDS was obtained from review of the clinical record, interview of resident, staff, and direct observation of resident?s care.
[2023-12-31 15:47] VITALS: PULSE 55; RESP 16; O2SAT 97
--- NOTE | 2023-12-31 17:41 | CASEMGMT ---
Social Work SW received notification from therapy that the patient made passive suicidal ideation statement stating If I can't walk down the steps in home, I might as well kill myself. Per therapy, it is unclear whether statement was passive. SW met with patient at bedside to assess for concerns regarding suicidal ideation. SW explored patient current mindset regarding medical condition and functional status. Patient informed SW that he is feeling okay regarding current medical condition. Patient informed SW that he enjoys therapy. SW and patient explored thoughts of rehabilitation and thoughts regarding plans for care. SW discussed current functional state requiring 2 person assist for care. Patient informed SW that he has been thinking about level of care required to return home. Patient informed SW that he has been discussing level of care with family and friends. Patient informed SW that he has hope to be able to utilize a walker, but he understands that he may need to utilize a wheelchair for mobility. Patient informed SW that he has used a walker and wheelchair in the past. Patient informed SW that although he has bounced back in the past, but he stated I am older now, I may not improve as quickly. Patient is realistic regarding functional status at this time. Patient informed SW that he has been discussing increasing care in home with family friends and community members assistance. SW explored mental state. SW inquired about patient feelings of being down, depressed, or hopeless. Patient informed SW that he has been discouraged at times, but still feel he can improve. Patient stated I don't allow myself to stay down for long. Patient is future focused and goal oriented on improving. SW informed patient that statement made regarding suicidal ideation requires mental health evaluation consult. Patient informed SW that he was not serious regarding statement aforementioned. Patient stated You all take things too seriously. Patient informed SW that he makes inappropriate jokes. Patient informed SW that he had PTSD in the past due to frequent hospitalizations. Patient informed SW that while on a virtual call for counseling he was asked how he felt about returning home and stated I could kill someone, which he state was a joke. Patient informed SW that he has a history of making jokes to lighten things. Patient denies any active plans. Patient stated that he does not want to go to [facility] for self harm. Patient informed SW that he wants to use his story and experiences to help others. SW discussed mental health supports. Patient has no history of suicide attempted. Patient discussed his time in the and stated that he had tougher experience and made it through. SW discussed concerns regarding depression and mental health due to environmental and functional status. Patient continues to deny any suicidal ideation. SW anticipates following up with patient for support and discuss care with family. ANGELLA Carranza
[2024-01-01] MEDS: Acetaminophen 500 MG Tablet 1000 MG PO ×3 (06:16→21:16)
[2024-01-01] MEDS: Multivitamins,Therapeutic Tablet 1 TABLET PO (08:49)
[2024-01-01] MEDS: Tamsulosin HCl 0.4 MG Capsule PO (08:49)
[2024-01-01] MEDS: Calcium (Elemental) 500 MG Tablet 1000 MG PO (08:49)
[2024-01-01] MEDS: ELTROMBOPAG OLAMINE 50 MG PO (10:10)
[2024-01-01] MEDS: Losartan Potassium 50 MG Tablet PO (10:11)
[2024-01-01] MEDS: Venlafaxine XR 150 MG Capsule PO (10:11)
[2024-01-01] MEDS: Pantoprazole Sodium 40 MG Tablet PO (10:11)
[2024-01-01 10:12] VITALS: BP 139/59; PULSE 59
[2024-01-01] MEDS: Amiodarone 200 MG Tablet PO (10:12)
[2024-01-01] MEDS: Metoprolol(XL)Succ 50 MG Tablet PO (10:12)
[2024-01-01] MEDS: Senna/Docusate Sodium 1 Tablet PO ×2 (10:12→21:16)
--- NOTE | 2024-01-01 11:12 | NURSING ---
Call placed to Dr. Choi's office regarding patients platelets value on 12/29/23, following 4 days of Dexamethasone. Spoke with Michelle, she will speak with Dr. Choi and follow-up.
--- NOTE | 2024-01-01 12:40 | NURSING ---
Patient informed that another patient on unit tested positive for Covid today. Stated that he will inform family members.
--- NOTE | 2024-01-01 13:48 | CASEMGMT ---
Social Work SW received [facility] Notice of Medicare Non-Coverage for current intermediate facility services end date 01/03/2024 SW met with patient at bedside to inform of Medicare determination to discontinue coverage for current intermediate facility coverage. SW informed patient of his Medicare Right to appeal discharge via deltamethod QIO [phone]. Patient declined appealing discharge at this time. Patient informed SW that he has been in contact with family to arrange care in the home. Patient informed SW that he would like to discharge home. SW inquired about history with home health care service. Patient informed SW that he had home health care in the past, but he was unable to remember the agency providing care. SW anticipates meeting with family to discuss care. SW discussed PT recommendations for a front wheeled walker. Patient informed SW that he has a front wheeled walker and standard walker at home. No DME needed at discharge. Patient provided verbal understanding of NOMNC. Patient signed NOMNC and a copy was left at bedside. Patient anticipates discharge home with home health care on 01/04/2024. Discharge: Home with Home Health Care services PT/OT/SN/INSULATION CUPOLA CHARGER/ANGELLA Diaz
[2024-01-01 13:54] VITALS: BP 139/59; PULSE 59; RESP 16; TEMP 36.7; O2SAT 98
[2024-01-01 20:00] VITALS: PULSE 64; O2SAT 93
--- NOTE | 2024-01-01 20:22 | PCM.DC.SUM ---
Providers Date of Admission: 12/18/23 Primary Care Physician: Dr. Benedicto Hinson DO Reason For Visit: ACUTE LOW BACK WITH LOWER EXTREMITY WEAKNESS Diagnosis Discharge Diagnosis (1) Debility: Status: Acute Code(s): R53.81 - Other malaise (2) Bilateral leg weakness: Status: Acute Code(s): R29.898 - Other symptoms and signs involving the musculoskeletal system (3) Idiopathic thrombocytopenic purpura (ITP): Status: Acute Code(s): D69.3 - Immune thrombocytopenic purpura (4) Depression: Status: Acute Code(s): F32.A - Depression, unspecified (5) Hyperlipidemia: Status: Acute Code(s): E78.5 - Hyperlipidemia, unspecified (6) Atrial fibrillation: Status: Acute Code(s): I48.91 - Unspecified atrial fibrillation (7) Essential (primary) hypertension: Status: Acute Code(s): I10 - Essential (primary) hypertension (8) BPH (benign prostatic hyperplasia): Status: Acute Code(s): N40.0 - Benign prostatic hyperplasia without lower urinary tract symptoms (9) CABLE TESTERS HELPER lymphoma: Status: Acute Code(s): C85.89 - Other specified types of non-Hodgkin lymphoma, extranodal and solid organ sites Plan 83 year old male with below past medical history hospitalized for weakness of legs, etiology unclear, complicated by ITP, admitted to TCU with debility, here for rehabilitation, strengthening, prior to discharge home with . Debility - PT/OT. Pain - Tylenol 1000mg q8, Oxycodone 5mg q6 prn pain (4-10), Lidoderm 1 patch topical daily. Bowel - senna/colace 1 tablet bid, Magnesium citrate 300ml daily prn. Adult immunization - Administer pneumonia vaccine, covid vaccine, flu vaccine as appropriate. DVT prophylaxis - Hold, low platelets. Weakness of legs - order NCS/EMG bilateral lower extremities. 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 Atrial fibrillation - Metoprolol succinate 50mg daily, Amiodarone 200mg daily, Eliquis held due to ITP. Calcium deficiency - Calcium 1000mg daily. Nutrition - Ensure 118ml tidcm, MVI 1 tablet daily. Hypertension - Metoprolol succinate 50mg daily, Losartan 50mg daily. Insomnia - Melatonin 5mg qhs prn. GERD - Pantoprazole 40mg daily. Dry eyes - Artificial tears 1 gtt ou q1h prn. BPH - Tamsulosin 0.4mg daily. Muscle spasm of back - Tizanidine 2mg q8 prn. 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 Medications at Discharge Home Medications venlafaxine 75 mg capsule,extended release 24 hr (Effexor XR) 150 mg PO DAILY Mood 03/21/21 calcium carbonate (Calcium 500) 1,000 mg PO DAILY Supplement 05/30/21 losartan 50 mg tablet 50 mg PO DAILY BP 05/01/23 tamsulosin 0.4 mg capsule 0.4 mg PO DAILY Urinary Retention 05/01/23 metoprolol succinate 50 mg tablet,extended release 24 hr 50 mg PO DAILY BP 12/11/23 multivitamin 1 tab PO DAILY Supplement 12/11/23 amiodarone 200 mg tablet 200 mg PO DAILY Heart #1 TAB 12/18/23 melatonin 5 mg capsule 5 mg PO QHS PRN PRN insomnia 12/18/23 acetaminophen 500 mg tablet 1,000 mg (2 x 500 mg) PO Q8 #0 tabs 01/01/24 calcium carbonate 1,000 mg (5 x 200 mg calcium (500 mg)) PO Q4H PRN PRN Indigestion #0 tabs 01/01/24 eltrombopag olamine 50 mg tablet (Promacta) 50 mg PO DAILY #0 tabs 01/01/24 menthol 2 % topical gel (Blue Gel) 1 applic topical TID PRN PRN Pain Score 1-10 #0 grams 01/01/24 pantoprazole 40 mg tablet,delayed release 40 mg PO DAILY 30 days #30 tabs 01/01/24 Hospital Course Operations None Procedures None Summary of Care Provided Minutes Spent on Discharge: 35 Hospital Course: 83 year old male with below past medical history hospitalized for weakness of legs, etiology unclear, complicated by ITP, admitted to TCU with debility, here for rehabilitation, strengthening, prior to discharge home with . 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 Physical Exam Const alert General Appearance: cooperative HEENT normocephalic Eyes PERRL and EOMs intact bilaterally Neck supple, no JVD and no carotid bruits Resp normal respiratory effort, normal air movement and clear to auscultation bilaterally Cardio regular rate and regular rhythm GI normal to inspection, nondistended, normoactive bowel sounds, non-tender and non-distended Extremity normal capillary refill General Extremity: Negative for edema Skin no rashes or lesions noted General Skin Exam: no breakdown Neuro Neuro Narrative: Bilateral lower extremity weakness. Psych affect normal Appearance: appropriate Weight / BMI Weight Weight: 93.712 kg Body Mass Index (BMI) 29.6 ABG / Lab / Microbiology Data 12/29/23 06:30 12/26/23 05:10 Microbiology: Microbiology 12/28/23 11:57 Nasal Secretion SARS-CoV-2 Antigen (Rapid) - Final D/C Instructions Discharge Diet: No restrictions Discharge Activity: Return to Normal Activity, May Shower and Use Walker Weight Bearing Status: Weight bearing as tolerated Call your doctor if you observe: Fever of 101 or Higher, Inability to urinate, Inability to have a bowel movement, Shortness of breath, Dizziness, Fainting spells, Swelling in the ankles, Chest pain and Uncontrolled pain Additional Instructions: Discharge home with 01/04/2024, [facility] PT/OT/SN/PATIENT RELATIONS LIAISON/WAITER/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 Please Follow Up With: Emery Choi DO When: As scheduled. Meaningful Use Info Meaningful Use Meaningful Use Diagnoses (Choose all that apply): None applicable Ischemic Stroke Statin Dosing Therapy Reference: STATIN DOSE THERAPY REFERENCE: * Patients > 75 years receive moderate or high dose statin therapy. * Patients 75 years or YOUNGER should receive HIGH intensity statin dose unless contraindicated. You will be required to document reason for non-treatment if statin daily dose does not meet guidelines. HIGH DOSE STATIN THERAPY DAILY Atorvastatin > than or = to 40 mg Rosuvastatin > than or = to 20 mg Amlodipine + Atorvastatin > than or = to 2.5/40 mg Ezetimibe + Simvastatin 10/80 mg Simvastatin 80mg Discharge Plan Admission Admit Date/Time: 12/18/23 13:31 Primary Reason for Your Visit: Debility. 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 Discharge Orders/Prescriptions Prescriptions: New acetaminophen 500 mg Tablet 1,000 mg PO Q8 Qty: 0 0RF calcium carbonate 200 mg calcium (500 mg) Tablet,Chewable 1,000 mg PO Q4H PRN PRN (Reason: Indigestion) Qty: 0 0RF menthol [Blue Gel] 2 % Gel 1 applic topical TID PRN PRN (Reason: Pain Score 1-10) Qty: 0 0RF Promacta 50 mg Tablet 50 mg PO DAILY Qty: 0 0RF pantoprazole 40 mg Tablet,Delayed Release (Dr/Ec) 40 mg PO DAILY 30 Days Qty: 30 0RF Continued venlafaxine [Effexor XR] 75 mg capsule,extended release 24hr 150 mg PO DAILY calcium carbonate [Calcium 500] 500 mg calcium (1,250 mg) Tablet 1,000 mg PO DAILY tamsulosin 0.4 mg capsule 0.4 mg PO DAILY losartan 50 mg tablet 50 mg PO DAILY metoprolol succinate 50 mg tablet extended release 24 hr 50 mg PO DAILY Patient Comments: [NO ORIGINAL SIG] multivitamin Tablet 1 tab PO DAILY melatonin 5 mg capsule 5 mg PO QHS PRN PRN (Reason: insomnia) amiodarone 200 mg Tablet 200 mg PO DAILY Qty: 1 0RF Discontinued atorvastatin 80 mg Tablet 80 mg PO DAILY Eliquis 5 mg Tablet 5 mg PO BID aspirin [Riri Low Dose Aspirin] 81 mg Tablet,Delayed Release (Dr/Ec) 81 mg PO DAILY acetaminophen 500 mg Tablet 1,000 mg PO Q8 Qty: 0 0RF lidocaine 5 % Adhesive Patch,Medicated 1 patch topical DAILY Qty: 15 0RF Protocol: *Topical Application Instructions APPLICATION INSTRUCTIONS: affected area oxycodone 5 mg Tablet 5 mg PO Q6H PRN PRN (Reason: Pain Score 4-10 Or Pre Pt/Ot) 1 Days Qty: 4 0RF Ensure Compact Liquid 118 ml PO TIDCM Qty: 0 0RF tizanidine 2 mg Tablet 2 mg PO Q8H PRN PRN (Reason: Muscle spasm and pain) Qty: 0 0RF pantoprazole 40 mg Tablet,Delayed Release (Dr/Ec) 40 mg PO DAILY Qty: 0 0RF Artificial Tears([id number]) 1-0.2-0.2 % Drops 1 drp EACH EYE Q1H PRN (Reason: DRY EYES) Qty: 0 0RF Referrals / Follow Up: Benedicto Hinson DO [Primary Care Provider] - Disposition Disposition (needs filled in before D/C Order can be placed): Home Health Service
[2024-01-02] MEDS: Acetaminophen 500 MG Tablet 1000 MG PO ×3 (05:09→21:23)
[2024-01-02 05:33] VITALS: PULSE 62; O2SAT 96
[2024-01-02 05:42] LABS: Absolute Lymphocyte Count 1.28 X10^3/uL (0.83-4.51); Absolute Neutrophil Count 4.4 X10^3/uL (2.0-7.7); Basophil# 0.02 X10^3/uL; Basophil% 0.3 % (0-1); Eosinophil# 0.26 X10^3/uL; Eosinophils% 3.9 % (0-5); Hematocrit 38.9 % (40-54); Hemoglobin 13.5 g/dL (13.0-16.5); Lymphocyte # 1.28 X10^3/ul (0.83-4.51); Lymphocyte % 19.2 % (19-41); Mean Corp Hgb Conc 34.7 g/dL (32-36); Mean Corpuscular Hgb 32.5 pg (27.0-32.0); Mean Corpuscular Volume 93.7 fL (80-94); Mean Platelet Vol. 11.5 fl (6.2-12.0); Monocyte# 0.63 X10^3/uL; Monocyte% 9.4 % (0-10); NRBC Flagged by Analyzer 0 % (0-5); Neutrophil # 4.41 X10^3/uL (2.7-7.7); Neutrophil % 66.2 % (47-70); POSITIVE COUNT YES; Platelet Count 76 K/mm3 (150-450); RBC Distribution Width CV 15.1 % (11.6-14.6); RBC Distribution Width SD 51.6 fl (35.1-43.9); Red Blood Count 4.15 M/mm3 (4.6-6.2); White Blood Count 6.7 K/mm3 (4.4-11.0)
[2024-01-02 06:04] LABS: Anion Gap 7 (5-15); BUN 24 mg/dL (7-18); BUN/Creat Ratio 30.3 RATIO (10-20); Calcium,Total 8.3 mg/dL (8.5-10.1); Chloride 106 mmol/L (98-107); Creatinine, Serum 0.79 mg/dL (0.70-1.30); EST Glomerular Filtration Rate 99 mL/min (>60); Est Glom Filt Rate - Afr Amer 120 mL/min (>60); Estimated Creatinine Clearance 81.85 ml/min; Glucose 118 mg/dL (74-106); Sodium Level 135 mmol/L (136-145)
--- NOTE | 2024-01-02 08:25 | CASEMGMT ---
Addendum entered by Ronni Stone 01/02/24 11:58: ROMANA spoke with [facility] [employer], Amira to discuss acceptance for home health care services. 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 ROMANA requested that daughter, Luisa to be contacted to arrange home health care services. ROMANA informed patient that he has been accepted by [facility] PT/OT/SN/CANDLE POURER/SOLE CUTTER services for start of care on Sunday. Original Note: A-Social Work- Discharge plans SW received a call from patient's daughter, Trinity to discuss discharge plans. Trinity informed SW that she spoke with her family about discharge; family would like to discharge home with additional supports in place. Trinity informed ROMANA that the patient's daughters have a list home health aids and companies that they will contact to arrange additional support for the patient. ROMANA informed Trinity that the patient received a list of home health care providers in preferred geographic area, medical needs, and insurance needs via [employer]. Trinity informed ROMANA that she spoke with patient and the family would like to have home health care; no preference of agency at this time. Trinity inquired about time to transport patient on 01/04/2024. ROMANA informed Trinity that patient can discharge between 11A-1P. Trinity informed ROMANA that she will work to identify care to support patient on Sunday. SW to submit home health care services via [employer]. Trinity informed ROMANA that she will have a difficult time getting patient in the car. ROMANA informed Trinity that family has been informed of training with therapy to assist with training for car transfers. ROMANA informed Trinity that family can schedule training today and tomorrow between 9A-3P. Trinity informed ROMANA that she will notify her siblings. Trinity informed ROMANA that she would like sister, Jeny contacted to arrange home health care services. Discharge: Home Health PT/OT/SN/CANDLE POURER/SOLE CUTTER ANGELLA Carranza
[2024-01-02] MEDS: Amiodarone 200 MG Tablet PO (08:47)
[2024-01-02] MEDS: Calcium (Elemental) 500 MG Tablet 1000 MG PO (08:47)
[2024-01-02] MEDS: Tamsulosin HCl 0.4 MG Capsule PO (08:47)
[2024-01-02] MEDS: Multivitamins,Therapeutic Tablet 1 TABLET PO (08:47)
[2024-01-02] MEDS: Losartan Potassium 50 MG Tablet PO (08:48)
[2024-01-02] MEDS: ELTROMBOPAG OLAMINE 50 MG PO (08:48)
[2024-01-02] MEDS: Venlafaxine XR 150 MG Capsule PO (08:48)
[2024-01-02 08:49] VITALS: BP 129/69; PULSE 63
[2024-01-02] MEDS: Metoprolol(XL)Succ 50 MG Tablet PO (08:49)
[2024-01-02] MEDS: Pantoprazole Sodium 40 MG Tablet PO (08:49)
[2024-01-02] MEDS: Senna/Docusate Sodium 1 Tablet PO ×2 (08:49→21:24)
[2024-01-02 08:52] VITALS: BP 129/69; PULSE 63
--- NOTE | 2024-01-02 11:21 | NURSING ---
PER ORDER,LABS FAXED TO OFFICE.
[2024-01-02 14:07] VITALS: BP 106/48; PULSE 58; RESP 17; TEMP 36.7; O2SAT 98
[2024-01-03] MEDS: Acetaminophen 500 MG Tablet 1000 MG PO ×3 (05:11→20:39)
[2024-01-03] MEDS: Tamsulosin HCl 0.4 MG Capsule PO (07:37)
[2024-01-03] MEDS: Calcium (Elemental) 500 MG Tablet 1000 MG PO (07:37)
[2024-01-03] MEDS: Amiodarone 200 MG Tablet PO (07:37)
[2024-01-03] MEDS: Multivitamins,Therapeutic Tablet 1 TABLET PO (07:37)
[2024-01-03] MEDS: Losartan Potassium 50 MG Tablet PO (07:38)
[2024-01-03] MEDS: Venlafaxine XR 150 MG Capsule PO (07:38)
[2024-01-03 07:39] VITALS: BP 143/63; PULSE 62
[2024-01-03] MEDS: Pantoprazole Sodium 40 MG Tablet PO (07:39)
[2024-01-03] MEDS: Metoprolol(XL)Succ 50 MG Tablet PO (07:39)
[2024-01-03] MEDS: Senna/Docusate Sodium 1 Tablet PO ×2 (07:39→20:39)
[2024-01-03 07:42] VITALS: BP 143/63; PULSE 62
[2024-01-03] MEDS: ELTROMBOPAG OLAMINE 50 MG PO (09:39)
--- NOTE | 2024-01-03 13:18 | MDS.RN ---
Pain interview for MDS completed.
[2024-01-03 13:30] VITALS: PULSE 64; RESP 18; O2SAT 97
[2024-01-03 13:41] VITALS: BP 135/86; PULSE 64; RESP 16; TEMP 36.8; O2SAT 97
[2024-01-04] MEDS: Acetaminophen 500 MG Tablet 1000 MG PO (05:23)
[2024-01-04 09:01] VITALS: BP 136/64; PULSE 65
[2024-01-04] MEDS: Metoprolol(XL)Succ 50 MG Tablet PO (09:01)
[2024-01-04] MEDS: Calcium (Elemental) 500 MG Tablet 1000 MG PO (09:01)
[2024-01-04] MEDS: Venlafaxine XR 150 MG Capsule PO (09:01)
[2024-01-04] MEDS: Losartan Potassium 50 MG Tablet PO (09:01)
[2024-01-04] MEDS: Tamsulosin HCl 0.4 MG Capsule PO (09:01)
[2024-01-04] MEDS: Multivitamins,Therapeutic Tablet 1 TABLET PO (09:01)
[2024-01-04] MEDS: Senna/Docusate Sodium 1 Tablet PO (09:01)
[2024-01-04] MEDS: Pantoprazole Sodium 40 MG Tablet PO (09:01)
[2024-01-04] MEDS: Amiodarone 200 MG Tablet PO (09:01)
[2024-01-04 11:04] VITALS: BP 136/64; PULSE 65; RESP 16; TEMP 36.3; O2SAT 95
--- NOTE | 2024-01-04 13:00 | CASEMGMT ---
MDS DISCHARGE ASSESSMENT Information for the MDS assessment was obtained from review social work notes and the clinical record.? BIMS , PHQ9 12/16.? ? No noted indications of behaviors.? ? Patient appears to have been actively involved and engaged in discharge plans. -MANISH Norman? ??
== END 2024-01-04 11:00 | disposition home health service (06) | DRG 841 ==
PROVIDERS: Internal Medicine Hematology & Oncology; Admitting Provider Family Medicine Geriatric Medicine; PCP Family Medicine; Visit Provider Family Medicine Geriatric Medicine
DX: C85.89 Other specified types of non-Hodgkin lymphoma, extranodal and solid organ sites (principal); D69.3 Immune thrombocytopenic purpura; G72.0 Drug-induced myopathy; I48.91 Unspecified atrial fibrillation; F32.A Depression, unspecified; I10 Essential (primary) hypertension; E78.5 Hyperlipidemia, unspecified; K21.9 Gastro-esophageal reflux disease without esophagitis; I25.10 Atherosclerotic heart disease of native coronary artery without angina pectoris; M62.830 Muscle spasm of back; R29.898 Other symptoms and signs involving the musculoskeletal system; Z79.01 Long term (current) use of anticoagulants; N40.0 Benign prostatic hyperplasia without lower urinary tract symptoms; Z79.82 Long term (current) use of aspirin; G47.00 Insomnia, unspecified; Z79.899 Other long term (current) drug therapy; T50.905D Adverse effect of unspecified drugs, medicaments and biological substances, subsequent encounter
CPT/HCPCS: 36415; 80048; 82962; 85025; 87811; 97110; 97116; 97162; 97166; 97530; 97535; 97802

== ENCOUNTER → 2024-02-20 | Outpatient (CLI) | payer MEDICARE, SELFPAY ==
--- NOTE | 2024-02-20 14:50 | NEURO_ITS ---
NCS and/or EMG Patient Report Ordering Doctor: Oniel Argueta Chi DATE OF SERVICE: 02/20/24 Richard presents with complaints of stiffness, tightness and weakness in both legs. Electrodiagnostic findings: Testing was performed in the lower limbs. The test was complicated by 2-3+ pitting edema. Right peroneal nerve demonstrates normal distal latency with reduced amplitude. Conduction velocity cannot be obtained as proximal response was not obtainable. Left peroneal motor nerve demonstrates normal distal latency and amplitude with a drop in conduction velocity in amplitude across the fibular head. Right tibial motor nerve demonstrates normal distal latency with normal amplitude and reduced conduction velocity. Left tibial motor nerve demonstrates normal distal latency and amplitude with reduced conduction velocity. Prolonged F-waves. H- reflexes were not obtainable. Sensory responses were not obtainable. Needle EMG testing was performed in the lower limbs motor units of increased amplitude and duration noted bilaterally in tibialis anterior and peroneus longus. Electrodiagnostic impression: This is an abnormal study in the lower limbs 1. 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 There is a combination of demyelination and axonal loss. 2. No electrodiagnostic evidence is noted for lumbosacral radiculopathy. Multi Select Codes Neurology Neurology Interp Codes: 90523-05 Musc tst done w/nerv tst [place] (interp) (2) and 18772-21 Nrv cndj test 11-12 studies (interp)
== END | disposition home or self-care (01) ==
LOC: PSN 08:19
PROVIDERS: PCP Family Medicine; Referring Provider Family Medicine Geriatric Medicine; Visit Provider Family Medicine Geriatric Medicine
DX: R29.898 Other symptoms and signs involving the musculoskeletal system (principal)
CPT/HCPCS: 95886; 95911

== ENCOUNTER → 2024-03-18 | Outpatient (CLI) | payer MEDICARE, SELFPAY ==
--- NOTE | 2024-03-18 07:35 | MRI_ITS ---
EXAM: MR HEAD WITHOUT AND WITH INTRAVENOUS CONTRAST CLINICAL INDICATION: Complex Care Coordination -- 6 mos F/U brain tumor removed TECHNIQUE: Multiplanar and multisequence MR images of the brain were obtained without and with intravenous contrast. CONTRAST: IV 16ml Clariscan COMPARISON: MR Head dated dec 12 2023 September 05 2023 and May 24 2023 FINDINGS: BRAIN AND EXTRA-AXIAL SPACES: Increased T2 signal intensity within the cerebral white matter suggestive of chronic microvascular change. Prominence of the cortical sulci and ventricles related to volume loss change. Posterior fossa is normal. Basilar cisterns are patent. SELLA: Normal. Normal sella turcica, pituitary gland, infundibular stalk, optic chiasm and hypothalamus. AUDITORY SYSTEM: Normal. The internal auditory canals are patent. BONES/JOINTS: Residual cystic change within the right occipital lobe at the site of prior surgery. Small focus of laminar necrosis is unchanged. There is no appreciable contrast enhancement of the lesion. No evidence of residual or recurrent neoplasm. SINUSES: Stable mucous retention cyst along the right petrous apex. Right parieto-occipital craniectomy defect again seen. Mucosal thickening of the paranasal sinuses. MASTOID AIR CELLS: Unremarkable as visualized. Clear. ORBITS: Unremarkable as visualized. Both globes, extraocular muscles, optic nerves and retrobulbar fat appear unremarkable. VASCULATURE: Unremarkable as visualized. Normal flow voids in the major intracranial circulation. MRI/Brain W/WO Contrast IMPRESSION: No interval change. No evidence of residual or recurrent neoplasm. Electronically Signed: Abhinav Browne MD at 9:08 EDT ,
[2024-03-18 08:09] LABS: CREATININE FINGERSTICK 1.2 mg/dL (0.70-1.30); EGFR FINGERSTICK > 60.0000 mL/min (>60)
== END | disposition home or self-care (01) ==
LOC: MRI 07:26
PROVIDERS: PCP Family Medicine
DX: C85.80 Other specified types of non-Hodgkin lymphoma, unspecified site (principal); Z71.89 Other specified counseling
CPT/HCPCS: 70553; A9575

== ENCOUNTER → 2024-09-10 | Outpatient (CLI) | payer MEDICARE, SELFPAY ==
--- NOTE | 2024-09-10 13:38 | MRI_ITS ---
PROCEDURE: MR brain without and width IV contrast REASON FOR EXAM: Lymphoma TECHNIQUE: Multisequence multiplanar MR images of the brain were obtained before and after the administration of intravenous contrast. Imaging sequences were performed to best displaced suspected pathology. COMPARISON: 03/18/2024 FINDINGS: No diffusion restriction to suggest acute/subacute ischemia. No evidence of acute intracranial hemorrhage, midline shift or mass effect. Mild/moderate generalized cerebral atrophy and chronic small-vessel ischemic changes. Surgical resection cavity in the right occipital lobe with overlying craniotomy changes and mild surrounding gliosis. No suspicious enhancement. Globes are intact. Near complete opacification of the bifrontal sinuses and anterior left ethmoid air cells. Mastoid air cells are relatively clear. MRI/Brain W/WO Contrast IMPRESSION: 1. No acute intracranial abnormality. 2. Stable postsurgical changes of the right occipital lobe. No suspicious enhan cement. 3. Bifrontal sinusitis, potentially acute. Please correlate. Reading Location: [facility]
== END | disposition home or self-care (01) ==
LOC: MRI 13:12
PROVIDERS: PCP Family Medicine
DX: C85.89 Other specified types of non-Hodgkin lymphoma, extranodal and solid organ sites (principal)
CPT/HCPCS: 70553; A9575

== ENCOUNTER → 2024-09-26 | Outpatient (CLI) | payer MEDICARE, SELFPAY ==
--- NOTE | 2024-09-26 12:35 | MRI_ITS ---
PROCEDURE: SPINE LUMBAR W/WO CONTRAST REASON FOR EXAM: LOW BACK PAIN WITH SCIATICA BILATERAL TECHNIQUE: Multisequence multiplanar MR imaging of the lumbar spine was performed with and without IV contrast. Contrast: 20 mL Clariscan. COMPARISON: 12/12/2023; only the images are available for review, the report is not available at the time of dictation. FINDINGS: Similar L1 anterior wedge compression deformity, otherwise vertebral body heights are preserved. Heterogeneous background marrow signal without frankly destructive or discrete/suspicious bony lesion identified, grossly similar to prior postcontrast imaging allowing for technical differences. No abnormal enhancement. Similar trace likely degenerative retrolisthesis at L1-L2 and L2-L3. Similar trace to mild thoracolumbar dextroscoliosis. Conus medullaris terminates normally at the L1 level. Unremarkable appearance of the cauda equina without abnormal enhancement. Diffuse disc desiccation with additional level by level findings as below: T12-L1: Mild diffuse disc bulging. No significant spinal canal or foraminal stenosis. L1-2: Mild disc uncovering related to retrolisthesis as above. Very small right foraminal and lateral disc protrusion. Mild facet arthropathy with trace effusion on the left. Mild ligamentum flavum hypertrophy. No significant spinal canal or foraminal stenosis. L2-3: Mild disc uncovering related to retrolisthesis as above. Fqtwc-vkwgowx-lspp-left foraminal and lateral disc protrusions. Ligamentum flavum hypertrophy. Vovk-fgimzvo-zzzd-right facet arthropathy. Mild/moderate spinal canal stenosis with incomplete effacement of CSF. Mild yptmx-scbpgrn-fahq-left foraminal stenosis. Narrowing of the tpah-uptopfv-wnyy-right lateral recesses. L3-4: Diffuse disc bulging with superimposed small posterior central disc protrusion. Ligamentum flavum hypertrophy. Mild facet arthropathy. Mild/moderate focal spinal canal stenosis with incomplete effacement of CSF. Mild/moderate right and mild left foraminal stenosis. Mild narrowing of the bilateral lateral recesses. L4-5: Diffuse disc bulging with superimposed larger than left foraminal disc protrusions. Ligamentum flavum hypertrophy. Mild facet arthropathy with tiny effusion on the left. Mild focal spinal canal stenosis with incomplete effacement of CSF. Mild right foraminal stenosis. L5-S1: Severe loss of disc height with diffuse disc bulging. No focal spinal canal stenosis. Mild pazoi-rtjuuif-kxeq-left foraminal stenosis. Other: Diverticulosis and splenomegaly on the cleaner and dyer. Partially imaged presumed left renal cysts, not well evaluated. MRI/Spine Lumbar W/WO Contrast IMPRESSION: 1. Multilevel spondylosis as detailed above. No high-grade spinal canal or for aminal stenosis identified. 2. Grossly similar nonspecific marrow heterogeneity since 12/12/2023 allowing f or technical differences. Correlate for possible causes of marrow recruitment such as smoking, chronic anemia, chronic pulmonary disease, diabetes, or obesity. 3. Splenomegaly. 4. Additional description as above. Reading Location: [id number]
== END | disposition home or self-care (01) ==
PROVIDERS: PCP Family Medicine; Referring Provider Internal Medicine Hematology & Oncology; Visit Provider Internal Medicine Hematology & Oncology
DX: C61 Malignant neoplasm of prostate (principal); C77.2 Secondary and unspecified malignant neoplasm of intra-abdominal lymph nodes; D46.Z Other myelodysplastic syndromes; R29.898 Other symptoms and signs involving the musculoskeletal system; M54.41 Lumbago with sciatica, right side; M54.42 Lumbago with sciatica, left side; G89.29 Other chronic pain
CPT/HCPCS: 72158; A9575